=== PATIENT | female | born 1985 | race Caucasian/White ===

== ENCOUNTER 2023-01-02 15:41 | Outpatient (OUT) | payer BC, SELFPAY ==
[2023-01-02 16:03] LABS: Basophils Absolute Auto 0.1 10^3/uL (0.0-0.1); Basophils Percent Auto 1.1 % (0.2-2.0); Eosinophils Absolute Auto 0.4 10^3/uL (0.0-0.7); Eosinophils Percent Auto 3.7 % (0.9-7.0); Hemoglobin 13.1 g/dL (12.0-16.0); Immature Granulocytes Abs Auto 0.07 10^3/uL (0.00-0.03); Immature Granulocytes Pct Auto 0.7 % (0.0-0.5); Lymphocytes Percent Auto 29.1 % (20.5-60.0); Mean Corpuscular HGB Conc 32.8 g/dL (29.9-35.2); Mean Corpuscular Hemoglobin 29.5 pg (26.7-34.0); Mean Corpuscular Volume 90.1 fL (81.0-99.0); Mean Platelet Volume 10.8 fL (9.5-13.5); Monocytes Absolute Auto 0.8 10^3/uL (0.3-0.8); Monocytes Percent Auto 7.9 % (1.7-12.0); Neutrophils Percent Auto 57.5 % (43.0-75.0); Platelet Count 211 10^3/uL (150-450); Red Blood Count 4.44 10^6/uL (4.20-5.40); Red Cell Distribution Width 13.6 % (11.0-15.0); White Blood Count 10.5 10^3/uL (4.0-11.0)
[2023-01-02 16:54] LABS: Free T4 1.11 ng/dL (0.76-1.46)
== END 2023-01-02 15:42 ==
LOC: LAB 15:41
DX: N93.9 Abnormal uterine and vaginal bleeding, unspecified (principal)
CPT/HCPCS: 36415; 84439; 84443; 85025

== ENCOUNTER 2023-01-06 17:03 | Outpatient (OUT) | payer BC, SELFPAY ==
--- NOTE | 2023-01-06 17:05 | US_ITS ---
[address] [address] Patient Name: JUANIS ALVAREZ MRN: [id number] date: 1985 Sex: F Assigned Patient Location: Current Patient Location: US Accession/Order Number: [id number] Exam Date: 01/06/2023 17:08 Report Date: 01/07/2023 06:20 At the request of: NON-STAFF PHYSICIAN Procedure: US pelvis w/ transvaginal EXAMINATION: US pelvis w/ transvaginal HISTORY: PELVIC PAIN R10.2, HX OF OVARIAN CYST Z87.42 COMPARISON: No relevant comparison available. TECHNIQUE: Transabdominal and/or transvaginal sonographic examination was performed as indicated by examination type. FINDINGS: UTERUS: Normal size and appearance. Uterus size: 2.0 x 3.6 x 4.5 cm ENDOMETRIUM: Normal homogeneous appearance. Endometrial thickness: 6 mm RIGHT OVARY: Normal size and appearance. Duplex Doppler demonstrates normal waveform and flow; resistive index 0.5. Ovary size: 2.1 x 2.8 x 2.2 cm LEFT OVARY: Normal size and appearance. Duplex Doppler demonstrates normal waveform and flow; resistive index 0.4. Ovary size: 3.3 x 2.2 x 2.2 cm CUL-DE-SAC: Unremarkable. No significant free fluid. BLADDER: Unremarkable. OTHER: None. IMPRESSION: 1. Normal pelvic ultrasound. No abnormal or suspicious findings to account for patient's symptoms. Electronically authenticated by: CINTHYA DENNIS Date: 01/07/2023 06:20
== END 2023-01-06 17:04 ==
LOC: US 17:03
DX: R10.2 Pelvic and perineal pain (principal); Z87.42 Personal history of other diseases of the female genital tract; N93.9 Abnormal uterine and vaginal bleeding, unspecified
CPT/HCPCS: 76830; 76856

== ENCOUNTER 2023-03-16 22:45 | Emergency (ER) | payer BC, SELFPAY ==
--- NOTE | 2023-03-16 00:12 | CT_ITS ---
The [address] [address] Patient Name: JUANIS ALVAREZ MRN: [id number] date: 1985 Sex: F Assigned Patient Location: ER Current Patient Location: ER Accession/Order Number: [id number] Exam Date: 03/16/2023 00:12 Report Date: 03/17/2023 00:41 At the request of: JIMYM STEWART Procedure: CT head/brain wo con HEAD CT WITHOUT CONTRAST: 03/16/2023 12:12 AM EDT Clinical Data: right neck pain r/o mastoiditis Comparison: 02/23/2022 Unenhanced axial data from base to vertex. INTRA-AXIAL: No acute hemorrhage. No acute infarction is evident. Again, there is mild right cerebellar tonsillar ectopia. EXTRA-AXIAL: No acute hemorrhage. No focal fluid collection. BRAIN VOLUME: Unremarkable for age. VENTRICLES: No hydrocephalus PARANASAL SINUSES: No air-fluid levels in the included aspects. MASTOIDS: Clear. Grossly, the middle ear cavities appear unremarkable as examined at fairly thick sections. The right jugular bulb is dominant and high riding. Its osseous margins could be dehiscent CALVARIUM: No acute finding. EXTRACALVARIAL: No acute finding. No soft tissue prominence overlying the included right mastoid region. The right external auditory canal is widely patent. CT/CT head/brain wo con IMPRESSION: 1. No distinct evidence of acute intracranial process on this unenhanced study as described. 2. See report for other details All CT scans at this facility use dose modulation, iterative reconstruction, and/or weight based dosing when appropriate to reduce radiation dose to as low as reasonably achievable. Electronically authenticated by: KUMAR WEAVER Date: 03/17/2023 00:41
[2023-03-16 23:00] VITALS: BP 160/98; PULSE 108; RESP 18; TEMP 36.9; O2SAT 100; BMI 48.6
--- NOTE | 2023-03-16 23:30 | ED.EAR1 ---
HPI - Ear Problem General Chief complaint: Ear Stated complaint: Pain behind right ear Time Seen by Provider: 03/16/23 23:27 Source: patient Mode of arrival: walk-in Limitations: no limitations History of Present Illness HPI Narrative: patient presents complaining behind her right ear for a couple of weeks. Increasing pain over the past 3 days. No fever or dizziness. No associated headache or nausea. MD Complaint: Reports ear pain Related Data Allergies Allergy/AdvReac Type Severity Reaction Status Date / Time codeine Allergy Severe Verified 03/16/23 23:16 Review of Systems ROS Status of ROS 10 or more systems reviewed and unremarkable except as noted in history and below PFS PFS Social History Smoking status: Never smoker Exam Constitutional Vital Signs, click to edit/add: Last Vital Signs Temp 98.4 F 03/16/23 23:00 Pulse 108 H 03/16/23 23:00 Resp 18 03/16/23 23:00 BP 160/98 H 03/16/23 23:00 Pulse Ox 100 03/16/23 23:00 O2 Del Method Room Air 03/16/23 23:00 HENMT Common normals: normocephalic and head/scalp atraumatic Other: tender right mastoid and posterior cervical chain Eye Common normals: PERRL, EOMs intact bilaterally and conjunctivae normal Respiratory Common normals: normal respiratory effort, no retractions, no use of accessory muscles and clear to auscultation bilaterally Cardio Common normals: regular rate, regular rhythm, S1 normal heart sound and S2 normal heart sound Extremity Common normals: normal to inspection and full ROM Neuro Common normals: oriented x3, CN's II-XII intact bilaterally, moves all extremities, no focal motor deficits and no sensory deficits noted Psych Appearance: grossly normal Course Vital Signs Vital signs: Vital Signs Temperature 98.4 F 03/16/23 23:00 Pulse Rate 108 H 03/16/23 23:00 Respiratory Rate 18 03/16/23 23:00 Blood Pressure 160/98 H 03/16/23 23:00 Pulse Oximetry 100 03/16/23 23:00 Oxygen Delivery Method Room Air 03/16/23 23:00 Temperature 98.4 F 03/16/23 23:00 Pulse Rate 108 H 03/16/23 23:00 Respiratory Rate 18 03/16/23 23:00 Blood Pressure 160/98 H 03/16/23 23:00 Pulse Oximetry 100 03/16/23 23:00 Oxygen Delivery Method Room Air 03/16/23 23:00 Medical Decision Making MDM Narrative Medical decision making narrative: patient presents complaining of pain behind her right ear. she has tenderness at the right mastoid and posterior cervical chain. No palpable nodes. WBC elevated . no clinical evidence of infection and she is afebrile. CT maitoid and soft tissue neck unremarkable as well. Patient advised of the lack of any findings so far to explain her symptoms. Will trial prednisone anti inflammatory to see if this helps. Motrin would help but only for a short while. Discharged home to follow up with her doctor in a couple of days for recheck Discharge Plan Discharge Chief Complaint: Ear Clinical Impression: Posterior auricular pain of right ear Patient Disposition: Home, Self-Care Instructions: Earache (ED) Additional Instructions: follow up with your doctor in a couple of days for recheck Stand Alone Forms: Portal Instructions Referrals: Physician,Non-Staff, MD [Primary Care Provider] - 1 week
--- NOTE | 2023-03-16 23:32 | CT_ITS ---
The [address] [address] Patient Name: JUANIS ALVAREZ MRN: [id number] date: 1985 Sex: F Assigned Patient Location: ER Current Patient Location: ER Accession/Order Number: [id number] Exam Date: 03/16/2023 00:12 Report Date: 03/17/2023 00:47 At the request of: JIMMY STEWART Procedure: CT soft tissue neck wo con CT NECK WITHOUT CONTRAST. 03/16/2023 12:12 AM EDT Clinical History:right neck pain Comparison: Unenhanced study 12/16/2022 . Unenhanced helically acquired data per standard protocol. The lack of IV contrast material hampers evaluation of the vasculature, for enhancing fluid collections, and for adenopathy. MUCOSAL SPACES: Evaluation of the oral cavity and surrounding spaces is mildly limited by artifact from dental hardware. Mucosal spaces are grossly unremarkable in appearance PARAPHARYNGEAL FAT: Unremarkable PREEPIGLOTTIC FAT: Unremarkable PARALARYNGEAL FAT: Symmetric SUBMENTAL REGION: No adenopathy SUBMANDIBULAR REGIONS: No adenopathy CERVICAL LYMPH NODES: No distinct evidence of adenopathy. Nonenlarged nodes bilaterally, greatest in the suprahyoid IJV regions. No significant change. THYROID: Perhaps a little less than average in size TRACHEOESOPHAGEAL GROOVES: No acute finding PAROTID GLANDS: No acute finding SUBMANDIBULAR GLANDS: No acute findings SUBLINGUAL SPACES: No acute findings OTHER SOFT TISSUES: No soft tissue prominence overlying the right mastoid region or along the course of the right sternocleidomastoid muscle. No retropharyngeal soft tissue mass or fluid collection VASCULATURE: Right IJV is again dominant over the left OSSEOUS STRUCTURES: No acute finding LUNG APICES: No acute finding CT/CT soft tissue neck wo con IMPRESSION: 1. No distinct evidence of acute process on this unenhanced exam. All CT scans at this facility use dose modulation, iterative reconstruction, and/or weight based dosing when appropriate to reduce radiation dose to as low as reasonably achievable. Electronically authenticated by: KUMAR WEAVER Date: 03/17/2023 00:47
[2023-03-16 23:52] LABS: Basophils Absolute Auto 0.1 10^3/uL (0.0-0.1); Basophils Percent Auto 0.8 % (0.2-2.0); Eosinophils Absolute Auto 0.4 10^3/uL (0.0-0.7); Eosinophils Percent Auto 2.5 % (0.9-7.0); Hemoglobin 14.2 g/dL (12.0-16.0); Immature Granulocytes Abs Auto 0.24 10^3/uL (0.00-0.03); Immature Granulocytes Pct Auto 1.4 % (0.0-0.5); Lymphocytes Absolute Auto 4.5 10^3/uL (1.2-3.8); Mean Corpuscular Volume 87.8 fL (81.0-99.0); Mean Platelet Volume 9.5 fL (9.5-13.5); Monocytes Absolute Auto 1.6 10^3/uL (0.3-0.8); Monocytes Percent Auto 9.5 % (1.7-12.0); Neutrophils Absolute Auto 9.7 10^3/uL (1.4-6.5); Neutrophils Percent Auto 58.8 % (43.0-75.0); Platelet Count 340 10^3/uL (150-450); Red Cell Distribution Width 12.8 % (11.0-15.0); White Blood Count 16.6 10^3/uL (4.0-11.0)
[2023-03-17 00:16] LABS: Alanine Aminotransferase 18 U/L (14-59); Albumin Globulin Ratio 0.9; Albumin Level 3.7 g/dL (3.4-5.0); Alkaline Phosphatase 87 U/L (46-116); Anion Gap 11.3; Aspartate Amino Transferase 12 U/L (15-37); BUN Creatinine Ratio 14.6; Bilirubin Total 0.2 mg/dL (0.2-1.0); Calcium 9.2 mg/dL (8.5-10.1); Carbon Dioxide 27.5 mmol/L (21.0-32.0); Chloride 102 mmol/L (98-107); Estimated GFR (African America >60 (>=60); Estimated GFR (Non-African Ame >60 (>=60); Globulin 4.3 g/dL; Glucose 105 mg/dL (74-106); Potassium 3.8 mmol/L (3.5-5.1); Sodium 137 mmol/L (136-145)
[2023-03-17] MEDS: METHYLPREDNISOLONE SOD SUCC PF 125 MG/2 ML VIAL IM (01:19)
== END 2023-03-17 01:25 | disposition home or self-care (01) ==
PROVIDERS: Emergency Provider Internal Medicine
DX: H92.01 Otalgia, right ear (principal)
CPT/HCPCS: 36415; 70450; 70490; 80048; 80053; 85025; 96374; 99284; J2930

== ENCOUNTER 2023-07-07 11:26 | Emergency (ER) | payer BC, SELFPAY ==
[2023-07-07 11:29] VITALS: BP 138/104; PULSE 114; RESP 20; TEMP 36.7; O2SAT 99; BMI 48.1
--- NOTE | 2023-07-07 11:39 | US_ITS ---
The [place] [id number] Patient Name: JUANIS ALVAREZ MRN: [id number] date: 1985 Sex: F Assigned Patient Location: ER Current Patient Location: ED.MAIN Accession/Order Number: [id number] Exam Date: 07/07/2023 12:00 Report Date: 07/07/2023 12:33 At the request of: RADHA ESTRADA Procedure: US right upper quadrant US right upper quadrant, 07/07/2023 12:00 PM EST INDICATION:Epigastric pain. COMPARISON: CT of the abdomen and pelvis 04/28/2022 TECHNIQUE: Multi-planar real-time ultrasonography of the upper abdomen (right upper quadrant) using grayscale imaging, supplemented by color, power, and spectral Doppler as needed. FINDINGS: The visualized pancreas is unremarkable. The liver is 16 cmwith coarse increased echotexture. No intrahepatic ductal dilatation. Common bile duct 2.7mm Normal gallbladder. No gallbladder wall thickening or pericholecystic fluid. Negative sonographic Wolf's sign. The main portal vein is antegrade Right kidney: 10.8 x 4.5 x 4.8 cm. No hydronephrosis. Normal color Doppler to the right kidney. No ascites. US/US right upper quadrant IMPRESSION: Hepatomegaly with diffuse hepatic steatosis. Electronically authenticated by: MARIN GRIFFIN Date: 07/07/2023 12:33
--- NOTE | 2023-07-07 11:40 | ED_ITS ---
HPI - Abdominal Pain General Chief Complaint: Abdominal Pain Stated Complaint: ABDOMINAL PAIN Time Seen by Provider: 07/07/23 11:35 Source: patient Mode of arrival: walk-in Limitations: no limitations History of Present Illness HPI narrative: 38-year-old female presents for epigastric pain. She states she went to bed last night full and when she woke up she was still full and has pain in the epigastric area. No trauma or fever or vomiting. No constipation or diarrhea. She is worried she has a blockage. The pain is moderate and continuous. She feels better standing up. Related Data Previous Rx's Medication Instructions Recorded dicyclomine 10 mg capsule 10 mg PO QID PRN abdominal pain 07/07/23 #20 caps ondansetron 4 mg disintegrating 4 mg PO Q6H PRN nausea and 07/07/23 tablet vomiting #20 tabs Allergies Allergy/AdvReac Type Severity Reaction Status Date / Time codeine Allergy Severe Verified 03/16/23 23:16 Review of Systems ROS Narrative A ten point review of systems is negative except as noted above. PFSH PFSH Social History Smoking status: Never smoker Exam Narrative Exam Narrative: Nurses note and vital signs reviewed and patient is not hypoxic. General: The patient appears uncomfortable. She standing when I walk into the room. Skin: Warm, dry, no pallor noted. There is no rash noted. Head: Normocephalic, atraumatic Eye: Normal conjunctiva, no drainage Ears, Nose, Mouth, and Throat: oral mucosa is moist. Nares patent. Cardiovascular: Regular Rate and Rhythm Respiratory: Patient is in no distress, no accessory muscle use, lungs are clear to auscultation, no wheezing, rales or rhonchi Back: non-tender GI: tender in the epigastric area without mass or distention Musculoskeletal: The patient has no evidence of calf tenderness, no pitting edema, symmetrical pulses noted bilaterally Neurological: A&O, normal speech Psychiatric: Cooperative Constitutional Vital Signs, click to edit/add: Last Vital Signs Temp 98.1 F 07/07/23 11:29 Pulse 114 H 07/07/23 11:29 Resp 20 07/07/23 11:29 BP 138/104 H 07/07/23 11:29 Pulse Ox 99 07/07/23 11:29 O2 Del Method Room Air 07/07/23 11:29 Course Vital Signs Vital signs: Vital Signs Temperature 98.1 F 07/07/23 11:29 Pulse Rate 114 H 07/07/23 11:29 Respiratory Rate 20 07/07/23 11:29 Blood Pressure 138/104 H 07/07/23 11:29 Pulse Oximetry 99 07/07/23 11:29 Oxygen Delivery Method Room Air 07/07/23 11:29 Temperature 98.1 F 07/07/23 11:29 Pulse Rate 114 H 07/07/23 11:29 Respiratory Rate 20 07/07/23 11:29 Blood Pressure 138/104 H 07/07/23 11:29 Pulse Oximetry 99 07/07/23 11:29 Oxygen Delivery Method Room Air 07/07/23 11:29 MDM - Abdominal Pain MDM Narrative Medical decision making narrative: her workup here is negative including laboratory analysis and gallbladder ult rasound and CAT scan. No specific cause was found for her symptoms and she'll be treated symptomatically and is being discharged home. Treatment diagnosis and follow-up were discussed with the patient. Differential Diagnosis Differential diagnosis: Likely abdominal pain, constipation, diverticulitis, gastroenteritis, pancreatitis, small bowel obstruction and other (colitis, duodenitis, gastritis) Lab Data Attestation: I reviewed the patient's lab results. Labs: Lab Results 07/07/23 Range/Units 11:55 WBC 9.9 (4.0-11.0) 10^3/uL RBC 4.55 (4.20-5.40) 10^6/uL Hgb 13.5 (12.0-16.0) g/dL Hct 41.0 (36.0-48.0) % MCV 90.1 (81.0-99.0) fL MCH 29.7 (26.7-34.0) pg MCHC 32.9 (29.9-35.2) g/dL RDW 13.4 (11.0-15.0) % Plt Count 335 (150-450) 10^3/uL MPV 10.0 (9.5-13.5) fL Neut % (Auto) 65.0 (43.0-75.0) % Lymph % (Auto) 24.8 (20.5-60.0) % Howard % (Auto) 6.7 (1.7-12.0) % Eos % (Auto) 2.1 (0.9-7.0) % Baso % (Auto) 1.1 (0.2-2.0) % Neut # (Auto) 6.5 (1.4-6.5) 10^3/uL Lymph # (Auto) 2.5 (1.2-3.8) 10^3/uL Howard # (Auto) 0.7 (0.3-0.8) 10^3/uL Eos # (Auto) 0.2 (0.0-0.7) 10^3/uL Baso # (Auto) 0.1 (0.0-0.1) 10^3/uL Abs Immat Gran (auto) 0.03 (0.00-0.03) 10^3/uL Imm/Tot Granulo (auto) 0.3 (0.0-0.5) % Sodium 139 (136-145) mmol/L Potassium 3.7 (3.5-5.1) mmol/L Chloride 101 (98-107) mmol/L Carbon Dioxide 26.5 (21.0-32.0) mmol/L Anion Gap 15.2 BUN 10.0 (7.0-18.0) mg/dL Creatinine 0.87 (0.55-1.02) mg/dL Est GFR ( Amer) >60 (>=60) Est GFR (Non-Af Amer) >60 (>=60) BUN/Creatinine Ratio 11.5 Glucose 92 (74-106) mg/dL Calcium 9.1 (8.5-10.1) mg/dL Total Bilirubin 0.4 (0.2-1.0) mg/dL Direct Bilirubin 0.1 (0.0-0.2) mg/dL AST 17 (15-37) U/L ALT 39 (14-59) U/L Alkaline Phosphatase 96 (46-116) U/L Total Protein 7.8 (6.4-8.2) g/dL Albumin 3.9 (3.4-5.0) g/dL Globulin 3.9 g/dL Albumin/Globulin Ratio 1.0 Amylase 55 (25-115) U/L Lipase 26.0 (16.0-77.0) U/L Serum HCG, Qual Negative (NEGATIVE) Imaging Data CT abdomen, gallbladder ultrasound: Radiologist's impression: Procedure: US right upper quadrant US right upper quadrant, 07/07/2023 12:00 PM EST INDICATION:Epigastric pain. COMPARISON: CT of the abdomen and pelvis 04/28/2022 TECHNIQUE: Multi-planar real-time ultrasonography of the upper abdomen (right upper quadrant) using grayscale imaging, supplemented by color, power, and spectral Doppler as needed. FINDINGS: The visualized pancreas is unremarkable. The liver is 16 cmwith coarse increased echotexture. No intrahepatic ductal dilatation. Common bile duct 2.7mm Normal gallbladder. No gallbladder wall thickening or pericholecystic fluid. Negative sonographic Wolf's sign. The main portal vein is antegrade Right kidney: 10.8 x 4.5 x 4.8 cm. No hydronephrosis. Normal color Doppler to the right kidney. No ascites. IMPRESSION: Hepatomegaly with diffuse hepatic steatosis. Electronically authenticated by: MARIN GRIFFIN Date: 07/07/2023 12:33 Procedure: CT abdomen pelvis w con CT abdomen pelvis w con, 07/07/2023 12:55 PM EST INDICATION: Upper abd pain COMPARISON: CT the abdomen and pelvis 04/28/2022, right upper quadrant ultrasound 07/07/2023 TECHNIQUE: Axial images of the abdomen and pelvis were obtained after the administration of IV contrast. Multiplanar reformatted images were generated and reviewed as needed. Dose reduction techniques were achieved by using automated exposure control and/or adjustment of mA and/or kV according to patient size and/or use of iterative reconstruction technique. FINDINGS: No consolidation or effusion. Diffuse fatty infiltration within a mildly enlarged liver. The gallbladder, pancreas, spleen and adrenals are unremarkable. Symmetric nephrograms without evidence of obstruction. Nonobstructing calculus lower pole the left kidney. Subcentimeter cortical densities within the right kidney, too small to characterize. No ureteral or urinary bladder calculi. Arcuate morphology of the uterus. Multiple ovarian follicles with 2.3 cm dominant follicle within the left ovary. No aortic aneurysm. Small sliding hiatal hernia. No bowel obstruction or acute focal inflammation. Normal appendix. No pneumatosis, pneumoperitoneum or ascites no mesenteric or retroperitoneal lymphadenopathy. No acute fracture. IMPRESSION: 1. Dominant follicle within the left ovary. No other acute findings. 2. Hepatomegaly with diffuse hepatic steatosis. 3. Nonobstructing left nephrolithiasis. Electronically authenticated by: MARIN GRIFFIN Date: 07/07/2023 13:24 Discharge Plan Discharge Chief Complaint: Abdominal Pain Clinical Impression: Abdominal pain Patient Disposition: Home, Self-Care Time of Disposition Decision: 13:37 Condition: Good Mode of Transportation: Private Vehicle Prescriptions / Home Meds: New dicyclomine 10 mg capsule 10 mg PO QID PRN (Reason: abdominal pain) Qty: 20 0RF ondansetron 4 mg tablet,disintegrating 4 mg PO Q6H PRN (Reason: nausea and vomiting) Qty: 20 0RF Instructions: Abdominal Pain (ED) Stand Alone Forms: Portal Instructions Referrals: Physician,Non-Staff, MD [Primary Care Provider] - 1 week
[2023-07-07 12:08] LABS: Basophils Absolute Auto 0.1 10^3/uL (0.0-0.1); Basophils Percent Auto 1.1 % (0.2-2.0); Eosinophils Absolute Auto 0.2 10^3/uL (0.0-0.7); Eosinophils Percent Auto 2.1 % (0.9-7.0); Hemoglobin 13.5 g/dL (12.0-16.0); Immature Granulocytes Abs Auto 0.03 10^3/uL (0.00-0.03); Immature Granulocytes Pct Auto 0.3 % (0.0-0.5); Lymphocytes Absolute Auto 2.5 10^3/uL (1.2-3.8); Lymphocytes Percent Auto 24.8 % (20.5-60.0); Mean Corpuscular HGB Conc 32.9 g/dL (29.9-35.2); Mean Corpuscular Hemoglobin 29.7 pg (26.7-34.0); Mean Corpuscular Volume 90.1 fL (81.0-99.0); Monocytes Absolute Auto 0.7 10^3/uL (0.3-0.8); Monocytes Percent Auto 6.7 % (1.7-12.0); Neutrophils Absolute Auto 6.5 10^3/uL (1.4-6.5); Platelet Count 335 10^3/uL (150-450); Red Blood Count 4.55 10^6/uL (4.20-5.40); Red Cell Distribution Width 13.4 % (11.0-15.0); White Blood Count 9.9 10^3/uL (4.0-11.0)
[2023-07-07 12:19] LABS: HCG Qualitative NEGATIVE (NEGATIVE)
[2023-07-07 12:26] LABS: Alanine Aminotransferase 39 U/L (14-59); Albumin Level 3.9 g/dL (3.4-5.0); Alkaline Phosphatase 96 U/L (46-116); Amylase 55 U/L (25-115); Anion Gap 15.2; Aspartate Amino Transferase 17 U/L (15-37); BUN Creatinine Ratio 11.5; Bilirubin Direct 0.1 mg/dL (0.0-0.2); Bilirubin Total 0.4 mg/dL (0.2-1.0); Calcium 9.1 mg/dL (8.5-10.1); Carbon Dioxide 26.5 mmol/L (21.0-32.0); Chloride 101 mmol/L (98-107); Estimated GFR (African America >60 (>=60); Estimated GFR (Non-African Ame >60 (>=60); Globulin 3.9 g/dL; Glucose 92 mg/dL (74-106); Potassium 3.7 mmol/L (3.5-5.1); Sodium 139 mmol/L (136-145); Total Protein 7.8 g/dL (6.4-8.2)
--- NOTE | 2023-07-07 13:04 | CT_ITS ---
[address] [address] Patient Name: JUANIS ALVAREZ MRN: [id number] date: 1985 Sex: F Assigned Patient Location: ER Current Patient Location: ER Accession/Order Number: [id number] Exam Date: 07/07/2023 12:55 Report Date: 07/07/2023 13:24 At the request of: RADHA ESTRADA Procedure: CT abdomen pelvis w con CT abdomen pelvis w con, 07/07/2023 12:55 PM EST INDICATION: Upper abd pain COMPARISON: CT the abdomen and pelvis 04/28/2022, right upper quadrant ultrasound 07/07/2023 TECHNIQUE: Axial images of the abdomen and pelvis were obtained after the administration of IV contrast. Multiplanar reformatted images were generated and reviewed as needed. Dose reduction techniques were achieved by using automated exposure control and/or adjustment of mA and/or kV according to patient size and/or use of iterative reconstruction technique. FINDINGS: No consolidation or effusion. Diffuse fatty infiltration within a mildly enlarged liver. The gallbladder, pancreas, spleen and adrenals are unremarkable. Symmetric nephrograms without evidence of obstruction. Nonobstructing calculus lower pole the left kidney. Subcentimeter cortical densities within the right kidney, too small to characterize. No ureteral or urinary bladder calculi. Arcuate morphology of the uterus. Multiple ovarian follicles with 2.3 cm dominant follicle within the left ovary. No aortic aneurysm. Small sliding hiatal hernia. No bowel obstruction or acute focal inflammation. Normal appendix. No pneumatosis, pneumoperitoneum or ascites no mesenteric or retroperitoneal lymphadenopathy. No acute fracture. CT/CT abdomen pelvis w con IMPRESSION: 1. Dominant follicle within the left ovary. No other acute findings. 2. Hepatomegaly with diffuse hepatic steatosis. 3. Nonobstructing left nephrolithiasis. Electronically authenticated by: MARIN GRIFFIN Date: 07/07/2023 13:24
== END 2023-07-07 13:57 | disposition home or self-care (01) ==
PROVIDERS: Emergency Provider Emergency Medicine
DX: R10.13 Epigastric pain (principal)
CPT/HCPCS: 36415; 74177; 76705; 80048; 80076; 82150; 83690; 84703; 85025; 99285; Q9967

== ENCOUNTER 2025-05-10 15:50 | Outpatient (OUT) | payer BC, SELFPAY ==
--- NOTE | 2025-05-10 15:46 | ECG_ITS ---
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 Measurements Intervals [place] Rate: 92 P: 74 AR: 146 QRS: 75 QRSD: 93 T: 66 QT: 381 QTc: 474 Interpretive Statements SINUS RHYTHM Normal ECG Compared to ECG 04/28/2022 16:56:04 Sinus tachycardia no longer present ST (T wave) deviation no longer present Possible ischemia no longer present Electronically Signed On 05-10-2025 17:33:34 EDT by MAYA PLUMMER M.D.
--- OUTSIDE RECORDS SUMMARY | 2025-05-10 15:57 | XMS_ITS | CCD ---
Author Organization [facility] Care Team Providers Care Comic Book Artist Name Role Phone IDANIA RAE Referring Unavailable DECEMBER, SEAN Prince Primary Care Unavailable MYRNA TINOCO Admitting Unavailable MYRNA TINOCO Attending Unavailable DECEMBER, SEAN Prince Primary Care Unavailable DECEMBER, SEAN N Primary Care Unavailable MARIN DUNN Attending Unavailable DECEMBER, SEAN Prince Primary Care Unavailable KEVIN YBARRA Attending Unavailable IDANIA RAE Referring Unavailable DECEMBER, SEAN N Primary Care Unavailable Katrin Bailey Unavailable May, Sean Niki Primary Care Provider Akanksha Ma Attending Provider Eva Alexandra Unavailable Ivelisse Mittal Unavailable Amna Valerio Unavailable TAMIA .CORRIE Admitting Unavailable MISC, DR GAVIRIA Primary Care Unavailable TAMIA .CORRIE Attending Unavailable CORRIE DREW Consulting Unavailable ROLA, DR ARIS Culver Attending Unavailabl jhon MEADOWS .REGINALDO Consulting UnavailDR ARIS Winston Admitting Unavailabl e MISC, DR GAVIRIA Primary Care Unavailable SANTY HUBBARD Consulting Unavailable YASARAHI .LENNY Consulting Unavailable PAY ., DR LEE Admitting Unavailable MISC, DR GAVIRIA Primary Care Unavailable PAY ., DR LEE Attending Unavailable DONYA ARCHER Consulting Unavailable JIMMY STEWART Admitting Unavailable JIMMY STEWART Attending Unavailable JIMMY STEWART Consulting Unavailable CARLOS MANUEL IMTTAL Primary Care Unavailable SHAHID MACKENZIE Consulting Unavailable Aileen Kumar MD Primary Care Provider Seble Mittal NP, Carlos Manuel [place] Unavailable Aileen Kumar MD Primary Care Provider Aileen Kumar MD Primary Care Provider Jamal CALLISTHENICS INSTRUCTOR, [facility] Unavailable Jamal LEGAL FINANCIAL SPECIALIST-CALLISTHENICS INSTRUCTOR, [facility] er Reji Cunha Admitting Unavaila ble Sarmini, Reji Burdick Attending Unavaila ble Sarmini, Reji Burdick Referring Unavaila ble Joie Peacock Admitting Unavailable Joie Peacock Attending Unavailable Ericminstormy, Reji Gutierrezal Attending Unavaila ble Aileen Kumar MD Primary Care Provider Reji Cunha Attending Unavaila ble Sarmini, Reji Gutierrezal Attending Unavaila ble Sarmini, Reji Gutierrezal Referring Unavaila ble Sarmini, Reji Gutierrezal Admitting Unavaila ble Sarmini, Reji Gutierrezal Attending Unavaila ble Sarmini, Reji Burdick Referring Unavaila ble Sarmini, Reji Gutierrezal Admitting Unavaila ble CARLOS MANUEL MITTAL Admitting Unavailable CARLOS MANUEL MITTAL Attending Unavailable CARLOS MANUEL MITTAL Admitting Unavailable CARLOS MANUEL MITTAL Attending Unavailable CARLOS MANUEL MITTAL Referring Unavailable Joie Peacock Admitting Unavailable Joie Peacock Attending Unavailable Ericminstormy, Reji Gutierrezal Attending Unavaila ble Sarmini, Reji Burdick Attending Unavaila ble Sarmini, Reji Burdick Attending Unavaila ble Donnamiller LEGAL FINANCIAL SPECIALIST-CALLISTHENICS INSTRUCTOR, [facility] er Joie Peacock MD Primary Care Provider [phone] Jennifer Tariq APRN Attending Provider Jennifer Tariq Attending Unavailable Jennifer Tariq Admitting Unavailable NO FAMILY, PHYSICIAN Primary Care Unavailable [facility] Referring Unavailable [facility] Primary Care [facility]available [facility] Primary Care Unavailable LINA YEH Referring Unavailable DONNAMILLER, LANNY Primary Care Unavailable LINA IYER Attending Unavailable LINA IYER Referring Unavailable DONNAMILLER, LANNY Primary Care Unavailable NO FAMILY, PHYSICIAN Primary Care Provider Roxi benitez Jaymie HANS Brittany Bren Attending Provider CARLOS MANUEL MITTAL Attending Unavailable JOIE PEACOCK Attending Unavailable DONNAMILLERLANNY Attending Unavailab le DONNAMILLER, LANNY Mabry Attending Unavailab le DONNAMILLER, LANNY Mabry Attending Unavailab le BROWNJOSE Attending Unavailable JENNY CUELLAR Attending Unavailable ARCHER, LENNY Avila Referring Unavailable MITTAL, CARLOS MANUEL Carl[place] Attending Unavailable ARCHER, LENNY Avila Attending Unavailable ARCHER, LENNY T Referring Unavailable PEACOCKJOIE Attending Unavailable MITTAL, CARLOS MANUEL [place] Attending Unavailable BROWN, JOSE Mabry Attending Unavailable BROWNJOSE Referring Unavailable ROSIBELAILEEN GUZMAN Attending Unavailable ARCHER, LENNY T Referring Unavailable MITTAL, CARLOS MANUEL [place] Attending Unavailable ARCHER, LENNY Avila Attending Unavailable ARCHER, LENNY T Referring Unavailable ARCHER, LENNY T Referring Unavailable STORYJESSICA Attending Unavailable CARLOS MANUEL MITTAL Referring Unavailable KELBLEYVANDANA Attending Unavailable MITTAL, CARLOS MANUEL [place] Referring Unavailable KELBLEYVANDANA Attending Unavailable MITTAL, CARLOS MANUEL [place] Referring Unavailable STORYJESSICA Attending Unavailable MITTAL, CARLOS MANUEL [place] Referring Unavailable MITTAL, CARLOS MANUEL [place] Attending Unavailable DONNAMILLER, LANNY Mabry Attending Unavailab le MITTAL, CARLOS MANUEL [place] Attending Unavailable Allergies Allergy Classification Reported Allergen(s) Allergy Type Date of Onset Reaction(s) Facility diphenhydrAMINE (1 source) diphenhydrAMINE Drug Allergy 09-11-19 18 Unknown Reaction [facility] Opioid Agonists (1 source) Codeine Drug Allergy 09-11-19 18 Unknown Reaction [facility] (20 sources) Codeine; Translations: [codeine] Drug Allergy 07-24-20 17 anaphylaxis, Vomiting [facility] Work Phone: (4 sources) Acetaminophen / HYDROcodone; Translations: [Vicodin] Drug Allergy 05-12-19 [facility] (1 source) Codeine Drug Allergy 05-12-19 [facility] (20 sources) Acetaminophen / HYDROcodone; Translations: [HYDROCODONE-ACETA MINOPHEN] Drug Allergy 07-24-20 17 Nausea And Vomiting, GI intolerance, Vomiting [facility] (20 sources) Chlorhexidine; Translations: [CHLORHEXIDINE] Drug Allergy 07-31-20 23 blisters [facility] (20 sources) HYDROcodone; Translations: [HYDROCODONE] Drug Allergy 05-08-20 22 Other (See Comments) [facility] (6 sources) Hydrocodone-Guaife nesin Drug Allergy 11-06-19 21 Shortness of breath [facility] (7 sources) diphenhydrAMINE; Translations: [diphenhydramine] Drug Allergy 11-08-19 24 Unknown Reaction, Anxiety [facility] (3 sources) Chlorhexidine; Translations: [chlorhexidine topical] Drug Allergy [facility] (3 sources) Allergy Relief (Diphenhydramine HCl); Translations: [Allergy Relief (Diphenhydramine HCl)] Propensity to adverse reactions (disorder) [facility] (1 source) Codeine Drug Allergy 02-24-20 25 [facility] Medications Current Medications Medication Drug Class(es) Dates Sig (Normalized) Sig (Original) [id number] 200 actuat albuterol 0.09 mg/actuat metered dose inhaler (20 sources) beta2-Adrenergic Agonist Start: 12-15-2024 take 2 puff(s) by inhalation every four hours albuterol HFA 90 mcg/act inhaler Indications: Acute bronchospasm Inhale 2 puffs every 4 (four) hours if needed (Cough) 18 g 12/15/2024 Active Start: 12-15-2024 take 2 puff(s) by in halation every four hours as needed albuterol (PROVENTIL HFA;VENTOLIN HFA) 90 mcg/actuation inhaler Inhale 2 puffs every 4 (four) hours as needed. 12/15/2024 Active Start: 02-05-2023 take 2 puff(s) by in halation four times daily as needed Albuterol Sulfate HFA 108 (90 Base) MCG/ACT 2 puffs Inhalation 4 times a day prn Jan, Not-Taking Start: 02-05-2023 take 2 puff(s) by in halation four times daily as needed Albuterol Sulfate HFA 108 (90 Base) MCG/ACT 2 puffs Inhalation 4 times a day prn Jan, Not-Taking Start: 04-06-2022 take 2 puff(s) by in halation four times daily as needed Albuterol Sulfate HFA 108 (90 Base) MCG/ACT 2 puffs Inhalation 4 times a day prn Apr, Active ALPRAZolam 0.25 mg oral tablet (2 sources) Benzodiazepine Start: 05-03-2025 take 1 tablet by mouth three times daily as needed for anxiety ALPRAZolam (Xanax) 0.25 MG tablet Indications: Situational anxiety Take 1 tablet (0.25 mg) by mouth 3 (three) times a day as needed for anxiety 15 tablet 05/03/2025 Active amoxicillin 875 mg / clavulanate 125 mg oral tablet (11 sources) Penicillin-class Antibacterial Start: 12-15-2024 End: 12-22-2024 take 1 tablet by mouth in the morning amoxicillin-clavul anate (Augmentin) 875-125 MG tablet Indications: Acute bronchospasm , Throat irritation Take 1 tablet (875 mg) by mouth in the morning and 1 tablet (875 mg) before bedtime. Do all this for 7 days. 14 tablet 12/15/2024 12/22/2024 Active Start: 10-23-2024 End: 11-24-2024 take 1 tablet by mouth every twelve hours Amoxicillin-Pot Clavulanate 875-125 mg tablet Discontinued 1 TAB PO Every 12 hours 14 7 October 23, 2024 12:00am November 24, 2024 3:38pm Start: 07-05-2024 End: 07-21-2024 take 1 tablet by mouth in the morning amoxicillin-clavulanate (Augmentin) 875-125 MG tablet Indications: Sinus pressure , Acute recurrent frontal sinusitis , Non-recurrent acute serous otitis media of right ear Take 1 tablet (875 mg) by mouth in the morning and 1 tablet (875 mg) before bedtime. Do all this for 10 days. 20 tablet 07/05/2024 07/21/2024 Discontinued azithromycin 250 mg oral tablet (1 source) Macrolide Antimicrobial Start: 04-06-2022 Zithromax 250 MG 2 tablet on the first day, then 1 tablet daily for 4 days Orally Once a day for 5 day(s) Apr, Active cetirizine hydrochloride 10 mg oral tablet (20 sources) Histamine-1 Receptor Antagonist Start: 08-16-2023 take 1 tablet by mouth every twelve hours Cetirizine HCl 10 MG 1 tablet Orally Twice a day for 14 days Aug, Active take 1 tablet by mouth once david y ZyrTEC 10 MG 1 tablet Orally Once a day Active cyproheptadine hydrochloride 4 mg oral tablet (20 sources) Start: 01-03-2025 take 1 tablet by mouth at bedtime as needed for headache cyproheptadine (Periactin) 4 MG tablet Indications: Frontal headache , PND (post-nasal drip) TAKE 1 TABLET BY MOUTH AT BEDTIME NEEDED FOR ALLERGIES OR RHINITIS (HEADACHES) 30 tablet 01/03/2025 Active Start: 07-21-2024 End: 11-10-2024 take 1 tablet by mouth at bedtime as needed for headache cyproheptadine (Periactin) 4 MG tablet Indications: Frontal headache , PND (post-nasal drip) TAKE 1 TABLET BY MOUTH AT BEDTIME NEEDED FOR ALLERGIES OR RHINITIS (HEADACHES) 30 tablet 01/03/2025 Active esomeprazole 40 mg delayed release oral capsule (20 sources) Proton Pump Inhibitor Start: 11-08-2023 take 40 mg by mouth once daily Esomeprazole Magnesium Active 40 MG PO Daily November 08, 2023 12:00am Start: 08-17-2023 take 1 capsule by mo uth before mealtime esomeprazole (NexIUM) [address] capsule Take 40 mg by mouth in the morning. Take before meals. 08/17/2023 Active Esomeprazole Magnesium 40 mg capsule,delayed release(DR/EC) (2 sources) Start: 11-08-2023 take 1 capsule by mouth once daily Esomeprazole Magnesium 40 mg capsule,delayed release(DR/EC) Active 40 MG PO Daily November 08, 2023 12:00am fluticasone propionate 0.05 mg/actuat metered dose nasal spray (20 sources) Corticosteroid Start: 08-16-2023 take 1 spray(s) nasal route twice daily fluticasone (Flonase) 50 MCG/ACT nasal spray SPRAY 1 SPRAY INTO EACH NOSTRIL TWICE A DAY FOR 14 DAYS 08/16/2023 Active Start: 04-06-2022 take 2 spray(s) nasa l route once daily Fluticasone Propionate 50 MCG/ACT 2 sprays Nasally Once a day for 14 day(s) Apr, Active 2 ml sodium hyaluronate 10 mg/ml prefilled syringe (6 sources) Start: 07-20-2024 End: 08-31-2024 Sodium Hyaluronate (Viscosup) injection 20 mg ibuprofen 200 mg oral tablet (2 sources) Nonsteroidal Anti-inflammatory Drug take 3 tablets by mouth three times daily at mealtime as needed Ibuprofen 200 MG 3 tablet with food or milk as needed Orally Three times a day Active ofloxacin 3 mg/ml otic solution (2 sources) Quinolone Antimicrobial Start: 08-09-2024 End: 08-16-2024 ofloxacin (Floxin) 0.3 % otic solution Indications: Chronic bacterial otitis externa of right ear Administer 10 drops into affected ear(s) Daily for 7 days 5 mL 08/09/2024 08/16/2024 Active ondansetron 4 mg disintegrating oral tablet (20 sources) Serotonin-3 Receptor Antagonist Start: 01-31-2025 End: 04-11-2025 take 1 tablet by mouth every eight hours as needed for nausea ondansetron ODT (Zofran-ODT) 4 MG disintegrating tablet Indications: Nausea TAKE 1 TABLET BY MOUTH EVERY 8 HOURS NEEDED FOR NAUSEA OR FOR VOMITING FOR UP TO 7 DAYS 18 tablet 1 04/11/2025 Active Start: 07-07-2023 End: 09-14-2023 ondansetron ODT (Zofran-ODT) 4 MG disintegrating tablet DISSOLVE 1 TABLET ON THE TONGUE EVERY 6 HOURS NEEDED FOR NAUSEA/VOMITING 0 07/07/2023 09/14/2023 Discontinued (Therapy completed) pantoprazole 40 mg delayed release oral tablet (15 sources) Proton Pump Inhibitor Start: 03-18-2022 End: 09-14-2023 pantoprazole (PROTONIX) 40 mg EC tablet Take 1 tablet (40 mg total) by mouth. 03/18/2022 Active Protonix Active phentermine hydrochloride 37.5 mg oral capsule (1 source) Sympathomimetic Amine Anorectic take 1 capsule by mouth every twenty-four hours Adipex-P 37.5 MG 1 capsule Orally Once a day Active predniSONE 20 mg oral tablet (20 sources) Start: 025 End: take 2 tablets by mouth once daily predniSONE (Deltasone) 20 MG tablet Indications: Left hip pain Take 2 tablets (40 mg) by mouth Daily for 5 days 10 tablet 02/14/2025 02/19/2025 Active Start: 12-07-2024 End: 01-31-2025 predniSONE (Deltasone) 20 MG tablet Indications: Laryngitis , Nasal congestion , PND (post-nasal drip) 3 tablets for 3 days, then 2 tablets for 3 days, then 1 tablet for 3 days then stop 18 tablet 12/07/2024 01/31/2025 Discontinued (Therapy completed) Start: 2024 End: 05-25-2024 take 2 tablets by mouth once daily predniSONE (Deltasone) 20 MG tablet Indications: Neck pain , Cervicalgia Take 2 tablets (40 mg) by mouth Daily for 5 days 10 tablet 2024 05/25/2024 Active Start: 11-08-2023 End: 10-23-2024 take 1 tablet by mouth twice daily Prednisone 20 mg tablet Discontinued 20 MG PO Twice daily 10 5 November 08, 2023 12:00am October 23, 2024 1:21pm Start: 03-07-2023 take 1 tablet by justin th every twelve hours predniSONE 20 MG 1 tablet Orally bid for 5 day(s) Apr, Active Start: 02-05-2023 take 1 tablet by justin th every twelve hours predniSONE 20 MG 1 tablet Orally bid for 5 day(s) Jan, Active Start: 04-06-2022 take 1 tablet by justin th every twelve hours predniSONE 20 MG 1 tablet Orally 2 times a day for 5 day(s) Apr, Active Semaglutide (Weight Loss) (1 source) Start: 03-29-2025 Semaglutide (W eight Loss) (Wegovy) 0.5 mg/0.5 mL pen injector Active MG SUBCUT March 29, 2025 12:00am Complies with drug therapy semaglutide, weight loss, (WEGOVY) 0.25 mg/0.5 mL pen injector (3 sources) Start: 01-31-2025 inject 0.25 mL by subcutaneous injection every week semaglutide, weight loss, (WEGOVY) 0.25 mg/0.5 mL pen injector Inject 0.25 mL under the skin once a week. 01/31/2025 Active Semaglutide-Weight Management (Wegovy) 0.25 MG/0.5ML solution auto-injector (14 sources) Start: 02-27-2025 inject 0.25 mg by subcutaneous injection every week Semaglutide-Weight Management (Wegovy) 0.25 MG/0.5ML solution auto-injector Indications: Morbid (severe) obesity due to excess calories (CMS-HCC) Inject 0.25 mg under the skin 1 (one) time per week 0.25 mL 1 02/27/2025 Active Start: 02-24-2025 inject 0.25 mL by kelly bcutaneous injection every week Semaglutide-Weight Management (Wegovy) 0.25 MG/0.5ML solution auto-injector Indications: Morbid (severe) obesity due to excess calories (CMS-HCC) Inject 0.25 mL under the skin 1 (one) time per week 0.5 mL 1 02/24/2025 Active Start: 01-31-2025 End: 02-24-2025 inject 0.25 mL by subcutaneous injection every week Semaglutide-Weight Management (Wegovy) 0.25 MG/0.5ML solution auto-injector Indications: Morbid (severe) obesity due to excess calories (CMS-HCC) Inject 0.25 mL under the skin 1 (one) time per week 0.5 mL 1 01/31/2025 02/24/2025 Discontinued (Reorder) Start: 01-31-2025 inject 0.25 mL by kelly bcutaneous injection every week Semaglutide-Weight Management (Wegovy) 0.25 MG/0.5ML solution auto-injector Indications: Morbid (severe) obesity due to excess calories (CMS-HCC) Inject 0.25 mL under the skin 1 (one) time per week 0.5 mL 1 01/31/2025 Active Start: 01-31-2025 End: 01-31-2025 inject 0.25 mL by subcutaneous injection every week Semaglutide-Weight Management (Wegovy) 0.25 MG/0.5ML solution auto-injector Indications: BMI 34.0-34.9,adult , Morbid (severe) obesity due to excess calories (CMS-HCC) Inject 0.25 mL under the skin 1 (one) time per week 0.5 mL 1 01/31/2025 01/31/2025 Discontinued (Reorder) Semaglutide-Weight Management (Wegovy) 1 MG/0.5ML solution auto-injector (2 sources) Start: 05-03-2025 inject 1 mg by subcutaneous injection every week Semaglutide-Weight Management (Wegovy) 1 MG/0.5ML solution auto-injector Indications: Obesity (BMI 30.0-34.9) Inject 1 mg under the skin 1 (one) time per week 2 mL 05/03/2025 Active sertraline 100 mg oral tablet (20 sources) Serotonin Reuptake Inhibitor Start: 09-09-2024 End: 12-08-2024 take 1 tablet by mouth once daily sertraline (Zoloft) 100 MG tablet Indications: Major depressive disorder, single episode, moderate (HCC) (CMS/HCC) Take 1 tablet (100 mg) by mouth Daily 30 tablet 09/09/2024 12/08/2024 Discontinued (Therapy completed) Start: 08-09-2024 End: 09-09-2024 take 1 tablet by mouth once daily sertraline (Zoloft) 50 MG tablet Indications: Mood swings , Anxiety Take 1 tablet (50 mg) by mouth Daily 30 tablet 08/09/2024 09/09/2024 Discontinued (Ineffective) Start: 06-03-2024 End: 08-09-2024 take 1 tablet by mouth once daily sertraline (Zoloft) 25 MG tablet Indications: Anxiety , Mood swings Take 1 tablet (25 mg) by mouth Daily 30 tablet 07/05/2024 08/09/2024 Discontinued Start: 09-14-2023 take 1 tablet by justin th in the morning sertraline (Zoloft) 25 MG tablet Indications: Anxiety Take 1 tablet (25 mg) by mouth in the morning. 30 tablet 5 09/14/2023 Active sulfamethoxazole 800 mg / trimethoprim 160 mg oral tablet (3 sources) Dihydrofolate Reductase Inhibitor Antibacterial, Sulfonamide Antimicrobial Start: 09-14-2023 End: 09-24-2023 take 1 tablet by mouth once in the morning, then take 1 tablet by mouth once at bedtime sulfamethoxazole-trimethoprim (Bactrim DS) 800-160 MG per tablet Indications: Abdominal pain, unspecified abdominal location Take 1 tablet by mouth in the morning and 1 tablet before bedtime. Do all this for 10 days. 20 tablet 0 09/14/2023 09/24/2023 Active tirzepatide, weight loss, (ZEPBOUND) 5 mg/0.5 mL pen injector (4 sources) tirzepatide, maxim ght loss, (ZEPBOUND) 5 mg/0.5 mL pen injector Inject 5 mg under the skin every 7 days. Active Tirzepatide-Weigh t Management (Zepbound) 10 MG/0.5ML solution auto-injector (17 sources) Start: 08-09-2024 End: 09-06-2024 inject 10 mg by subcutaneous injection every week Tirzepatide-Weight Management (Zepbound) 10 MG/0.5ML solution auto-injector Indications: BMI 34.0-34.9,adult , Morbid obesity (CMS/HCC) Inject 10 mg under the skin 1 (one) time per week for 28 days 2 mL 1 08/09/2024 09/06/2024 Active Start: 07-05-2024 End: 08-09-2024 inject 10 mg by subcutaneous injection every week Tirzepatide-Weight Management (Zepbound) 10 MG/0.5ML solution auto-injector Indications: Morbid obesity (CMS/HCC) , BMI 36.0-36.9,adult Inject 10 mg under the skin 1 (one) time per week for 28 days 2 mL 07/05/2024 08/09/2024 Discontinued (Reorder) Start: 07-05-2024 End: 08-02-2024 inject 10 mg by subcutaneous injection every week Tirzepatide-Weight Management (Zepbound) 10 MG/0.5ML solution auto-injector Indications: Morbid obesity (CMS/HCC) , BMI 36.0-36.9,adult Inject 10 mg under the skin 1 (one) time per week for 28 days 2 mL 07/05/2024 08/02/2024 Active Start: 06-21-2024 End: 07-05-2024 inject 10 mg by subcutaneous injection every week Tirzepatide-Weight Management (Zepbound) 10 MG/0.5ML solution auto-injector Indications: Morbid obesity (CMS/HCC) , BMI 37.0-37.9, adult Inject 10 mg under the skin 1 (one) time per week for 28 days 2 mL 06/21/2024 07/05/2024 Discontinued (Reorder) Start: 06-21-2024 End: 07-19-2024 inject 10 mg by subcutaneous injection every week Tirzepatide-Weight Management (Zepbound) 10 MG/0.5ML solution auto-injector Indications: Morbid obesity (CMS/HCC) , BMI 37.0-37.9, adult Inject 10 mg under the skin 1 (one) time per week for 28 days 2 mL 06/21/2024 07/19/2024 Active Tirzepatide-Weight Management (Zepbound) 12.5 MG/0.5ML solution auto-injector (3 sources) Start: 09-09-2024 End: 10-07-2024 inject 12.5 mg by subcutaneous injection every week Tirzepatide-Weight Management (Zepbound) 12.5 MG/0.5ML solution auto-injector Indications: BMI 34.0-34.9,adult Inject 12.5 mg under the skin 1 (one) time per week for 28 days 2 mL 09/09/2024 10/07/2024 Active Tirzepatide-Weight Management (Zepbound) 15 MG/0.5ML solution auto-injector (15 sources) Start: 05-04-2025 inject 15 mg by subcutaneous injection every week Tirzepatide-Weight Management (Zepbound) 15 MG/0.5ML solution auto-injector Indications: Obesity (BMI 30.0-34.9) Inject 15 mg under the skin 1 (one) time per week 2 mL 3 05/04/2025 Active Start: 10-14-2024 inject 15 mg by subc utaneous injection every week Tirzepatide-Weight Management (Zepbound) 15 MG/0.5ML solution auto-injector Indications: BMI 34.0-34.9,adult , Morbid (severe) obesity due to excess calories (CMS-HCC) Inject 15 mg under the skin 1 (one) time per week 2 mL 11 10/14/2024 Active Start: 10-14-2024 inject 15 mg by subc utaneous injection every week Tirzepatide-Weight Management (Zepbound) 15 MG/0.5ML solution auto-injector Indications: BMI 34.0-34.9,adult , Morbid (severe) obesity due to excess calories (CMS/HCC) Inject 15 mg under the skin 1 (one) time per week 2 mL 11 10/14/2024 Active Completed/Discontinued Medications Medication Drug Class(es) Dates Sig (Normalized) Sig (Original) acetaminophen 325 mg / oxyCODONE hydrochloride 5 mg oral tablet (5 sources) Opioid Agonist End: 09-14-2023 oxyCODONE-acetaminop hen (Percocet) 5-325 MG tablet amoxicillin 500 mg oral capsule (6 sources) Penicillin-class Antibacterial Start: 10-09-2023 End: 11-08-2023 take 1 capsule by mouth twice daily Amoxicillin 500 mg capsule Discontinued 500 MG PO Twice daily 22 05October 09, 2023 1:00am November 08, 2023 2:44pm cephalexin 500 mg oral capsule (7 sources) Cephalosporin Antibacterial Start: 09-14-2017 End: 10-09-2023 take 1 capsule by mouth every twelve hours Cephalexin 500 mg capsule Discontinued 500 MG PO Q12H September 14, 2017 1:00am October 09, 2023 10:56am ciprofloxacin 500 mg oral tablet (3 sources) Quinolone Antimicrobial Start: 04-18-2022 take 1 tablet by mouth every twelve hours Cipro 500 MG 1 tablet Orally every 12 hrs for 7 days Apr, Not-Taking cyclobenzaprine hydrochloride 10 mg oral tablet (6 sources) Muscle Relaxant Start: 10-14-2024 End: 11-22-2024 take 1 tablet by mouth in the morning, then take 1 tablet by mouth in the evening, then take 1 tablet by mouth at bedtime cyclobenzaprine (Flexeril) 10 MG tablet Indications: Lumbar radiculopathy Take 1 tablet (10 mg) by mouth in the morning and 1 tablet (10 mg) in the evening and 1 tablet (10 mg) before bedtime. Do all this for 10 days. 30 tablet 10/14/2024 11/22/2024 Discontinued Start: 03-07-2023 take 1 tablet by justin th three times daily as needed Cyclobenzaprine HCl 10 MG 1 tab(s) Orally tid prn Mar, Not-Taking dexamethasone phosphate 10 mg/ml injectable solution (4 sources) Corticosteroid Start: 11-22-2024 End: 11-22-2024 dexAMETHasone (Decadron) injection 10 mg Start: 11-22-2024 End: 11-22-2024 take 10 mg by mouth once 10 mg, Oral, Once, On Thu at 1615, For 1 dose dextromethorphan hydrobromide 1.5 mg/ml / pyrilamine maleate 1.5 mg/ml oral solution (2 sources) Uncompetitive R-lxkref-K-aspartate Receptor Antagonist, Sigma-1 Agonist Start: 12-05-2022 take 10 mL by mouth every eight hours Orlinda DM 7.5-7.5 MG/5ML 10 mL Orally every 8 hours for 5 days December, Not-Taking doxycycline hyclate 100 mg oral capsule (6 sources) Tetracycline-class Drug Start: 11-24-2024 End: 02-23-2025 take 1 capsule by mouth twice daily Doxycycline Hyclate 100 mg capsule Discontinued 100 MG PO Twice daily 19 02November 24, 2024 12:00am February 23, 2025 6:11pm Start: 05-01-2023 take 1 tablet by justin th every twelve hours Doxycycline Hyclate 100 MG 1 tablet Orally Twice a day for 10 day(s) Apr, Active Start: 02-05-2023 take 1 tablet by justin th every twelve hours Doxycycline Hyclate 100 MG 1 tablet Orally Twice a day for 10 day(s) Jan, Active fluconazole 150 mg oral tablet (18 sources) Azole Antifungal Start: 11-24-2024 End: 02-23-2025 Fluconazole 150 mg tablet Discontinued 150 MG PO Q3D 2 November 24, 2024 12:00am February 23, 2025 6:11pm december repeat x 1 in 3 days if needed Start: 08-16-2023 End: 09-14-2023 fluconazole (Diflucan) 150 M G tablet Indications: Abdominal pain, unspecified abdominal location TAKE 1 TABLET ORALLY ONCE, REPEAT DOSE IN 72 HOURS IF NEEDED 2 tablet 0 09/14/2023 Active Start: 05-01-2023 Diflucan 150 M G 1 tablet Orally once for 2 days Take 1 tablet p.o. at the onset of symptoms of a vaginal yeast infection, take the second tablet in 3 days Apr, Active Start: 04-18-2022 Diflucan 150 M G 1 tablet Orally once for 2 days Take the first tablet at the onset of symptoms of vaginal yeast infection, take the second tablet 3 days later. Jan, Active 1 ml ketorolac tromethamine 30 mg/ml cartridge (11 sources) Nonsteroidal Anti-inflammatory Drug, Cyclooxygenase Inhibitor Start: 06-03-2024 End: 06-03-2024 ketorolac (Toradol) injection 60 mg Start: 06-03-2024 End: 06-03-2024 ketorolac (Toradol) injectio n 60 mg Start: 06-03-2024 End: 06-03-2024 inject 60 mg by intramuscular injection once 60 mg, Intramuscular, Once, On Thu06/03/24 at 1700, For 1 dose Start: 06-03-2024 End: 06-03-2024 inject 60 mg by intramuscular injection once 60 mg, Intramuscular, Once, On Thu06/03/24 at 1700, For 1 dose Start: 09-14-2017 End: 09-19-2017 take 1 tablet by mouth every six hours as needed for pain Ketorolac 10 mg tablet Discontinued 10 MG PO Q6H as needed for pain 20 5 September 14, 2017 1:00am September 18, 2017 1:00am September 19, 2017 1:04am meloxicam 15 mg oral tablet (18 sources) Nonsteroidal Anti-inflammatory Drug Start: 06-02-2024 End: 06-02-2025 take 1 tablet by mouth once daily meloxicam (Mobic) 15 MG tablet Indications: Cubital tunnel syndrome on left Take 1 tablet (15 mg) by mouth Daily 30 tablet 06/02/2024 07/21/2024 Discontinued (Therapy completed) methylPREDNISolone 4 mg oral tablet (2 sources) Corticosteroid Start: 12-05-2022 methylPREDNISolone 4 MG as directed Orally for daily dose take half with breakfast, half with dinner for 6 days December, Not-Taking metroNIDAZOLE 500 mg oral tablet (3 sources) Nitroimidazole Antimicrobial Start: 04-18-2022 take 1 tablet by mouth every eight hours metroNIDAZOLE 500 MG 1 tablet Orally every 8 hrs for 7 days Apr, Not-Taking montelukast 10 mg oral tablet (17 sources) Leukotriene Receptor Antagonist Start: 11-22-2024 End: 02-23-2025 take 1 tablet by mouth once daily Montelukast 10 mg tablet Discontinued 10 MG PO Daily November 24, 2024 12:00am February 23, 2025 6:18pm omeprazole 20 mg delayed release oral capsule (7 sources) Proton Pump Inhibitor Start: 09-11-2017 End: 11-08-2023 take 2 tablets by mouth once daily Omeprazole 20 mg capsule,delayed release(DR/EC) Discontinued 2 TAB PO Daily September 11, 2017 1:00am November 08, 2023 2:44pm Semaglutide-Weight Management (Wegovy) 0.5 MG/0.5ML solution auto-injector (4 sources) Start: 03-17-2025 End: 05-03-2025 inject 0.5 mg by subcutaneous injection every week Semaglutide-Weight Management (Wegovy) 0.5 MG/0.5ML solution auto-injector Indications: BMI 29.0-29.9,adult , History of obesity Inject 0.5 mg under the skin 1 (one) time per week 2 mL 03/17/2025 05/03/2025 Discontinued Start: 03-17-2025 inject 0.5 mg by sub cutaneous injection every week Semaglutide-Weight Management (Wegovy) 0.5 MG/0.5ML solution auto-injector Indications: BMI 29.0-29.9,adult , History of obesity Inject 0.5 mg under the skin 1 (one) time per week 2 mL 03/17/2025 Active Tirzepatide (Weight Loss) (5 sources) Start: 10-23-2024 End: 02-23-2025 Tirzepatide (Weight Loss) (Z epbound) 15 mg/0.5 mL pen injector Discontinued MG SUBCUT October 23, 2024 12:00am February 23, 2025 6:18pm Start: 10-23-2024 Tirzepatide (W eight Loss) (Zepbound) 15 mg/0.5 mL pen injector Active MG SUBCUT October 23, 2024 12:00am Tirzepatide-Weight Management (Zepbound) 7.5 MG/0.5ML solution auto-injector (20 sources) Start: 06-03-2024 End: 06-21-2024 inject 7.5 mg by subcutaneous injection every week Tirzepatide-Weight Management (Zepbound) 7.5 MG/0.5ML solution auto-injector Indications: Morbid obesity (CMS/HCC) , BMI 37.0-37.9, adult Inject 7.5 mg under the skin 1 (one) time per week 2 mL 06/03/2024 06/21/2024 Discontinued (Therapy completed) Start: 06-03-2024 inject 7.5 mg by sub cutaneous injection every week Tirzepatide-Weight Management (Zepbound) 7.5 MG/0.5ML solution auto-injector Indications: Morbid obesity (CMS/HCC) , BMI 37.0-37.9, adult Inject 7.5 mg under the skin 1 (one) time per week 2 mL 06/03/2024 Active Start: 2024 End: 06-03-2024 inject 7.5 mg by subcutaneous injection every week Tirzepatide-Weight Management (Zepbound) 7.5 MG/0.5ML solution auto-injector Indications: Morbid obesity (CMS/HCC) , BMI 38.0-38.9,adult Inject 7.5 mg under the skin 1 (one) time per week 2 mL 2024 06/03/2024 Discontinued (Reorder) Start: 2024 inject 7.5 mg by sub cutaneous injection every week Tirzepatide-Weight Management (Zepbound) 7.5 MG/0.5ML solution auto-injector Indications: Morbid obesity (CMS/HCC) , BMI 38.0-38.9,adult Inject 7.5 mg under the skin 1 (one) time per week 2 mL 2024 Active Start: 04-26-2024 End: 2024 inject 7.5 mg by subcutaneous injection every week Tirzepatide-Weight Management (Zepbound) 7.5 MG/0.5ML solution auto-injector Indications: Morbid obesity (CMS/HCC) Inject 7.5 mg under the skin 1 (one) time per week 2 mL 04/26/2024 2024 Discontinued (Reorder) Start: 04-26-2024 inject 7.5 mg by sub cutaneous injection every week Tirzepatide-Weight Management (Zepbound) 7.5 MG/0.5ML solution auto-injector Indications: Morbid obesity (CMS/HCC) Inject 7.5 mg under the skin 1 (one) time per week 2 mL 04/26/2024 Active Start: 03-31-2024 End: 04-25-2024 inject 7.5 mg by subcutaneous injection every week Tirzepatide-Weight Management (Zepbound) 7.5 MG/0.5ML solution auto-injector Indications: Morbid obesity (CMS/HCC) Inject 7.5 mg under the skin 1 (one) time per week 2 mL 03/31/2024 04/25/2024 Discontinued (Reorder) Start: 03-31-2024 inject 7.5 mg by sub cutaneous injection every week Tirzepatide-Weight Management (Zepbound) 7.5 MG/0.5ML solution auto-injector Indications: Morbid obesity (CMS/HCC) Inject 7.5 mg under the skin 1 (one) time per week 2 mL 03/31/2024 Active Start: 03-09-2024 End: 03-31-2024 inject 7.5 mg by subcutaneous injection every week Tirzepatide-Weight Management (Zepbound) 7.5 MG/0.5ML solution auto-injector Indications: Morbid obesity (CMS/HCC) Inject 7.5 mg under the skin 1 (one) time per week 2 mL 03/09/2024 03/31/2024 Discontinued (Reorder) tiZANidine 4 mg oral tablet (20 sources) Central alpha-2 Adrenergic Agonist Start: 2024 End: 11-22-2024 take 1 tablet by mouth every eight hours for muscle spasms tiZANidine (Zanaflex) 4 MG tablet Indications: Neck pain , Cervicalgia Take 1 tablet (4 mg) by mouth every 8 (eight) hours if needed for muscle spasms for up to 5 days 15 tablet 2024 11/22/2024 Discontinued Toradol 30 mg/ml (3 sources) Start: 03-07-2023 Toradol 30 mg/ ml Mar, 30 mg Problems Active Problems Problem Classification Problem Date Documented Da te Episodic/Chronic Abdominal pain (1 source) Pelvic and perineal pain; Translations: [Pelvic and perineal pain] Onset: 9 Acquired foot deformities (4 sources) Hallux valgus (acquired), left foot; Translations: [Hallux valgus (acquired)] 01-26-2025 Chronic Acquired foot deformities (2 sources) Acquired deformity of toe of left foot; Translations: [Acquired deformities of toe(s), unspecified, left foot] 02-16-2025 Episodic Anxiety disorders (20 sources) Anxiety; Translations: [Anxiety disorder, unspecified] Onset: 1 12-18-2022 Chronic Chronic obstructive pulmonary disease and bronchiectasis (3 sources) Bronchitis, not specified as acute or chronic Onset: 2 Resolved: 2 Episodic Disorders of lipid metabolism (20 sources) Hypercholesterolemia; Translations: [Pure hypercholesterolemia, unspecified] Onset: 9 12-18-2022 Chronic Diverticulosis and diverticulitis (20 sources) Diverticulitis; Translations: [Diverticulitis of intestine, part unspecified, without perforation or abscess without bleeding] Onset: 2 Resolved: 2 Chronic Esophageal disorders (20 sources) Gastroesophageal reflux disease; Translations: [Gastro-esophageal reflux disease without esophagitis] Onset: 1 12-18-2022 Chronic Genitourinary symptoms and ill-defined conditions (7 sources) Dysuria; Translations: [Bladder pain] Onset: 9 02-22-2025 Episodic Headache; including migraine (5 sources) Frontal headache ; Translations: [Frontal headache] 07-21-2024 Episodic Immunizations and screening for infectious disease (8 sources) Contact with and (suspected) exposure to other viral communicable diseases; Translations: [Contact with and (suspected) exposure to other viral communicable diseases] Onset: 2 Resolved: 2 Episodic Inflammatory diseases of female pelvic organs (2 sources) Acute vaginitis; Translations: [Acute vaginitis] Onset: 5 02-22-2025 Episodic Joint disorders and dislocations; trauma-related (20 sources) Chondromalacia of right patella; Translations: [Chondromalacia patellae, right knee] Onset: 2 12-18-2022 Chronic Malaise and fatigue (20 sources) Chronic fatigue syndrome; Translations: [Chronic fatigue syndrome] Onset: 3 12-18-2022 Chronic Menstrual disorders (20 sources) Excessive and frequent menstruation with regular cycle; Translations: [Dysmenorrhea] Onset: 8 12-18-2022 Chronic Mood disorders (20 sources) Major depressive disorder, single episode, unspecified; Translations: [Moderate major depression, single episode] Onset: 2 12-18-2022 Chronic Mood disorders (6 sources) Mood swings; Translations: [Emotional lability] 06-03-2024 Episodic Nausea and vomiting (4 sources) Nausea; Translations: [Nausea] 01-31-2025 Episodic Nonmalignant breast conditions (20 sources) Fibrocystic disease of breast; Translations: [Diffuse cystic mastopathy of unspecified breast] Onset: 3 12-18-2022 Chronic Osteoarthritis (20 sources) Osteoarthritis of right knee joint; Translations: [Unilateral primary osteoarthritis, right knee] Onset: 3 12-18-2022 Chronic Other aftercare (1 source) Other nursing home (current) drug therapy; Translations: [OTH GROUP HOME CURRENT DRUG THERAPY] Onset: Episodic Other connective tissue disease (1 source) Adhesive capsulitis of right shoulder; Translations: [Adhesive capsulitis of right shoulder] 09-04-2023 Episodic Other connective tissue disease (1 source) Impingement syndrome of right shoulder region; Translations: [Impingement syndrome of right shoulder] 09-04-2023 Episodic Other connective tissue disease (4 sources) Pain of toe of left foot; Translations: [Pain in left toe(s)] 01-26-2025 Episodic Other connective tissue disease (4 sources) Pain of toe of right foot; Translations: [Pain in right toe(s)] 01-26-2025 Episodic Other connective tissue disease (2 sources) Pain of left thigh; Translations: [Pain in left thigh] 02-16-2025 Episodic Other ear and sense organ disorders (6 sources) Ear sensations - finding; Translations: [Other specified disorders of right ear] 07-05-2024 Episodic Other ear and sense organ disorders (2 sources) Chronic bacterial otitis externa; Translations: [Other infective otitis externa, right ear] 08-09-2024 Episodic Other endocrine disorders (20 sources) Polycystic ovary syndrome; Translations: [Polycystic ovarian syndrome] Onset: 3 12-18-2022 Chronic Other endocrine disorders (20 sources) Polycystic ovarian syndrome; Translations: [Polycystic ovaries] Onset: 8 12-30-2022 Chronic Other female genital disorders (3 sources) Abnormal uterine and vaginal bleeding, unspecified; Translations: [ABNORMAL UTERINE VAGINAL BLEED UNS] Onset: 3 Chronic Other female genital disorders (1 source) Pain in female genitalia on intercourse; Translations: [Unspecified dyspareunia] 02-22-2025 Chronic Other female genital disorders (2 sources) Unspecified dyspareunia; Translations: [Unspecified dyspareunia] Onset: 5 Chronic Other female genital disorders (1 source) Other specified noninflammatory disorders of vagina Episodic Other gastrointestinal disorders (4 sources) Dysphagia, unspecified; Translations: [DYSPHAGIA UNSPECIFIED] Onset: 3 Episodic Other infections; including parasitic (2 sources) Personal history of other infectious and parasitic diseases Episodic Other nervous system disorders (2 sources) Lesion of ulnar nerve, left upper limb; Translations: [Lesion of ulnar nerve] 06-02-2024 Chronic Other nervous system disorders (1 source) Paresthesia; Translations: [Paresthesia of skin] 05-19-2024 Episodic Other non-traumatic joint disorders (2 sources) Pain in wrist; Translations: [Pain in left wrist] 04-14-2024 Episodic Other non-traumatic joint disorders (2 sources) Hip pain; Translations: [Pain in left hip] 02-14-2025 Episodic Other nutritional; endocrine; and metabolic disorders (20 sources) Morbid obesity; Translations: [Morbid (severe) obesity due to excess calories] Onset: 3 12-18-2022 Chronic Other nutritional; endocrine; and metabolic disorders (20 sources) Severe obesity; Translations: [Morbid (severe) obesity due to excess calories] Onset: 1 12-30-2022 Chronic Other nutritional; endocrine; and metabolic disorders (20 sources) Body mass index 40+ - severely obese; Translations: [Body mass index (BMI) 50.0-59.9, adult] Onset: 01-2902-10-2023 Chronic Other nutritional; endocrine; and metabolic disorders (20 sources) Body mass index 30+ - obesity; Translations: [Body mass index (BMI) 38.0-38.9, adult] 2024 Chronic Other nutritional; endocrine; and metabolic disorders (8 sources) Obese class I; Translations: [Obesity (BMI 30.0-34.9)] 11-22-2024 Chronic Other nutritional; endocrine; and metabolic disorders (3 sources) Obesity caused by energy imbalance; Translations: [Morbid (severe) obesity due to excess calories] 01-31-2025 Chronic Other nutritional; endocrine; and metabolic disorders (4 sources) Overweight in adulthood with body mass index of 25 or more but less than 30; Translations: [Body mass index (BMI) 29.0-29.9, adult] 01-31-2025 Episodic Other nutritional; endocrine; and metabolic disorders (2 sources) Weight decreased; Translations: [Abnormal weight loss] 02-16-2025 Episodic Other nutritional; endocrine; and metabolic disorders (2 sources) Abnormal weight gain; Translations: [Abnormal weight gain] 05-04-2025 Episodic Other skin disorders (4 sources) Ingrowing nail; Translations: [Ingrowing nail] 01-26-2025 Episodic Other upper respiratory disease (20 sources) Allergic rhinitis; Translations: [Allergic rhinitis, unspecified] Onset: 12-18-2022 Chronic Other upper respiratory disease (5 sources) Seasonal allergy; Translations: [Other seasonal allergic rhinitis] 10-23-2024 Chronic Other upper respiratory disease (6 sources) Seasonal allergic rhinitis; Translations: [Other allergic rhinitis] 11-22-2024 Chronic Other upper respiratory disease (2 sources) Other specified disorders of nose and nasal sinuses; Translations: [Other disease of nasal cavity and sinuses] 07-05-2024 Episodic Other upper respiratory disease (4 sources) Nasal congestion; Translations: [Nasal congestion] 11-22-2024 Episodic Other upper respiratory disease (2 sources) Acute bronchospasm; Translations: [Acute bronchospasm] 12-17-2024 Episodic Other upper respiratory disease (2 sources) Throat irritation; Translations: [Other diseases of pharynx] 12-15-2024 Episodic Residual codes; unclassified (1 source) History of arthroscopic procedure on shoulder; Translations: [Other specified postprocedural states] 09-04-2023 Episodic Sprains and strains (1 source) Strain of muscle, fascia and tendon of lower back, initial encounter Episodic Unclassified (2 sources) LEFT RENAL CALCULUS; Translations: [LEFT RENAL CALCULUS] Onset: 8 Unclassified (1 source) Gynecologic Exam Onset: Past or Other Problems Problem Classification Problem Date Documented Da te Episodic/Chronic Abdominal pain (20 sources) Unspecified abdominal pain; Translations: [Left flank pain] Onset: 03-12-2018 Episodic Calculus of urinary tract (20 sources) Calculus of kidney; Translations: [Personal history of urinary calculi] Onset: 07-06-2017 12-18-2022 Episodic Disorders of teeth and jaw (4 sources) Other specified disorders of teeth and supporting structures; Translations: [Periapical abscess without sinus] Onset: 02-22-2022 Episodic E Codes: Adverse effects of medical drugs (1 source) Adverse effect of unspecified systemic antibiotic, initial encounter Onset: 04-18-2022 Resolved: 04-18-2022 Episodic Mood disorders (5 sources) Mood disorders; Translations: [DEPRESSION UNSPECIFIED] Onset: 12-25-2022 03-09-2024 Mycoses (20 sources) Candidiasis; Translations: [Candidiasis, unspecified] Onset: 12-10-2023 12-10-2023 Episodic Other and unspecified benign neoplasm (20 sources) Gastric polyp; Translations: [Polyp of stomach and duodenum] Onset: 12-18-2022 12-18-2022 Episodic Other and unspecified benign neoplasm (20 sources) Benign neoplasm of stomach; Translations: [Benign neoplasm of stomach] Onset: 05-07-2020 12-30-2022 Episodic Other circulatory disease (20 sources) Elevated blood-pressure reading without diagnosis of hypertension; Translations: [Elevated blood-pressure reading, without diagnosis of hypertension] Onset: 04-24-2022 12-18-2022 Episodic Other gastrointestinal disorders (1 source) Diarrhea, unspecified; Translations: [DIARRHEA UNSPECIFIED] Onset: 04-30-2022 Episodic Other lower respiratory disease (20 sources) Nodule of lung; Translations: [Solitary pulmonary nodule] Onset: 12-18-2022 12-18-2022 Episodic Other non-epithelial cancer of skin (1 source) Personal history of other malignant neoplasm of skin; Translations: [PERSONAL HX NINO BIANCHI NEOPLASM SKIN] Onset: 02-24-2022 Episodic Other nutritional; endocrine; and metabolic disorders (3 sources) Body mass index 25-29 - overweight; Translations: [Overweight] Onset: 08-31-2020 02-22-2025 Episodic Other screening for suspected conditions (not mental disorders or infectious disease) (2 sources) Patient encounter status; Translations: [Encounter for screening mammogram for malignant neoplasm of breast] Onset: 03-09-2024 03-09-2024 Episodic Other upper respiratory infections (20 sources) Acute upper respiratory infection, unspecified; Translations: [Acute recurrent frontal sinusitis] Onset: 09-14-2023 Episodic Otitis media and related conditions (20 sources) Other acute nonsuppurative otitis media, bilateral; Translations: [Acute left otitis media] Onset: 11-26-2023 Episodic Screening and history of mental health and substance abuse codes (2 sources) Standardized adult depression screening tool completed ; Translations: [Encounter for screening for depression] Onset: 03-09-2024 03-09-2024 Episodic Spondylosis; intervertebral disc disorders; other back problems (20 sources) Sciatica, right side; Translations: [Neck pain] Onset: 05-08-2022 Episodic Unclassified (1 source) Acute cough R05.1 Unclassified (1 source) Suspected COVID-19 virus infection Z20.822 Unclassified (4 sources) Onset: 03-09-2024 03-09-2024 Results Test Name Value Interpretation Reference Range Facility US PELVIC WITH TRANSVAGINALo n 03-07-2025 US PELVIC WITH TRANSVAGINAL US PELVIC WITH TRANSVAGINAL Clinical history: Dyspareunia Findings:Transabdominal ultrasound was performed of the pelvis.. Endovaginal sonography was also performed to better evaluate the pelvic and adnexal structures.. Uterus measures 11.1 cm in length and 4.9 cm AP diameter. The endometrium 11 mm. Myometrium unremarkable. Possible arcuate uterine morphology. Right ovary 4.4 x 2.7 x 3.6 cm. Left ovary 2.1 x 1.5 x 2.6 cm. Complex cyst right ovary probably representing a hemorrhagic cyst measuring 2.4 x 1.4 x 2.3 cm. No solid adnexal mass. Tiny amount of free fluid in the cul-de-sac. Arterial venous blood flow seen in each ovary. Impression: Probable hemorrhagic cyst right ovary likely arcuate morphologic of varying to the uterus. Finalized by Myrna Verma MD on 03/07/2025 12:09 PM Normal [facility] - Chemistry and C hemistry - challengeOrdered By: Jennifer Tariq on 02-23-2025 Bilirubin Ql (U) Negative [facility] Glucose (U) [Mass/Vol] Negative [facility] Ketones Ql (U) Negative [facility] pH (U) 6.5 [pH] [facility] Specific gravity (U) [Rel density] 1.010 [facility] - Specimen inform ationOrdered By: Jennifer Tariq on 02-23-2025 Appearance (U) clear [facility] Color (U) paleyellow [facility] - UrinalysisOrder ed By: Jennifer Tariq on 02-23-2025 Leukocyte esterase Test strip Ql (U) Negative [facility] Nitrite Ql (U) Negative [facility] Protein Ql (U) Negative [facility] No Panel InformationOrdered By: Jennifer Tariq on 02-23-2025 Urine Occult Blood Negative [facility] Urine Urobilinogen 0.2EU/dL [facility] Urine Cultureon 02-23-2025 Bacteria identified Cx Nom (U) <9,000 colonies/ml mixed bacterial skin contaminants 2 Days PERFORMED BY: [place] [address] PATHOLOGIST CERTIFIED ETHICAL HACKER MILLY CERVANTES M.D. Normal [facility] Comment on above: Performed By: #### C UU #### [address] Urine cultureOrdered By: Carly Tariq on 02-23-2025 Bacteria identified Cx Nom (U) 2 Days [facility] GRAM STAINon 02-22-2025 Microscopic observation Gram stain Nom (Unsp spec) GRAM STAIN Negative for Bacterial Vaginosis (Based on Deep scoring, validated for vaginal specimens) No yeast seen Normal [facility] Comment on above: Order Comment: Gram stain for BV Performed By: #### G CHRISTIAN #### [facility] ([facility]) [address] [place] [address] VIR URINALYSISon 02-22-2025 Bilirubin Ql (U) Negative Normal Negative [facility] Comment on above: Performed By: #### U A #### [facility] ([facility]) [address] [place] [address] VIR BLOOD/HGB Negative Normal Negative [facility] Comment on above: Performed By: #### U A #### [facility] ([facility]) [address] [place] [address] VIR Color (U) Colorless Normal Yellow, Colorless [facility] Comment on above: Performed By: #### U A #### [facility] ([facility]) [address] [place] [address] VIR Glucose Ql (U) Negative Normal Negative [facility] Comment on above: Performed By: #### U A #### [facility] ([facility]) [address] [place] [address] VIR Ketones Ql (U) Negative Normal Negative [facility] Comment on above: Performed By: #### U A #### [facility] ([facility]) [address] [place] [address] VIR Leukocyte esterase Test strip Ql (U) Negative Normal Negative [facility] Comment on above: Performed By: #### U A #### [facility] ([facility]) [address] [place] [address] VIR Nitrite Ql (U) Negative Normal Negative [facility] Comment on above: Performed By: #### U A #### [facility] ([facility]) [address] [place] [address] VIR PH,URINE 6.5 Normal 5.0-8.5 [facility] Comment on above: Performed By: #### U A #### [facility] ([facility]) [address] [place] [address] VIR Protein Ql (U) Negative Normal Negative [facility] [facility] Comment on above: Performed By: #### U A #### [facility] ([facility]) [address] [place] [address] VIR Specific gravity (U) [Rel density] 1.004 Normal 1.003-1.03 5 [facility] Comment on above: Performed By: #### U A #### [facility] ([facility]) [address] [place] [address] VIR TURBIDITY Clear Normal Clear [facility] Comment on above: Performed By: #### U A #### [facility] ([facility]) [address] [place] [address] VIR UROBILINOGEN <1.1 eu/dL Normal <1.1 eu/dL [facility] Comment on above: Performed By: #### U A #### [facility] ([facility]) [address] [place] [address] VIR URINE CULTUREon 02-22-2025 Bacteria identified Cx Nom (U) CULTURE RESULTS <10,000 ORGANISMS/mL NORMAL URO GENITAL JUAN Normal [facility] Comment on above: Performed By: #### U C #### [facility] ([facility]) [address] [place] [address] VIR YEAST CULTUREon 02-22-2025 YEAST CULTURE CULTURE RESULTS No yeast isolated at 5 days FUNGAL SMEAR No fungal elements seen On Direct Smear Normal [facility] Comment on above: Performed By: #### Y STCUL #### [facility] ([facility]) [address] [place] [address] VIR XR Foot - left 3 [facility] Result: Notable plantar calcaneal spur with left HAV deformity with intermetatarsal angle of 14 degrees with slight narrowing of the 1st MPJ Formerly [facility], [facility] Radiology Study observation (narrative) [facility] Reminderson 11-18-2024 Reminders Reminders From: Jennifer Yuan I To: [facility] - Reminders/Recalls; Sent: 11/18/2024 08:25:39 EDT Show up: 09/03/2034 08:25:00 EST Subject: Colonoscopy recall Due Date/Time: 10/26/2034 08:25:00 EDT Reminder/Recall [address] Cunha 10/26/24 Normal [facility] Gastroenterology Office/Clin ic Noteon 11-14-2024 Gastroenterology Office/Clinic Note Gastroenterology Office/Clinic Note Chief Complaint f/u to colonoscopy HPI Staff Patient is a(n) 39 year old female who presents today for a follow up to Colonoscopy on 10/26/24. Any current GI complaints? still having abd pain, needs a refill on nexium. Denies blood thinners. Taking Zepbound. History of Present Illness Reviewed HPI collected by staff Review of Systems PHQ Score Initial Depression Screen Score: 0 SCORE All systems reviewed, negative; Except for above Physical Exam Vitals & Measurements HR: 88(Peripheral) RR: 14 BP: 124/85 HT: 162 cm HT: 64 in WT: 86 kg WT: 189.597 lb BMI: 32.77 No acute distress Procedure Colonoscopy: Impression and Plan 1. Small internal hemorrhoids 2. Minimal nonspecific erythema in the rectum, biopsied to rule out proctitis 3. Moderate sigmoid diverticulosis with severe angulation, benign, past using pediatric colonoscope. Otherwise normal colonic mucosa 4. Normal examined terminal ileum - Repeat colonoscopy:: In 10 years, Based on path . Pathology: RECTUM, BIOPSY: ??? COLONIC MUCOSA WITH NO SIGNIFICANT PATHOLOGIC CHANGES Assessment/Plan 1. Dysphagia (R13.10: Dysphagia, unspecified) EGD 09/2024 Dilated to 56 Fr Danielle Resolved 2. Epigastric pain (R10.13: Epigastric pain) 3. Nausea (R11.0: Nausea) Started after Zepbound, tolerated 4. Hiatal hernia with GERD (K44.9: Diaphragmatic hernia without obstruction or gangrene) On my exam it was about 3 to 4 cm hiatal hernia, no Luisito ulcers, controlled with Nexium once a day We discussed that given the symptoms are controlled she does not need surgery at this point, plus more than 60% of patients who lose enough weight can have GERD completely resolved without surgery we discussed in the future maintaining PPI at the lowest effective dose. 5. Schatzki's ring (K22.2: Esophageal obstruction) 6. Family history of colon cancer (Z80.0: Family history of malignant neoplasm of digestive organs) Second degree relative, Grandmother 7. Hemorrhoids (K64.9: Unspecified hemorrhoids) Started after C/o rectal bleeding Some pain. Was experiencing constipation which is not normal for her Colonoscopy 10/2024: Small internal hemorrhoids, Minimal nonspecific erythema in the rectum, biopsied to rule out proctitis, Moderate sigmoid diverticulosis with severe angulation, benign, past using pediatric colonoscope Recommended water-soluble fiber, high-fiber diet Avoid constipation and straining Recommended warm sitz bath OTC cream, Preparation H, wet wipes when wiping, water bidet Previously advised to get squatty potty, eat 2 kiwi fruits, stay well hydrated, use MiraLAX and titrate to have 1-2 bowel movements every day Can refer to Dr Rand if they continue to be bothersome Repeat colonoscopy in 10 years Gastro-esophageal reflux disease without esophagitis (K21.9: Gastro-esophageal reflux disease without esophagitis) Continue Nexium I, No Hurtado, personally scribed for Reji Cunha on 11/10/2024 15:53:07. . Documentation recorded by No Hurtado, accurately reflects the services I performed and decisions made by me. Reji Cunha MD Follow-up With When Contact Information Guerline PACHECO, Reji Burdick, [facility], MED Only if needed [address] [facility], [address] [address] [phone] Additional Instructions: Problem List/Past Medical History Ongoing Dysphagia Entrapment of left ulnar nerve at elbow Epigastric pain Family history of colon cancer Hemorrhoids Hiatal hernia with GERD Nausea Schatzki's ring Historical Acid reflux Depression Procedure/Surgical History Colonoscopy (10/26/2024), Teeth (10/20/2024), Esophagogastroduodenoscopy (09/29/2024), Esophagogastroduodenoscopy (10/05/2023), Right shoulder (07/17/2023), Bunionectomy, section, Colonoscopy, Dilation and curettage, EGD (esophagogastroduodenoscopy ) gastric outlet reduction, Tonsillectomy, Tubal ligation. Medications cyproheptadine, 4 mg, Oral, Daily Nexium 40 mg Cap-EC, 40 mg= 1 cap(s), Oral, BID, 3 refills Zepbound 2.5 mg/0.5 mL subcutaneous solution Zyrtec, 10 mg, Oral, Daily Allergies Vicodin (Intolerance) chlorhexidine topical (Peeling skin, Blister) codeine (Intolerance) Social History Alcohol - Denies Alcohol Use, 04/13/2018 Never., 10/13/2024 Substance Abuse - Denies Substance Abuse, 04/13/2018 Never., 10/13/2024 Tobacco - Denies Tobacco Use, 04/13/2018 Never (less than 100 in lifetime) Tobacco Use:., 11/10/2024 Never (less than 100 in lifetime) Tobacco Use:., 10/13/2024 Never (less than 100 in lifetime) Tobacco Use:., 10/13/2024 Never (less than 100 in lifetime) Tobacco Use:., 05/10/2020 Family History Esophageal cancer: Father. Pancreatic cancer: Mother. Primary malignant neoplasm of colon: Grandparent. Immunizations Vaccine Date Status Comments influenza virus vaccin (more content not included)... Normal [facility] Comment on above: Result Comment: Elec tronically Signed By: Reji Cunha MD\.br\Date and Time Signed: 11/14/24 16:34 EDT\.br\Electronically Co-Signed By: No Hurtado MA\.br\Date and Time Co-Signed: 11/10/24 16:01 EDT Ambulatory Visit Summaryon 0 11-10-2024 Ambulatory Visit Summary Ambulatory Visit Summary JUANIS ALVAREZ :1985 Visit Date:11/10/2024 Ambulatory Visit Instructions Your Diagnosis Dysphagia Epigastric pain Nausea Hiatal hernia with GERD Schatzki's ring Family history of colon cancer Hemorrhoids Gastro-esophageal reflux disease without esophagitis Your Care Team Attending Physician - Guerline PACHECO, Reji Burdick Primary Care Physician - Ivis PACHECO, Joie Arce This Is Your Medications List esomeprazole (Nexium 40 mg Cap-EC) Contact prescribing physician if questions or concerns cetirizine (Zyrtec) cyproheptadine tirzepatide (Zepbound 2.5 mg/0.5 mL subcutaneous solution) Procedures Performed Colonoscopy (10/26/2024), Teeth (10/20/2024), Esophagogastroduodenoscopy (09/29/2024), Esophagogastroduodenoscopy (10/05/2023), Right shoulder (07/17/2023), Bunionectomy, section, Colonoscopy, Dilation and curettage, EGD (esophagogastroduodenoscopy ) gastric outlet reduction, Tonsillectomy, Tubal ligation. Discharge Vitals Heart Rate (Peripheral) 88 Respiratory Rate 14 Blood Pressure 124/85 Height 162 cm Height 64 in Weight 86 kg Weight 189.597 lb BMI 32.77 What to do next You Need to Schedule the Following Appointments Follow Up with Guerline PACHECO, Reji Burdick, [facility], [facility] When: Only if needed Where: [address] [place] [address], [address] [address] [phone] Medications What How Much When Instructions New esomeprazole (Nexium 40 mg Cap-EC) 1 Capsules By Mouth 2 times a day Duration: 90 Days Refills: 3 Pickup at [facility]/pharmacy #[id number] Unchanged cetirizine (Zyrtec) 10 Milligram By Mouth Every day Contact prescribing physician if questions or concerns Unchanged cyproheptadine 4 Milligram By Mouth Every day Contact prescribing physician if questions or concerns Unchanged tirzepatide (Zepbound 2.5 mg/ 0.5 mL subcutaneous solution) INJECT 2.5 MG SUBCUTANEOUSLY ONE TIME PER WEEK Contact prescribing physician if questions or concerns Pharmacy Information [facility]/pharmacy #[id number]: [address], [place] [phone] Allergies Vicodin (Intolerance) chlorhexidine topical (Peeling skin, Blister) codeine (Intolerance) Problems Ongoing - Any problem that you are currently receiving treatment for. Dysphagia Entrapment of left ulnar nerve at elbow Epigastric pain Family history of colon cancer Hemorrhoids Hiatal hernia with GERD Nausea Schatzki's ring Historical - Any problem that you are no longer receiving treatment for. Acid reflux Depression Patient Survey You may receive a survey via text or e-mail asking about your office visit. Please share your experience with us by completing your survey. We appreciate your feedback and thank you for choosing us for your care. Normal [facility] Surgical Pathology Reporton 10-28-2024 Surgical Pathology Report [address] [place] [address]- Surgical Pathology Report Collected Date/Time: 10/26/2024 13:44 EDT Pathologist: Gabriella Tao MD Received Date/Time: 10/26/2024 14:16 EDT Guerline PACHECO, Reji Cunha MD, Reji Burdick 07 Surgical Pathology Report - 10/28/2024 14:03 EDT - Auth (Verified) Final Diagnosis RECTUM, BIOPSY: - COLONIC MUCOSA WITH NO SIGNIFICANT PATHOLOGIC CHANGES (Electronic Signature) Myrlande. Dinh MD 10/28/2024 14:03 Clinical Information Rectal bleeding Pre-Op Diagnosis: Rectal bleeding Procedure: Colonoscopy Post-Op Diagnosis: 1. Small internal hemorrhoids 2. Minimal nonspecific erythema in the rectum, biopsied to rule out proctitis 3. Moderate sigmoid diverticulosis with severe angulation, benign, past using pediatric colonoscope. Otherwise normal colonic mucosa 4. Normal examined terminal ileum Specimen(s) Received Rectal biopsy Gross Description Received in formalin labeled with patient name, number, and rectal biopsy are two fragments of meek/pink tissue each measuring 0.1 cm. Specimen is entirely submitted in one cassette. (DC) DC:[facility] Microscopic Description Microscopic examination performed unless gross only specified. This report was transcribed using voice recognition technology and might contain unintended computerized policy manager errors. Normal [facility] Comment on above: Performed By: #### [id number] #### [facility] [address] [place] [id number] Main OR Intraoperative Recor don 10-27-2024 Main OR Intraoperative Record Main OR Intraoperative Record IntraOp Document Type FT Summary Primary Physician: Guerline PACHECO, Reji Burdick Finalized Date/Time: 10/27/24 11:08:44 Pt. Name: JUANIS ALVAREZ Jazlyn/Sex: 1985 Female Med Rec #: [id number] Physician: Reji Cunha MD Financial #: [id number] Pt. Type: O Room/Bed: / Admit/Disch: 10/26/24 11:27:01 - 10/27/24 23:59:59 Institution: Case Times FT Entry 1 Patient Times In Room 10/26/24 13:20:00 Out Room 10/26/24 13:46:00 Procedure Times Start 10/26/24 13:28:00 Stop 10/26/24 13:45:00 Anesthesia Times Start 10/26/24 13:20:00 Stop 10/26/24 13:46:00 Time at [facility] 10/26/24 13:34:00 Last Modified By: Marlen MOORE, Saumya 10/26/24 13:46:40 Case Attendance FT Entry 1 Entry 2 Entry 3 Case Attendee Rima SURVEILLANCE SENSOR OFFICER, Cornelia Brewster, Tevin Knight INWARD TOLL OPERATOR, Jocelyne Arce Role Performed SURVEILLANCE SENSOR OFFICER Staff - Other Scrub - Primary Time In 10/26/24 13:20:00 10/26/24 13:20:00 10/26/24 13:20:00 Time Out 10/26/24 13:46:00 10/26/24 13:46:00 10/26/24 13:46:00 Procedure COLONOSCOPY(.) COLONOSCOPY(.) COLONOSCOPY(.) Comments Dr. Gonzalez supervising help in room Last Modified By: Marlen RN, Saumya Gee RN, Saumya Gee RN, Saumya 10/26/24 13:47:06 10/26/24 13:47:06 10/26/24 13:47:06 Entry 4 Entry 5 Case Attendee Guerline PAHCECO, Reji Gee RN, Saumya Burdick Role Performed Surgeon - Primary Solution Make Up Operator - Primary Time In 10/26/24 13:20:00 10/26/24 13:20:00 Time Out 10/26/24 13:46:00 10/26/24 13:46:00 Procedure COLONOSCOPY(.) COLONOSCOPY(.) Comments Last Modified By: Marlen RN, Saumya Gee RN, Saumya 10/26/24 13:47:06 10/26/24 13:47:06 Perioperative Protocols FT Pre-Care Text: Implements protective measures prior to operative or invasive procedure, confirms identity before the operative or invasive procedure, verifies operative procedure, surgical site, and laterality Entry 1 Procedure(s) COLONOSCOPY(.) Patient Identity Birthday, ID Band Verified (select at Check, Patient least 2): Participation Consents / H and P Anesthesia Consent, Operative Site N/A Verified H&P, Surgery/Procedure Marking Verified Consent Surgical Site No Laterality Verified n/a Verified Procedure Verified Yes Correct Patient Yes Position Verified Availability Equipment, Medication Prep Dry n/a Verified (If Applicable) PreOp Antibiotic No Time Out Cornelia Abarca CRNA, Given Participants Tevin Brewster, Antonia INWARD TOLL OPERATOR, Guerline Hernández MD, Reji Burdick, Saumya Gee RN Time Out Complete 10/26/24 13:26:00 Outcomes Met? Yes Last Modified By: Saumya Gee RN 10/26/24 13:36:44 Post-Care Text: The patient is free from signs and symptoms of injury caused by extraneous objects Allergy Information FT Pre-Care Text: Verifies allergies Entry 1 Allergies Reviewed? Yes Allergies Reviewed Self/Patient With Outcomes Met? Yes Last Modified By: Saumya Gee RN 10/26/24 13:36:50 Post-Care Text: The patient received appropriate medication(s) safely administered during the perioperative period Surgical Procedures FT Entry 1 Procedure Description Procedure COLONOSCOPY Modifiers . Surgeon Description COLONOSCOPY with rectal biopsy Primary Procedure Yes Primary Surgeon Guerline PACHECO, Reji Burdick Start 10/26/24 13:28:00 Stop 10/26/24 13:45:00 Anesthesia Type General Surgical Service Gastroenterology Wound Class 2 - Clean-Contaminated Last Modified By: Saumya Gee RN 10/26/24 13:46:29 General Case Data FT Pre-Care Text: Classifies surgical wound, implements aseptic technique, initiates traffic control Entry 1 Case Information OR ENDO 1 FT Case Level Level 2 Wound Class 2 - Clean-Contaminated Specialty Gastroenterology ASA Class 2 Preop Diagnosis EPIGASTRIC PAIN, FAMILY Postop Same As Preop No HX OF COLON CANCER, HEMORRHOIDS Postop Diagnosis Mild diverticulosis, Outcomes Met? Yes erythema in rectum, small internal hemorrhoids Last Modified By: Saumya Gee RN 10/26/24 13:44:58 Post-Care Text: The patient is free from signs and symptoms of infection Skin Assessment (Pre Procedure) FT Pre-Care Text: Implements protective measures to prevent skin/ tissue injury due to thermal or mechanical sources Evaluates for signs and symptoms of physical injury to skin and tissue Entry 1 Skin Integrity Intact, Manuelito, Warm, & Skin Abnormality No Dry Outcomes Met? Yes Last Modified By: Saumya Gee RN 10/26/24 13:37:10 Post-Care Text: The patient is free from signs and symptoms of injury caused by extraneous objects Patient Positioning FT Pre-Care Text: Identifies physical alterations that require additional precautions for procedure-specific positioning, verifies presence of prosthetics or corrective devices, positions the patient, evaluates the patient for signs and symptoms of injury as a result of positioning Entry 1 Procedure COLONOSCOPY(.) Body (more content not included)... Normal [facility] Discharge Instructionson Discharge Instructions Discharge Instructions JUANIS ALVAREZ :1985 Visit Date:10/26/2024 Inpatient Discharge Instructions Your Care Team Admitting Physician - Reji Cunha MD Referring Physician - Reji Cunha MD Reason for Your Visit EPIGASTRIC PAIN, FAMILY HX OF COLON CANCER, HEMORRHOIDS Your Diagnosis Bright red rectal bleeding Tests Performed Pathology Tissue Exam -- Results Pending -- Please visit your patient portal for your results or contact your primary care physician. This Is Your Medications List cetirizine (Zyrtec) cyproheptadine esomeprazole (Nexium 40 mg Cap-EC) tirzepatide (Zepbound 2.5 mg/0.5 mL subcutaneous solution) Procedure History Colonoscopy (10/26/2024), Esophagogastroduodenoscopy (09/29/2024), Esophagogastroduodenoscopy (10/05/2023), Right shoulder (07/17/2023), Bunionectomy, section, Colonoscopy, Dilation and curettage, EGD (esophagogastroduodenoscopy ) gastric outlet reduction, Tonsillectomy, Tubal ligation. Discharge Vitals Temperature (Temporal Artery) 36.4 ???C Heart Rate (Monitored) 90 Respiratory Rate 11 Blood Pressure 112/70 Height 162 cm Weight 88.4 kg BMI 33.68 What to do next Instructions From Your Doctor Event Name Event Result Discharge Activity Resume normal activities in 24 hours Discharge Restrictions No driving for 24 hrs Discharge Diet(s) Regular Call Your Doctor For Persistent or heavy bleeding Discharge Instructions Discharge Instructions Previously Scheduled Follow-Up Appointments 2024 3:00 PM EDT With: Guerline PACHECO, Reji Burdick Where: [facility] [address] [facility] [address] [address]- Medications What How Much When Instructions Next Dose Unchanged cetirizine (Zyrtec) 10 Milligram By Mouth Every day Unchanged cyproheptadine 4 Milligram By Mouth Every day Unchanged esomeprazole (Nexium 40 mg Cap-EC) 1 Capsules By Mouth 2 times a day Unchanged tirzepatide (Zepbound 2.5 mg/ 0.5 mL subcutaneous solution) INJECT 2.5 MG SUBCUTANEOUSLY ONE TIME PER WEEK Test Results No qualifying data available. Allergies Vicodin (Intolerance) chlorhexidine topical (Peeling skin, Blister) codeine (Intolerance) Problems Ongoing - Any problem that you are currently receiving treatment for. Dysphagia Entrapment of left ulnar nerve at elbow Epigastric pain Family history of colon cancer Hemorrhoids Hiatal hernia with GERD Nausea Schatzki's ring Historical - Any problem that you are no longer receiving treatment for. Acid reflux Depression Education Materials Colonoscopy Care After Surgery Please read the instructions outlined below and refer to this sheet in the next few weeks. These discharge instructions provide you with general information on caring for yourself after you leave the hospital. Your doctor may also give you specific instructions. While your treatment has been planned according to the most current medical practices available, unavoidable complications occasionally occur. If you have any problems or questions after discharge, please call your doctor. ACTIVITY You may resume your regular activity, but move at a slower pace for the next 24 hours. Take frequent rest periods for the next 24 hours. Walking will help get rid of the air and reduce the bloated feeling in your abdomen (belly). No driving for 24 hours (because of the anesthesia (medicine) used during the test). You may shower. Do not sign any important legal documents or operate any machinery for 24 hours (because of the anesthesia used during the test). NUTRITION Drink plenty of fluids. You may resume your normal diet as instructed by your doctor. Begin with a light meal and progress to your normal diet. Heavy or fried foods are harder to digest and may make you feel nauseated (sick to your stomach). Avoid alcoholic beverages for 24 hours or as instructed. MEDICATIONS You may resume your normal medications unless your doctor tells you otherwise. WHAT YOU CAN EXPECT TODAY Some feelings of bloating in the abdomen. Passage of more gas than usual. Spotting of blood in your stool or on the toilet paper. FOLLOW-UP Your doctor will discuss the results of your test with you. SEEK IMMEDIATE MEDICAL ATTENTION IF: There is more than a spotting of blood in your stool. There is abdominal distention (your abdomen is swollen). There is vomiting. You have a temperature over 101.5 F. There is abdominal pain or discomfort that is severe or gets worse throughout the day. Colonoscopy Care After Surgery Please read the instructions outlined below and refer to this sheet in the next few weeks. These discharge instructions provide you with general information on caring for yourself after you leave the hospital. Your doctor may also give you specific inst (more content not included)... Normal [facility] Comment on above: Result Comment: Elec tronically Signed By: Amarilis MOORE, Tracie\.br\Date and Time Signed: 10/26/24 14:01 EDT Inpatient Patient Summaryon 10-26-2024 Inpatient Patient Summary Inpatient Patient Summary [place] [id number] [facility] Clinical Discharge Instructions PERSON INFORMATION Name: JUANIS ALVAREZ PHYSICIANS Admitting Physician: Reji Cunha MD Attending Physician: Reji Cunha MD PCP: Joie Peacock MD Discharge Diagnosis: Comment: PATIENT EDUCATION INFORMATION Instructions: Medication Leaflets: Follow up: Type Location Start [facility] Follow Up [facility] 11/10/2024 3:00 PM 11/10/2024 3:15 PM Confirmed MEDICATION LIST Medications to Continue with No Changes Other Medications cetirizine (Zyrtec) 10 Milligram By Mouth every day. cyproheptadine 4 Milligram By Mouth every day. esomeprazole (Nexium 40 mg Cap-EC) 1 Capsules By Mouth 2 times a day. Refills: 6. tirzepatide (Zepbound 2.5 mg/0.5 mL subcutaneous solution) INJECT 2.5 MG SUBCUTANEOUSLY ONE TIME PER WEEK. Comment: Normal [facility] Main OR PACU II Recordon Main OR PACU II Record Main OR PACU II Record PACU Phase II Document Type FT Summary Primary Physician: Reji Cunha MD Finalized Date/Time: 10/26/24 18:16:17 Pt. Name: JUANIS ALVAREZ/Sex: 1985 Female Med Rec #: [id number] Physician: Reji Cunha MD Financial #: [id number] Pt. Type: O Room/Bed: / Admit/Disch: 10/26/24 11:27:01 - Institution: Case Times PACU II FT Pre-Care Text: Identifies barriers to communication and implements measures to provide psychological support and determines knowledge level Develops individualized plan of care, and ensures continuity of care Maintains patient's dignity and privacy, and maintains patient confidentiality Identifies and reports philosophical, cultural, and spiritual beliefs and values Identifies individual values and wishes concerning care administers prescribed antibiotic therapy and immunizing agents as ordered, Evaluates postoperative tissue perfusion Implements thermoregulation measures, and monitors body temperature Evaluates postoperative respiratory status Evaluates postoperative cardiac status Evaluates postoperative neurological status Assesses pain control, collaborated in initiating patient-controlled analgesia and implements alternative methods of pain control Verifies allergies, administers prescribed medications and solutions, evaluates response to medications Entry 1 In PACU II 10/26/24 13:47:00 Discharge from PACU 10/26/24 14:25:00 II Outcomes Met? Yes Last Modified By: Tracie Olmos RN 10/26/24 18:16:11 Post-Care Text: The patient demonstrates knowledge of the expected response to the operative or invasive procedure The patient's care is consistent with the individualized perioperative plan of care The patient's right to privacy is maintained The patient's value system, lifestyle, ethnicity, and culture are considered, respected, and incorporated into the perioperative plan of care The patient participates in decisions affecting his or her perioperative plan of care. The patient is free from signs and symptoms of infection The patient has wound/tissue perfusion consistent with or improved from baseline levels established preoperatively The patient is at or returning to normothermia at the conclusion of the immediate postoperative period The patient's respiratory function is consistent with or improved from baseline levels established preoperatively The patient's cardiovascular status is consistent with or improved from baseline levels established preoperatively The patient's neurological status is consistent with or improved from baseline levels established preoperatively The patient demonstrates and/or reports adequate pain control throughout the perioperative period The patient received appropriate medication(s), safely administered during the perioperative period Finalized By: Tracie Olmos RN Document Signatures Signed By: Tracie Olmos RN 10/26/24 18:16 Normal [facility] Main OR Preoperative Recordo n 10-26-2024 Main OR Preoperative Record Main OR Preoperative Record Holding Area Document Type FT Summary Primary Physician: Reji Cunha MD Finalized Date/Time: 10/26/24 11:41:51 Pt. Name: ANTONIOJUANIS/Sex: 1985 Female Med Rec #: [id number] Physician: Reji Cunha MD Financial #: [id number] Pt. Type: O Room/Bed: / Admit/Disch: 10/26/24 11:27:01 - Institution: Case Times Holding FT Pre-Care Text: Verifies consent for planned procedure, identifies individual values and wishes concerning care, includes family members in perioperative teaching Secures patient's records' belongings, and valuables, maintains patient's dignity and privacy, and maintains patient confidentiality Entry 1 In Holding 10/26/24 11:35:00 Outcomes Met? Yes Last Modified By: Stu Ewing RN 10/26/24 11:40:14 Post-Care Text: The patient participates in decisions affecting his or her perioperative plan of care The patient's right to privacy is maintained Surgery Checklist FT Entry 1 Patient Birthday, ID Band Procedure History and Physical, Identification: Check, Patient Verification: Surgical Consent, With Participation Patient NPO after Midnight: No Date/Time: 10/26/24 06:45:00 Results Reviewed clear-yellow liquid Personal Items: Jewelry Comments: bowel reuslts Personal Items clothing, shoes, ring x1 Limitations: none Comment: Complaints of Pain: No Pain Comment: denies pain at this time Operative Site n/a Marked By: n/a Marking: Location: n/a Availability Equipment Verified: Does Patient Smoke No Patient states Yes Comment - Adult - Alli postop adult Supervision supervision available Case Cancelled in No Holding Area see comments below for reason Last Modified By: Stu Ewing RN 10/26/24 11:41:49 General Comments: pt finished bowel prep at 0645, per patient nothing to eat or drink since MSRN miralax bowel prep MSRN Finalized By: Stu Ewing RN Document Signatures Signed By: Stu Ewing RN 10/26/24 11:41 Normal [facility] Outpatient Surgery Discharge Instructionon 10-26-2024 Outpatient Surgery Discharge Instruction Outpatient Surgery Discharge Instruction [place] [id number] Patient Discharge Instructions PERSON INFORMATION Name: JUANIS ALVAREZ Date of : 1985 Current Date: 10/26/2024 13:48:56 PHYSICIANS Admitting Physician: Reji Cunha MD Discharge Diagnosis: JUANIS ALVAREZ has been given the following list of follow-up instructions, prescriptions, and patient education materials: PATIENT FOLLOW-UP INFORMATION Diet: Regular Discharge Activity: Resume normal activities in 24 hours Discharge Restrictions: No driving for 24 hrs Call Your Doctor For: Persistent or heavy bleeding IF UNABLE TO CONTACT YOUR PHYSICIAN AND YOU FEEL IT IS AN EMERGENCY, GO TO THE NEAREST EMERGENCY ROOM OR CALL 911 I, JUANIS ALVAREZ, have received the attached patient education materials/instructions and have verbalized understanding: May we do a follow up call? Yes No I was present when discharge instructions were given ___ Patient Signature Date Clinican/Nurse Signature Date Follow up: Type Location Start [facility] Follow Up [facility] 11/10/2024 3:00 PM 11/10/2024 3:15 PM Confirmed Pharmacy Information: You may receive a survey from [employer] asking you to rate your care experience. Your feedback is important and will help us understand what we do well and how we can improve the quality of care we provide to you, your loved ones and our community. It???s an honor to serve you. Thank you for choosing [facility] HERE ARE THE MEDICATION CHANGES THAT OCCURRED DURING YOUR HOSPITAL STAY Medications to Continue with No Changes Other Medications cetirizine (Zyrtec) 10 Milligram By Mouth every day. cyproheptadine 4 Milligram By Mouth every day. esomeprazole (Nexium 40 mg Cap-EC) 1 Capsules By Mouth 2 times a day. Refills: 6. tirzepatide (Zepbound 2.5 mg/0.5 mL subcutaneous solution) INJECT 2.5 MG SUBCUTANEOUSLY ONE TIME PER WEEK. PATIENT EDUCATION INFORMATION Instructions: Medication Leaflets: Normal [facility] Ambulatory Visit Summaryon 0 10-13-2024 Ambulatory Visit Summary Ambulatory Visit Summary JUANIS ALVAREZ :1985 Visit Date:10/13/2024 Ambulatory Visit Instructions Your Diagnosis Dysphagia Epigastric pain Nausea Hiatal hernia with GERD Schatzki's ring Family history of colon cancer Hemorrhoids Gastro-esophageal reflux disease without esophagitis Your Care Team Attending Physician - Guerline PACHECO, Reji Burdick Primary Care Physician - Ivis PACHECO, Joie Arce This Is Your Medications List Contact prescribing physician if questions or concerns cetirizine (Zyrtec) cyproheptadine esomeprazole (Nexium 40 mg Cap-EC) tirzepatide (Zepbound 2.5 mg/0.5 mL subcutaneous solution) Procedures Performed Esophagogastroduodenoscopy (09/29/2024), Esophagogastroduodenoscopy (10/05/2023), Right shoulder (07/17/2023), Bunionectomy, section, Colonoscopy, Dilation and curettage, EGD (esophagogastroduodenoscopy ) gastric outlet reduction, Tonsillectomy, Tubal ligation. Discharge Vitals Heart Rate (Peripheral) 94 Respiratory Rate 14 Blood Pressure 111/79 Height 162 cm Height 64 in Weight 88.4 kg Weight 194.888 lb BMI 33.68 What to do next Scheduled Follow-Up Appointments 2024 3:00 PM EDT With: Guerline PACHECO, Reji Burdick Where: [facility] [address] [place], [place] [id number]- Medications What How Much When Instructions Unchanged cetirizine (Zyrtec) 10 Milligram By Mouth Every day Contact prescribing physician if questions or concerns Unchanged cyproheptadine 4 Milligram By Mouth Every day Contact prescribing physician if questions or concerns Unchanged esomeprazole (Nexium 40 mg Cap-EC) 1 Capsules By Mouth 2 times a day Contact prescribing physician if questions or concerns Unchanged tirzepatide (Zepbound 2.5 mg/ 0.5 mL subcutaneous solution) INJECT 2.5 MG SUBCUTANEOUSLY ONE TIME PER WEEK Contact prescribing physician if questions or concerns Allergies Vicodin (Intolerance) chlorhexidine topical (Peeling skin, Blister) codeine (Intolerance) Problems Ongoing - Any problem that you are currently receiving treatment for. Dysphagia Entrapment of left ulnar nerve at elbow Epigastric pain Family history of colon cancer Hemorrhoids Hiatal hernia with GERD Nausea Schatzki's ring Historical - Any problem that you are no longer receiving treatment for. Acid reflux Depression Patient Survey You may receive a survey via text or e-mail asking about your office visit. Please share your experience with us by completing your survey. We appreciate your feedback and thank you for choosing us for your care. Normal [facility] Gastroenterology Office/Clin ic Noteon 10-13-2024 Gastroenterology Office/Clinic Note Gastroenterology Office/Clinic Note Chief Complaint f/u to EGD HPI Staff Established patient is a(n) 39 year old female who presents today for a follow up to EGD on 09/29/24. Any dysphagia? No. Any epigastric pain? No. Nexium daily effective? Yes. Any blood thinners? no. Any GLP-1 agonists? Zepbound. History of Present Illness Reviewed HPI collected by staff Review of Systems All systems reviewed, negative; Except for above Physical Exam Vitals & Measurements HR: 94(Peripheral) RR: 14 BP: 111/79 HT: 64 in HT: 162 cm WT: 88.4 kg WT: 194.888 lb BMI: 33.68 No acute distress Procedure EGD: Moderate HH Dilated to 56 Fr Danielle No lesions in stomach Normal duodenum Assessment/Plan 1. Dysphagia (R13.10: Dysphagia, unspecified) EGD 09/2024 Dilated to 56 Fr Danielle Resolved 2. Epigastric pain (R10.13: Epigastric pain) 3. Nausea (R11.0: Nausea) Started after Zepbound, tolerated 4. Hiatal hernia with GERD (K44.9: Diaphragmatic hernia without obstruction or gangrene) On my exam it was about 3 to 4 cm hiatal hernia, no Luisito ulcers, controlled with Nexium once a day We discussed that given the symptoms are controlled she does not need surgery at this point, plus more than 60% of patients who lose enough weight can have GERD completely resolved without surgery we discussed in the future maintaining PPI at the lowest effective dose. 5. Schatzki's ring (K22.2: Esophageal obstruction) 6. Family history of colon cancer (Z80.0: Family history of malignant neoplasm of digestive organs) Second degree relative, Grandmother 7. Hemorrhoids (K64.9: Unspecified hemorrhoids) Started after C/o rectal bleeding Some pain. Was experiencing constipation which is not normal for her Avoid constipation and straining Recommended water-soluble fiber and OTC cream, Preparation H Advised to get squatty potty Advised to get prunes, kiwi fruits and stay well hydrated Advised to use MiraLAX and titrate to have 1-2 bowel movements every day Schedule Colonoscopy to evaluate. Discussed risks such as bleeding, injury and perforation as well as benefits. Patient agreeable. Advised to hold Zepbound a week prior Discussed referral to Dr Rand depending on results Gastro-esophageal reflux disease without esophagitis (K21.9: Gastro-esophageal reflux disease without esophagitis) I, No Hurtado, personally scribed for Reji Cunha on 10/13/2024 15:31:26. . Documentation recorded by Trinity Hurtado, accurately reflects the services I performed and decisions made by me. Reji Cunha MD Follow-up No qualifying data available Problem List/Past Medical History Ongoing Dysphagia Entrapment of left ulnar nerve at elbow Epigastric pain Family history of colon cancer Hemorrhoids Hiatal hernia with GERD Nausea Schatzki's ring Historical Acid reflux Depression Procedure/Surgical History Esophagogastroduodenoscopy (09/29/2024), Esophagogastroduodenoscopy (10/05/2023), Right shoulder (07/17/2023), Bunionectomy, section, Colonoscopy, Dilation and curettage, EGD (esophagogastroduodenoscopy ) gastric outlet reduction, Tonsillectomy, Tubal ligation. Medications cyproheptadine, 4 mg, Oral, Daily Nexium 40 mg Cap-EC, 40 mg= 1 cap(s), Oral, BID, 6 refills Zepbound 2.5 mg/0.5 mL subcutaneous solution Zyrtec, 10 mg, Oral, Daily Allergies Vicodin (Intolerance) chlorhexidine topical (Peeling skin, Blister) codeine (Intolerance) Social History Alcohol - Denies Alcohol Use, 04/13/2018 Never., 10/13/2024 Substance Abuse - Denies Substance Abuse, 04/13/2018 Never., 10/13/2024 Tobacco - Denies Tobacco Use, 04/13/2018 Never (less than 100 in lifetime) Tobacco Use:., 10/13/2024 Never (less than 100 in lifetime) Tobacco Use:., 10/13/2024 Never (less than 100 in lifetime) Tobacco Use:., 05/10/2020 Family History Esophageal cancer: Father. Pancreatic cancer: Mother. Primary malignant neoplasm of colon: Grandparent. Immunizations Vaccine Date Status Comments influenza virus vaccine, inactivated - Not Given Patient Refuses influenza virus vaccine, inactivated - Not Given Patient Refuses influenza virus vaccine, inactivated 08/31/2020 Recorded influenza virus vaccine, inactivated 05/30/2019 Recorded influenza virus vaccine, inactivated 05/31/2018 Recorded Normal [facility] Comment on above: Result Comment: Elec tronically Signed By: Reji Cunha MD\.br\Date and Time Signed: 10/13/24 15:43 EDT\.br\Electronically Co-Signed By: No Hurtado MA\.br\Date and Time Co-Signed: 10/13/24 15:42 EDT Main OR Intraoperative Recor don 09-30-2024 Main OR Intraoperative Record Main OR Intraoperative Record IntraOp Document Type FT Summary Primary Physician: Reji Cunha MD Finalized Date/Time: 09/30/24 09:21:38 Pt. Name: JUANIS ALVAREZ/Sex: 1985 Female Med Rec #: [id number] Physician: Reji Cunha MD Financial #: [id number] Pt. Type: O Room/Bed: / Admit/Disch: 09/29/24 07:51:23 - 09/29/24 23:59:59 Institution: Case Times FT Entry 1 Patient Times In Room 09/29/24 08:47:00 Out Room 09/29/24 08:57:00 Procedure Times Start 09/29/24 08:51:00 Stop 09/29/24 08:54:00 Anesthesia Times Start 09/29/24 08:47:00 Stop 09/29/24 08:57:00 Last Modified By: Bill MOORE, Bonnie Hirsch 09/29/24 08:57:14 General Comments: 09/30/24 Chart opened to review and send charges LRoth CSFA Case Attendance FT Entry 1 Entry 2 Entry 3 Case Attendee Guerline PACHECO, Komal Moeller CRNA, Cornelia Burdick Role Performed Surgeon - Primary Scrub - Primary SURVEILLANCE SENSOR OFFICER Time In 09/29/24 08:47:00 09/29/24 08:47:00 09/29/24 08:47:00 Time Out 09/29/24 08:57:00 09/29/24 08:57:00 09/29/24 08:57:00 Procedure EGD DILATATION(.) EGD DILATATION(.) EGD DILATATION(.) Comments Dr. Magallon supervising case Last Modified By: Bill RN, Bonnie Khan RN, Bonnie Khan RN, Bonnie Hirsch 09/29/24 08:57:15 F 09/29/24 08:57:15 F 09/29/24 08:57:15 Entry 4 Case Attendee Bonnie Khan RN Role Performed Solution Make Up Operator - Primary Time In 09/29/24 08:47:00 Time Out 09/29/24 08:57:00 Procedure EGD DILATATION(.) Comments Last Modified By: Bonnie Khan RN 09/29/24 08:57:15 Perioperative Protocols FT Pre-Care Text: Implements protective measures prior to operative or invasive procedure, confirms identity before the operative or invasive procedure, verifies operative procedure, surgical site, and laterality Entry 1 Procedure(s) EGD DILATATION(.) Patient Identity Birthday, ID Band Verified (select at Check, Patient least 2): Participation Consents / H and P Anesthesia Consent, Operative Site N/A Verified H&P, Surgery/Procedure Marking Verified Consent Surgical Site No Laterality Verified n/a Verified Procedure Verified Yes Correct Patient Yes Position Verified Availability Equipment, Medication Prep Dry n/a Verified (If Applicable) PreOp Antibiotic No Time Out Guerline PACHECO, Reji Given Participants Torin Burdick Kirstyn K, Funni CRNA, Cornelia Topete, Bill MOORE, Bonnie Hirsch Time Out Complete 09/29/24 08:49:00 Outcomes Met? Yes Last Modified By: Bonnie Khan RN 09/29/24 08:49:49 Post-Care Text: The patient is free from signs and symptoms of injury caused by extraneous objects Allergy Information FT Pre-Care Text: Verifies allergies Entry 1 Allergies Reviewed? Yes Allergies Reviewed Self/Patient With Outcomes Met? Yes Last Modified By: Bonnie Khan RN 09/29/24 08:49:13 Post-Care Text: The patient received appropriate medication(s) safely administered during the perioperative period Surgical Procedures FT Entry 1 Procedure Description Procedure EGD DILATATION Modifiers . Surgeon Description EGD with esophageal dilation using #56Fr Danielle dilator. Primary Procedure Yes Primary Surgeon Gureline PACHECO, Reji Burdick Start 09/29/24 08:51:00 Stop 09/29/24 08:54:00 Anesthesia Type General Surgical Service Gastroenterology Wound Class 2 - Clean-Contaminated Last Modified By: Bonnie Khan RN 09/29/24 08:54:56 General Case Data FT Pre-Care Text: Classifies surgical wound, implements aseptic technique, initiates traffic control Entry 1 Case Information OR ENDO 1 FT Case Level Level 2 Wound Class 2 - Clean-Contaminated Specialty Gastroenterology ASA Class 1 Preop Diagnosis Epigastric pain, Postop Same As Preop No nausea, Schatzki's ring Postop Diagnosis Hiatal hernia Outcomes Met? Yes Last Modified By: Bonnie Khan RN 09/29/24 08:54:58 Post-Care Text: The patient is free from signs and symptoms of infection Skin Assessment (Pre Procedure) FT Pre-Care Text: Implements protective measures to prevent skin/ tissue injury due to thermal or mechanical sources Evaluates for signs and symptoms of physical injury to skin and tissue Entry 1 Skin Integrity Intact, Manuelito, Warm, & Skin Abnormality No Dry Outcomes Met? Yes Last Modified By: Bonnie Khan RN 09/29/24 08:51:01 Post-Care Text: The patient is free from signs and symptoms of injury caused by extraneous objects Patient Positioning FT Pre-Care Text: Identifies physical alterations that require additional precautions for procedure-specific positioning, verifies presence of prosthetics or corrective devices, positions the patient, evaluates the patient for signs and symptoms of injury as a result of positioning Entry 1 Procedure EGD DILATATION(.) Body Position Lateral, right side up Feet Uncrossed? Yes Left Arm Position Resting at (more content not included)... Normal [facility] Discharge Instructionson Discharge Instructions Discharge Instructions JUANIS ALVAREZ :1985 Visit Date:09/29/2024 Inpatient Discharge Instructions Your Care Team Admitting Physician - Reji Cunha MD Referring Physician - Reji Cunha MD Reason for Your Visit EPIGASTRIC PAIN, NAUSEA, SCHATZKI RING Your Diagnosis Dysphagia This Is Your Medications List cetirizine (Zyrtec) cyproheptadine esomeprazole (Nexium 40 mg Cap-EC) tirzepatide (Zepbound 2.5 mg/0.5 mL subcutaneous solution) Procedure History Esophagogastroduodenoscopy (10/05/2023), Right shoulder (07/17/2023), Bunionectomy, section, Colonoscopy, Dilation and curettage, EGD (esophagogastroduodenoscopy ) gastric outlet reduction, Tonsillectomy, Tubal ligation. Discharge Vitals Temperature (Temporal Artery) 36.7 ???C Heart Rate (Monitored) 96 Respiratory Rate 20 Blood Pressure 112/78 Height 162 cm Weight 90.6 kg BMI 34.52 What to do next Instructions From Your Doctor Event Name Event Result Discharge Activity Resume normal activities in 24 hours Discharge Restrictions No driving for 24 hrs Discharge Diet(s) Other: per egd note Call Your Doctor For Persistent or heavy bleeding Discharge Instructions Discharge Instructions Previously Scheduled Follow-Up Appointments 2024 3:00 PM EDT With: Guerline PACHECO, Reji Burdick Where: [facility] [address] [address]- New Follow Up Appointments after Discharge Follow Up with Reji Cunha When: Where: [address] [phone] Business (1) Medications What How Much When Instructions Next Dose Unchanged cetirizine (Zyrtec) 10 Milligram By Mouth Every day Unchanged cyproheptadine 4 Milligram By Mouth Every day Unchanged esomeprazole (Nexium 40 mg Cap-EC) 1 Capsules By Mouth 2 times a day Unchanged tirzepatide (Zepbound 2.5 mg/ 0.5 mL subcutaneous solution) INJECT 2.5 MG SUBCUTANEOUSLY ONE TIME PER WEEK Test Results No qualifying data available. Allergies Vicodin (Intolerance) chlorhexidine topical (Peeling skin, Blister) codeine (Intolerance) Problems Ongoing - Any problem that you are currently receiving treatment for. Entrapment of left ulnar nerve at elbow Epigastric pain Family history of colon cancer Hiatal hernia with GERD Nausea Schatzki's ring Historical - Any problem that you are no longer receiving treatment for. Acid reflux Depression Education Materials Esophageal Dilatation Esophageal dilatation, also called esophageal dilation, is a procedure to widen or open a blocked or narrowed part of the esophagus. The esophagus is the part of the body that moves food and liquid from the mouth to the stomach. You may need this procedure if: ??? You have a buildup of scar tissue in your esophagus that makes it difficult, painful, or impossible to swallow. This can be caused by gastroesophageal reflux disease (GERD). ??? You have cancer of the esophagus. ??? There is a problem with how food moves through your esophagus. In some cases, you may need this procedure repeated at a later time to dilate the esophagus gradually. Tell a health care provider about: ??? Any allergies you have. ??? All medicines you are taking, including vitamins, herbs, eye drops, creams, and [id number] medicines. ??? Any problems you or family members have had with anesthetic medicines. ??? Any blood disorders you have. ??? Any surgeries you have had. ??? Any medical conditions you have. ??? Any antibiotic medicines you are required to take before dental procedures. ??? Whether you are or may be . What are the risks? Generally, this is a safe procedure. However, problems may occur, including: ??? Bleeding due to a tear in the lining of the esophagus. ??? A hole, or perforation, in the esophagus. What happens before the procedure? Ask your health care provider about: ? Changing or stopping your regular medicines. This is especially important if you are taking diabetes medicines or blood thinners. ? Taking medicines such as aspirin and ibuprofen. These medicines can thin your blood. Do not take these medicines unless your health care provider tells you to take them. ? Taking ylzb-qrg-[id number] medicines, vitamins, herbs, and supplements. ??? Follow instructions from your health care provider about eating or drinking restrictions. ??? Plan to have a responsible adult take you home from the hospital or clinic. ??? Plan to have a responsible adult care for you for the time you are told after you leave the hospital or clinic. This is important. What happens during the procedure? You may be given a medicine to help you relax (sedative). ??? A numbing medicine (more content not included)... Normal [facility] Comment on above: Result Comment: Elec tronically Signed By: Kailey Cohen RN\.br\Date and Time Signed: 09/29/24 09:07 EST Main OR PACU II Recordon Main OR PACU II Record Main OR PACU II Record PACU Phase II Document Type FT Summary Primary Physician: Reji Cunha MD Finalized Date/Time: 09/29/24 09:35:24 Pt. Name: JUANIS ALVAREZ/Sex: 1985 Female Med Rec #: [id number] Physician: Reji Cunha MD Financial #: [id number] Pt. Type: O Room/Bed: / Admit/Disch: 09/29/24 07:51:23 - Institution: Case Times PACU II FT Pre-Care Text: Identifies barriers to communication and implements measures to provide psychological support and determines knowledge level Develops individualized plan of care, and ensures continuity of care Maintains patient's dignity and privacy, and maintains patient confidentiality Identifies and reports philosophical, cultural, and spiritual beliefs and values Identifies individual values and wishes concerning care administers prescribed antibiotic therapy and immunizing agents as ordered, Evaluates postoperative tissue perfusion Implements thermoregulation measures, and monitors body temperature Evaluates postoperative respiratory status Evaluates postoperative cardiac status Evaluates postoperative neurological status Assesses pain control, collaborated in initiating patient-controlled analgesia and implements alternative methods of pain control Verifies allergies, administers prescribed medications and solutions, evaluates response to medications Entry 1 In PACU II 09/29/24 08:58:00 Discharge from PACU 09/29/24 09:25:00 II Outcomes Met? Yes Last Modified By: Kailey Cohen RN 09/29/24 09:35:17 Post-Care Text: The patient demonstrates knowledge of the expected response to the operative or invasive procedure The patient's care is consistent with the individualized perioperative plan of care The patient's right to privacy is maintained The patient's value system, lifestyle, ethnicity, and culture are considered, respected, and incorporated into the perioperative plan of care The patient participates in decisions affecting his or her perioperative plan of care. The patient is free from signs and symptoms of infection The patient has wound/tissue perfusion consistent with or improved from baseline levels established preoperatively The patient is at or returning to normothermia at the conclusion of the immediate postoperative period The patient's respiratory function is consistent with or improved from baseline levels established preoperatively The patient's cardiovascular status is consistent with or improved from baseline levels established preoperatively The patient's neurological status is consistent with or improved from baseline levels established preoperatively The patient demonstrates and/or reports adequate pain control throughout the perioperative period The patient received appropriate medication(s), safely administered during the perioperative period Finalized By: Kailey Cohen RN Document Signatures Signed By: Kailey Cohen RN 09/29/24 09:35 Normal [facility] Main OR Preoperative Recordo n 09-29-2024 Main OR Preoperative Record Main OR Preoperative Record Holding Area Document Type FT Summary Primary Physician: Reji Cunha MD Finalized Date/Time: 09/29/24 08:13:03 Pt. Name: JUANIS ALVAREZ/Sex: 1985 Female Med Rec #: [id number] Physician: Reji Cunha MD Financial #: [id number] Pt. Type: O Room/Bed: / Admit/Disch: 09/29/24 07:51:23 - Institution: Case Times Holding FT Pre-Care Text: Verifies consent for planned procedure, identifies individual values and wishes concerning care, includes family members in perioperative teaching Secures patient's records' belongings, and valuables, maintains patient's dignity and privacy, and maintains patient confidentiality Entry 1 In Holding 09/29/24 08:07:00 Outcomes Met? Yes Last Modified By: Saumya Gee RN 09/29/24 08:12:12 Post-Care Text: The patient participates in decisions affecting his or her perioperative plan of care The patient's right to privacy is maintained Surgery Checklist FT Entry 1 Patient Birthday, ID Band Procedure History and Physical, Identification: Check, Patient Verification: Surgical Consent, With Participation Patient NPO after Midnight: Yes Date/Time: 09/29/24 00:00:00 Personal Items none Limitations: none Comment: Complaints of Pain: No Pain Comment: denies Operative Site n/a Availability Equipment Marking: Verified: Does Patient Smoke No Patient states Yes Comment - Adult Alli- spouse postop adult Supervision supervision available Case Cancelled in No Holding Area see comments below for reason Last Modified By: Saumya Gee RN 09/29/24 08:13:00 Finalized By: Saumya Gee RN Document Signatures Signed By: Saumya Gee RN 09/29/24 08:13 Normal [facility] Ambulatory Visit Summaryon 0 09-21-2024 Ambulatory Visit Summary Ambulatory Visit Summary JUANIS ALVAREZ :1985 Visit Date:09/21/2024 Ambulatory Visit Instructions Your Diagnosis Epigastric pain Nausea Hiatal hernia with GERD Family history of colon cancer Schatzki's ring Gastro-esophageal reflux disease without esophagitis Your Care Team Attending Physician - Guerline PACHECO, Reji Burdick Primary Care Physician - Joie Peacock MD This Is Your Medications List Contact prescribing physician if questions or concerns cetirizine (Zyrtec) esomeprazole (Nexium 40 mg Cap-EC) tirzepatide (Zepbound 2.5 mg/0.5 mL subcutaneous solution) Procedures Performed Esophagogastroduodenoscopy (10/05/2023), Right shoulder (07/17/2023), Bunionectomy, section, Colonoscopy, Dilation and curettage, EGD (esophagogastroduodenoscopy ) gastric outlet reduction, Tonsillectomy, Tubal ligation. Discharge Vitals Heart Rate (Peripheral) 98 Blood Pressure 111/77 Height 162 cm Height 64 in Weight 90.6 kg Weight 199.739 lb BMI 34.52 What to do next Scheduled Follow-Up Appointments Oct. 2024 3:00 PM EDT With: Guerline PACHECO, Reji Burdick Where: [facility] [address] [place] [address] [place] [address]- Medications What How Much When Instructions Unchanged cetirizine (Zyrtec) 10 Milligram By Mouth Every day Contact prescribing physician if questions or concerns Unchanged esomeprazole (Nexium 40 mg Cap-EC) 1 Capsules By Mouth 2 times a day Contact prescribing physician if questions or concerns Unchanged tirzepatide (Zepbound 2.5 mg/ 0.5 mL subcutaneous solution) INJECT 2.5 MG SUBCUTANEOUSLY ONE TIME PER WEEK Contact prescribing physician if questions or concerns Allergies Vicodin (Intolerance) chlorhexidine topical (Peeling skin, Blister) codeine (Intolerance) Problems Ongoing - Any problem that you are currently receiving treatment for. Entrapment of left ulnar nerve at elbow Epigastric pain Family history of colon cancer Hiatal hernia with GERD Nausea Schatzki's ring Historical - Any problem that you are no longer receiving treatment for. Acid reflux Depression Patient Survey You may receive a survey via text or e-mail asking about your office visit. Please share your experience with us by completing your survey. We appreciate your feedback and thank you for choosing us for your care. Normal [facility] Gastroenterology Office/Clin ic Noteon 09-21-2024 Gastroenterology Office/Clinic Note Gastroenterology Office/Clinic Note Chief Complaint Follow up HPI Staff Established patient is a(n) 39 year old male who presents today for a(n) 8 month follow up. Any GI complaints? No Nexium working well? Yes Any blood thinners? no Any GLP-1 agonists? Zepbound History of Present Illness Reviewed HPI collected by staff Review of Systems PHQ Score Initial Depression Screen Score: 0 SCORE All systems reviewed, negative; Except for above Physical Exam Vitals & Measurements HR: 98(Peripheral) BP: 111/77 HT: 64 in HT: 162 cm WT: 90.6 kg WT: 199.739 lb BMI: 34.52 General: in Nad Abdomen: Soft, NTND Procedure EGD 10/05/23: Impression and Plan 1. 3 cm hiatal hernia, no Luisito ulcers or esophagitis noted. Very mild widely open Schatzki ring noted at the distal esophagus. 2. Multiple fundic gland polyps in the fundus and body of the stomach, less than 1 cm in size. Mild patchy erythema in the antrum. Random biopsies were taken for histology and rule out H. pylori 3. Mild duodenitis in the bulb, characterized by patchy erythema, random biopsies from the duodenum were taken to rule out celiac disease Recommendations: -Continue Nexium twice daily before meals, can add Pepcid twice a day as needed, Tums as needed and Gaviscon as needed Pathology: Final Diagnosis (Verified) A: STOMACH, BIOPSY: ??? ANTRAL MUCOSA WITH MILD CHRONIC INACTIVE GASTRITIS. ??? NO H. PYLORI MICROORGANISMS IDENTIFIED WITH IMMUNOSTAIN. B: DUODENUM, BIOPSY: ??? DUODENAL MUCOSA WITHIN NORMAL LIMITS Assessment/Plan 1. Epigastric pain (R10.13: Epigastric pain) Nexium once a day is helping significantly, with heartburn. She has occasional pain but feels like it is tolerable. 2. Nausea (R11.0: Nausea) Started after Zepbound, tolerated 3. Hiatal hernia with GERD (K44.9: Diaphragmatic hernia without obstruction or gangrene) On my exam it was about 3 to 4 cm hiatal hernia, no Luisito ulcers, controlled with Nexium once a day We discussed that given the symptoms are controlled she does not need surgery at this point, plus more than 60% of patients who lose enough weight can have GERD completely resolved without surgery we discussed in the future maintaining PPI at the lowest effective dose. 4. Family history of colon cancer (Z80.0: Family history of malignant neoplasm of digestive organs) Second degree relative, Grandmother Colonoscopy at age 45 5. Schatzki's ring (K22.2: Esophageal obstruction) Having dysphagia. Has to drink water to get food down. EGD 10/24 did show Schatzki ring at the distal esophagus. Schedule EGD with dilation to evaluate. Discussed risks and benefits, patient agreeable. Advised to hold Zepbound a week before procedure. Gastro-esophageal reflux disease without esophagitis (K21.9: Gastro-esophageal reflux disease without esophagitis) I, No Hurtado, personally scribed for Reji Cunha on 09/21/2024 09:35:02. . Documentation recorded by Trinity Hurtado, accurately reflects the services I performed and decisions made by me. Reji Cunha MD Follow-up No qualifying data available Problem List/Past Medical History Ongoing Entrapment of left ulnar nerve at elbow Epigastric pain Family history of colon cancer Hiatal hernia with GERD Nausea Schatzki's ring Historical Acid reflux Depression Procedure/Surgical History Esophagogastroduodenoscopy (10/05/2023), Right shoulder (07/17/2023), Bunionectomy, section, Colonoscopy, Dilation and curettage, EGD (esophagogastroduodenoscopy ) gastric outlet reduction, Tonsillectomy, Tubal ligation. Medications Nexium 40 mg Cap-EC, 40 mg= 1 cap(s), Oral, BID, 6 refills Zepbound 2.5 mg/0.5 mL subcutaneous solution Zyrtec, 10 mg, Oral, Daily Allergies Vicodin (Intolerance) chlorhexidine topical (Peeling skin, Blister) codeine (Intolerance) Social History Alcohol - Denies Alcohol Use, 04/13/2018 Substance Abuse - Denies Substance Abuse, 04/13/2018 Tobacco - Denies Tobacco Use, 04/13/2018 Never (less than 100 in lifetime) Tobacco Use:. Never Smokeless Tobacco Use:., 09/21/2024 Never (less than 100 in lifetime) Tobacco Use:., 05/10/2020 Family History Esophageal cancer: Father. Pancreatic cancer: Mother. Primary malignant neoplasm of colon: Grandparent. Immunizations Vaccine Date Status Comments influenza virus vaccine, inactivated - Not Given Patient Refuses influenza virus vaccine, inactivated - Not Given Patient Refuses influenza virus vaccine, inactivated 08/31/2020 Recorded influenza virus vaccine, inactivated 05/30/2019 Recorded influenza virus vaccine, inactivated 05/31/2018 Recorded Normal [facility] Comment on above: Result Comment: Elec tronically Signed By: Reji Cunha MD\.br\Date and Time Signed: 09/21/24 10:00 EST\.br\Electronically Co-Signed By: No Hurtado MA\.br\Date and Time Co-Signed: 09/21/24 09:58 EST MRI Spine Cervical w/o Contr caitlin 06-27-2024 MRI Spine Cervical w/o Contrast Exam Date/Time: 06/24/2024 18:06 EST Reason for Exam: M48.02 Report IMPRESSION: SHALLOW MINIMAL DISC BULGING AT C5-C6. CLINICAL HISTORY: M48.02. Left hand numbness and tingling. COMMENT: Unenhanced images were obtained. No interspace narrowing is noted. There is shallow minimal bulging of the C5-C6 disc, with minimal indentation of the dural sac anteriorly. The other intervertebral discs are unremarkable. No focal disc herniation is noted. No significant extradural defect is evident. No spinal canal stenosis nor neural foraminal stenosis is noted. No intradural lesion nor intrinsic abnormality of the cervical spinal cord nor cervical spinal cord compression is evident. There is no Chiari malformation. The vertebral bodies are maintained in height. No abnormal signal intensity of vertebra is noted. Ordering Provider: , FINAL REPORT Dictated: 06/27/2024 3:59 pm Andrea Forbes M.D. Signed (Electronic Signature): 06/27/2024 3:59 pm Signed by: Andrea Forbes M.D. Transcribed by: KRYSTLE Technologist: JOSIAH Technical Comments None Normal [facility] XR Elbow - left 2 [facility] Result: X-rays, permanently saved to the patient's record, are reviewed, elbow x-rays two views shows no acute fracture, dislocation, tumor or infection seen. These are saved to the permanent record in the [place] office. [facility] XR Elbow - left 2 [facility] Study observation (narrative) [facility] XR Spine Cervical 4 or 5 Vie wson 05-24-2024 XR Spine Cervical 4 or 5 Views Exam Date/Time: 05/23/2024 10:34 EDT Reason for Exam: neck pain Report IMPRESSION: NO ACUTE OSSEOUS ABNORMALITY. EXAMINATION: XR Spine Cervical 4 or 5 Views TECHNIQUE: AP, lateral, bilateral oblique, and odontoid views HISTORY: Neck pain COMPARISONS: None available. FINDINGS: Normal alignment of the cervical spine. Cervical vertebral body heights are maintained. Intervertebral disc heights are maintained. The lateral masses of C1 articulate symmetrically with C2. Atlantodental interval is preserved. No fracture or spondylolisthesis. Possible mild bilateral neuroforaminal stenosis may be projectional. Neural foraminal stenosis would be better evaluated with MRI of the cervical spine without contrast. Prevertebral soft tissues have a normal appearance. Ordering Provider: , FINAL REPORT Dictated: 05/24/2024 9:43 am Antoine Lewis DO Signed (Electronic Signature): 05/24/2024 9:43 am Signed by: Antoine Lewis DO Transcribed by: KRYSTLE Technologist: KATH Technical Comments Radiation Dose: Ka,r in mGy = na DAP = na Normal [facility] EMG 1 Extremeityon Normal EMG of the le ft upper extremity [facility] NVC 5-6 Nerveson 05-19-2024 Normal EMG of the le ft upper extremity [facility] XR Wrist - left 3 [facility] Result: See transcribed note for interpretation. [facility] XR Wrist - left 3 [facility] Study observation (narrative) [facility] Cytologyon 03-09-2024 Cytology Normal [facility] Comment on above: Result Comment: [facility] [address] [place] [address] Gynecologic Cytology Consultation Patient Name:MALCOLM ALVAREZOB:1985 (Age: 38)Gender:FTaken:4Reported:03/17/2024hysician(s):Lina Yeh APRN-CNPCopgus To: Rec. #:[id number]: #[id number] Final Cytologic Interpretation ThinPrep Pap Test (Cervical): Satisfactory for evaluation. A transformation zone component is present. NEGATIVE FOR INTRAEPITHELIAL LESION OR MALIGNANCY. j/03/17/2024 Interpretation performed at [facility] [place] [address], License number: [id number]. Electronically Signed Out By SOWMYA Alfaro(ASCP) Date of Last Menstrual Period: 02/13/24 Other Clinical Conditions: Z01.419 Plan Examiner exam wo/abn findings Source of Specimen ThinPrep Pap Test (Cervical) Thin Prep Pap (VENDING MACHINE HOST/HOSTESS) Fee Code(s): G0145 The Pap test is a screening test with an inherent, but low, probability of error. The Pap test is primarily effective for the diagnosis and prevention of squamous cell carcinoma. Regular screening is critical for prevention. ThinPrep liquid-based slides, which meet the [employer] Feeder criteria for automated screening, have been screened by the ThinPrep Imaging System (as of 04/19/07) along with an additional manual rescreening by a storeroom supervisor and, if indicated, by a pathologist. HIGH RISK HPV W/Hailey 03-09 HPV 31+33+35+39+45+51+52 +56+58+59+66+68 DNA ARTHUR+probe Ql (Cvx) HPV SPECIMEN TYPE ThinPrep HPV 16 Negative (qualifier value) HPV 18 Negative (qualifier value) OTHER HIGH RISK HPV Negative (qualifier value) HPV types 31,33,35,39,45,52,56,58,59, 66 and 68 DNA were undetectable. Normal [facility] Comment on above: Performed By: #### 7 1431-1 #### [facility] ([id number]) [address] [place] [address], [place] [place] [id number] [place] [address] LAB ([id number]) [address] [place] [address], [address] [place] [address] Gastroenterology Office/Clin ic Noteon 01-19-2024 Gastroenterology Office/Clinic Note Chief Complaint f/u EGD - epigastric pain and nausea HPI Staff Patient is a 38 year old female who presents today for a follow up to EGD on 10/05/23. Having slight nausea. Comes and goes. Every day - randomly. Just started Zepbound for weight loss and feels this could be the cause of the nausea. Was not having nausea prior to starting medication. Nexium working well. Last visit 08/17/23 w/Dr. Cunha: Assessment/Plan 1. Epigastric pain (R10.13: Epigastric pain) Could be related to her hernia, PUD, musculoskeletal Will repeat EGD given her history of 5 cm hiatal hernia, she was seen by surgery at [place], she needed to lose weight she was also offered by She is not interested in that We discussed lifestyle modifications for GERD, switch pantoprazole to Nexium twice daily before meals, can use Tums, Pepcid and/or Gaviscon as needed on top, might be also a good candidate for new GERD therapy PKAB once its available She has second-degree relative with colon cancer, colonoscopy still at the age of 45, she said she had 1 few years ago, report not available, will try to find 2. Nausea (R11.0: Nausea) EGD: Impression and Plan 1. 3 cm hiatal hernia, no Luisito ulcers or esophagitis noted. Very mild widely open Schatzki ring noted at the distal esophagus. 2. Multiple fundic gland polyps in the fundus and body of the stomach, less than 1 cm in size. Mild patchy erythema in the antrum. Random biopsies were taken for histology and rule out H. pylori 3. Mild duodenitis in the bulb, characterized by patchy erythema, random biopsies from the duodenum were taken to rule out celiac disease Recommendations: -Continue Nexium twice daily before meals, can add Pepcid twice a day as needed, Tums as needed and Gaviscon as needed Pathology: Final Diagnosis (Verified) A: STOMACH, BIOPSY: ? ANTRAL MUCOSA WITH MILD CHRONIC INACTIVE GASTRITIS. ? NO H. PYLORI MICROORGANISMS IDENTIFIED WITH IMMUNOSTAIN. B: DUODENUM, BIOPSY: ? DUODENAL MUCOSA WITHIN NORMAL LIMITS. History of Present Illness As discussed above Review of Systems PHQ Score Initial Depression Screen Score: 0 SCORE Physical Exam Vitals & Measurements HR: 80(Peripheral) RR: 18 BP: 140/86 HT: 64 in HT: 162 cm WT: 124 kg WT: 272.8 lb BMI: 47.25 Assessment/Plan 1. Epigastric pain (R10.13: Epigastric pain) Resolved, Nexium once a day is helping significantly, with heartburn, no pain 2. Nausea (R11.0: Nausea) Started afterZepbound , tolerated 3. Hiatal hernia with GERD (K44.9: Diaphragmatic hernia without obstruction or gangrene) On my exam it was about 3 to 4 cm hiatal hernia, no Luisito ulcers, controlled with Nexium once a day We discussed that given the symptoms are controlled she does not need surgery at this point, plus more than 60% of patients who lose enough weight can have GERD completely resolved without surgery we discussed in the future maintaining PPI at the lowest effective dose, consider decreasing Nexium to 20 once a day in the future Follow-up No qualifying data available Problem List/Past Medical History Ongoing Epigastric pain Nausea Historical Acid reflux Depression Procedure/Surgical History Esophagogastroduodenoscopy (10/05/2023), Right shoulder (07/17/2023), Bunionectomy, section, Colonoscopy, Dilation and curettage, EGD (esophagogastroduodenoscopy ) gastric outlet reduction, Tonsillectomy, Tubal ligation. Medications Nexium 40 mg Cap-EC, 40 mg= 1 cap(s), Oral, BID, 6 refills Zepbound 2.5 mg/0.5 mL subcutaneous solution Zyrtec, 10 mg, Oral, Daily Allergies Allergy Relief (Diphenhydramine HCl) (Hyperactive) Vicodin (Intolerance) chlorhexidine topical (Peeling skin, Blister) codeine (Intolerance) Social History Alcohol - Denies Alcohol Use, 04/13/2018 Substance Abuse - Denies Substance Abuse, 04/13/2018 Tobacco - Denies Tobacco Use, 04/13/2018 Never (less than 100 in lifetime) Tobacco Use:. Never Smokeless Tobacco Use:., 01/19/2024 Never (less than 100 in lifetime) Tobacco Use:., 05/10/2020 Family History Esophageal cancer: Father. Pancreatic cancer: Mother. Primary malignant neoplasm of colon: Grandparent. Immunizations Vaccine Date Status Comments influenza virus vaccine, inactivated - Not Given Patient Refuses influenza virus vaccine, inactivated - Not Given Patient Refuses influenza virus vaccine, inactivated 08/31/2020 Recorded influenza virus vaccine, inactivated 05/30/2019 Recorded influenza virus vaccine, inactivated 05/31/2018 Recorded Normal [facility] Comment on above: Result Comment: Elec tronically Signed By: Guerline PACHECO, Reji Burdick\.br\Date and Time Signed: 01/19/24 16:14 EDT CBC w/ Auto Diffon 4 Basophils/100 WBC (Bld) 0.9 % Normal 0.0-2.0 [facility] Comment on above: Performed By: #### 2 [id number] #### [facility] [address] [place] [address] Basophils/Leukocytes Auto (Bld) [Pure # fraction] 0.1 E9/L Normal 0.0-0.2 [facility] Comment on above: Performed By: #### 2 [id number] #### [facility] [address] [place] [address] Eosinophils (Bld) [#/Vol] 0.3 E9/L Normal 0.0-0.5 [facility] Comment on above: Performed By: #### 2 [id number] #### [facility] [address] [place] [address] Eosinophils/100 WBC (Bld) 3.0 % Normal 0.0-8.0 [facility] Comment on above: Performed By: #### 2 [id number] #### [facility] [address] [place] [address] Erythrocyte distribution width (RBC) [Ratio] 13.4 % Normal 10.9-14.2 [facility] Comment on above: Performed By: #### 2 [id number] #### [facility] [address] [place] [address] Hematocrit (Bld) [Volume fraction] 39.7 % Normal 34.0-46.0 [facility] Comment on above: Performed By: #### 2 [id number] #### [facility] [address] [place] [address] Hemoglobin (Bld) [Mass/Vol] 13.4 g/dL Normal 12.0-16.0 [facility] Comment on above: Performed By: #### 2 [id number] #### [facility] [address] [place] [address] Lymphocytes (Bld) [#/Vol] 2.9 E9/L Normal 1.0-4.0 [facility] Comment on above: Performed By: #### 2 [id number] #### [facility] [address] [place] [address] Lymphocytes/100 WBC (Bld) 29.4 % Normal 14.0-50.0 [facility] Comment on above: Performed By: #### 2 [id number] #### [facility] [address] [place] [address] MCH (RBC) [Entitic mass] 29.8 pg Normal 27.0-34.0 [facility] Comment on above: Performed By: #### 2 [id number] #### [facility] [address] [place] [address] [place] [address] MCHC (RBC) [Mass/Vol] 33.7 g/dL Normal 31.4-36.0 [facility] Comment on above: Performed By: #### 2 [id number] #### [facility] [address] [place] [address] MCV (RBC) [Entitic vol] 88.4 fL Normal 80.0-100.0 [facility] Comment on above: Performed By: #### 2 [id number] #### [facility] [address] [place] [address] Monocytes (Bld) [#/Vol] 0.9 E9/L Normal 0.2-1.0 [facility] Comment on above: Performed By: #### 2 [id number] #### [facility] [address] [place] [address] Neutrophils (Bld) [#/Vol] 5.5 E9/L Normal 2.0-7.5 [facility] Comment on above: Performed By: #### 2 [id number] #### [facility] [address] [place] [address] Neutrophils/100 WBC (Bld) 57.0 % Normal 36.0-75.0 [facility] Comment on above: Performed By: #### 2 [id number] #### [facility] [address] [place] [address] Platelet mean volume (Bld) [Entitic vol] 8.2 fL Normal 6.4-10.8 [facility] Comment on above: Performed By: #### 2 [id number] #### [facility] [address] [place] [address] Platelets (Bld) [#/Vol] 283.0 E9/L Normal 150.0-500. 0 [facility] Comment on above: Performed By: #### 2 [id number] #### [facility] [address] [place] [address] RBC (Bld) [#/Vol] 4.5 E12/L Normal 4.3-5.9 [facility] Comment on above: Performed By: #### 2 [id number] #### [facility] [address] [place] [address] WBC corrected for nucl RBC Auto (Bld) [#/Vol] 9.7 E9/L Normal 4.0-11.0 [facility] Comment on above: Performed By: #### 2 [id number] #### [facility] [address] [place] [address] CMPon 01-05-2024 Albumin [Mass/Vol] 4.2 g/dL Normal 3.3-5.0 [facility] Comment on above: Performed By: #### 2 [id number] #### [facility] [address] [place] [address] Albumin/Globulin (S) [Mass conc ratio] 1.4 Normal 1.1-2.2 [facility] Comment on above: Performed By: #### 2 [id number] #### [facility] [address] [place] [address] ALP [Catalytic activity/Vol] 80 Int._Unit/L Normal 21-98 [facility] Comment on above: Performed By: #### 2 [id number] #### [facility] [address] [place] [address] ALT No additional P-5'-P [Catalytic activity/Vol] 21 Int._Unit/L Normal 6-46 [facility] Comment on above: Performed By: #### 2 [id number] #### [facility] [address] [place] [address] Anion gap [Moles/Vol] 13 mmol/L Normal 6-16 [facility] Comment on above: Performed By: #### 2 [id number] #### [facility] [address] [place] [address] AST [Catalytic activity/Vol] 17 Int._Unit/L Normal 5-43 [facility] Comment on above: Performed By: #### 2 [id number] #### [facility] [address] [place] [address] Bilirubin [Mass/Vol] 0.5 mg/dL Normal 0.0-1.1 [facility] Comment on above: Performed By: #### 2 [id number] #### [facility] [address] [place] [address] Calcium [Mass/Vol] 8.9 mg/dL Normal 8.9-11.1 [facility] Comment on above: Performed By: #### 2 [id number] #### [facility] [address] [place] [address] Chloride [Moles/Vol] 106 mmol/L Normal 101-111 [facility] Comment on above: Performed By: #### 2 [id number] #### [facility] [address] [place] [address] CO2 [Moles/Vol] 21 mmol/L Normal 21-31 [facility] Comment on above: Performed By: #### 2 [id number] #### [facility] [address] [place] [address] Creatinine [Mass/Vol] 0.8 mg/dL Normal 0.5-1.3 [facility] Comment on above: Performed By: #### 2 [id number] #### [facility] [address] [place] [address] Globulin (S) [Mass/Vol] 2.9 g/dL Normal 1.4-4.0 [facility] Comment on above: Performed By: #### 2 [id number] #### [facility] [address] [place] [address] Glucose [Mass/Vol] 81 mg/dL Normal 55-199 [facility] Comment on above: Performed By: #### 2 [id number] #### [facility] [address] [place] [address] Potassium [Moles/Vol] 3.7 mmol/L Normal 3.5-5.3 [facility] Comment on above: Performed By: #### 2 778133 #### [facility] [address] [place] [address] Protein [Mass/Vol] 7.1 g/dL Normal 6.0-7.8 [facility] Comment on above: Performed By: #### 2 [id number] #### [facility] [address] [place] [address] Sodium [Moles/Vol] 136 mmol/L Normal 135-145 [facility] Comment on above: Performed By: #### 2 [id number] #### [facility] [address] [place] [address] Urea nitrogen [Mass/Vol] 10 mg/dL Normal 5-21 [facility] Comment on above: Performed By: #### 2 640479 #### [facility] [address] [place] [address] Urea nitrogen/Creatinine [Mass ratio] 12 No Units Normal 10-20 [facility] Comment on above: Performed By: #### 2 [id number] #### [facility] [address] [place] [address] Consent for Treatmenton Consent for Treatment [id number] Normal [facility] Lipid Panelon 01-05-2024 Cholesterol [Mass/Vol] 192 mg/dL Normal 120-200 [facility] Comment on above: Performed By: #### 2 [id number] #### [facility] [address] [place] [address] Cholesterol in HDL [Mass/Vol] 52 mg/dL Invalid Interpretation Code [facility] Comment on above: Result Comment: '>= 60 LOW RISK' '<= 40 HIGH RISK' Performed By: #### 2 [id number] #### [facility] [address] [place] [address] Cholesterol in LDL [Mass/Vol] 126 mg/dL Normal <=129 [facility] Comment on above: Performed By: #### 2 585883 #### [facility] [address] [place] [address] Cholesterol in VLDL [Mass/Vol] 17 mg/dL Normal 7-40 [facility] Comment on above: Performed By: #### 2 263515 #### [facility] [address] [place] [address] Triglyceride [Mass/Vol] 84 mg/dL Normal <=149 [facility] Comment on above: Performed By: #### 2 [id number] #### [facility] [address] [place] [address] Physician Orderon 01-05-2024 Physician Order [id number] Normal [facility] TSH With T4fr Reflexon 01-04 TSH Qn 1.50 m[IU]/L Normal 0.34-5.60 [facility] Comment on above: Performed By: #### 1 [id number] ####[facility] [address] [place] [address] eGFRon 01-05-2024 eGFR 96 mL/min/1.73 m2 Normal >=59 [facility] Comment on above: Order Comment: Order added by Discern Expert. Performed By: #### 1 [id number] #### [facility] [address] [place] [address] No Panel InformationOrdered By: Isabella Watkins on 10-09-2023 Quick Strep (POC) [facility] Urinalysis macro (dipstick) panel (U)on 09-14-2023 Bilirubin, UA 1+ Negative - 4(70) +++ mg/dL [facility] Blood, UA Negative Negative - 50 Joselo/mcL [facility] Glucose, UA Negative Negative - 2000(110) ++++ mg/dL [facility] Ketones, UA Negative Negative - 160(16) ++++ mg/dL [facility] Leukocytes, UA Negative Negative - 500+++ Nahun/mcL [facility] Nitrite, UA Negative Negative - Positive [facility] pH, UA 6.0 5 - 9 [facility] Protein, UA Negative Negative - 2000(20) ++++ mg/dL [facility] Spec Grav, UA 1.025 1 - 1.03 [facility] Urobilinogen, UA 0.2 0.2 - 12 mg/dL [facility] COVID + FLU Quick Testingon 08-16-2023 SARS-CoV-2 (COVID-19) RNA ARTHUR+probe Ql (Unsp spec) Negative [facility] [employer] Other COVID + FLU Quick Testing Negative [employer] Other CBC AUTO DIFFon 12-23-2022 BASO # 0.1 103/ul Normal 0.0-0.1 [facility] Comment on above: Performed By: #### C BC #### [facility] [address] [place] [address] Dr. Fernanda Cottrell Basophils/100 WBC (Bld) 0.8 % Normal 0.2-2.0 [facility] Comment on above: Performed By: #### C BC #### [facility] [address] [place] [address] Dr. Fernanda Cottrell EO # 0.2 103/ul Normal 0.0-0.7 [facility] Comment on above: Performed By: #### C BC #### [facility] [address] [place] [address] Dr. Fernanda Cottrell Eosinophils/100 WBC (Bld) 1.9 % Normal 0.9-7.0 [facility] Comment on above: Performed By: #### C BC #### [facility] [address] [place] [address] Dr. Fernanda Cottrell Erythrocyte distribution width (RBC) [Ratio] 13.7 % Normal 11.0-15.0 [facility] Comment on above: Performed By: #### C BC #### [facility] [address] [place] [address] Dr. Fernanda Cottrell Hematocrit (Bld) [Volume fraction] 39.8 % Normal 36.0-48.0 [facility] Comment on above: Performed By: #### C BC #### [facility] [address] [place] [address] Dr. Fernadna Cottrell Hemoglobin (Bld) [Mass/Vol] 13.1 g/dL Normal 12.0-16.0 [facility] Comment on above: Performed By: #### C BC #### [facility] [address] [place] [address] Dr. Fernanda Cottrell IG # 0.03 10e3/ul Normal 0.00-0.03 [facility] Comment on above: Performed By: #### C BC #### [facility] [address] [place] [address] Dr. Fernanda Cottrell IG % 0.3 % Normal 0.0-0.5 [facility] Comment on above: Performed By: #### C BC #### [facility] [address] [place] [address] Dr. Fernanda Cottrell LYMPH # 2.2 103/ul Normal 1.2-3.8 [facility] Comment on above: Performed By: #### C BC #### [facility] [address] [place] [address] Dr. Fernanda Cottrell Lymphocytes/100 WBC (Bld) 23.6 % Normal 20.5-60.0 [facility] Comment on above: Performed By: #### C BC #### [facility] [address] [place] [address] Dr. Fernanda Cottrell MANUAL DIFF REQ NO Normal [facility] Comment on above: Performed By: #### C BC #### [facility] [address] [place] [address] Dr. Fernanda Cottrell MCH (RBC) [Entitic mass] 29.4 pg Normal 26.7-34.0 [facility] Comment on above: Performed By: #### C BC #### [facility] [address] [place] [address] Dr. Fernanda Cottrell MCHC (RBC) [Mass/Vol] 32.9 g/dL Normal 29.9-35.2 [facility] Comment on above: Performed By: #### C BC #### [facility] [address] [place] [address] Dr. Fernanda Cottrell MCV (RBC) [Entitic vol] 89.4 fL Normal 81.0-99.0 [facility] Comment on above: Performed By: #### C BC #### [facility] [address] [place] [address] Dr. Fernanda Cottrell MONO # 0.7 103/ul Normal 0.3-0.8 [facility] Comment on above: Performed By: #### C BC #### [facility] [address] [place] [address] Dr. Fernanda Cottrell Monocytes/100 WBC (Bld) 7.3 % Normal 1.7-12.0 [facility] Comment on above: Performed By: #### C BC #### [facility] [address] [place] [address] Dr. Fernanda Cottrell NEUT # 6.1 103/ul Normal 1.4-6.5 [facility] Comment on above: Performed By: #### C BC #### [facility] [address] [place] [address] Dr. Fernanda Cottrell Neutrophils/100 WBC (Bld) 66.1 % Normal 43.0-75.0 [facility] Comment on above: Performed By: #### C BC #### [facility] [address] [place] [address] Dr. Fernanda Cottrell Platelet mean volume (Bld) [Entitic vol] 9.8 fL Normal 9.5-13.5 [facility] Comment on above: Performed By: #### C BC #### [facility] [address] [place] [address] Dr. Fernanda Cottrell PLT 282 103/ul Normal 150-450 [facility] Comment on above: Performed By: #### C BC #### [facility] [address] [place] [address] Dr. Fernanda Cottrell RBC 4.45 106/ul Normal 4.20-5.40 [facility] Comment on above: Performed By: #### C BC #### [facility] [address] [place] [address] Dr. Fernanda Cottrell WBC 9.3 103/ul Normal 4.0-11.0 [facility] Comment on above: Performed By: #### C BC #### [facility] [address] [place] [address] Dr. Fernanda Cottrell ER URINE PROFILEon 3 Bilirubin Ql (U) Negative Normal NEGATIVE [facility] Comment on above: Performed By: #### E RUR, UMICRO #### [facility] [address] [address] [address] Fernanda Cottrell Clarity (U) CLEAR Normal CLEAR [facility] Comment on above: Performed By: #### E STANR, UMICRO #### [facility] [address] [address] [address] Fernanda Cottrell Color (U) LT. YELLOW Normal YELLOW [facility] Comment on above: Performed By: #### E JULY, UMICRO #### [facility] [address] [address] [address] Fernanda Cottrell ERUAHJudd A micrscopic examina tion will be performed if indicated. Normal [facility] Comment on above: Performed By: #### E JULY UMICRO #### [facility] [address] [place] [address] Dr. Fernanda Cottrell Glucose Ql (U) Negative Normal NEGATIVE [facility] Comment on above: Performed By: #### Jhon MCDOWELL UMICRO #### [facility] [address] [place] [address] Dr. Fernanda Cottrell Hemoglobin Ql (U) LARGE Abnormal NEGATIVE [facility] Comment on above: Performed By: #### Jhon MCDOWELL, UMICRO #### [facility] [address] [place] [address] Dr. Fernanda Cottrell Ketones Ql (U) Negative Normal NEGATIVE [facility] Comment on above: Performed By: #### Jhon MCDOWELL UMICRO #### [facility] [address] [address] [address] Fernanda Cottrell LEUKOCYTES Negative Normal NEGATIVE [facility] Comment on above: Performed By: #### Jhon MCDOWELL UMICRO #### [facility] [address] [address] [address] Fernanda Cottrell Nitrite Ql (U) Negative Normal NEGATIVE [facility] Comment on above: Performed By: #### Jhon MCDOWELL UMICRO #### [facility] [address] [place] [address] Dr. Fernanda Cottrell pH (U) 6.0 [pH] Normal 5-9 [facility] Comment on above: Performed By: #### AMADO MOSS #### [facility] [address] [address] [address] Fernanda Cottrell SPEC GRAVITY <=1.005 Abnormal 1.005-<=1. 025 [facility] Comment on above: Performed By: #### AMADO MOSS #### [facility] [address] [address] [address] Fernanda Cottrell UA PROTEIN Negative Normal NEGATIVE/ TRACE [facility] Comment on above: Performed By: #### AMADO MOSS #### [facility] [address] [place] [address] Dr. Fernanda Cottrell UR MICRO IND INDICATED Normal [facility] Comment on above: Performed By: #### AMADO MOSS #### [facility] [address] [place] [address] Dr. Fernanda Cottrell Urobilinogen Qn (U) 0.2 {Odalis'U}/dL Normal 0.2 - 1. 0 [facility] Comment on above: Performed By: #### AMADO MOSS #### [facility] [address] [place] [address] Dr. Fernanda Cottrell PREG HCG QUALon 12-23-2022 , QUAL Negative Normal NEGATIVE [facility] Comment on above: Performed By: #### P REG #### [facility] [address] [address] [address] Fernanda Cottrell PROTIMEon 12-23-2022 INR Coag (PPP) [Relative time] 0.93 {INR} Normal [facility] Comment on above: Performed By: #### P TT, PT ####[facility] [address] [address]Dr. Fernanda Cottrell INR GUIDELINES SEE BELOW Normal [facility] Comment on above: Result Comment: MAURICIO RED INR: 2.0 - 3.0 CONDITIONS NOT LISTED BELOW 2.5 - 3.5 FOR PROSTHETIC HEART VALVE REPLACEMENT 2.5 - 3.5 RECURRENT THROMBOSIS Performed By: #### P TT, PT ####[facility] [address] [address]Dr. Fernanda Cottrell PT Coag (PPP) [Time] 9.9 s Normal 9.0-11.6 [facility] Comment on above: Performed By: #### P TT, PT ####[facility] [address] [address]Dr. Fernanda Cottrell PTTon 12-23-2022 aPTT Coag (Bld) [Time] 26.1 s Normal 22.3-36.2 [facility] Comment on above: Performed By: #### P TT, PT ####[facility] [address] [place], [place] [address]Dr. Fernanda Cottrell URINE MICROSCOPIC ONLYon BACTERIA TRACE Abnormal NONE SEEN [facility] Comment on above: Performed By: #### NANCY MOSSRO ####[facility] [address] [place], [place] [address]Dr. Fernanda Cottrell Bacteria identified Cx Nom (U) NOT INDICATED Normal [facility] Comment on above: Performed By: #### AMADO MOSS ####[facility] [address] [place], [place] [address]Dr. Fernanda Cottrell CAST NONE SEEN Normal NONE SEEN [facility] Comment on above: Performed By: #### NANCY MOSSRO ####[facility] [address] [place], [place] [address]Dr. Fernanda Cottrell Crystals LM Nom (Urine sed) NONE SEEN Normal NONE SEEN [facility] Comment on above: Performed By: #### NANCY MOSSRO ####[facility] [address] [place], [place] [address]DrDivya Cottrell Epithelial cells LM Ql (Urine sed) FEW Abnormal NONE SEEN /RARE [facility] Comment on above: Performed By: #### NANCY MOSSRO ####[facility] [address] [place], [place] [address]DrDivya Cottrell MUCOUS NONE SEEN Normal NONE SEEN [facility] Comment on above: Performed By: #### E ENRICO MCDOWELLICRO ####[facility] [address] [place], [place] [address]Cq. eFrnanda Cottrell RBC 2-5 Abnormal 0-2 [facility] Comment on above: Performed By: #### E NANCY MCDOWELLRO ####[facility] [address] [place], [place] [address]Pm. Fernanda Cottrell WBC 0-2 Abnormal NONE SEEN [facility] Comment on above: Performed By: #### NANCY MOSSRO ####[facility] [address] [place], [place] [address]Wk. Fern[address] CT NECK ST W CONon [address] W CON EXAMINATION: CT NECK ST W CON HISTORY: Dysphagia COMPARISON: None. TECHNIQUE: CT examination of the soft tissues of the neck following the administration of intravenous contrast. Coronal and sagittal reformations were performed. Dose reduction techniques were achieved by using automated exposure control and/or adjustment of mA and/or kV according to patient size and/or use of iterative reconstruction technique. FINDINGS: Mucosa: No mass in the nasal cavity, nasopharynx, oral cavity, oropharynx, larynx, hypopharynx, or proximal trachea/esophagus. Oral cavity is obscured by dental artifact. Asymmetric right posterior arytenoid calcification. No metallic densities within the imaged aerodigestive tract. Glands: Normal bilateral parotid, submandibular, and thyroid glands. Nodes: No pathologically enlarged or necrotic cervical lymph nodes. Vessels: Vascular structures are patent. No carotid space mass. Other: No suspicious lesion in the cervical spine or lung apices. IMPRESSION: No suspicious mass, radiopaque foreign body, or lymphadenopathy. No abnormal enhancement. Electronically authenticated by: SANTY HUBBARD Date: 2022-12-16 17:39 Normal [facility] COVID + FLU Quick Testingon 12-05-2022 SARS-CoV-2 (COVID-19) RNA ARTHUR+probe Ql (Unsp spec) Negative [employer] Other COVID + FLU Quick Testing Negative [employer] Other CBC AUTO DIFFon 04-28-2022 BASO # 0.1 103/ul Normal 0.0-0.1 [facility] Comment on above: Performed By: #### C BC ####[facility] [address] [address]Dr. Fernanda Cottrell Basophils/100 WBC (Bld) 0.7 % Normal 0.2-2.0 [facility] Comment on above: Performed By: #### C BC ####[facility] [address] [place], [place] [address]Dr. Fernanda Cottrell EO # 0.4 103/ul Normal 0.0-0.7 [facility] Comment on above: Performed By: #### C BC ####[facility] [address] [place], [place] [address]Dr. Fernanda Simba Eosinophils/100 WBC (Bld) 4.7 % Normal 0.9-7.0 [facility] Comment on above: Performed By: #### C BC ####[facility] [address] [place], [place] [address]Dr. Fernanda Cottrell Erythrocyte distribution width (RBC) [Ratio] 13.4 % Normal 11.0-15.0 [facility] Comment on above: Performed By: #### C BC ####[facility] [address] [place], [place] [address]Dr. Fernanda Cottrell Hematocrit (Bld) [Volume fraction] 39.9 % Normal 36.0-48.0 [facility] Comment on above: Performed By: #### C BC ####[facility] [address] [place], [place] [address]Dr. Fernanda Cottrell Hemoglobin (Bld) [Mass/Vol] 13.2 g/dL Normal 12.0-16.0 [facility] Comment on above: Performed By: #### C BC ####[facility] [address] [place], [place] [address]Dr. Fernanda Simba IG # 0.02 10e3/ul Normal 0.00-0.03 [facility] Comment on above: Performed By: #### C BC ####[facility] [address] [place], [place] [address]Dr. Fernanda Simba IG % 0.2 % Normal 0.0-0.5 [facility] Comment on above: Performed By: #### C BC ####[facility] [address] [address]Dr. Fernanda Cottrell LYMPH # 2.5 103/ul Normal 1.2-3.8 [facility] Comment on above: Performed By: #### C BC ####[facility] [address] [address]Dr. Fernanda Cottrell Lymphocytes/100 WBC (Bld) 29.6 % Normal 20.5-60.0 [facility] Comment on above: Performed By: #### C BC ####[facility] [address] [address]DrDivya Cottrell MANUAL DIFF REQ NO Normal [facility] Comment on above: Performed By: #### C BC ####[facility] [address] [place], [place] [address]Dr. Fernanda Cottrell MCH (RBC) [Entitic mass] 30.0 pg Normal 26.7-34.0 [facility] Comment on above: Performed By: #### C BC ####[facility] [address] [place], [place] [address]Dr. Fernanda Cottrell MCHC (RBC) [Mass/Vol] 33.1 g/dL Normal 29.9-35.2 [facility] Comment on above: Performed By: #### C BC ####[facility] [address] [address]Dr. Fernanda Cottrell MCV (RBC) [Entitic vol] 90.7 fL Normal 81.0-99.0 [facility] Comment on above: Performed By: #### C BC ####[facility] [address] [place], [place] [address]DrDivya Cottrell MONO # 0.6 103/ul Normal 0.3-0.8 [facility] Comment on above: Performed By: #### C BC ####[facility] [address] [address]Dr. Fernanda Cottrell Monocytes/100 WBC (Bld) 7.6 % Normal 1.7-12.0 [facility] Comment on above: Performed By: #### C BC ####[facility] [address] [address]Dr. Fernanda Cottrell NEUT # 4.7 103/ul Normal 1.4-6.5 [facility] Comment on above: Performed By: #### C BC ####[facility] [address] [address]Dr. Fernanda Cottrell Neutrophils/100 WBC (Bld) 57.2 % Normal 43.0-75.0 [facility] Comment on above: Performed By: #### C BC ####[facility] [address] [address]Dr. Fernanda Cottrell Platelet mean volume (Bld) [Entitic vol] 9.4 fL Critically low 9.5-13.5 [facility] Comment on above: Performed By: #### C BC ####[facility] [address] [address]Dr. Fernanda Cottrell PLT 295 103/ul Normal 150-450 [facility] Comment on above: Performed By: #### C BC ####[facility] [address] [address]Dr. Fernanda Cottrell RBC 4.40 106/ul Normal 4.20-5.40 [facility] Comment on above: Performed By: #### C BC ####[facility] [address] [place], [place] [address]Dr. Fernanda Cottrell WBC 8.3 103/ul Normal 4.0-11.0 [facility] Comment on above: Performed By: #### C BC ####[facility] [address] [place], [place] [address]Dr. Fernanda Cottrell CT ABD/PELV W CONon 04-28-20 CT ABD/PELV W CON EXAM: CT ABD/PELV W CON REASON FOR EXAM: Female, 36 years, Left lower quadrant pain. TECHNIQUE: Computed tomography of the abdomen and pelvis is performed in the axial projection from the lung bases to the pubic symphysis. Sagittal and coronal reconstructed images are performed. Dose reduction techniques were achieved by using automated exposure control and/or adjustment of mA and/or KVP according to patient size and/or use of iterative reconstruction technique. A total of 100 mL Omnipaque 300 IV contrast was given. Study was performed without oral contrast. COMPARISON: 03/27/2021 FINDINGS: Lung bases: There is a subpleural nodule at the right lung base measuring 6 to 7 mm. There is no pleural effusion. The visualized portions of the heart are unremarkable. Liver: The liver is normal. Gallbladder: The gallbladder is normal. Spleen: The spleen is normal. Pancreas: The pancreas is normal. Adrenal glands: The adrenal glands are normal bilaterally. Right kidney: The kidney is normal in size. There is no renal calculus or hydronephrosis. Left kidney: The kidney is normal in size. Nonobstructing calculus in the midpole of the left kidney is unchanged. No hydronephrosis. Stomach: The stomach is normal. Small bowel: The small bowel is normal. Large bowel: The colon is normal. No evidence for acute diverticulitis. Appendix: The appendix is visualized, and is normal. Aorta: The aorta is normal. IVC: The IVC is normal. Retroperitoneum: Normal retroperitoneum. Bladder: The bladder is normal. Pelvic organs: Normal uterus. The previously seen left ovarian cyst has resolved. Abdominal wall: There is a small fat-containing umbilical hernia. Osseous structures: Normal bony structures. IMPRESSION: No bowel obstruction or acute renal pathology. Normal appendix. Nonobstructing left renal calculus is again noted. Additional nonacute findings, as described above. Electronically authenticated by: DONYA ARCHER Date: 2022-04-28 19:27 Normal [facility] ER URINE PROFILEon 2 Bilirubin Ql (U) Negative Normal NEGATIVE [facility] Comment on above: Performed By: #### E RUR #### [facility] [address], [place] [address] Dr. Fernanda Cottrell Clarity (U) CLEAR Normal CLEAR [facility] Comment on above: Performed By: #### E RUR #### [facility] [address], [place] [address] Dr. Fernanda Cottrell Color (U) LT. YELLOW Normal YELLOW [facility] Comment on above: Performed By: #### E RUR #### [facility] [address] [place] [address] Dr. Fernanda CHRISTENSEN A micrscopic examina tion will be performed if indicated. Normal [facility] Comment on above: Performed By: #### E RUR #### [facility] [address] [place] [address] Dr. Fernanda Cottrell Glucose Ql (U) Negative Normal NEGATIVE [facility] Comment on above: Performed By: #### E RUR #### [facility] [address] [place] [address] Dr. Fernanda Cottrell Hemoglobin Ql (U) Negative Normal NEGATIVE [facility] Comment on above: Performed By: #### E RUR #### [facility] [address] [place] [address] Dr. Fernanda Cottrell Ketones Ql (U) Negative Normal NEGATIVE [facility] Comment on above: Performed By: #### E RUR #### [facility] [address] [place] [address] Dr. Fernanda Cottrell LEUKOCYTES Negative Normal NEGATIVE [facility] Comment on above: Performed By: #### E RUR #### [facility] [address] [place] [address] Dr. Fernanda Cottrell Nitrite Ql (U) Negative Normal NEGATIVE [facility] Comment on above: Performed By: #### E RUR #### [facility] [address] [place] [address] Dr. Fernanda Cottrell pH (U) 6.0 [pH] Normal 5-9 [facility] Comment on above: Performed By: #### E RUR #### [facility] [address] [place] [address] Dr. Fernanda Cottrell SPEC GRAVITY <=1.005 Abnormal 1.005-<=1. 025 [facility] Comment on above: Performed By: #### E RUR #### [facility] [address] [place] [address] Dr. Fernanda Cottrell UA PROTEIN Negative Normal NEGATIVE/ TRACE [facility] Comment on above: Performed By: #### E RUR #### [facility] [address] [place], [place] [id number] Dr. Fernanda Cottrell UR MICRO IND NOT INDICATED Normal [facility] Comment on above: Performed By: #### E RUR #### [facility] [address] [place] [address] Dr. Fernanda Cottrell Urobilinogen Qn (U) 0.2 {Odalis'U}/dL Normal 0.2 - 1. 0 [facility] Comment on above: Performed By: #### E RUR #### [facility] [address] [place] [address] Dr. Fernanda Cottrell LIPASEon 04-28-2022 Lipase [Catalytic activity/Vol] 75.0 U/L Normal 73.0-393.0 [facility] Comment on above: Performed By: #### C MP, LIPA #### [facility] [address] [place] [address] Dr. Fernanda Cottrell PREG HCG QUALon 04-28-2022 , QUAL Negative Normal NEGATIVE [facility] Comment on above: Performed By: #### P REG #### [facility] [address] [place] [address] Dr. Fernanda Cottrell PROF 14(COMP METB)on 022 Albumin [Mass/Vol] 4.1 g/dL Normal 3.4-5.0 [facility] Comment on above: Performed By: #### C MP, LIPA #### [facility] [address] [place] [address] Dr. Fernanda Cottrell Albumin/Globulin [Mass ratio] 1.1 {ratio} Normal [facility] Comment on above: Performed By: #### C MP, LIPA #### [facility] [address] [place] [address] Dr. Fernanda Cottrell ALP [Catalytic activity/Vol] 89 U/L Normal 46-116 [facility] Comment on above: Performed By: #### C MP, LIPA #### [facility] [address] [place] [address] Dr. Fernanda Cottrell ALT [Catalytic activity/Vol] 55 U/L Normal 14-59 [facility] Comment on above: Performed By: #### C MP, LIPA #### [facility] [address] [address] [address] Fernanda Cottrell Anion gap [Moles/Vol] 13.9 mmol/L Normal [facility] Comment on above: Performed By: #### C MP, LIPA #### [facility] [address] [address] [address] Fernanda Cottrell AST [Catalytic activity/Vol] 28 U/L Normal 15-37 [facility] Comment on above: Performed By: #### C MP, LIPA #### [facility] [address] [address] [address] Fernanda Cottrell Bilirubin [Mass/Vol] 0.4 mg/dL Normal 0.2-1.0 [facility] Comment on above: Performed By: #### C MP, LIPA #### [facility] [address] [place] [address] Dr. Fernanda Cottrell Calcium [Mass/Vol] 9.5 mg/dL Normal 8.5-10.1 [facility] Comment on above: Performed By: #### C MP, LIPA #### [facility] [address] [address] [address] Fernanda Cottrell Chloride [Moles/Vol] 104 mmol/L Normal 98-107 [facility] Comment on above: Performed By: #### C MP, LIPA #### [facility] [address] [place] [address] Dr. Fernanda Cottrell CO2 [Moles/Vol] 25.7 mmol/L Normal 21.0-32.0 [facility] Comment on above: Performed By: #### C MP, LIPA #### [facility] [address] [address] [address] Fernanda Cottrell Creatinine [Mass/Vol] 0.92 mg/dL Normal 0.55-1.02 [facility] Comment on above: Performed By: #### C MP, LIPA #### [facility] [address] [address] [address] Fernanda Cottrell EGFR-AF FINNISH >60 Normal >=60 [facility] Comment on above: Performed By: #### C MP, LIPA #### [facility] [address] [address] [address] Fernanda Cottrell EGFR-NON AF FINNISH >60 Normal >=60 [facility] Comment on above: Performed By: #### C MP, LIPA #### [facility] [address] [address] [address] Fernanda Cottrell Globulin (S) [Mass/Vol] 3.7 g/dL Normal [facility] Comment on above: Performed By: #### C MP, LIPA #### [facility] [address] [address] [address] Fernanda Cottrell Glucose [Mass/Vol] 103 mg/dL Normal 74-106 [facility] Comment on above: Performed By: #### C MP, LIPA #### [facility] [address] [place] [address] Dr. Fernanda Cottrell Potassium [Moles/Vol] 3.6 mmol/L Normal 3.5-5.1 [facility] Comment on above: Performed By: #### C MP, LIPA #### [facility] [address] [address] [address] Fernanda Cottrell Protein [Mass/Vol] 7.8 g/dL Normal 6.4-8.2 [facility] Comment on above: Performed By: #### C MP, LIPA #### [facility] [address] [address] [address] Fernanda Cottrell Sodium [Moles/Vol] 140 mmol/L Normal 136-145 [facility] Comment on above: Performed By: #### C MP, LIPA #### [facility] [address] [address] [address] Fernanda Cottrell Urea nitrogen [Mass/Vol] 9.0 mg/dL Normal 7.0-18.0 [facility] Comment on above: Performed By: #### C MP, LIPA #### [facility] [address] [address] [address] Fernanda Cottrell Urea nitrogen/Creatinine [Mass ratio] 9.8 mg/mg Normal [facility] Comment on above: Performed By: #### C MP, LIPA #### [facility] [address] [place] [address] Dr. Fernanda Cottrell COVID Quick Testingon 2021 Result Negative [employer] Other Quick Strepon 04-06-2022 S. pyogenes Org specific cx Ql (Throat) Negative [employer] Other Quick Strep [facility] [employer] Other CBC AUTO DIFFon 02-23-2022 BASO # 0.1 103/ul Normal 0.0-0.1 [facility] Comment on above: Performed By: #### C BC #### [facility] [address] [place] [address] Dr. Fernanda Cottrell Basophils/100 WBC (Bld) 0.7 % Normal 0.2-2.0 [facility] Comment on above: Performed By: #### C BC #### [facility] [address] [place] [address] Dr. Fernanda Cottrell EO # 0.4 103/ul Normal 0.0-0.7 [facility] Comment on above: Performed By: #### C BC #### [facility] [address] [place] [address] Dr. Fernanda Cottrell Eosinophils/100 WBC (Bld) 4.0 % Normal 0.9-7.0 [facility] Comment on above: Performed By: #### C BC #### [facility] [address] [place] [address] Dr. Fernanda Cottrell Erythrocyte distribution width (RBC) [Ratio] 13.0 % Normal 11.0-15.0 [facility] Comment on above: Performed By: #### C BC #### [facility] [address] [place] [address] Dr. Fernanda Cottrell Hematocrit (Bld) [Volume fraction] 40.0 % Normal 36.0-48.0 [facility] Comment on above: Performed By: #### C BC #### [facility] [address] [place] [address] Dr. Fernanda Cottrell Hemoglobin (Bld) [Mass/Vol] 13.1 g/dL Normal 12.0-16.0 [facility] Comment on above: Performed By: #### C BC #### [facility] [address] [place] [address] Dr. Fernanda Cottrell IG # 0.05 10e3/ul Critically high 0.00-0.03 [facility] Comment on above: Performed By: #### C BC #### [facility] [address] [place] [address] Dr. Fernanda Cottrell IG % 0.5 % Normal 0.0-0.5 [facility] Comment on above: Performed By: #### C BC #### [facility] [address] [place] [address] Dr. Fernanda Cottrell LYMPH # 3.0 103/ul Normal 1.2-3.8 [facility] Comment on above: Performed By: #### C BC #### [facility] [address] [place] [address] Dr. Fernanda Cottrell Lymphocytes/100 WBC (Bld) 31.4 % Normal 20.5-60.0 [facility] Comment on above: Performed By: #### C BC #### [facility] [address] [place] [address] Dr. Fernanda Cottrell MANUAL DIFF REQ NO Normal [facility] Comment on above: Performed By: #### C BC #### [facility] [address] [place] [address] Dr. Fernanda Cottrell MCH (RBC) [Entitic mass] 29.7 pg Normal 26.7-34.0 [facility] Comment on above: Performed By: #### C BC #### [facility] [address] [place] [address] Dr. Fernanda Cottrell MCHC (RBC) [Mass/Vol] 32.8 g/dL Normal 29.9-35.2 [facility] Comment on above: Performed By: #### C BC #### [facility] [address] [place] [address] Dr. Fernanda Cottrell MCV (RBC) [Entitic vol] 90.7 fL Normal 81.0-99.0 [facility] Comment on above: Performed By: #### C BC #### [facility] [address] [place] [address] Dr. Fernanda Cottrell MONO # 0.8 103/ul Normal 0.3-0.8 [facility] Comment on above: Performed By: #### C BC #### [facility] [address] [place] [address] Dr. Fernanda Cottrell Monocytes/100 WBC (Bld) 8.4 % Normal 1.7-12.0 [facility] Comment on above: Performed By: #### C BC #### [facility] [address] [place] [address] Dr. Fernanda Cottrell NEUT # 5.3 103/ul Normal 1.4-6.5 [facility] Comment on above: Performed By: #### C BC #### [facility] [address] [place] [address] Dr. Fernanda Cottrell Neutrophils/100 WBC (Bld) 55.0 % Normal 43.0-75.0 [facility] Comment on above: Performed By: #### C BC #### [facility] [address] [place] [address] Dr. Fernanda Cottrell Platelet mean volume (Bld) [Entitic vol] 9.8 fL Normal 9.5-13.5 [facility] Comment on above: Performed By: #### C BC #### [facility] [address] [place] [address] Dr. Fernanda Cottrell PLT 286 103/ul Normal 150-450 [facility] Comment on above: Performed By: #### C BC #### [facility] [address] [place] [address] Dr. Fernanda Cottrell RBC 4.41 106/ul Normal 4.20-5.40 [facility] Comment on above: Performed By: #### C BC #### [facility] [address] [place] [address] Dr. Fernanda Cottrell WBC 9.6 103/ul Normal 4.0-11.0 [facility] Comment on above: Performed By: #### C BC #### [facility] [address], [place] [address] Dr. [facility] [Mass/Vol] mg/L Normal <=1.0 [facility] Comment on above: Performed By: #### B MP, CRP ####[facility] [address] [place], [place] [address]. [address] CT FACIAL BONES WO CONon CT FACIAL BONES WO CON EXAM: CT FACIAL BONES WO CON 02/22/2022 11:45 PM EDT [place]001 CLINICAL STATEMENT: HEADACHE COMPARISON: No prior studies are available at the time of dictation. TECHNIQUE: Helically acquired images were obtained of the facial bones without intravenous contrast. Dose reduction techniques were achieved by using automated exposure control and/or adjustment of mA and/or kV according to patient size and/or use of iterative reconstruction technique. 2-D reconstructed images are provided. FINDINGS: There is no significant soft tissue swelling. The paranasal sinuses are clear. The facial bones are intact. The orbits are intact. There are no intraorbital masses identified. The osseous portions of the skull base are intact. IMPRESSION: Unremarkable CT facial bones. No acute facial bone fracture. FOLLOW-UP: Follow-up as clinically indicated. Electronically authenticated by: SHAHID SAID Date: 2022-02-23 00:51 Normal [facility] CT HEAD WO CONon 02-23-2022 CT HEAD WO CON EXAM: CT HEAD WO CON 02/22/2022 11:45 PM EDT [place]001 CLINICAL STATEMENT: HEADACHE COMPARISON: 11/22/2021 TECHNIQUE: Multiple axial images were obtained of the brain without intravenous contrast. Dose reduction techniques were achieved by using automated exposure control and/or adjustment of mA and/or kV according to patient size and/or use of iterative reconstruction technique. 2-D reconstructed images are provided. FINDINGS: The ventricles and the cortical sulci have normal size contour and symmetry. There is no evidence for intracranial hemorrhage. There is no mass effect and or midline shift. No extra-axial collections. Limited evaluation of the orbits and the paranasal sinuses are normal. IMPRESSION: No acute intracranial abnormality. FOLLOW-UP: Follow-up as clinically indicated. Electronically authenticated by: SHAHID SAID Date: 2022-02-23 00:43 Normal [facility] PROF CHEM 8 (BAS METB)on Anion gap [Moles/Vol] 9.7 mmol/L Normal [facility] Comment on above: Performed By: #### B MP, CRP ####[facility] [address] [place] [address]Dr. Fernanda Cottrell Calcium [Mass/Vol] 9.0 mg/dL Normal 8.5-10.1 [facility] Comment on above: Performed By: #### B MP, CRP ####[facility] [address] [place] [address]Dr. Tawnyjae Cottrell Chloride [Moles/Vol] 107 mmol/L Normal 98-107 [facility] Comment on above: Performed By: #### B MP, CRP ####[facility] [address] [place], [place] [address]Dr. Tawnyjae Cottrell CO2 [Moles/Vol] 26.5 mmol/L Normal 21.0-32.0 [facility] [place] Comment on above: Performed By: #### B MP, CRP ####[facility] [address] [place], [place] [address]Dr. Fernanda Cottrell Creatinine [Mass/Vol] 0.90 mg/dL Normal 0.55-1.02 [facility] Comment on above: Performed By: #### B MP, CRP ####[facility] [address] [place], [place] [address]Dr. Tawnyjae Simba EGFR-AF FINNISH >60 Normal >=60 [facility] Comment on above: Performed By: #### B MP, CRP ####[facility] [address] [place] [address]Dr. Fernanda Cottrell EGFR-NON AF FINNISH >60 Normal >=60 [facility] Comment on above: Performed By: #### B MP, CRP ####[facility] [address] [place], [place] [address]Dr. Fernanda Cottrell Glucose [Mass/Vol] 111 mg/dL Critically high 74-106 [facility] Comment on above: Performed By: #### B MP, CRP ####[facility] [address] [id number]. Fernanda Cottrell Potassium [Moles/Vol] 4.2 mmol/L Normal 3.5-5.1 [facility] Comment on above: Performed By: #### B MP, CRP ####[facility] [address] [place] [id number]. Fernanda Cottrell Sodium [Moles/Vol] 139 mmol/L Normal 136-145 [facility] Comment on above: Performed By: #### B MP, CRP ####[facility] [address] [address]Dr. Tawnyjae Cottrell Urea nitrogen [Mass/Vol] 14.0 mg/dL Normal 7.0-18.0 [facility] Comment on above: Performed By: #### B MP, CRP ####[facility] [address] [place] [address]Dr. Fernanda Cottrell Urea nitrogen/Creatinine [Mass ratio] 15.6 mg/mg Normal [facility] Comment on above: Performed By: #### B MP, CRP ####[facility] [address] [place] [address]Dr. Fernanda Simba SED RATE [facility] 2021 SED RATE 9 mm/hr Normal <=20 [facility] Comment on above: Performed By: #### S EDR ####[facility] [address] [place], [place] [address]Dr. Fernanda Simba CNOVon 11-05-2020 CNOV Office Visit (CARLINE ) JUNAIS ALVAREZ ([id number]) 1985 F Date Time Provider Department 11/05/20 11:00 AM DANAY RAY During your visit today, we recorded the following information about you: Temperature Pulse Respiration Blood pressure 98 degrees 90/minute 13/minute 140/108 Weight Height 125.2 kg 1.626 m Marko Obando 11/05/2020 10:43 AM Signed What is the reason for your visit today? Consult Who is your referring physician? Dr. Bailey Are you having poor oral intake? NO Have you had unintentional weight loss of 15 lbs/7 Kg in the last 3-6 months? NO Bowels: regular Wound: clean AND dry Temperature: No Drains: No iSobhan Ortega MD 11/06/2020 4:13 PM Signed HISTORY AND PHYSICAL EXAMINATION SUBJECTIVE: CHIEF COMPLAINT: Reflux HPI: This is a 35 year old female with past medical history of GERD and past surgical history of Csections x 3 who presents with reflux. Patient reports having reflux for the past 12 years, she has attempted lifestyle modifications and takes Omeprazole 40mg OD. However, she notes in the past few months, her reflux has significantly worsened and she has developed regurgitation. She notes waking up multiple times with a choking sensation. She underwent multiple studies, including an EGD, UGI, AND CT which showed a small hiatal hernia. She would like some sort of surgical repair due to significant impairment of her quality of life. COMPLETE REVIEW OF SYSTEMS: GENERAL: No weight loss, malaise or fevers HEENT: No changes in hearing or vision, no nose bleeds or other nasal problems NECK: Negative for lumps, goiter, pain and significant neck swelling RESPIRATORY: Negative for cough, hemoptysis, wheezing, dyspnea or shortness of breath CARDIOVASCULAR: Negative for chest pain, leg swelling, or palpitations GI: No nausea, vomiting, or diarrhea : No history of dysuria, frequency or incontinence MUSCULOSKELETAL: Negative for joint pain or swelling, back pain or muscle pain SKIN: Negative for lesions, rash, and itching PSYCH: Negative for sleep disturbance, mood disorder and recent psychosocial stressors HEMATOLOGY/LYMPHOLOGY: Negative for prolonged bleeding, bruising easily or swollen nodes ENDOCRINE: Negative for cold or heat intolerance, polyuria, polydipsia and goiter NEURO: No history of headaches, syncope, paralysis, seizures or tremors PAST MEDICAL HISTORY Diagnosis Date - GERD (gastroesophageal reflux disease) PAST SURGICAL HISTORY Procedure Laterality Date - >=3 No family history on file. Social History Tobacco Use - Smoking status: Never Smoker - Smokeless tobacco: Never Used Substance Use Topics - Alcohol use: Not Currently - Drug use: Not on file Prior to Admission medications as of 11/05/20 1042 Medication Sig Last Dose Taking omeprazole (PRILOSEC) 20 mg capsule Take 20 mg by mouth. Taking Yes ALLERGIES Allergen Reactions - Codeine Shortness of Breath - Vicodin Tuss [Falls* Shortness of Breath OBJECTIVE: PHYSICAL EXAM: BP 140/108 Pulse 90 Temp (Src) 98 (Temporal) Resp 13 Ht 5' 4 (1.63m) Wt 276 lb (125.2kg) BMI 47.35 kg/(m2). GENERAL: awake, alert and oriented, no acute distress. CARDIOVASCULAR: warm and well perfused throughout, regular rate and rhythm, normal S1 and S2. LUNGS: non-labored breathing, lungs clear to auscultation, good diaphragmatic excursion. ABDOMEN: soft, non-tender, non-distended. EXTREMITY: no lower extremity edema. NEUROLOGICAL: no gross focal neurologic deficits. Diagnostic tests reviewed for today's visit: UGI: SMALL HIATAL HERNIA. EGD: [address]: Small hiatal hernia. ASSESSMENT/PLAN: Juanis Alvarez is a 35 year old female with past surgical history of Csections x 3 who presents with a hiatal hernia with GERD which has failed lifestyle modifications and medical therapy. - Patient would like some form of surgical option - Due to BMI of 47, gastric bypass is likely the best option - Refer to bariatric surgery - In the meantime, increase Omeprazole to 40mg BID Siobhan Ortega MD General Surgery Resident DANAY RAY MD 11/06/2020 4:13 PM Signed Consultation requested by Dr. Bailey for an opinion regarding hiatal hernia and GERD. My final recommendations will be communicated back to the requesting physician by way of shared medical record or letter via US mail I have seen and evaluated the patient and discussed the case with the resident physician. I agree with the assessment and plan as documented in the resident?s note. Juanis Alvarez is a 35 year old female who is here for evaluation of a hiatal hernia and GERD. Despite medical therapy her GERD is severe and significantly impacting her life. Her BMI is 47. Given this, I think her best option for repair of the hernia and improvement in her symptoms is with bariatric surgery. I crump (more content not included)... [facility] HISTORY PHYSICALon HISTORY PHYSICAL HNO ID: [id number] Author: Siobhan Ortega Service: ? Author Type: Resident Type: HANDP Filed: 11/06/2020 4:13 PM Note Text: HISTORY AND PHYSICAL EXAMINATION SUBJECTIVE: CHIEF COMPLAINT: Reflux HPI: This is a 35 year old female with past medical history of GERD and past surgical history of Csections x 3 who presents with reflux. Patient reports having reflux for the past 12 years, she has attempted lifestyle modifications and takes Omeprazole 40mg OD. However, she notes in the past few months, her reflux has significantly worsened and she has developed regurgitation. She notes waking up multiple times with a choking sensation. She underwent multiple studies, including an EGD, UGI, AND CT which showed a small hiatal hernia. She would like some sort of surgical repair due to significant impairment of her quality of life. COMPLETE REVIEW OF SYSTEMS: GENERAL: No weight loss, malaise or fevers HEENT: No changes in hearing or vision, no nose bleeds or other nasal problems NECK: Negative for lumps, goiter, pain and significant neck swelling RESPIRATORY: Negative for cough, hemoptysis, wheezing, dyspnea or shortness of breath CARDIOVASCULAR: Negative for chest pain, leg swelling, or palpitations GI: No nausea, vomiting, or diarrhea : No history of dysuria, frequency or incontinence MUSCULOSKELETAL: Negative for joint pain or swelling, back pain or muscle pain SKIN: Negative for lesions, rash, and itching PSYCH: Negative for sleep disturbance, mood disorder and recent psychosocial stressors HEMATOLOGY/LYMPHOLOGY: Negative for prolonged bleeding, bruising easily or swollen nodes ENDOCRINE: Negative for cold or heat intolerance, polyuria, polydipsia and goiter NEURO: No history of headaches, syncope, paralysis, seizures or tremors PAST MEDICAL HISTORY Diagnosis Date - GERD (gastroesophageal reflux disease) PAST SURGICAL HISTORY Procedure Laterality Date - >=3 No family history on file. Social History Tobacco Use - Smoking status: Never Smoker - Smokeless tobacco: Never Used Substance Use Topics - Alcohol use: Not Currently - Drug use: Not on file Prior to Admission medications as of 11/05/20 1042 Medication Sig Last Dose Taking omeprazole (PRILOSEC) 20 mg capsule Take 20 mg by mouth. Taking Yes ALLERGIES Allergen Reactions - Codeine Shortness of Breath - Vicodin Eduardo [Falls* Shortness of Breath OBJECTIVE: PHYSICAL EXAM: BP 140/108 Pulse 90 Temp (Src) 98 (Temporal) Resp 13 Ht 5' 4 (1.63m) Wt 276 lb (125.2kg) BMI 47.35 kg/(m2). GENERAL: awake, alert and oriented, no acute distress. CARDIOVASCULAR: warm and well perfused throughout, regular rate and rhythm, normal S1 and S2. LUNGS: non-labored breathing, lungs clear to auscultation, good diaphragmatic excursion. ABDOMEN: soft, non-tender, non-distended. EXTREMITY: no lower extremity edema. NEUROLOGICAL: no gross focal neurologic deficits. Diagnostic tests reviewed for today's visit: UGI: SMALL HIATAL HERNIA. EGD: [address]: Small hiatal hernia. ASSESSMENT/PLAN: Juanis Alvarez is a 35 year old female with past surgical history of Csections x 3 who presents with a hiatal hernia with GERD which has failed lifestyle modifications and medical therapy. - Patient would like some form of surgical option - Due to BMI of 47, gastric bypass is likely the best option - Refer to bariatric surgery - In the meantime, increase Omeprazole to 40mg BID Siobhan Ortega MD General Surgery Resident [facility] JUANIS ALVAREZ ([id number]) 1985 F Date Time Provider Department 11/01/20 [facility] During your visit today, we recorded the following information about you: Glenroy Friedman LPN, LISA 11/01/2020 2:13 PM Signed Patient called in to give info on surgeries and imaging(Bringing CD) for the appointment on 11/05/2020. Allergies As of Date: 11/01/2020 (Not on File) Date Reviewed: Never Reviewed Reason for Visit: Appointment Confirmation [[id number]] Problem List As Of Date: 11/01/2020 (None) Encounter Status:Closed by GLENROY COLLINS on 11/01/20 [facility] CNPNon 10-30-2020 CNPN Telephone (GENSMN) JUANIS ALVAREZ ([id number]) 1985 F Date Time Provider Department 10/30/20 GLENROY COLLINS (LISA) [facility] During your visit today, we recorded the following information about you: Glenroy Friedman LPN, CLASSIFIED ADVERTISING SUPERVISOR 10/30/2020 2:59 PM Signed Left a [employer] message to get info on surgeries and imaging for the appointment on 11/05/2020. Allergies As of Date: 10/30/2020 (Not on File) Date Reviewed: Never Reviewed Reason for Visit: Appointment Confirmation [[id number]] Problem List As Of Date: 10/30/2020 (None) Encounter Status:Closed by GLENROY COLLINS on 10/30/20 [facility] RF-Diaphragmatic hernia with out obstruction or gangrene;Dysphagia IMPORTon 10-26-2020 RF-Diaphragmatic hernia without obstruction or gangrene;Dysphagia IMPORT Images were obtained outside of [facility] [id number] Normal [facility] CT-CT Abdomen/Pelvis w/ Cont rast IMPORTon 09-29-2020 CT-CT Abdomen/Pelvis w/ Contrast IMPORT Images were obtained outside of [facility] [id number] Normal [facility] Cult,Urine,CCon 10-14-2018 Cult,Urine,CC Specimen Description .CLEAN CATCH URINE Special Requests NOT REPORTED Culture NO SIGNIFICANT GROWTH Report Status FINAL 10/14/2018 [facility] Comment on above: Performed By: #### C EVELYN #### [address] [place] [address] Trichomonas/Wet Prepon 10-13 Trichomonas/Wet Prep Specimen Descriptio n .VAGINA Special Requests NOT REPORTED Direct Exam NO YEAST OBSERVED NO TRICHOMONAS SEEN NO CLUE CELLS SEEN Report Status FINAL 10/13/2018 [facility] Comment on above: Performed By: #### C EVELYN #### [address] [place] [address] Urinalysis w/ Microon 2018 ----- [facility] Comment on above: Performed By: #### C EVELYN #### [address] [place], [place] [address] Epithelial cells LM.HPF #/area (Urine sed) 5 TO 10 [place] 0-25 [facility] Comment on above: Performed By: #### C EVELYN #### [address] [place], [place] [address] RBC #/vol (U) 0 TO 2 Normal 0-2 [facility] Comment on above: Performed By: #### C EVELYN #### [address] [place] [address] WBC #/vol (U) 0 TO 2 Normal 0-5 [facility] Comment on above: Performed By: #### C EVELYN #### [address] [place] [address] Acetoacetic Acid,Ur Negative Normal [facility] Comment on above: Performed By: #### C EVELYN #### [address] [place] [address] Bilirubin, SemiQt,Ur Negative Normal [facility] Comment on above: Performed By: #### C EVELYN #### [address] [place] [address] Color Nom (U) YELLOW Normal [facility] Comment on above: Performed By: #### C EVELYN #### [address] [place] [address] Glucose,Semi-qnt,Ur Negative Normal [facility] Comment on above: Performed By: #### C EVELYN #### [address] [place] [address] Hemoglobin, Ur Negative Normal [facility] Comment on above: Performed By: #### C EVELYN #### [address] [place] [address] Leuckocyte Esterase Negative Normal [facility] Comment on above: Performed By: #### C EVELYN #### [address] [place] [address] Nitrite,Ur Negative Normal [facility] Comment on above: Performed By: #### C EVELYN #### [place] [address] [place] [address] [place] [address] PH,Ur 6.0 Normal 5.0-9.0 [facility] Comment on above: Performed By: #### C EVELYN #### [address] [place] [address] Protein mass conc (U) Negative Normal NEG [facility] Comment on above: Performed By: #### C EVELYN #### [address] [place] [address] Spec. [place],Ur 1.025 High 1.010-1.02 0 [facility] Comment on above: Performed By: #### C EVELYN #### [address] [place] [address] Turbidity CLEAR Normal CLEAR [facility] Comment on above: Performed By: #### C EVELYN #### [address] [place] [address] Urobilinogen,Ur Normal Normal NORM [facility] Comment on above: Performed By: #### C EVELYN #### [address] [place] [address] Amorphous sediment LM Ql (Urine sed) NOT REPORTED Normal NONE [facility] Comment on above: Performed By: #### C EVELYN #### [place] [address] [place] [address] [place] [address] Bacteria LM.HPF #/area (Urine sed) NOT REPORTED Normal NONE [facility] Comment on above: Performed By: #### C EVELYN #### [address] [place] [address] Casts LM.LPF #/area (Urine sed) NOT REPORTED Normal [facility] Comment on above: Performed By: #### C EVELYN #### [address] [place] [address] Comment NOT REPORTED Normal [facility] Comment on above: Performed By: #### C EVELYN #### [address] [place] [address] Crystals LM Nom (Urine sed) NOT REPORTED Normal [facility] Comment on above: Performed By: #### C EVELYN #### [address] [place] [address] Epithelial, Renal NOT REPORTED Normal 0 [facility] Comment on above: Performed By: #### C EVELYN #### [address] [place] [address] Mucus Strands NOT REPORTED Normal NONE [facility] Comment on above: Performed By: #### C EVELYN #### [address] [place] [address] Other Observations NOT REPORTED Normal NREQ [facility] Comment on above: Performed By: #### C EVELYN #### [facility] [address] [place] [address] [place] [address] Trichomonas NOT REPORTED Normal [facility] Comment on above: Performed By: #### C EVELYN #### [address] [place] [address] Yeast LM Ql (Urine sed) NOT REPORTED Normal [facility] Comment on above: Performed By: #### C EVELYN #### [address] [place] [address] CBC with Diffon 04-08-2018 Abs. Basophil 0.07 k/uL Normal 0.00-0.20 [facility] Comment on above: Performed By: #### L IP, CMPX, CDP #### [address] [place] [address] Abs.Imm.Granulocyte 0.04 k/uL Normal 0.00-0.30 [facility] Comment on above: Performed By: #### L IP, CMPX, CDP #### [address] [place] [address] Abs.Neutrophil (Seg) 8.35 k/uL High 1.50-8.10 [facility] Comment on above: Performed By: #### L IP, CMPX, CDP #### [address] [place] [address] Basophils/100 WBC (Bld) 1 % Normal 0-2 [facility] Comment on above: Performed By: #### L IP, CMPX, CDP #### [address] [place], [place] [address] Eosinophils #/vol (Bld) 0.18 10*3/uL Normal 0.00-0.44 [facility] Comment on above: Performed By: #### L IP, CMPX, CDP #### [address] [place], [facility] Eosinophils/100 WBC (Bld) 2 % Normal 1-4 [facility] Comment on above: Performed By: #### L IP, CMPX, CDP #### [address] [place] [address] Erythrocyte distribution width Ratio (RBC) 13.9 % Normal 11.8-14.4 [facility] Comment on above: Performed By: #### L IP, CMPX, CDP #### [address] [place] [address] Hematocrit Volume Fraction (Bld) 38.7 % Normal 36.3-47.1 [facility] Comment on above: Performed By: #### L IP, CMPX, CDP #### [address] [place], [facility] Hemoglobin mass conc (Bld) 12.3 g/dL Normal 11.9-15.1 [facility] Comment on above: Performed By: #### L IP, CMPX, CDP #### [address] [place] [address] Immature granulocytes #/vol (Bld) 0 % Normal 0 [facility] Comment on above: Performed By: #### L IP, CMPX, CDP #### [address] [place] [address] Lymphocytes #/vol (Bld) 2.50 10*3/uL Normal 1.10-3.70 [facility] Comment on above: Performed By: #### L IP, CMPX, CDP #### [address] [place], [facility] Lymphocytes/100 WBC (Bld) 21 % Low 24-43 [facility] Comment on above: Performed By: #### L IP, CMPX, CDP #### [address] [place], [facility] MCH Entitic mass (RBC) 28.7 pg Normal 25.2-33.5 [facility] Comment on above: Performed By: #### L IP, CMPX, CDP #### [address] [place], [facility] MCHC mass conc (RBC) 31.8 g/dL Normal 28.4-34.8 [facility] Comment on above: Performed By: #### L IP, CMPX, CDP #### [address] [place], [facility] MCV Entitic volume (RBC) 90.2 fL Normal 82.6-102.9 [facility] Comment on above: Performed By: #### L IP, CMPX, CDP #### [address] [place], [facility] Monocytes #/vol (Bld) 1.08 10*3/uL Normal 0.10-1.20 [facility] Comment on above: Performed By: #### L IP, CMPX, CDP #### [address] [place], [facility] Monocytes/100 WBC (Bld) 9 % Normal 3-12 [facility] Comment on above: Performed By: #### L IP, CMPX, CDP #### [address] [place] [address] Neutrophil (Seg) 67 % High 36-65 [facility] Comment on above: Performed By: #### L IP, CMPX, CDP #### [address] [place] [address] NRBC Automated 0.0 per 100 WBC Normal 0.0 [facility] Comment on above: Performed By: #### L IP, CMPX, CDP #### [address] [place] [address] Platelet mean volume Entitic volume (Bld) 10.0 fL Normal 8.1-13.5 [facility] Comment on above: Performed By: #### L IP, CMPX, CDP #### [address] [place], [facility] Platelets #/vol (Bld) 331 10*3/uL Normal 138-453 [facility] Comment on above: Performed By: #### L IP, CMPX, CDP #### [address] [place], [facility] RBC #/vol (Bld) 4.29 10*6/uL Normal 3.95-5.11 [facility] Comment on above: Performed By: #### L IP, CMPX, CDP #### [address] [place] [address] WBC #/vol (Bld) 12.2 10*3/uL High 3.5-11.3 [facility] Comment on above: Performed By: #### L IP, CMPX, CDP #### [address] [place] [address] Auto Diff Performed NOT REPORTED Normal [facility] Comment on above: Performed By: #### L IP, CMPX, CDP #### [address] [place] [address] Platelets #/vol (Bld) NOT REPORTED Normal [facility] Comment on above: Performed By: #### L IP, CMPX, CDP #### [address] [place] [address] RBC morphology finding Nom (Bld) NOT REPORTED Normal [facility] Comment on above: Performed By: #### L IP, CMPX, CDP #### [address] [place] [address] WBC Morphology NOT REPORTED [facility] Comment on above: Performed By: #### L IP, CMPX, CDP #### [address] [place] [address] Comp Metabolic Pr/rfx MGon 0 04-08-2018 (cont.) Normal [facility] Comment on above: Result Comment: Aver age GFR for 30-39 years old: 107 mL/min/1.73sq m Chronic Kidney Disease: <60 mL/min/1.73sq m Kidney failure: <15 mL/min/1.73sq m eGFR calculated using average adult body mass. Additional eGFR calculator available at: http://www.[employer]/multiple_crcl_2011.htm Performed By: #### L IP, CMPX, CDP #### [address] [place] [address] Albumin mass conc 4.1 g/dL Normal 3.5-5.2 [facility] Comment on above: Performed By: #### L IP, CMPX, CDP #### [address] [place] [address] Albumin/Globulin mass ratio 1.2 {ratio} Normal 1.0-2.5 [facility] Comment on above: Performed By: #### L IP, CMPX, CDP #### [address] [place] [address] Alkaline Phos 110 U/L High 35-104 [facility] Comment on above: Performed By: #### L IP, CMPX, CDP #### [address] [place] [address] ALT enzyme act/vol 35 U/L High 5-33 [facility] Comment on above: Performed By: #### L IP, CMPX, CDP #### [address] [place] [address] Anion gap molar conc 12 mmol/L Normal 9-17 [facility] Comment on above: Performed By: #### L IP, CMPX, CDP #### [address] [place] [address] AST enzyme act/vol 19 U/L Normal <32 [facility] Comment on above: Performed By: #### L IP, CMPX, CDP #### [address] [place] [address] Bilirubin Ql (U) 0.23 mg/dL Low 0.3-1.2 [facility] Comment on above: Performed By: #### L IP, CMPX, CDP #### [address] [place] [address] BUN/CRE Ratio 11 Normal 9-20 [facility] Comment on above: Performed By: #### L IP, CMPX, CDP #### [address] [place] [address] Calcium mass conc 9.2 mg/dL Normal 8.6-10.4 [facility] Comment on above: Performed By: #### L IP, CMPX, CDP #### [address] [place] [address] Chloride molar conc 106 mmol/L Normal 98-107 [facility] Comment on above: Performed By: #### L IP, CMPX, CDP #### [address] [place] [address] CO2 molar conc 22 mmol/L Normal 20-31 [facility] Comment on above: Performed By: #### L IP, CMPX, CDP #### [address] [place] [address] Creatinine mass conc 1.10 mg/dL High 0.50-0.90 [facility] Comment on above: Performed By: #### L IP, CMPX, CDP #### [address] [place] [address] GFR, Amer >60 Normal >60 [facility] Comment on above: Performed By: #### L IP, CMPX, CDP #### [address] [place] [address] GFR,non Amer 57 mL/min Low >60 [facility] Comment on above: Performed By: #### L IP, CMPX, CDP #### [address] [place] [address] Glucose mass conc 136 mg/dL High 70-99 [facility] Comment on above: Performed By: #### L IP, CMPX, CDP #### [address] [place] [address] Potassium molar conc 4.0 mmol/L Normal 3.7-5.3 [facility] Comment on above: Performed By: #### L IP, CMPX, CDP #### [address] [place] [address] Protein mass conc 7.4 g/dL Normal 6.4-8.3 [facility] Comment on above: Performed By: #### L IP, CMPX, CDP #### [address] [place] [address] Sodium molar conc 140 mmol/L Normal 135-144 [facility] Comment on above: Performed By: #### L IP, CMPX, CDP #### [address] [place] [address] Staging: Normal [facility] Comment on above: Result Comment: Stag e 1: Some kidney damage normal GFR Stage 2: Mild kidney damage GFR 60-89 Stage 3: Moderate kidney damage GFR 30-59 Stage 4: Severe kidney damage GFR 15-29 Stage 5: Severe kidney damage GFR <15 ESRD - chronic treatment by dialysis or transplant Performed By: #### L IP, CMPX, CDP #### [address] [place] [address] Urea nitrogen mass conc 12 mg/dL Normal 6-20 [facility] Comment on above: Performed By: #### L IP, CMPX, CDP #### [address] [place] [address] Lipaseon 04-08-2018 Lipase enzyme act/vol 22 U/L Normal 13-60 [facility] Comment on above: Performed By: #### L IP, CMPX, CDP #### [address] [place] [address] Urinalysis, Routineon 2017 Acetoacetic Acid,Ur Negative Normal NEG [facility] Comment on above: Performed By: #### U CELIA Mabry #### [address] [place] [address] Bilirubin, SemiQt,Ur Negative Normal NEG [facility] Comment on above: Performed By: #### U CELIA Mabry #### [address] [place] [address] Color Nom (U) DARK YELLOW Abnormal YEL [facility] Comment on above: Performed By: #### U CELIA Mabry #### [address] [place] [address] Glucose,Semi-qnt,Ur Negative Normal NEG [facility] Comment on above: Performed By: #### U ACELIA #### [address] [place] [address] Hemoglobin, Ur 3+ Abnormal NEG [facility] Comment on above: Performed By: #### U A UMICAO #### [address] [place] [address] Leuckocyte Esterase TRACE Abnormal NEG [facility] Comment on above: Performed By: #### U A, UMICAO #### [address] [place] [address] Nitrite,Ur Negative Normal NEG [facility] Comment on above: Performed By: #### U A, UMICAO #### [address] [place] [address] PH,Ur 6.0 Normal 5.0-9.0 [facility] Comment on above: Performed By: #### U A, UMICAO #### [address] [place] [address] Protein mass conc (U) 2+ Abnormal NEG [facility] Comment on above: Performed By: #### U A, UMICAO #### [address] [place] [address] Spec. [place],Ur 1.025 High 1.010-1.02 0 [facility] Comment on above: Performed By: #### U A, UMICAO #### [address] [place] [address] Turbidity SLIGHTLY CLOUDY Abnormal CLEAR [facility] Comment on above: Performed By: #### U A, UMICAO #### [address] [place] [address] Urobilinogen,Ur Normal Normal NORM [facility] Comment on above: Performed By: #### U A, UMICAO #### [address] [place] [address] Comment NOT REPORTED Normal [facility] Comment on above: Performed By: #### U A, UMICAO #### [address] [place] [address] Urinalysis,Microon 8 ----- Normal [facility] Comment on above: Performed By: #### U A, UMICAO #### [address] [place] [address] Bacteria LM.HPF #/area (Urine sed) TRACE Abnormal NONE [facility] Comment on above: Performed By: #### U A, UMICAO #### [address] [place] [address] Epithelial cells LM.HPF #/area (Urine sed) 0 TO 2 Normal 0-25 [facility] Comment on above: Performed By: #### U A, UMICAO #### [address] [place] [address] RBC #/vol (U) 50 TO 100 Normal 0-2 [facility] Comment on above: Performed By: #### U A, UMICAO #### [address] [place] [address] WBC #/vol (U) 2 TO 5 Normal 0-5 [facility] Comment on above: Performed By: #### U A, UMICAO #### [address] [place] [address] Amorphous sediment LM Ql (Urine sed) NOT REPORTED Normal [facility] Comment on above: Performed By: #### U A, UMICAO #### [address] [place] [address] Casts LM.LPF #/area (Urine sed) NOT REPORTED Normal [facility] Comment on above: Performed By: #### U A, UMICAO #### [address] [place] [address] Crystals LM Nom (Urine sed) NOT REPORTED Normal [facility] Comment on above: Performed By: #### U A, UMICAO #### [address] [place] [address] Epithelial, Renal NOT REPORTED Normal 0 [facility] Comment on above: Performed By: #### U A, UMICAO #### [address] [place] [address] Mucus Strands NOT REPORTED Normal NONE [facility] Comment on above: Performed By: #### U A, UMICAO #### [address] [place] [address] Other Observations NOT REPORTED Normal NREQ [facility] Comment on above: Performed By: #### U A, UMICAO #### [address] [place] [address] Trichomonas NOT REPORTED Normal NONE [facility] Comment on above: Performed By: #### U A, UMICAO #### [address] [place] [address] Yeast LM Ql (Urine sed) NOT REPORTED Normal NONE [facility] Comment on above: Performed By: #### U A, UMICAO #### [address] [place] [address] HCG, ,Urineon 04-06 HCG.beta subunit ( test) Ql (U) Negative Normal NEG [facility] Comment on above: Result Comment: Spec imens with hCG levels near the threshold of the test (25 mIU/mL) may give a negative or indeterminate result. In such cases, another test should be performed with a new specimen in 48-72 hours. If early is suspected clinically in this setting, correlation with quantitative serum b-hCG level is suggested. [employer] has confirmed the use of plasma for this test. This has not been cleared or approved by the U.S. Food and Drug Administration. The FDA has determined that such clearance is not necessary. Performed By: #### U HCG #### [address] [place], [place] [id number] OPERATIVE REPORTon 8 OPERATIVE REPORT [address] [place] [address] OPERATIVE REPORT PATIENT NAME: JUANIS ALVAREZ : 1985 MED REC NO: [id number] ROOM: ACCOUNT NO: [id number] ADMIT DATE: 04/06/2018 PROVIDER: Myrna Tinoco DATE OF PROCEDURE: 04/06/2018 SURGEON: Dr. Myrna Tinoco. GEOMATICS PROFESSOR: None. PREOPERATIVE DIAGNOSIS: Left renal calculus. POSTOPERATIVE DIAGNOSIS: No renal calculus. OPERATION PERFORMED: Cystoscopy with left ureteroscopy, left ureteral stent placement. ANESTHESIA: General. COMPLICATIONS: None. ESTIMATED BLOOD LOSS: Minimal. SPECIMENS: None. DISPOSITION: Stable. FINDINGS: No ureteral or renal calculi. INDICATIONS: The patient is a 32-year-old female who was sent to [place] with a history of left renal calculus. The patient did have recent CT scan and KUB showing a left renal calculus. Here now for definitive therapy. OPERATIVE PROCEDURE: The patient was taken back to the operating room. After informed consent including all risks, benefits, and alternatives were obtained, the patient was transferred from the [facility] onto the operating table. She was induced under general anesthesia, given IV Cipro for preoperative antibiotic prophylaxis to begin the case. She was prepped and draped in normal sterile fashion, placed in dorsal lithotomy. She had a 22 Maltese sheath, 30-degree lens passed through the urethra into the bladder. Once in the bladder, we identified the left ureteral orifice, and two 0.035 wires were passed up the left ureter. Dual lumen catheter was used. Additional guidewire was passed up the left ureter into the kidney. We then passed a flexible ureteroscope up. No ureteral abnormalities, pathology, or stones visualized. We then did a formal pyeloscopy. We did use the fluoroscopic imaging and examined every calyx. We were not able to visualize what we were seeing in here was a stone on the KUB, but this did not correlate with any of the calyces, and we could not visualize the stone. It was then removed. We did see several enlarged papillae and possible Yogesh plaques, but nothing that we could significantly laser. At this point in time, we removed the scope leaving guidewire in place. Placed the cystoscope along with the guidewire and placed 6 x 24 ureteral stent. Bladder was drained. She was then awoken from general anesthesia. We did attach the stent string to her right thigh with Steri-Strips and benzoin. PLAN: The patient will be discharged home per PACU criteria. Follow up with us in two days for stent removal via string. MYRNA TINOCO [id number] Doc#: [id number] CC: <> Normal [facility] XR ABDOMEN (KUB) (SINGLE AP VIEW)on 04-06-2018 XR ABDOMEN (KUB) (SINGLE AP VIEW) EXAMINATION: SPOT FLUOROSCOPIC IMAGES 04/06/2018 1:46 pm TECHNIQUE: Fluoroscopy was provided by the radiology department for procedure. Radiologist was not present during examination. FLUOROSCOPY DOSE AND TYPE OR TIME AND EXPOSURES: 23.3 mGy; 0.23 minute COMPARISON: None HISTORY: Intraprocedural imaging. Stent placement performed in the OR FINDINGS: 12 spot images of the left hemiabdomen were obtained. Images demonstrate retrograde lithotripsy and placement of a left ureteral stent. Final image demonstrates partially formed loop overlying the expected location of the left renal pelvis. The distal left ureteral stent is not imaged. IMPRESSION: Intraprocedural fluoroscopic spot images as above. See separate procedure report for more information. Interpreted by: Nolan Billings MD Signed by: Nolan Billings MD 04/06/18 Final result Normal [facility] Cult,Urine,CCon 03-17-2018 Cult,Urine,CC Specimen Description .URINE Special Requests NOT REPORTED Culture NO SIGNIFICANT GROWTH Report Status FINAL 03/17/2018 Normal [facility] Comment on above: Performed By: #### C EVELYN #### [employer] [address] [place] [address] [place] [address] Urinalysis w/ Microon 2017 ----- Normal [facility] Comment on above: Performed By: #### U AMIC #### [address] [place] [address] Acetoacetic Acid,Ur Negative Normal NEG [facility] Comment on above: Performed By: #### U AMIC #### [address] [place] [address] Bacteria LM.HPF #/area (Urine sed) TRACE Abnormal NONE [facility] Comment on above: Performed By: #### U AMIC #### [address] [place] [address] Bilirubin, SemiQt,Ur Negative Normal NEG [facility] Comment on above: Performed By: #### U AMIC #### [address] [place] [address] Color Nom (U) YELLOW Normal [facility] Comment on above: Performed By: #### U AMIC #### [address] [place] [address] Epithelial cells LM.HPF #/area (Urine sed) 0 TO 2 Normal 0-25 [facility] Comment on above: Performed By: #### U AMIC #### [address] [place] [address] Glucose,Semi-qnt,Ur Negative Normal [facility] Comment on above: Performed By: #### U AMIC #### [address] [place] [address] Hemoglobin, Ur Negative Normal [facility] Comment on above: Performed By: #### U AMIC #### [address] [place] [address] Leuckocyte Esterase Negative Normal [facility] Comment on above: Performed By: #### U AMIC #### [address] [place] [address] Nitrite,Ur Negative Normal [facility] Comment on above: Performed By: #### U AMIC #### [address] [place] [address] PH,Ur 7.0 Normal 5.0-9.0 [facility] Comment on above: Performed By: #### U AMIC #### [address] [place] [address] Protein mass conc (U) Negative Normal NEG [facility] Comment on above: Performed By: #### U AMIC #### [address] [place] [address] RBC #/vol (U) 0 TO 2 Normal 0-2 [facility] Comment on above: Performed By: #### U AMIC #### [address] [place] [address] Spec. [place],Ur <1.005 Low 1.010-1.02 0 [facility] Comment on above: Performed By: #### U AMIC #### [address] [place] [address] Turbidity CLEAR Normal CLEAR [facility] Comment on above: Performed By: #### U AMIC #### [address] [place] [address] Urobilinogen,Ur Normal Normal NORM [facility] Comment on above: Performed By: #### U AMIC #### [address] [place] [address] WBC #/vol (U) 0 TO 2 Normal 0-5 [facility] Comment on above: Performed By: #### U AMIC #### [address] [place] [address] Amorphous sediment LM Ql (Urine sed) NOT REPORTED Normal NONE [facility] Comment on above: Performed By: #### U AMIC #### [address] [place] [address] Casts LM.LPF #/area (Urine sed) NOT REPORTED Normal [facility] Comment on above: Performed By: #### U AMIC #### [address] [place] [address] Comment NOT REPORTED Normal [facility] Comment on above: Performed By: #### U AMIC #### [address] [place] [address] Crystals LM Nom (Urine sed) NOT REPORTED Normal NONE [facility] Comment on above: Performed By: #### U AMIC #### [address] [place] [address] Epithelial, Renal NOT REPORTED Normal 0 [facility] Comment on above: Performed By: #### U AMIC #### [address] [place] [address] Mucus Strands NOT REPORTED Normal NONE [facility] Comment on above: Performed By: #### U AMIC #### [address] [place] [address] Other Observations NOT REPORTED Normal NREQ [facility] Comment on above: Performed By: #### U AMIC #### [address] [place] [address] Trichomonas NOT REPORTED Normal NONE [facility] Comment on above: Performed By: #### U AMIC #### [address] [place] [address] Yeast LM Ql (Urine sed) NOT REPORTED Normal [facility] Comment on above: Performed By: #### U AMIC #### [address] [place] [address] Vital Signs Date Time Vital Sign Value Performing Clinician Facility 05-03-2025 15:33-0400 Body height 162.6 cm Aileen Kumar MD Work Phone: [facility] 05-03-2025 15:33-0400 Body mass index (BMI) [Ratio] 31.07 kg/m2 Aileen Kumar MD Work Phone: [facility] 05-03-2025 15:33-0400 Body temperature 98.4 [degF] Aileen Kumar MD Work Phone: [facility] 05-03-2025 15:33-0400 Body weight 82.1 kg Aileen Kumar MD Work Phone: [facility] 05-03-2025 15:33-0400 Diastolic blood pressure 70 mm[Hg] Aileen Kumar MD Work Phone: [facility] 05-03-2025 15:33-0400 Heart rate 105 /min Aileen Kumar MD Work Phone: [facility] 05-03-2025 15:33-0400 SaO2% (BldA) [Mass fraction] 99 % Aileen Kumar MD Work Phone: [facility] 05-03-2025 15:33-0400 Systolic blood pressure 136 mm[Hg] Aileen Kumar MD Work Phone: [facility] 03-29-2025 17:32-0400 Body height 162.56 cm Joie Peacock MD Work Phone: [facility] 03-29-2025 17:32-0400 Body mass index (BMI) [Ratio] 30.2 kg/m2 Joie Peacock MD Work Phone: [facility] 03-29-2025 17:32-0400 Body temperature 98.3 [degF] Joie Peacock MD Work Phone: [facility] 03-29-2025 17:32-0400 Body weight 79.83 kg Joie Peacock MD Work Phone: [facility] 03-29-2025 17:32-0400 Diastolic blood pressure 90 mm[Hg] Joie Peacock MD Work Phone: [facility] 03-29-2025 17:32-0400 Heart rate 99 /min Joie Peacock MD Work Phone: [facility] 03-29-2025 17:32-0400 Respiratory rate 18 /min Joie Peacock MD Work Phone: [facility] 03-29-2025 17:32-0400 SaO2% (BldA) [Mass fraction] 99 % Joie Peacock MD Work Phone: [facility] 03-29-2025 17:32-0400 Systolic blood pressure 144 mm[Hg] Joie Peacock MD Work Phone: [facility] 02-23-2025 18:12-0400 Body height 162.56 cm Joie Peacock MD Work Phone: [facility] 02-23-2025 18:12-0400 Body mass index (BMI) [Ratio] 30.2 kg/m2 Joie Peacock MD Work Phone: [facility] 02-23-2025 18:12-0400 Body temperature 98.8 [degF] Joie Peacock MD Work Phone: [facility] 02-23-2025 18:12-0400 Body weight 79.94 kg Joie Peacock MD Work Phone: [facility] 02-23-2025 18:12-0400 Diastolic blood pressure 85 mm[Hg] Joie Peacock MD Work Phone: [facility] 02-23-2025 18:12-0400 Heart rate 96 /min Joie Peacock MD Work Phone: [facility] 02-23-2025 18:12-0400 Respiratory rate 16 /min Joie Peacock MD Work Phone: [facility] 02-23-2025 18:12-0400 SaO2% (BldA) [Mass fraction] 99 % Joie Peacock MD Work Phone: [facility] 02-23-2025 18:12-0400 Systolic blood pressure 127 mm[Hg] Joie Peacock MD Work Phone: [facility] 02-22-2025 11:49-0400 Body height 162.6 cm [facility] [employer] 02-22-2025 11:49-0400 Body mass index (BMI) [Ratio] 29.83 kg/m2 [facility] [employer] 02-22-2025 11:49-0400 Body weight 78.83 kg [facility] [employer] 02-22-2025 11:49-0400 Diastolic blood pressure 82 mm[Hg] [facility] [employer] 02-22-2025 11:49-0400 Systolic blood pressure 110 mm[Hg] [facility] [employer] 02-16-2025 16:37-0400 Body height 162.6 cm Jose Do DPM Work Phone: [facility] 02-16-2025 16:37-0400 Body mass index (BMI) [Ratio] 29.18 kg/m2 Jose Do DPM Work Phone: [facility] 02-16-2025 16:37-0400 Body weight 77.11 kg Jose Do DPM Work Phone: [facility] 02-16-2025 16:37-0400 Respiratory rate 18 /min Jose Do DPM Work Phone: [facility] 02-14-2025 15:33-0400 Body height 162.6 cm Carlos Manuel Mittal CALLISTH[employer] INSTRUCTOR Work Phone: [facility] 02-14-2025 15:33-0400 Body mass index (BMI) [Ratio] 29.28 kg/m2 Carlos Manuel Mittal CALLISTH[employer] INSTRUCTOR Work Phone: [facility] 02-14-2025 15:33-0400 Body temperature 98.6 [degF] Carlos Manuel Mittal CALLIST[employer] INSTRUCTOR Work Phone: [facility] 02-14-2025 15:33-0400 Body weight 77.38 kg Carlos Manuel Mittal CALLISTH[employer]ICS INSTRUCTOR Work Phone: [facility] 02-14-2025 15:33-0400 Diastolic blood pressure 78 mm[Hg] Carlos Manuel Mittal CALLISTH[employer]ICS INSTRUCTOR Work Phone: [facility] 02-14-2025 15:33-0400 Heart rate 101 /min Carlos Manuel Mittal CALLISTH[employer]ICS INSTRUCTOR Work Phone: [facility] 02-14-2025 15:33-0400 SaO2% (BldA) [Mass fraction] 99 % Carlos Manuel Mittal CALLISTH[employer]ICS INSTRUCTOR Work Phone: [facility] 02-14-2025 15:33-0400 Systolic blood pressure 130 mm[Hg] Carlos Manuel Mittal CALLISTH[employer]ICS INSTRUCTOR Work Phone: [facility] 01-31-2025 14:22-0400 Body height 162.6 cm Joie Peacock MD Work Phone: [facility] 01-31-2025 14:22-0400 Body mass index (BMI) [Ratio] 29.94 kg/m2 Joie Peacock MD Work Phone: [facility] 01-31-2025 14:22-0400 Body temperature 98.2 [degF] Joie Peacock MD Work Phone: [facility] 01-31-2025 14:22-0400 Body weight 79.11 kg Joie Peacock MD Work Phone: [facility] 01-31-2025 14:22-0400 Diastolic blood pressure 72 mm[Hg] Joie Peacock MD Work Phone: [facility] 01-31-2025 14:22-0400 Heart rate 91 /min Joie Peacock MD Work Phone: [facility] 01-31-2025 14:22-0400 SaO2% (BldA) [Mass fraction] 99 % Joie Peacock MD Work Phone: [facility] 01-31-2025 14:22-0400 Systolic blood pressure 130 mm[Hg] Joie Peacock MD Work Phone: [facility] 01-26-2025 16:15-0400 Body height 162.6 cm Jose Do DPM Work Phone: [facility] 01-26-2025 16:15-0400 Body mass index (BMI) [Ratio] 30.55 kg/m2 Jose Do DPM Work Phone: [facility] 01-26-2025 16:15-0400 Body weight 80.74 kg Jose Do DPM Work Phone: [facility] 01-26-2025 16:15-0400 Respiratory rate 18 /min Jose Do DPM Work Phone: [facility] 12-15-2024 16:07-0400 Body height 162.6 cm Lanny Donnamiller CALLISTH[employer]ICS INSTRUCTOR Work Phone: [facility] 12-15-2024 16:07-0400 Body mass index (BMI) [Ratio] 31.38 kg/m2 Lanny Donnamiller CALLISTH[employer]ICS INSTRUCTOR Work Phone: [facility] 12-15-2024 16:07-0400 Body temperature 98.1 [degF] Lanny Donnamiller CALLISTH[employer]ICS INSTRUCTOR Work Phone: [facility] 12-15-2024 16:07-0400 Body weight 82.92 kg Lanny Donnamiller CALLISTH[employer]ICS INSTRUCTOR Work Phone: [facility] 12-15-2024 16:07-0400 Diastolic blood pressure 90 mm[Hg] Lanny Donnamiller CALLISTH[employer]ICS INSTRUCTOR Work Phone: [facility] 12-15-2024 16:07-0400 Heart rate 93 /min Lanny Donnamiller CALLISTH[employer]ICS INSTRUCTOR Work Phone: [facility] 12-15-2024 16:07-0400 SaO2% (BldA) [Mass fraction] 99 % Lanny Donnamiller CALLISTH[employer]ICS INSTRUCTOR Work Phone: [facility] 12-15-2024 16:07-0400 Systolic blood pressure 160 mm[Hg] Lanny Donnamiller CALLISTH[employer] INSTRUCTOR Work Phone: [facility] 12-07-2024 15:25-0400 Body height 162.6 cm Lanny Donnamiller CALLISTH[employer]ICS INSTRUCTOR Work Phone: [facility] 12-07-2024 15:25-0400 Body mass index (BMI) [Ratio] 31.45 kg/m2 Lanny Donnamiller CALLISTH[employer]ICS INSTRUCTOR Work Phone: [facility] 12-07-2024 15:25-0400 Body temperature 98.49 [degF] Lanny Donnamiller CALLISTH[employer]ICS INSTRUCTOR Work Phone: [facility] 12-07-2024 15:25-0400 Body weight 83.1 kg Lanny Whatleyiller CALLISTH[employer]ICS INSTRUCTOR Work Phone: [facility] 12-07-2024 15:25-0400 Diastolic blood pressure 86 mm[Hg] Lanny Whatleyiller CALLISTH[employer]ICS INSTRUCTOR Work Phone: [facility] 12-07-2024 15:25-0400 Heart rate 117 /min Lanny Whatleyiller CALLISTH[employer]ICS INSTRUCTOR Work Phone: [facility] 12-07-2024 15:25-0400 SaO2% (BldA) [Mass fraction] 99 % Lanny Whatleyiller CALLISTH[employer]ICS INSTRUCTOR Work Phone: [facility] 12-07-2024 15:25-0400 Systolic blood pressure 126 mm[Hg] Lanny Whatleyiller CALLISTH[employer]ICS INSTRUCTOR Work Phone: [facility] 11-24-2024 15:41-0400 Body height 162.56 cm [facility] 11-24-2024 15:41-0400 Body mass index (BMI) [Ratio] 32.4 kg/m2 [facility] 11-24-2024 15:41-0400 Body temperature 98.4 [degF] [facility] 11-24-2024 15:41-0400 Body weight 85.72 kg [facility] 11-24-2024 15:41-0400 Diastolic blood pressure 88 mm[Hg] [facility] 11-24-2024 15:41-0400 Heart rate 99 /min [facility] 11-24-2024 15:41-0400 Respiratory rate 14 /min [facility] 11-24-2024 15:41-0400 SaO2% (BldA) [Mass fraction] 99 % [facility] 11-24-2024 15:41-0400 Systolic blood pressure 128 mm[Hg] [facility] 11-22-2024 15:44-0400 Body height 162.6 cm Lanny Donnamiller CALL[employer] INSTRUCTOR Work Phone: [facility] 11-22-2024 15:44-0400 Body mass index (BMI) [Ratio] 32.17 kg/m2 Lanny Donnamiller CALLISTH[employer] INSTRUCTOR Work Phone: [facility] 11-22-2024 15:44-0400 Body temperature 98.49 [degF] Lanny Donnamiller CALLISTH[employer]ICS INSTRUCTOR Work Phone: [facility] 11-22-2024 15:44-0400 Body weight 85 kg Lanny Donnamiller CALLISTH[employer]ICS INSTRUCTOR Work Phone: [facility] 11-22-2024 15:44-0400 Diastolic blood pressure 80 mm[Hg] Lanny Donnamiller CALLISTH[employer]ICS INSTRUCTOR Work Phone: [facility] 11-22-2024 15:44-0400 Heart rate 103 /min Lanny Stantonnamiller CALLISTHENICS INSTRUCTOR Work Phone: [facility] 11-22-2024 15:44-0400 SaO2% (BldA) [Mass fraction] 99 % Lanny Donnamiller CALLISTHENICS INSTRUCTOR Work Phone: [facility] 11-22-2024 15:44-0400 Systolic blood pressure 120 mm[Hg] Lanny Donnamiller CALLISTHENICS INSTRUCTOR Work Phone: [facility] 10-23-2024 13:24-0400 Body height 162.56 cm [facility] 10-23-2024 13:24-0400 Body mass index (BMI) [Ratio] 33.7 kg/m2 [facility] 10-23-2024 13:24-0400 Body temperature 98.1 [degF] [facility] 10-23-2024 13:24-0400 Body weight 89.35 kg [facility] 10-23-2024 13:24-0400 Diastolic blood pressure 87 mm[Hg] [facility] 10-23-2024 13:24-0400 Heart rate 102 /min [facility] 10-23-2024 13:24-0400 Respiratory rate 14 /min [facility] 10-23-2024 13:24-0400 SaO2% (BldA) [Mass fraction] 100 % [facility] 10-23-2024 13:24-0400 Systolic blood pressure 121 mm[Hg] [facility] 09-09-2024 12:28-0500 Body height 162.6 cm Carlos Manuel Mittal CALLISTH[employer]ICS INSTRUCTOR Work Phone: [facility] 09-09-2024 12:28-0500 Body mass index (BMI) [Ratio] 34.43 kg/m2 Carlos Manuel Mittal CALLISTH[employer]ICS INSTRUCTOR Work Phone: [facility] 09-09-2024 12:28-0500 Body temperature 98.4 [degF] Carlos Manuel Mittal CALLISTH[employer]ICS INSTRUCTOR Work Phone: [facility] 09-09-2024 12:28-0500 Body weight 90.99 kg Carlos Manuel Mittal CALLISTH[employer]ICS INSTRUCTOR Work Phone: [facility] 09-09-2024 12:28-0500 Diastolic blood pressure 64 mm[Hg] Carlos Manuel Mittal CALLISTH[employer]ICS INSTRUCTOR Work Phone: [facility] 09-09-2024 12:28-0500 Heart rate 99 /min Carlos Manuel Mittal CALLISTH[employer]ICS INSTRUCTOR Work Phone: [facility] 09-09-2024 12:28-0500 SaO2% (BldA) [Mass fraction] 99 % Carlos Manuel Mittal CALLISTHENICS INSTRUCTOR Work Phone: [facility] 09-09-2024 12:28-0500 Systolic blood pressure 120 mm[Hg] Carlos Manuel Mittal CALLISTHENICS INSTRUCTOR Work Phone: [facility] 08-09-2024 10:32-0500 Body height 162.6 cm Carlos Manuel Mittal CALLISTHENICS INSTRUCTOR Work Phone: [facility] 08-09-2024 10:32-0500 Body mass index (BMI) [Ratio] 34.6 kg/m2 Carlos Manuel Mittal CALLISTH[employer]ICS INSTRUCTOR Work Phone: [facility] 08-09-2024 10:32-0500 Body temperature 98.6 [degF] Carlos Manuel Mittal CALLISTH[employer]ICS INSTRUCTOR Work Phone: [facility] 08-09-2024 10:32-0500 Body weight 91.44 kg Carlos Manuel Mittal CALLISTH[employer]ICS INSTRUCTOR Work Phone: [facility] 08-09-2024 10:32-0500 Diastolic blood pressure 62 mm[Hg] Carlos Manuel Mittal CALLISTH[employer]ICS INSTRUCTOR Work Phone: [facility] 08-09-2024 10:32-0500 Heart rate 100 /min Carlos Manuel Mittal CALLISTHENICS INSTRUCTOR Work Phone: [facility] 08-09-2024 10:32-0500 SaO2% (BldA) [Mass fraction] 99 % Carlos Manuel Mittal CALLISTHENICS INSTRUCTOR Work Phone: [facility] 08-09-2024 10:32-0500 Systolic blood pressure 130 mm[Hg] Carlos Manuel Mittal CALLISTH[employer]ICS INSTRUCTOR Work Phone: [facility] 07-21-2024 15:46-0500 Body height 162.6 cm Lanny Rosador CALLISTHENICS INSTRUCTOR Work Phone: [facility] 07-21-2024 15:46-0500 Body mass index (BMI) [Ratio] 36.05 kg/m2 Lanny Whatleyiller CALLISTHENICS INSTRUCTOR Work Phone: [facility] 07-21-2024 15:46-0500 Body temperature 98.4 [degF] Lanny Whatleyiller CALLISTHENICS INSTRUCTOR Work Phone: [facility] 07-21-2024 15:46-0500 Body weight 95.25 kg Lanny Whatleyiller CALLISTHENICS INSTRUCTOR Work Phone: [facility] 07-21-2024 15:46-0500 Diastolic blood pressure 74 mm[Hg] Lanny Stantonnamiller CALLISTHENICS INSTRUCTOR Work Phone: [facility] 07-21-2024 15:46-0500 Heart rate 96 /min Lanny Rosador CALLISTHENICS INSTRUCTOR Work Phone: [facility] 07-21-2024 15:46-0500 SaO2% (BldA) [Mass fraction] 99 % Lanny Whatleyiller CALLISTHENICS INSTRUCTOR Work Phone: [facility] 07-21-2024 15:46-0500 Systolic blood pressure 110 mm[Hg] Lnany Whatleyiller CALLISTHENICS INSTRUCTOR Work Phone: [facility] 07-05-2024 15:30-0500 Body height 162.6 cm Carlos Manuel Mittal CALLISTHENICS INSTRUCTOR Work Phone: [facility] 07-05-2024 15:30-0500 Body mass index (BMI) [Ratio] 36.25 kg/m2 Carlos Manuel Mittal CALLISTH[employer]ICS INSTRUCTOR Work Phone: [facility] 07-05-2024 15:30-0500 Body temperature 98.4 [degF] Carlos Manuel Mittal CALLISTH[employer]ICS INSTRUCTOR Work Phone: [facility] 07-05-2024 15:30-0500 Body weight 95.8 kg Carlos Manuel Mittal CALLISTH[employer]ICS INSTRUCTOR Work Phone: [facility] 07-05-2024 15:30-0500 Diastolic blood pressure 62 mm[Hg] Carlos Manuel Mittal CALLISTH[employer]ICS INSTRUCTOR Work Phone: [facility] 07-05-2024 15:30-0500 Heart rate 104 /min Carlos Manuel Mittal CALLISTHENICS INSTRUCTOR Work Phone: [facility] 07-05-2024 15:30-0500 SaO2% (BldA) [Mass fraction] 99 % Carlos Manuel Mittal CALLISTHENICS INSTRUCTOR Work Phone: [facility] 07-05-2024 15:30-0500 Systolic blood pressure 120 mm[Hg] Carlos Manuel Mittal CALLISTHENICS INSTRUCTOR Work Phone: [facility] 06-16-2024 15:55-0500 Body height 162.6 cm Lenny Archer DO Work Phone: [facility] 06-16-2024 15:55-0500 Body mass index (BMI) [Ratio] 37.59 kg/m2 Lenny Archer DO Work Phone: [facility] 06-16-2024 15:55-0500 Body weight 99.34 kg Lenny Orlando DO Work Phone: [facility] 06-03-2024 15:29-0400 Body height 162.6 cm Carlos Manuel Mittal CALLISTHENICS INSTRUCTOR Work Phone: [facility] 06-03-2024 15:29-0400 Body mass index (BMI) [Ratio] 37.73 kg/m2 Carlos Manuel Mittal CALLISTHENICS INSTRUCTOR Work Phone: [facility] 06-03-2024 15:29-0400 Body temperature 98.4 [degF] Carlos Manuel Mittal CALLISTHENICS INSTRUCTOR Work Phone: [facility] 06-03-2024 15:29-0400 Body weight 99.7 kg Carlos Manuel Mittal CALLISTHENICS INSTRUCTOR Work Phone: [facility] 06-03-2024 15:29-0400 Diastolic blood pressure 84 mm[Hg] Carlos Manuel Mittal CALLISTHENICS INSTRUCTOR Work Phone: [facility] 06-03-2024 15:29-0400 Heart rate 95 /min Carlos Manuel Mittal CALLISTHENICS INSTRUCTOR Work Phone: [facility] 06-03-2024 15:29-0400 SaO2% (BldA) [Mass fraction] 99 % Carlos Manuel Mittal CALLISTHENICS INSTRUCTOR Work Phone: [facility] 06-03-2024 15:29-0400 Systolic blood pressure 128 mm[Hg] Carlos Manuel Mittal CALLISTHENICS INSTRUCTOR Work Phone: [facility] 06-02-2024 15:36-0400 Body height 162.6 cm Lenny Orlando DO Work Phone: [facility] 06-02-2024 15:36-0400 Body mass index (BMI) [Ratio] 38.28 kg/m2 Lenny Orlando DO Work Phone: [facility] 06-02-2024 15:36-0400 Body weight 101.15 kg Lenny Orlando DO Work Phone: [facility] 2024 14:45-0400 Body height 162.6 cm Carlos Manuel Mittal CALLISTHENICS INSTRUCTOR Work Phone: [facility] 2024 14:45-0400 Body mass index (BMI) [Ratio] 38.38 kg/m2 Carlos Manuel Mittal CALLISTHENICS INSTRUCTOR Work Phone: [facility] 2024 14:45-0400 Body temperature 98.4 [degF] Carlos Manuel Mittal CALLISTHENICS INSTRUCTOR Work Phone: [facility] 2024 14:45-0400 Body weight 101.42 kg Carlos Manuel Mittal CALLISTHENICS INSTRUCTOR Work Phone: [facility] 2024 14:45-0400 Diastolic blood pressure 89 mm[Hg] Carlos Manuel Mittal CALLISTHENICS INSTRUCTOR Work Phone: [facility] 2024 14:45-0400 Heart rate 89 /min Carlos Manuel Mittal CALLISTHENICS INSTRUCTOR Work Phone: [facility] 2024 14:45-0400 SaO2% (BldA) [Mass fraction] 99 % Carlos Manuel Mittal CALLISTHENICS INSTRUCTOR Work Phone: [facility] 2024 14:45-0400 Systolic blood pressure 128 mm[Hg] Carlos Manuel Mittal CALLISTHENICS INSTRUCTOR Work Phone: [facility] 04-14-2024 15:27-0400 Body height 162.6 cm Lenny Archer DO Work Phone: [facility] 04-14-2024 15:27-0400 Body mass index (BMI) [Ratio] 39.48 kg/m2 Lenny Archer DO Work Phone: [facility] 04-14-2024 15:27-0400 Body weight 104.33 kg Lenny Archer DO Work Phone: [facility] 03-09-2024 15:31-0400 Body height 162.6 cm [facility] 03-09-2024 15:31-0400 Body mass index (BMI) [Ratio] 41.54 kg/m2 [facility] 03-09-2024 15:31-0400 Body weight 109.77 kg [facility] 03-09-2024 15:31-0400 Diastolic blood pressure 90 mm[Hg] [facility] 03-09-2024 15:31-0400 Systolic blood pressure 120 mm[Hg] [facility] 11-08-2023 14:41-0400 Body height 162.56 cm [facility] 11-08-2023 14:41-0400 Body mass index (BMI) [Ratio] 46.1 kg/m2 [facility] 11-08-2023 14:41-0400 Body temperature 98.7 [degF] [facility] 11-08-2023 14:41-0400 Body weight 122.01 kg [facility] 11-08-2023 14:41-0400 Heart rate 111 /min [facility] 11-08-2023 14:41-0400 Respiratory rate 16 /min [facility] 10-09-2023 09:47-0500 Body height 162.56 cm [facility] 10-09-2023 09:47-0500 Body mass index (BMI) [Ratio] 46.3 kg/m2 [facility] 10-09-2023 09:47-0500 Body temperature 98.5 [degF] [facility] 10-09-2023 09:47-0500 Body weight 122.46 kg [facility] 10-09-2023 09:47-0500 Diastolic blood pressure 95 mm[Hg] [facility] 10-09-2023 09:47-0500 Heart rate 89 /min [facility] 10-09-2023 09:47-0500 Respiratory rate 18 /min [facility] 10-09-2023 09:47-0500 SaO2% (BldA) [Mass fraction] 96 % [facility] 10-09-2023 09:47-0500 Systolic blood pressure 141 mm[Hg] [facility] 09-14-2023 11:07-0500 Body height 162.6 cm Emily HAIR Work Phone: [facility] [employer] 09-14-2023 11:07-0500 Body mass index (BMI) [Ratio] 46.35 kg/m2 Emily Layton PA Work Phone: [facility] 09-14-2023 11:07-0500 Body temperature 99.61 [degF] Emily Layton PA Work Phone: [facility] [employer] 09-14-2023 11:07-0500 Body weight 122.47 kg Emily Layton PA Work Phone: [facility] [employer] 09-14-2023 11:07-0500 Diastolic blood pressure 80 mm[Hg] Emily Layton PA Work Phone: [facility] 09-14-2023 11:07-0500 Heart rate 110 /min Emily Layton PA Work Phone: [facility] 09-14-2023 11:07-0500 SaO2% (BldA) [Mass fraction] 99 % Emily Layton PA Work Phone: [facility] [employer] 09-14-2023 11:07-0500 Systolic blood pressure 118 mm[Hg] Emily Layton PA Work Phone: [facility] 08-16-2023 14:40-0500 Body height 162.56 cm Amna Valerio Other [facility] 08-16-2023 14:40-0500 Body mass index (BMI) [Ratio] 45.31 kg/m2 Amna Valerio Other [employer] Other 08-16-2023 14:40-0500 Body temperature 100.6 [degF] Amna Valerio Other [employer] Other 08-16-2023 14:40-0500 Body weight 119.75 kg Amna Valerio Other [employer] Other 08-16-2023 14:40-0500 Body weight 119.74 kg [facility] 08-16-2023 14:40-0500 Diastolic blood pressure 92 mm[Hg] Amna Valerio Other [facility] 08-16-2023 14:40-0500 Respiratory rate 18 /min Amna Valerio Other [facility] [employer] Other 08-16-2023 14:40-0500 SaO2% (BldA) [Mass fraction] 98 % Amna Valerio Other [facility] [employer] Other 08-16-2023 14:40-0500 Systolic blood pressure 142 mm[Hg] Amna Valerio Other [facility] 05-01-2023 14:55-0400 Body height 162.56 cm Eva Wellsmond Other [employer] Other 05-01-2023 14:55-0400 Body mass index (BMI) [Ratio] 48.06 kg/m2 Eva Wellsmond Other [employer] Other 05-01-2023 14:55-0400 Body temperature 99 [degF] Eva Wellsmond Other [employer] Other 05-01-2023 14:55-0400 Body weight 127.01 kg Eva Wellsmond Other [employer] Other 05-01-2023 14:55-0400 Diastolic blood pressure 96 mm[Hg] Eva Nasrin Other [employer] Other 05-01-2023 14:55-0400 Respiratory rate 18 /min Eva Nasrin Other [employer] Other 05-01-2023 14:55-0400 SaO2% (BldA) [Mass fraction] 99 % Eva Nasrin Other [employer] Other 05-01-2023 14:55-0400 Systolic blood pressure 140 mm[Hg] Eva Nasrin Other [employer] Other 03-07-2023 14:25-0400 Body height 162.56 cm Eva Nasrin Other [employer] Other 03-07-2023 14:25-0400 Body mass index (BMI) [Ratio] 48.81 kg/m2 Eva Nasrin Other [employer] Other 03-07-2023 14:25-0400 Body temperature 98.1 [degF] Eva Nasrin Other [employer] Other 03-07-2023 14:25-0400 Body weight 129 kg Eva Nasrin Other [employer] Other 03-07-2023 14:25-0400 Diastolic blood pressure 100 mm[Hg] Eva Nasrin Other [employer] Other 03-07-2023 14:25-0400 Respiratory rate 18 /min Eva Nasrin Other [employer] Other 03-07-2023 14:25-0400 SaO2% (BldA) [Mass fraction] 99 % Eva Nasrin Other [employer] Other 03-07-2023 14:25-0400 Systolic blood pressure 152 mm[Hg] Eva Nasrin Other [employer] Other 02-05-2023 17:00-0400 Body height 162.56 cm Eva Alexandra Other [employer] Other 02-05-2023 17:00-0400 Body mass index (BMI) [Ratio] 48.57 kg/m2 Eva Nasrin Other [employer] Other 02-05-2023 17:00-0400 Body temperature 98.5 [degF] Eva Wellsmond Other [employer] Other 02-05-2023 17:00-0400 Body weight 128.37 kg Eva Nasrin Other [employer] Other 02-05-2023 17:00-0400 Diastolic blood pressure 107 mm[Hg] Eva Nasrin Other [employer] Other 02-05-2023 17:00-0400 Respiratory rate 18 /min Eva Nasrin Other [employer] Other 02-05-2023 17:00-0400 SaO2% (BldA) [Mass fraction] 98 % Eva Nasrin Other [employer] Other 02-05-2023 17:00-0400 Systolic blood pressure 151 mm[Hg] Eva Nasrin Other [employer] Other 12-05-2022 13:00-0400 Body height 162.56 cm Amna Valerio Other [employer] Other 12-05-2022 13:00-0400 Body mass index (BMI) [Ratio] 48.74 kg/m2 Amna Valerio Other [employer] Other 12-05-2022 13:00-0400 Body temperature 99.4 [degF] Amna Valerio Other [employer] Other 12-05-2022 13:00-0400 Body weight 128.82 kg Amna Teodoro Other [employer] Other 12-05-2022 13:00-0400 Respiratory rate 18 /min Amna Valerio Other [employer] Other 12-05-2022 13:00-0400 SaO2% (BldA) [Mass fraction] 98 % Amna Valerio Other [employer] Other 04-18-2022 16:00-0400 Body height 162.56 cm Ivelisse Mittal Other [employer] Other 04-18-2022 16:00-0400 Body mass index (BMI) [Ratio] 49.26 kg/m2 Ivelisse Mittal Other [employer] Other 04-18-2022 16:00-0400 Body temperature 98.3 [degF] Ivelisse Mittal Other [employer] Other 04-18-2022 16:00-0400 Body weight 130.18 kg Ivelisse Mittal Other [employer] Other 04-18-2022 16:00-0400 Diastolic blood pressure 95 mm[Hg] Ivelisse Mittal Other [employer] Other 04-18-2022 16:00-0400 Respiratory rate 18 /min Ivelisse Mittal Other [employer] Other 04-18-2022 16:00-0400 SaO2% (BldA) [Mass fraction] 100 % Ivelisse Mittal Other [employer] Other 04-18-2022 16:00-0400 Systolic blood pressure 138 mm[Hg] Ivelisse Mittal Other [employer] Other 04-06-2022 14:45-0400 Body height 162.56 cm Eva Alexandra Other [employer] Other 04-06-2022 14:45-0400 Body mass index (BMI) [Ratio] 47.89 kg/m2 Eva Alexandra Other [employer] Other 04-06-2022 14:45-0400 Body temperature 98.6 [degF] Eva Alexandra Other [employer] Other 04-06-2022 14:45-0400 Body weight 126.55 kg Eva Alexandra Other [employer] Other 04-06-2022 14:45-0400 Respiratory rate 18 /min Eva Alxeandra Other [employer] Other 04-06-2022 14:45-0400 SaO2% (BldA) [Mass fraction] 98 % Eva Alexandra Other [employer] Other Encounters Encounter Date Encounter Type Care Provider Facility Start: 05-03-2025 End: 05-03-2025 ambulatory AILEEN KUMAR Not Available Start: 05-03-2025 End: 05-03-2025 Office outpatient visit 25 minutes Aileen Kumar MD Work Phone: [facility] Comment on above: Abnormal weight gain (Primary Dx); Obesity (BMI 30.0-34.9); BMI 31.0-31.9,adult; Situational anxiety Start: 05-03-2025 End: 05-03-2025 Beka Kumar MD Work Phone: [facility] Start: 05-03-2025 End: 05-03-2025 Beka Kumar MD Work Phone: [facility] Start: 05-03-2025 End: 05-03-2025 Telephone encounter Sophia Lin CMA [facility] Physicians Obstetrics/Gynecology Start: 04-08-2025 End: 04-11-2025 Refill Joie Peacock MD Work Phone: [facility] Comment on above: Nausea Start: 03-29-2025 End: 03-29-2025 ambulatory Joie Peacock MD Work Phone: [facility] Work Phone: Start: 03-29-2025 End: 03-29-2025 Patient encounter procedure Brittany Coon LEGAL FINANCIAL SPECIALIST -[facility] Work Phone: Start: 03-16-2025 End: 03-16-2025 Telephone encounter Joie Peacock MD Work Phone: [facility] Comment on above: Med Refill Start: 03-06-2025 End: 03-06-2025 ambulatory LINA IYER [facility] Start: 02-27-2025 End: 04-29-2025 Follow-up encounter Lina Iyer LEGAL FINANCIAL SPECIALIST-PHYSICAL THERAPY TECHNICIAN Work Phone: [facility] Women's Services - [facility] Comment on above: Gram stain, Yeast Cu lture, Urine Culture, Additional followed- up results: 2 Start: 02-24-2025 End: 02-24-2025 Refill No Mcnamara MA [facility] Comment on above: Morbid (severe) obes ity due to excess calories ([facility]) Start: 02-23-2025 End: 02-23-2025 Departed Referred Jennifer Arce LEGAL FINANCIAL SPECIALIST -[facility] [place] Work Phone: Start: 02-23-2025 End: 02-23-2025 ambulatory Joie Peacock MD Work Phone: 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 [facility] - [place] Comment on above: Dyspareunia, female (Primary Dx); Acute vaginitis; Bladder pain Start: 02-18-2025 End: 02-21-2025 Refill Joie Peacock MD Work Phone: [facility] Comment on above: Nausea Start: 02-16-2025 End: 02-17-2025 ambulatory JOSE DO Not Available Start: 02-16-2025 End: 02-16-2025 Office outpatient visit 15 minutes Jose Do DPM Work Phone: [facility] Comment on above: Hav (hallux abducto valgus), left (Primary Dx); Onychocryptosis; Toe pain, left; Toe pain, right; Acquired deformity of left toe Start: 02-16-2025 End: 02-16-2025 Bamboo flowsheet Jose Do DPM Work Phone: [facility] Start: 02-16-2025 End: 02-16-2025 Bamboo flowsheet Jose Do DPM Work Phone: [facility] Start: 02-14-2025 End: 02-14-2025 ambulatory CARLOS MANUEL MITTAL Not Available Start: 02-14-2025 End: 02-14-2025 Office outpatient visit 25 minutes Carlos Manuel Mittal CALLISTHENICS INSTRUCTOR Work Phone: [facility] Comment on above: Left hip pain (Prima ry Dx); BMI 29.0-29.9,adult; Weight loss due to medication; Pain of left thigh Start: 02-14-2025 End: 02-14-2025 Bamboo flowsheet Carlos Manuel Mittal CALLISTHENICS INSTRUCTOR Work Phone: [facility] Start: 02-14-2025 End: 02-14-2025 Bamboo flowsheet Carlos Manuel Mittal CALLISTHENICS INSTRUCTOR Work Phone: [facility] Start: 01-31-2025 End: 01-31-2025 Office outpatient visit 15 minutes Joie Peacock MD Work Phone: [facility] Comment on above: Nausea (Primary Dx); Morbid (severe) obesity due to excess calories ([facility]); BMI 29.0-29.9,adult Start: 01-31-2025 End: 01-31-2025 ambulatory JOIE PEACOCK Not Available Start: 01-26-2025 End: 01-26-2025 Office outpatient new 30 minutes Jose Do DPM Work Phone: [facility] Comment on above: Hav (hallux abducto valgus), left (Primary Dx); Onychocryptosis; Toe pain, left; Toe pain, right Start: 01-26-2025 End: 01-26-2025 ambulatory JOSE DO Not Available Start: 01-26-2025 End: 01-26-2025 Bamboo flowsheet Jose Do DPM Work Phone: [facility] Start: 01-26-2025 End: 01-26-2025 Bamboo flowsheet Jose Do DPM Work Phone: [facility] Start: 12-15-2024 End: 12-15-2024 ambulatory LANNY BERRY Not Available Start: 12-15-2024 End: 12-15-2024 Office outpatient visit 25 minutes Lanny A Donnamiller CALLISTHENICS INSTRUCTOR Work Phone: [facility] Comment on above: Acute bronchospasm ( Primary Dx); Throat irritation; Chronic GERD; Seasonal allergic rhinitis due to other allergic trigger; Obesity (BMI 30.0-34.9); BMI 31.0-31.9,adult; Anxiety Start: 12-15-2024 End: 12-15-2024 Bamboo flowsheet Lanny A Donnamiller CALLISTHENICS INSTRUCTOR Work Phone: [facility] Start: 12-15-2024 End: 12-15-2024 Bamboo flowsheet Lanny A Donnamiller CALLISTHENICS INSTRUCTOR Work Phone: [facility] Start: 12-07-2024 End: 12-07-2024 Office outpatient visit 15 minutes Lanny A Donnamiller CALLISTHENICS INSTRUCTOR Work Phone: [facility] Comment on above: Acute viral pharyngi tis (Primary Dx); Laryngitis; Nasal congestion; PND (post-nasal drip); Seasonal allergic rhinitis due to other allergic trigger; Chronic GERD; Obesity (BMI 30.0-34.9); BMI 31.0-31.9,adult Start: 12-07-2024 End: 12-07-2024 ambulatory LANNY A DONNAMILLER Not Available Start: 12-07-2024 End: 12-07-2024 Bamboo flowsheet Lanny A Donnamiller CALLISTHENICS INSTRUCTOR Work Phone: [facility] Start: 12-07-2024 End: 12-07-2024 Bamboo flowsheet Lanny A Donnamiller CALLISTHENICS INSTRUCTOR Work Phone: [facility] Start: 11-24-2024 End: 11-24-2024 ambulatory [facility] Work Phone: Start: 11-24-2024 End: 11-24-2024 Patient encounter procedure [facility] Work Phone: Start: 11-22-2024 End: 11-22-2024 Office outpatient visit 15 minutes Lanny A Donnamiller CALLISTHENICS INSTRUCTOR Work Phone: [facility] Comment on above: Acute viral pharyngi tis (Primary Dx); Laryngitis; Nasal congestion; PND (post-nasal drip); Seasonal allergic rhinitis due to other allergic trigger; Obesity (BMI 30.0-34.9); BMI 32.0-32.9,adult Start: 11-22-2024 End: 11-22-2024 ambulatory LANNY A DONNAMILLER Not Available Start: 11-22-2024 End: 11-22-2024 Bamboo flowsheet Lanny A Donnamiller CALLISTHENICS INSTRUCTOR Work Phone: [facility] Start: 11-22-2024 End: 11-22-2024 Bamboo flowsheet Lanny A Donnamiller CALLISTHENICS INSTRUCTOR Work Phone: [facility] Start: 11-10-2024 End: 11-10-2024 ambulatory Mendoza Talal Sarmini Facility:[facility] Start: 11-10-2024 End: 11-10-2024 Refill Carlos Manuel Mittal CALLISTHENICS INSTRUCTOR Work Phone: [facility] Comment on above: Frontal headache; PND (post-nasal drip) Start: 10-26-2024 End: 10-27-2024 ambulatory Mendoza Talal Sarmini Facility:[facility] Start: 10-23-2024 End: 10-23-2024 ambulatory [facility] Work Phone: Start: 10-23-2024 End: 10-23-2024 Patient encounter procedure [facility] Work Phone: Start: 10-14-2024 End: 10-14-2024 ambulatory JOIE PEACOCK Not Available Start: 10-13-2024 End: 10-13-2024 ambulatory Mendoza Talal Sarmini Facility:[facility] Start: 09-29-2024 End: 09-29-2024 ambulatory Mendoza Talal Sarmini Facility:[facility] Start: 09-21-2024 End: 09-21-2024 ambulatory Reji Cunha Facility:[facility] Start: 09-20-2024 End: 09-20-2024 Refill Carlos Manuel Mittal CALLISTHENICS INSTRUCTOR Work Phone: [facility] Comment on above: Frontal headache; PND (post-nasal drip) Start: 09-09-2024 End: 09-09-2024 Bamboo flowsheet Carlos Manuel Mittal CALLISTHENICS INSTRUCTOR Work Phone: [facility] Start: 09-09-2024 End: 09-09-2024 Bamboo flowsheet Carlos Manuel Mittal CALLISTHENICS INSTRUCTOR Work Phone: [facility] Start: 09-09-2024 End: 09-09-2024 ambulatory CARLOS MANUEL MITTAL Not Available Start: 09-09-2024 End: 09-09-2024 Office outpatient visit 25 minutes Carlos Manuel Mittal CALLISTHENICS INSTRUCTOR Work Phone: [facility] Comment on above: Major depressive dis order, single episode, moderate (HCC) (CMS/HCC) (Primary Dx); BMI 34.0-34.9,adult; Anxiety; Sensation of fullness in right ear Start: 09-01-2024 End: 09-01-2024 Telephone encounter Lenny Archer DO Work Phone: [facility] Start: 08-18-2024 End: 08-19-2024 Refill Lanny Berry CALLISTHENICS INSTRUCTOR Work Phone: [facility] Comment on above: Frontal headache; PND (post-nasal drip) Start: 08-09-2024 End: 08-09-2024 Bamboo flowsheet Carlos Manuel Mittal CALLISTHENICS INSTRUCTOR Work Phone: [facility] Start: 08-09-2024 End: 08-09-2024 Bamboo flowsheet Carlos Manuel Mittal CALLISTHENICS INSTRUCTOR Work Phone: [facility] Start: 08-09-2024 End: 08-09-2024 Office outpatient visit 25 minutes Carlos Manuel Mittal CALLISTHENICS INSTRUCTOR Work Phone: [facility] Comment on above: Chronic bacterial ot itis externa of right ear (Primary Dx); BMI 34.0-34.9,adult; Mood swings; Anxiety; Morbid obesity (CMS/HCC); BMI 36.0-36.9,adult Start: 08-09-2024 End: 08-09-2024 ambulatory CARLOS MANUEL MITTAL Not Available Start: 07-21-2024 End: 07-21-2024 ambulatory LANNY BERRY Not Available Start: 07-21-2024 End: 07-21-2024 Office outpatient visit 15 minutes Lanny Berry CALLISTHENICS INSTRUCTOR Work Phone: [facility] Comment on above: Non-recurrent acute serous otitis media of right ear (Primary Dx); Sensation of fullness in right ear; Frontal headache; PND (post-nasal drip); BMI 36.0-36.9,adult; Morbid obesity (CMS/HCC) Start: 07-14-2024 ambulatory Reji Cunha Facility:[facility] Start: 07-05-2024 End: 07-05-2024 Office outpatient visit 25 minutes Carlos Manuel Mittal CALLISTHENICS INSTRUCTOR Work Phone: [facility] Comment on above: BMI 36.0-36.9,adult (Primary Dx); Morbid obesity (CMS/HCC); Sensation of fullness in right ear; Sinus pressure; Acute recurrent frontal sinusitis; Non-recurrent acute serous otitis media of right ear; Anxiety; Mood swings Start: 07-05-2024 End: 07-05-2024 ambulatory CARLOS MANUEL MITTAL Not Available Start: 07-04-2024 End: 07-04-2024 ambulatory Jessica Story PT [facility] Comment on above: Spinal stenosis of c ervical region (Primary Dx); Cervicalgia Start: 07-04-2024 End: 07-04-2024 Bamboo flowsheet Jessica Story PT [facility] Start: 07-04-2024 End: 07-04-2024 Bamboo flowsheet Jessica Story PT [facility] Start: 06-28-2024 End: 06-28-2024 ambulatory Vandana José PRESS SET UP PERSON [facility] Comment on above: Spinal stenosis of c ervical region (Primary Dx); Cervicalgia Start: 06-24-2024 End: 06-24-2024 ambulatory CARLOS MANUEL MITTAL Facility:[facility] Start: 06-23-2024 End: 06-23-2024 ambulatory Vandana Kumar PRESS SET UP PERSON [facility] Comment on above: Spinal stenosis of c ervical region (Primary Dx); Cervicalgia Start: 06-20-2024 End: 06-21-2024 ambulatory Jessica Story PT [facility] Comment on above: Cervicalgia (Primary Dx); Spinal stenosis of cervical region Start: 06-20-2024 End: 06-21-2024 Telephone encounter Carlos Manuel Mittal CALLISTHENICS INSTRUCTOR Work Phone: [facility] Start: 06-16-2024 End: 06-16-2024 Patient encounter procedure Lenny Archer DO Work Phone: [facility] Comment on above: Osteoarthritis of ri ght patellofemoral joint (Primary Dx) Start: 06-16-2024 End: 06-16-2024 ambulatory LENNY ARCHER Not Available Start: 06-16-2024 End: 06-16-2024 Bamboo flowsheet Lenny Archer DO Work Phone: [facility] Start: 06-16-2024 End: 06-16-2024 Bamboo flowsheet Lenny Archer DO Work Phone: [facility] Start: 06-06-2024 End: 06-06-2024 Telephone encounter David Tavares PT Work Phone: [facility] Comment on above: PT Initial Eval (Tri ed to contact to schedule PT Eval for spine / cervical region; but had to lm requesting a call back.); Call Back (She called back and re: her work schedule the soonest availability for PT Eval is 06/20 and we scheduled out to 07/07/24.) Start: 06-03-2024 End: 06-03-2024 Office outpatient visit 25 minutes Carlos Manuel Mittal CALLISTHENICS INSTRUCTOR Work Phone: [facility] FM Comment on above: Spinal stenosis of c ervical region (Primary Dx); Cervicalgia; Morbid obesity (CMS/HCC); BMI 37.0-37.9, adult; Anxiety; Mood swings Start: 06-03-2024 End: 06-03-2024 ambulatory CARLOS MANUEL MITTAL Not Available Start: 06-02-2024 End: 06-02-2024 Patient encounter procedure Lenny Archer DO Work Phone: [facility] Comment on above: Cubital tunnel syndr ome on left (Primary Dx) Start: 06-02-2024 End: 06-02-2024 ambulatory LENNY ARCHER Not Available Start: 06-02-2024 End: 06-02-2024 Bamboo flowsheet Lenny Archer DO Work Phone: [facility] Start: 06-02-2024 End: 06-02-2024 Bamboo flowsheet Lenny Archer DO Work Phone: [facility] Start: 05-24-2024 End: 05-25-2024 Telephone encounter Carlos Manuel Mittal CALLISTHENICS INSTRUCTOR Work Phone: [facility] Comment on above: Results Start: 05-23-2024 End: 05-23-2024 ambulatory CARLOS MANUEL MITTAL Facility:[facility] Start: 2024 End: 2024 Office outpatient visit 25 minutes Carlos Manuel Mittal CALLISTHENICS INSTRUCTOR Work Phone: [facility] Comment on above: Neck pain (Primary D x); Cervicalgia; Morbid obesity (CMS/HCC); BMI 38.0-38.9,adult Start: 2024 End: 2024 ambulatory CARLOS MANUEL MITTAL Not Available Start: 05-19-2024 End: 05-19-2024 Patient encounter procedure Jenny Cuellar DO Work Phone: [facility] [address] Comment on above: Paresthesia (Primary Dx) Start: 05-19-2024 End: 05-19-2024 ambulatory JENNY CUELLAR Not Available Start: 05-19-2024 End: 05-19-2024 Bamboo flowsheet Jenny Cuellar DO Work Phone: [facility] [address] [address] Start: 05-19-2024 End: 05-19-2024 Bamboo flowsheet Jenny Cuellar DO Work Phone: [facility] [address] Start: 04-25-2024 End: 04-26-2024 Refill Joie Peacock MD Work Phone: [facility] Comment on above: Morbid obesity (CMS/ HCC) Start: 04-14-2024 End: 04-14-2024 Patient encounter procedure Lenny Archer DO Work Phone: [facility] Comment on above: Acute pain of left w rist (Primary Dx) Start: 03-31-2024 End: 03-31-2024 Telephone encounter Aileen Kumar MD Work Phone: [facility] Comment on above: Medication Question Start: 03-09-2024 End: 03-09-2024 Patient encounter procedure [facility] Start: 03-09-2024 End: 03-09-2024 Periodic preventive med est patient 18-39 yrs [facility] 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 [facility] [place] Comment on above: Well woman exam with routine gynecological exam (Primary Dx); Encounter for screening mammogram for breast cancer; Cervical smear, as part of routine gynecological examination; Standardized adult depression screening tool completed Start: 03-09-2024 End: 03-09-2024 ambulatory [facility] Start: 03-09-2024 End: 03-09-2024 Encounter for gynecological examination (general) (routine) without abnormal findings [facility] Start: 03-09-2024 End: 03-09-2024 ambulatory [facility] Start: 03-09-2024 Encounter for gynecological examination (general) (routine) without abnormal findings [facility] Start: 01-19-2024 End: 01-19-2024 ambulatory Reji Cunha Facility:[facility] Start: 01-05-2024 End: 01-05-2024 ambulatory Joie Peacock Facility:[facility] Start: 11-08-2023 End: 11-08-2023 ambulatory [facility] Work Phone: Start: 11-08-2023 End: 11-08-2023 Patient encounter procedure [facility] Phys[facility] [place] Work Phone: Start: 10-09-2023 End: 10-09-2023 Patient encounter procedure [facility] Physician [facility] [place] Work Phone: Start: 09-16-2023 Telephone encounter Baldo Britton MA NO MS NE FM Comment on above: Patient Call (Patien t Call) Start: 09-14-2023 Chart abstracting Emily HAIR Work Phone: [facility] Start: 09-14-2023 End: 09-14-2023 Office outpatient visit 25 minutes Emily HAIR Work Phone: [facility] Comment on above: Acute recurrent fron armando sinusitis (Primary Dx); Abdominal pain, unspecified abdominal location; Anxiety Start: 09-04-2023 Bamboo flowsheet Vandana Kelbley PRESS SET UP PERSON [facility] Start: 09-04-2023 Bamboo flowsheet Vandana Kelbley PRESS SET UP PERSON [facility] Start: 09-04-2023 End: 09-04-2023 ambulatory Vandanajosh Prietobley PRESS SET UP PERSON [facility] Comment on above: Status post arthrosc opy of right shoulder (Primary Dx); Adhesive capsulitis of right shoulder; Impingement syndrome of right shoulder region Start: 08-16-2023 End: 08-16-2023 ambulatory Amna Valerio Other [employer] Other Start: 08-16-2023 Office outpatient vi sit 25 minutes Amna Valerio [facility] [place] Start: 08-16-2023 End: 08-16-2023 Patient encounter procedure [facility] Physician [facility] [place] Work Phone: Start: 05-01-2023 End: 05-01-2023 ambulatory Eva Alexandra Other [employer] Other Start: 05-01-2023 Office outpatient vi sit 15 minutes Eva Nasrin [facility] [place] Start: 03-07-2023 End: 03-07-2023 ambulatory Eva Nasrin Other [employer] Other Start: 03-07-2023 Office outpatient vi sit 15 minutes Eva Nasrin [facility] [place] Start: 02-05-2023 End: 02-05-2023 ambulatory Eva Nasrin Other [employer] Other Start: 02-05-2023 Office outpatient vi sit 15 minutes Eva Nasrin [facility] [place] Start: 12-23-2022 End: 12-23-2022 ambulatory CORRIE CANTRELL . Facility:[facility] Start: 12-16-2022 End: 12-16-[address] ARIS CANELA Facility:[facility] Start: 12-05-2022 End: 12-05-2022 ambulatory Amna Valerio Other [employer] Other Start: 12-05-2022 Office outpatient vi sit 25 minutes Amna Valerio [facility] [place] Start: 04-28-2022 End: 04-28-2022 ambulatory LENNY KIRKPATRICK . Facility:[facility] Start: 04-18-2022 End: 04-18-2022 ambulatory Ivelisse Mittal Other [employer] Other Start: 04-18-2022 Office outpatient vi sit 15 minutes Ivelisse Mittal [facility] [place] Start: 04-06-2022 End: 04-06-2022 ambulatory Eva Nasrin Other [employer] Other Start: 04-06-2022 Office outpatient vi sit 25 minutes Eva Nasrin [facility] [place] Start: 02-22-2022 End: 02-23-2022 ambulatory JIMMY STEWART Facility:[facility] Start: 01-14-2021 End: 01-14-2021 Departed Referred Sean Cuellar Work Phone: -Lab [facility] Start: 10-30-2020 End: 10-30-2020 Telephone encounter [place] (Second Officer) [facility] Surgery Comment on above: Appointment Confirma tion Start: 10-13-2018 End: 10-14-2018 Patient encounter procedure IDANIA Melgoza [facility] Start: 04-08-2018 End: 04-09-2018 Emergency department patient visit [facility] Start: 04-08-2018 End: 04-08-2018 Emergency department patient visit [facility] Start: 04-06-2018 End: 04-06-2018 [facility] Start: 03-16-2018 End: 03-17-2018 Patient encounter procedure [facility] Procedures Date Procedure Procedure Detail Performing Clinician Start: 02-23-2025 Urine culture Joie Peacock MD Work Phone: Start: 02-16-2025 Radex foot complete minimum 3 views Jose Do DPM Work Phone: Start: 06-16-2024 Radiologic examination knee 3 views Lenny Archer DO Work Phone: Start: 06-02-2024 Radex elbow 2 views Lenny Archer DO Work Phone: Start: 05-19-2024 End: 05-19-2024 Needle emg ea extremty w/paraspinl area complete Jenny Cuellar DO Work Phone: Start: 04-14-2024 Radex wrist complete minimum 3 views Lenny Archer DO Work Phone: Start: 03-09-2024 Adult depression screening assessment [facility] Biomass Plant Technician Start: 03-09-2024 Microscopic observation [Identifier] in Cervix by Cyto stain [facility] Biomass Plant Technician Start: 10-09-2023 Quick Strep (POC) Start: 09-14-2023 Urnls dip stick/tablet rgnt non-auto w/o micrscp Emily HAIR Work Phone: Start: 10-13-2018 Culture bacterial quanttative colony count [facility] Start: 10-13-2018 Smr prim src wet mount nfct agt IDANIA RAE Start: 10-13-2018 Urnls dip stick/tablet reagent auto microscopy IDANIA KYRA Start: 04-08-2018 Assay of lipase IDANIA AGUILARVINAY Start: 04-08-2018 Blood count complete auto&auto difrntl wbc IDANIA RAE Start: 04-08-2018 Microscopic urinalysis IDANIA KYRA Start: 04-08-2018 Urnls dip stick/tablet rgnt auto w/o microscopy IDANIA AGUILARVINAY Start: 04-06-2018 Radiologic exam abdomen 1 view IDANIA AGUILARVINAY Start: 04-06-2018 DISCHARGE PATIENT IDANIA KYRA Start: 04-06-2018 BEDREST IDANIAROBYN RAE Start: 04-06-2018 Continuous pulse oximetry IDANIAGus White Start: 04-06-2018 ENCOURAGE DEEP BREATHING AND COUGHING IDANIA RAE Start: 04-06-2018 INITIATE OXYGEN THERAPY PROTOCOL IDANIA RAE Start: 04-06-2018 NOTIFY PHYSICIAN (SPECIFY) IDANIA RAE Start: 04-06-2018 NURSING COMMUNICATION IDANIA RAE Start: 04-06-2018 VITAL SIGNS IDANIA RAE Start: 04-06-2018 Urine test visual color cmprsn meths IDANIA RAE Start: 04-06-2018 INSERT PERIPHERAL IV IDANIA RAE Start: 04-06-2018 DIET NPO, NOW IDANIAROBYN AGUILARVINAY Start: 04-06-2018 FULL CODE IDANIA RAE Start: 04-06-2018 INITIATE OXYGEN THERAPY PROTOCOL IDANIA RAE Start: 04-06-2018 NOTIFY PHYSICIAN (SPECIFY) IDANIA RAE Start: 04-06-2018 NURSING COMMUNICATION IDANIA RAE Start: 04-06-2018 PLACE INTERMITTENT PNEUMATIC COMPRESSION DEVICE IDANIA RAE Start: 04-06-2018 VERIFY INFORMED CONSENT IDANIA RAE Start: 04-06-2018 VITAL SIGNS IDANIA RAE Start: 03-16-2018 URINE CULTURE CLEAN CATCH IDANIA DORSEY Christopher Start: 03-16-2018 Urnls dip stick/tablet reagent auto microscopy IDANIA RAE H/O: tubal ligation Hx of tubal ligation Plan of Treatment Date Care Activity Detail Author Start: 03-09-2029 Screening for malign ant neoplasm of cervix [facility] Start: 03-09-2027 Screening for malign ant neoplasm of cervix Pap Smear [facility] Start: 07-24-2026 Screening for malign ant neoplasm of cervix [facility] Start: 02-22-2026 Adult BMI Screening Adult BMI Screen ing [facility] Start: 02-22-2026 Tobacco Screening Tobacco Screening [facility] Start: 06-06-2025 End: 06-06-2025 Patient encounter procedure 06/06/2025 3:20 PM EST Office Visit [facility] [address] [place] [address] Aileen Kumar MD [address] [place] [address] [facility] Start: 05-17-2025 End: 05-17-2025 Patient encounter procedure 05/17/2025 3:30 PM EDT Office Visit [facility] [place] [address] [place] [address] [facility] [place] Start: 05-03-2025 End: 05-03-2025 Patient encounter procedure [facility] Start: 04-12-2025 End: 04-12-2025 Patient encounter procedure 04/12/2025 3:30 PM EDT Office Visit [facility] [place] [address] [place] [address] [facility] [place] Start: 04-03-2025 Influenza vaccination N [facility] Start: 03-09-2025 Adult BMI Follow Up Plan Adult BMI F ollow Up Plan [facility] Start: 03-09-2025 Adult BMI Screening Adult BMI Screen ing [facility] Start: 03-09-2025 Depression Screening Depression Scre ening [facility] Start: 03-09-2025 Tobacco Screening Tobacco Screening [facility] Start: 03-06-2025 End: 03-06-2025 Patient encounter procedure 03/06/2025 1:00 PM EDT Appointment [facility] - Ultrasound [address] [place] [address] [facility] Start: 02-23-2025 Urine culture [facility] Start: 02-23-2025 Bacteria identified in Urine by Culture Urine Culture [facility] Start: 02-22-2025 End: 02-22-2026 US Pelvis transabdominal and transvaginal Ultrasound pelvic with transvaginal Imaging Routine Dyspareunia, female Expected: 02/22/2025, Expires: 02/22/2026 [facility] Work Phone: Comment on above: Expected: 02/22/2025 , Expires: 02/22/2026 Start: 02-17-2025 End: 02-17-2025 Professional / ancillary services management 02/17/2025 8:00 AM EDT Ancillary Procedure [facility] [address] [facility] [address] [place] [phone] Arrived [facility] Comment on above: Arrived Start: 02-16-2025 End: 02-16-2025 Patient encounter procedure 02/16/2025 4:30 PM EDT Office Visit [facility] [address] [place] [phone] Jose Do, DPYazmin [address] [address] [facility] Start: 01-31-2025 End: 01-31-2025 Patient encounter procedure 01/31/2025 3:40 PM EDT Office Visit [facility] [address] [place] [phone] Joie Peacock MD [address] [place] [address] [facility] Start: 01-26-2025 End: 01-26-2025 Patient encounter procedure 01/26/2025 4:40 PM EDT Office Visit [facility] [address] [place] [address] Jose Do, DPYazmin [address] [address] [place] [address] Arrived [facility] Comment on above: Arrived Start: 01-17-2025 End: 01-17-2025 Patient encounter procedure 01/17/2025 3:40 PM EDT Office Visit [facility] [address] [place] [address] Joie Peacock MD [address] [place] [address] [facility] Start: 12-07-2024 End: 12-07-2024 Patient encounter procedure 12/07/2024 3:20 PM EDT Office Visit [facility] [address] [place] [phone] Lanny Berry NP [address] [place] [address] Arrived [facility] Comment on above: Arrived Start: 11-22-2024 End: 11-22-2024 Patient encounter procedure 11/22/2024 3:20 PM EDT Office Visit [facility] [address] [place] [phone] Lanny Berry NP [address] [place] [address] Arrived [facility] Comment on above: Arrived Start: 10-11-2024 End: 10-11-2024 Patient encounter procedure 10/11/2024 3:40 PM EDT Office Visit [facility] [address] [place] [address] Carlos Manuel Mittal NP [address] [place] [address] [facility] Start: 09-09-2024 End: 09-09-2024 Patient encounter procedure 09/09/2024 12:20 PM EST Office Visit [facility] [address] [place] [address] Carlos Manuel Mittal NP [address] [place] [address] [facility] Start: 08-09-2024 End: 08-09-2024 Patient encounter procedure [facility] Comment on above: Arrived Start: 07-13-2024 End: 07-13-2024 ambulatory 07/13/2024 4:30 PM EST Treatment [facility] [address] [place] [address] Jessica Story, PT [facility] Start: 07-07-2024 End: 07-07-2024 ambulatory 07/07/2024 3:30 PM EST Treatment [facility] [address] [place] [address] Vandana Kumar, PRESS SET UP PERSON [facility] Start: 07-05-2024 End: 07-05-2024 Patient encounter procedure 07/05/2024 3:20 PM EST Office Visit [facility] [address] [place] [address] Carlos Manuel Mittal NP [address] [place] [address] [facility] Start: 07-04-2024 End: 07-04-2024 ambulatory 07/04/2024 3:30 PM EST Treatment [facility] [address] [place] [address] Jessica Story, PT [facility] Start: 06-28-2024 End: 06-28-2024 ambulatory 06/28/2024 3:30 PM EST Treatment [facility] [address] [place] [address] Vandana Kumar, PRESS SET UP PERSON [facility] Start: 06-23-2024 End: 06-23-2024 ambulatory 06/23/2024 3:30 PM EST Treatment [facility] [address] [place] [phone] José Vandana, PRESS SET UP PERSON [facility] Start: 06-20-2024 End: 06-20-2024 ambulatory 06/20/2024 4:30 PM EST Evaluation [facility] [address] [place] [address] Jessica Story, PT [facility] Start: 06-16-2024 End: 06-16-2024 Patient encounter procedure 06/16/2024 3:30 PM EST Office Visit [facility] [address] [place] [phone] Lenny Archer, [address] [place] [address] [facility] Start: 06-07-2024 End: 06-07-2024 Patient encounter procedure 06/07/2024 3:20 PM EST Office Visit [facility] [address] [place] [phone] Joie Peacock MD [address] [place] [address] [facility] Start: 06-03-2024 End: 06-03-2024 Patient encounter procedure 06/03/2024 3:20 PM EDT Office Visit [facility] [address] [place] [phone] Carlos Manuel Mittal NP [address] [place] [address] [facility] Start: 06-02-2024 End: 06-02-2024 Patient encounter procedure [facility] Comment on above: Cubital tunnel syndr ome on left (Primary Dx) Start: 05-25-2024 End: 05-25-2025 MR Cervical spine WO contrast MR cervical spine wo contrast Imaging Routine Spinal stenosis of cervical region Expected: 05/25/2024, Expires: 05/25/2025 [facility] Work Phone: Comment on above: Expected: 05/25/2024 , Expires: 05/25/2025 Start: 2024 Screening for malign ant neoplasm of breast Mammogram [facility] Healthcare Start: 2024 End: 2025 XR Cervical spine 4 or 5 Views XR cervical spine complete 4 to 5 views Imaging Routine Neck pain Cervicalgia Expected: 2024, Expires: 2025 [facility] Work Phone: Comment on above: Expected: 2024 , Expires: 2025 Start: 05-19-2024 End: 05-19-2024 Patient encounter procedure 05/19/2024 4:00 PM EDT Procedure Visit [facility] [address] [place] [phone] Jenny Cuellar DO [address] [place] [address] Arrived [facility] Comment on above: Arrived Start: 04-14-2024 End: 04-14-2024 Patient encounter procedure 04/14/2024 3:30 PM EDT Office Visit [facility] [address] [place] [phone] Lenny Archer, DO [address] [place] [address] [facility] Start: 04-03-2024 Influenza vaccination N [facility] Start: 03-09-2024 End: 03-09-2025 Cytopathology procedure, preparation of smear, genital source Pap Smear Pathology and Cytology Routine Cervical smear, as part of routine gynecological examination Expected: 03/09/2024 (Approximate), Expires: 03/09/2025 [facility] Comment on above: Expected: 03/09/2024 (Approximate), Expires: 03/09/2025 Start: 03-09-2024 End: 03-09-2025 DBT Breast - bilateral screening Mammography screening bilateral with CAD Imaging Routine Encounter for screening mammogram for breast cancer Expected: 03/09/2024, Expires: 03/09/2025 [facility] Work Phone: Comment on above: Expected: 03/09/2024 , Expires: 03/09/2025 Start: 02-12-2024 Adult BMI Follow Up Plan Adult BMI F ollow Up Plan [facility] Start: 01-31-2024 Influenza vaccination Influenza Vacc ine (#1) [facility] Comment on above: Postponed from 04/03 (Patient Refused) Start: 09-14-2023 End: 09-14-2024 Bacteria identified in Urine by Culture Urine culture (clean catch) Microbiology Routine Abdominal pain, unspecified abdominal location Expected: 09/14/2023 (Approximate), Expires: 09/14/2024 [facility] Work Phone: Comment on above: Expected: 09/14/2023 (Approximate), Expires: 09/14/2024 Start: 09-14-2023 End: 09-14-2023 Patient encounter procedure 09/14/2023 11:00 AM EST Office Visit [facility] [address] [place] [address] Emily Layton, PA [address] [place] [address] [facility] Start: 09-08-2023 End: 09-08-2023 ambulatory 09/08/2023 12:30 PM EST Treatment [facility] [address] [place] [address] Nikolay Gerard, OLY [facility] Start: 01-14-2021 Bacteria identified in Urine by Culture Urine Culture [facility] Start: 04-03-2020 Influenza vaccination INFLUENZA (#1) [facility] Start: 2014 HPV TESTING HPV TESTING [facility] Start: 2005 PAP TESTING PAP TESTING [facility] Start: 2005 Screening for malign ant neoplasm of cervix Pap Smear [facility] Start: 2003 DTaP,Tdap and Td Vaccines (1 - Tdap) DTaP,Tdap and Td Vaccines (1 - Tdap) [facility] Start: 2003 Urine microalbumin profile DTAP,TDAP,TD (1 - Tdap) [facility] Start: 2002 HEPATITIS C SCREENING HEPATITIS C SC FILIPPO [facility] Start: 2002 HIV SCREENING HIV SCREENING [facility] Start: 1996 Adult depression screening assessment DEPRESSION SCREENING [facility] Bacteria identified in Urine by Culture Urine Culture Microbiology Routine Dyspareunia, female Bladder pain 02/22/2025 12:17 PM EDT [facility] End: 03-09-2025 High risk HPV w/jennifer High risk HPV w/jennifer Lab Routine Cervical smear, as part of routine gynecological examination 1 Occurrences starting 03/09/2024 until 03/09/2025 [facility] Comment on above: 1 Occurrences starti ng 03/09/2024 until 03/09/2025 Microscopic observat ion [Identifier] in Unspecified specimen by Gram stain Gram stain Microbiology Routine Acute vaginitis 02/22/2025 12:17 PM EDT [facility] Urinalysis Urinalysis Lab R outine Dyspareunia, female Bladder pain 02/22/2025 12:17 PM EDT [facility] XR Knee - right 3 Views XR knee 3 views right Imaging Routine Osteoarthritis of right patellofemoral joint 06/16/2024 3:29 PM [facility] Work Phone: Yeast Culture Yeast Culture Microbiology Routine Acute vaginitis 02/22/2025 12:17 PM EDT [facility] Immunizations Immunization Date Immunization Notes Care Provider Fa ernesto 03-29-2025 tetanus toxoid, redu mindy diphtheria toxoid, and acellular pertussis vaccine, adsorbed Joie Peacock MD Work Phone: [facility] 08-31-2020 seasonal influenza, intradermal, preservative free Vandana Connerheriberto [facility] 08-31-2020 influenza virus vaccine, unspecified formulation Vandana Kumar [facility] 05-30-2019 influenza, seasonal, injectable, preservative free Vandana Kumar [facility] 05-31-2018 influenza, injectabl e, quadrivalent, preservative free Vandana Kumar PRESS SET UP PERSON [facility] Healthcare Payers Date Payer Category Payer Self-pay [id number] 2024 Self-pay [id number] 2019 [employer] Blue [employer] BCBS [id number] 2019 Unknown ANTH BLUE CARD PPO [id number] 2019-Present PPO [id number] 2017 Blue [place] [facility] - Other ANTHEM [id number] 2017 Unknown [id number] [id number]. [id number] 1984 Unknown [id number] 2.16.840.1.504935.3.579. 2.173 1984 Unknown [id number] 2.16.840.1.408306.3.579. 2.173 1984 Unknown [id number] 2.16.840.1.964331.3.579. 2.173 1984 Unknown [id number] 2.16.840.1.483540.3.579. 2.173 1984 Unknown [id number] 2.16.840.1.552154.3.579. 2.173 1984 Unknown [id number] 2.16.840.1.661378.3.579. 2.593 1984 Unknown [id number] 2.16.840.1.638893.3.579. 2.593 1984 Unknown [id number] 2.16.840.1.209859.3.579. 2.593 1984 Unknown [id number] 2.16.840.1.450677.3.579. 2.593 1984 Unknown [id number] 2.16.840.1.759841.3.579. 2.727 1984 Unknown [id number] 2.16.840.1.048611.3.579. 2.727 1984 Unknown [id number] 2.16.840.1.723185.3.579. 2.727 1984 Unknown [id number] 2.16.840.1.803018.3.579. 2.727 1984 Unknown [id number] 2.16.840.1.570975.3.579. 2.727 1984 Unknown [id number] 2.16.840.1.332519.3.579. 2.727 1984 Unknown [id number] 2.16.840.1.292374.3.579. 2.727 1984 Unknown [id number] 2.16.840.1.025922.3.579. 2.727 1984 Unknown [id number] 2.16.840.1.748086.3.579. 2.727 1984 Unknown [id number] 2.16.840.1.666373.3.579. 2.727 1984 Unknown [id number] 2.16.840.1.907534.3.579. 2.727 1984 Unknown [id number] 2.16.840.1.463071.3.579. 2.1286 1984 Unknown [id number] 2.16.840.1.185774.3.579. 2.1286 1984 Unknown [id number] 2.16.840.1.455130.3.579. 2.1286 1984 Unknown [id number] 2.16.840.1.988513.3.579. 2.1286 1984 Unknown [id number] 2.16.840.1.795490.3.579. 2.1259 1984 Unknown [id number] 2.16.840.1.976511.3.579. 2.1259 1984 Unknown [id number] 2.16.840.1.190294.3.579. 2.1259 1984 Unknown [id number] 2.16.840.1.709266.3.579. 2.1259 1984 Unknown [id number] 2.16.840.1.296639.3.579. 2.1259 1984 Unknown [id number] 2.16.840.1.653997.3.579. 2.1259 1984 Unknown [id number] 2.16.840.1.131771.3.579. 2.1259 1984 Unknown [id number] 2.16.840.1.426161.3.579. 2.1259 1984 Unknown [id number] 2.16.840.1.157622.3.579. 2.9 1984 Unknown [id number] 2.16.840.1.016176.3.579. 2.1259 1984 Unknown [id number] 2.16.840.1.755133.3.579. 2.1258 1984 Unknown [id number] 2.16.840.1.759764.3.579. 2.1258 1984 Unknown [id number] 2.16.840.1.123227.3.579. 2.1258 1984 Unknown [id number] 2.16.840.1.141433.3.579. 2.1258 1984 Unknown [id number] 2.16.840.1.825772.3.579. 2.1258 1984 Unknown [id number] 2.16.840.1.349892.3.579. 2.1258 1984 Unknown [id number] 2.16.840.1.460455.3.579. 2.1258 1984 Unknown [id number] 2.16.840.1.661000.3.579. 2.9 1984 Unknown [id number] 2.16.840.1.487939.3.579. 2.1258 1984 Unknown [id number] 2.16.840.1.497462.3.579. 2.1258 1984 Unknown [id number] 2.16.840.1.086567.3.579. 2.1258 1984 Unknown [id number] 2.16.840.1.743356.3.579. 2.1258 1984 Unknown [id number] 2.16.840.1.911997.3.579. 2.1258 1984 Unknown [id number] 2.16.840.1.559472.3.579. 2.1259 1984 Unknown [id number] 2.16.840.1.766985.3.579. 2.1259 1959 Unknown [id number] Unknown [id number] 2.16.840.1.778706.3.579. 2.531 Social History Date Type Detail Facility Tobacco smoking stat [facility] Unknown if ever smoked [facility] Start: 1985 Sex Assigned At Not on file [facility] Start: 1985 Sex Assigned At Female [facility] Start: 08-27-2023 End: 08-09-2024 Sex Assigned At [employer] Other Start: 12-30-2022 End: 01-01-2023 Tobacco smoking status TNIS Never smoked tobacco [facility] Start: 12-30-2022 End: 01-01-2023 Tobacco use and exposure Smokeless tobacco non-user [facility] Start: 08-27-2023 End: 05-03-2025 Alcohol intake Lifetime non-drinker (finding) [facility] Start: 08-27-2023 End: 08-09-2024 History of Social function [facility] Start: 12-11-2022 Alcohol Comment caffeine intake: 2-3 cups per day chocolate and soda [facility] Start: 12-28-2022 Gender identity Identifies as female gender (finding) [facility] Start: 12-28-2022 Sexual orientation Heterosexual (finding) [facility] How often do you nee d to have someone help you when you read instructions, pamphlets, or other written material from your doctor or pharmacy [SILS] Never [facility] Do you belong to any clubs or organizations such as taoism groups, unions, fraternal or athletic groups, or school groups? No [facility] Are you now , , , , never or living with a partner? [facility] How often to you hav e a drink containing alcohol? Never [facility] How hard is it for y ou to pay for the very basics like food, housing, medical care, and heating Somewhat hard [facility] Do you feel stress - tense, restless, nervous, or anxious, or unable to sleep at night because your mind is troubled all the time - these days [OSQ] Rather much [facility] (I/We) worried wheth er (my/our) food would run out before (I/we) got money to buy more. Never true [facility] In the past 12 month s, was there a time when you were not able to pay the mortgage or rent on time? Yes [facility] Start: 03-09-2024 End: 02-22-2025 Alcoholic beverage intake Current drinker of alcohol (finding) [facility] Start: 02-11-2023 Alcohol Comment [facility] Start: 07-07-2017 End: 10-23-2024 Sex Female (finding) [facility] Functional Status Date Assessment Result Facility 04-09-2025 Patient Health Questionnaire 2 item (PHQ-2) [Reported] [facility] 04-09-2025 Little interest or p page in doing things Not at all 04/09/2025 10:38 PM EDT Mychart, Generic Not at all [facility] 04-09-2025 Feeling down, depres sed, or hopeless Several days 04/09/2025 10:38 PM EDT Mychart, Generic Several days [facility] 04-09-2025 Trouble falling or s taying asleep, or sleeping too much Not at all 04/09/2025 10:38 PM EDT Mychart, Generic Not at all [facility] 04-09-2025 Feeling tired or hav ing little energy Nearly every day 04/09/2025 10:38 PM EDT Mychart, Generic Nearly every day [facility] 04-09-2025 Poor appetite or overeating Not at all 04/09/2025 10:38 PM EDT Mychart, Generic Not at all [facility] 04-09-2025 Feeling bad about yourself-or that you are a failure or have let yourself or your family down Not at all 04/09/2025 10:38 PM EDT Mychart, Generic Not at all [facility] 04-09-2025 Trouble concentratin g on things, such as reading the newspaper or watching television Not at all 04/09/2025 10:38 PM EDT Mychart, Generic Not at all [facility] 04-09-2025 Moving or speaking s o slowly that other people could have noticed. Or the opposite - being so fidgety or restless that you have been moving around a lot more than usual Not at all 04/09/2025 10:38 PM EDT Mychart, Generic Not at all [facility] 04-09-2025 Thoughts that you wo uld be better off , or of hurting yourself in some way Not at all 04/09/2025 10:38 PM EDT Mychart, Generic Not at all [facility] 04-09-2025 How difficult have t hese problems made it for you to do your work, take care of things at home, or get along with other people? Not difficult at all 04/09/2025 10:38 PM EDT Mychart, Generic Not difficult at all [facility] 01-31-2025 Patient Health Questionnaire 2 item (PHQ-2) [Reported] [facility] Clinical Notes 11-06-2020 to 05-03-2025 Aileen Kumar MD - 05/03/2025 3:20 PM EDTTelephone Encounter - Sophia Lin [facility] - 05/03/2025 10:19 AM EDTTelephone Encounter - Sophia Lin, [facility] - 05/03/2025 10:19 AM EDT Note Date & Type Note Facility 05-03-2025 History of Presen t illness Narrative Images from the original note were not included. Subjective Patient ID: Juanis Alvarez is a 39 y.o. female who presents for Follow-up (Possible wegovy increase). HPI Pt here for follow up. Weight - was previously on zepbound 15 mg, but due to insurance issues had to change to wegovy. Since then change, has had significant GI side effects including nausea and vomiting. Has also gained weight. Denies side effects from zepbound. Continues to work on lifestyle modifications including diet and exercise. Has also had increased anxiety due to frequency traveling to and from [place]. Sx are worse while being a passenger in the car. Review of Systems General: Denies fever, chills, fatigue, CRUMP CV: Denies CP, palpitations or swelling in legs Resp: denies cough, SOB or wheezing GI: Denies abd pain/n/v/c/d Skin: Denies rash Neuro: Denies LH or dizziness Objective Blood pressure 136/70, pulse 105, temperature 98.4 F, temperature source Temporal, height 5' 4 , weight 181 lb, SpO2 99%. Body mass index is 31.07 kg/m . Physical Exam General: alert & oriented, NAD Head: NC/AT Oral Cavity: MMM Skin: warm, dry Heart: RRR, No m/r/g, S1S2 nml Lungs: CTA b/l Abdomen: soft, ND/NT, BS wnl Musculoskeletal: normal gait Extremities: no clubbing, cyanosis or edema Neurological: nonfocal Psych: mood/affect full range Assessment/Plan Juanis was seen today for follow-up. Diagnoses and all orders for this visit: Abnormal weight gain (Primary) Obesity (BMI 30.0-34.9) - Semaglutide-Weight Management (Wegovy) 1 MG/0.5ML solution auto-injector; Inject 1 mg under the skin 1 (one) time per week - Tirzepatide-Weight Management (Zepbound) 15 MG/0.5ML solution auto-injector; Inject 15 mg under the skin 1 (one) time per week - continue to monitor weight - encouraged continued lifestyle modifications BMI 31.0-31.9,adult Situational anxiety - ALPRAZolam (Xanax) 0.25 MG tablet; Take 1 tablet (0.25 mg) by mouth 3 (three) times a day as needed for anxiety Discussed sx tx, side effects of meds and concerning sx to monitor for. documented in this encounter [facility] 05-03-2025 Miscellaneous Notes Formattin g of this note might be different from the original. LVM. Annual exam on 05/17/25 needs rescheduled due to the [place] office being closed on 05/17. documented in this encounter [facility] 05-03-2025 Telephone encount er Note LVM. Annual exam on 05/17/25 needs rescheduled due to the [place] office being closed on 05/17. [facility] 03-16-2025 Telephone encount er Note Pt needs a new rx for wegovy sent to the pharmacy. She needs the next dose up, everything is going good Please send to [facility] 03-16-2025 Miscellaneous Notes Formattin g of this note might be different from the original. Pt needs a new rx for wegovy sent to the pharmacy. She needs the next dose up, everything is going good Please send to [facility] documented in this encounter [facility] 02-24-2025 Telephone encount er Note Patient requesting refill of 0.5 [facility] 02-24-2025 Miscellaneous Notes Formattin g of this note might be different from the original. Patient requesting refill of 0.5 documented in this encounter [facility] 02-23-2025 Evaluation note Diagnosis Onset Date Resolution Dysuria acute February 23 6:09pm [facility] Work Phone: 1(649) 264-867107-23-2025 History of Present illness Narrative* Lina Iyer APRN-JOSÉ MIGUEL - 02/22/2025 11:45 AM EDT Juanis Alvarez is a 39 y.o.female. Patient's last menstrual period was 02/10/2025 (approximate).. She presents today for pelvic pain & painful intercourse. Patient was diagnosed with PCOS in 2009.Pain picked up more a few weeks ago and has been uncomfortable for over a month. Periods are every 28-30 days lasting only a day and a half. Patient states every four months menses is very heavy and painful. Patient states pelvic pain occurs a week before menses into first few days of cycle. Patient stated LMP pelvic pain did not go away after menses. Patient states nothing helps for pain. Patient also c/o occasional bladder pain. She was on an antibiotic a couple weeks ago and she would like to be checked for a yeast infection while she is here as well. Current contraception:bilateral tubal ligation OB History 3 Para 3 Term 3 AB Living 3 SAB IAB Ectopic Multiple Live Births 3 MEDICAL HX Past Medical History: Diagnosis Date Allergies Anxiety Back pain 2002 See chiropractor as needed. 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 Depression GERD (gastroesophageal reflux disease) 2009 Take protonix daily Hiatal hernia Obesity 2008 After pregnancies PCOS (polycystic ovarian syndrome) Pneumonia 12/06/2022 Treated with antibiotics Varicella 1990 SURGICAL HX Past Surgical History: Procedure Laterality Date ADENOIDECTOMY 1991 BUNIONECTOMY Bilateral SECTION X 3 COLONOSCOPY 2019 or 2020 not sure NEUROMA SURGERY SHOULDER ARTHROSCOPY Right SKIN BIOPSY 2015 For subcutaneous carcinoma TONSILLECTOMY TUBAL LIGATION FAMILY HX Family History Problem Relation Age of Onset Colon cancer Maternal Grandmother Hypertension Maternal Grandmother Throat cancer Father Alcohol abuse Father Brain Tumor Mother Liver disease Mother Kidney disease Mother Stroke Mother Throat cancer Maternal Aunt Stroke Maternal Grandfather Learning disabilities Brother Lung cancer Maternal Uncle MEDS Current Outpatient Medications Medication Sig Dispense Refill albuterol (PROVENTIL HFA;VENTOLIN HFA) 90 mcg/actuation inhaler Inhale 2 puffs every 4 (four) hoursas needed. esomeprazole (NexIUM) 40 mg capsule Take 1 capsule (40 mg total) by mouth every morning before breakfast. ondansetron ODT (ZOFRAN ODT) 4 mg disintegrating tablet Dissolve 1 tablet (4 mg total) on tongue asneeded for nausea. semaglutide, weight loss, (WEGOVY) 0.25 mg/0.5 mL pen injector Inject 0.25 mL under the skin once aweek. tirzepatide, weight loss, (ZEPBOUND) 5 mg/0.5 mL pen injector Inject 5 mg under the skin every 7 days. pantoprazole (PROTONIX) 40 mg EC tablet Take 1 tablet (40 mg total) by mouth. (Patient not taking: Reported on 02/22/2025) No current facility-administered medications for this visit. ALLERGIES Allergies Allergen Reactions Codeine Vomiting Hydrocodone Other (See Comments) Other Reaction(s): feels werid Vicodin [Hydrocodone-Acetaminophen] Vomiting Review of Systems Constitutional: Negative. Respiratory: Negative. Negative for chest tightness and shortness of breath. Cardiovascular: Negative. Negative for chest pain and palpitations. Gastrointestinal: Negative. Negative for constipation, diarrhea, nausea and vomiting. Genitourinary: Positive for dyspareunia, menstrual problem and pelvic pain. Neurological: Negative. Psychiatric/Behavioral: Negative. Objective BP 110/82 Ht 162.6 cm (5' 4 ) Wt 78.8 kg (173 lb 12.8 oz) LMP 02/10/2025 (Approximate) BMI 29.83 kg/m Physical Exam Vitals and nursing note reviewed. Constitutional: Appearance: Normal appearance. Cardiovascular: Rate and Rhythm: Normal rate and regular rhythm. Pulses: Normal pulses. Heart sounds: Normal heart sounds. Pulmonary: Effort: Pulmonary effort is normal. Breath sounds: Normal breath sounds. Abdominal: General: Bowel sounds are normal. Palpations: Abdomen is soft. Tenderness: There is abdominal tenderness. Genitourinary: General: Normal vulva. Labia: Right: No rash or lesion. Left: No rash or lesion. Musculoskeletal: General: Normal range of motion. Skin: General: Skin is warm and dry. Neurological: Mental Status: She is alert and oriented to person, place, and time. Psychiatric: Mood and Affect: Mood normal. Speech: Speech normal. Behavior: Behavior normal. Thought Content: Thought content normal. Judgment: Judgment normal. Assessment/Plan: Diagnoses and all orders for this visit: Dyspareunia, female - Ultrasound pelvic with transvaginal; Future - Urine Culture - Urinalysis Acute vaginitis - Gram stain - Yeast Culture Bladder pain - Urine Culture - Urinalysis Await cultures and ultrasound. Follow up / treat as indicated. All questions answered. Educational material provided through [employer]. Discussed the use of a good lubricant during intercourse and the possibility of pelvic floor therapy. RTO for annual (due next month) or sooner as needed. AIDEE Ahn, HANS-JOSÉ MIGUEL Iyer, BRENDA 02/22/25 1240 [facility] History of Present illness Narrative* Jose Do, MAT - 02/16/2025 4:30 PM EDT Patient: Juanis Alvarez : 1985 PCP: Aileen Kumar MD SUBJECTIVE This is a 39 y.o. female that presents today with a 14 d s/p b/l 4th digit I&D of toes with PTNavulsions. Patient denies N/F/V/C. She has been following post op instructions and taking oral abx with positive improvement. Patient also had previous surgery to left 1st MPJ with bunionectomy in the past and states she has minimal range of motion left great toe region and notices that she still has somewhat recurring bunion deformity and painful ambulation with minimal range of motion of left great toe. She presents today for surgery discussion and radiographs. Patient also has some issues with left 4th toe rubbing on the 5th toe and states it is painful fromtime to time and has tried toe spacers with minimal improvement Allergies: Allergies Allergen Reactions Chlorhexidine Codeine Other Reaction(s): feels werid Hydrocodone Other Reaction(s): feels werid Hydrocodone-Acetaminophen Nausea And Vomiting and GI intolerance vomiting Past Medical History: Past Medical History: Diagnosis Date Basal cell carcinoma (BCC) in situ of skin Basal Cell Skin CA 2014 Dysfunctional uterine bleeding [facility] (05/2017) Esophageal reflux PCOS (polycystic ovarian syndrome) Medications: Current Outpatient Medications: albuterol HFA 90 mcg/act inhaler, Inhale 2 puffs every 4 (four) hours if needed (Cough), Disp: 18 g, Rfl: 0 cetirizine (ZyrTEC) 10 MG tablet, Take by mouth, Disp: , Rfl: cyproheptadine (Periactin) 4 MG tablet, TAKE 1 TABLET BY MOUTH AT BEDTIME NEEDED FOR ALLERGIES OR RHINITIS (HEADACHES), Disp: 30 tablet, Rfl: 0 esomeprazole (NexIUM) [address] capsule, Take 40 mg by mouth in the morning. Take before meals., Disp: , Rfl: fluticasone (Flonase) 50 MCG/ACT nasal spray, SPRAY 1 SPRAY INTO EACH NOSTRIL TWICE A DAY FOR 14 DAYS, Disp: , Rfl: Semaglutide-Weight Management (Wegovy) 0.25 MG/0.5ML solution auto-injector, Inject 0.25 mL under the skin 1 (one) time per week, Disp: 0.5 mL, Rfl: 1 Social History: Social History Socioeconomic History Marital status: Spouse name: Not on file Number of children: Not on file Years of education: Not on file Highest education level: Not on file Occupational History Not on file Tobacco Use Smoking status: Never Smokeless tobacco: Never Vaping Use Vaping status: Never Used Substance and Sexual Activity Alcohol use: Never Comment: caffeine intake: 2-3 cups per day chocolate and soda Drug use: Never Sexual activity: Yes Other Topics Concern Not on file Social History Narrative Not on file Social Drivers of Health Financial Resource Strain: Medium Risk (08/09/2024) Overall Financial Resource Strain (CARDIA) Difficulty of Paying Living Expenses: Somewhat hard Food Insecurity: No Food Insecurity (08/09/2024) Hunger Vital Sign Worried About Running Out of Food in the Last Year: Never true Ran Out of Food in the Last Year: Never true Transportation Needs: No Transportation Needs (08/09/2024) PRAPARE - Transportation Lack of Transportation (Medical): No Lack of Transportation (Non-Medical): No Physical Activity: Insufficiently Active (08/09/2024) Exercise Vital Sign Days of Exercise per Week: 2 days Minutes of Exercise per Session: 10 min Stress: Stress Concern Present (08/09/2024) [place] [employer] - Occupational Stress Questionnaire Feeling of Stress : Rather much Social Connections: Socially Isolated (08/09/2024) Social Connection and Isolation Panel [NHANES] Frequency of Communication with Friends and Family: Once a week Frequency of Social Gatherings with Friends and Family: Once a week Attends Tenriism Services: Never Active Member of Clubs or Organizations: No Attends Club or Organization Meetings: Never Marital Status: Intimate Partner Violence: Not on file Housing Stability: High Risk (08/09/2024) Housing Stability Vital Sign Unable to Pay for Housing in the Last Year: Yes Number of Times Moved in the Last Year: 0 Homeless in the Last Year: No ROS: General: denies fever, chills, fatigue, malaise GI: denies loose or watery stool on antibiotic Musculoskeletal: denies arthritis, denies loss of strength, pain to hip, knees, back Cardiovascular: denies CP, palpitations, irregular rhythms OBJECTIVE LE EXAM: DERM: negative erythema and negative drainage from the lateral left 4th digit nail lateral right 4th digit nail with hair growth noted to b/l feet. Rubor to dorsal medial eminence left 1st metatarsal Rubor to dorsal medial eminence of the left foot with scar noted Slight rubor to the PIPJ region of the left 4th digit VASC: Palpable pedal pulsed b/l with warm to cool tibia to toes b/l NEURO: Gross sensation intact digits 1-10 and b/l feet ORTHO: Ankle ROM less than 10 degrees b/l. 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 Hav (hallux abducto valgus), left 2. Onychocryptosis 3. Toe pain, left 4. Toe pain, right 5. Acquired deformity of left toe PLAN Pt to discontinue neosporin to affected digits and expose to air with return to normal shoe gear. Reviewed xrays today with patient Discussed conservative and surgical treatment options for patient today including postoperative time frame and surgical procedure in detail. Patient may continue with conservative treatments including [id number] anti- inflammatories and other treatments suggested today. Patient may want to be s cheduled for surgical intervention in the near future. Discussed possible [place] bunionectomy and PIPJ arthroplasty of the left 4th digit with adductovarus deformity and derotational arthroplasty and postop timeframe in detail Aileen Kumar MD and would like Percocet for postoperative pain Jose Do DPM documented [facility] [id number] History of Present illness Narrative* Carlos Manuel Mittal NP - 02/14/2025 3:20 PM EDT Images from the original note were not included. Juanis Alvarez is a 39 y.o. female presents with chief complaint of hip pain Breast Cancer Screening (Has appt April) HPI: History of Present Illness The patient is a 39-year-old female who presents today with complaints of left hip pain. She reports experiencing intermittent, stabbing pain in her left hip and thigh since this morning. She has not had any injury to the area or any unusual activities that could have triggered the pain.She does not experience any numbness or tingling sensations radiating down her leg. She also does not have any associated back pain, attributing it to her normal condition. The pain is not constant but occurs randomly. She has noticed a clicking sound in her hip, which she describes as different from a similar sound in her knee. She expresses concern about potential fractures, given her recent weight loss and a colleague's experience with bone weakness leading to fractures. She has been managing the pain with Tylenol and ibuprofen, but these have not provided relief. She has completed her course of Zepbound due to insurance issues and is considering starting Wegovy. She is curious about the need for a washout period before initiating Wegovy. She is also contemplating the addition of extra vitamins to her regimen. She is currently on a weight loss program and consults a patch worker monthly. She has lost 8 pounds in less than a month. MEDICATIONS: Current Outpatient Medications Medication Instructions albuterol HFA 90 mcg/act inhaler 2 puffs, Inhalation, Every 4 hours PRN cetirizine (ZyrTEC) 10 MG tablet Take by mouth cyproheptadine (Periactin) 4 MG tablet TAKE 1 TABLET BY MOUTH AT BEDTIME NEEDED FOR ALLERGIES ORRHINITIS (HEADACHES) esomeprazole (NEXIUM) 40 mg, Daily before breakfast fluticasone (Flonase) 50 MCG/ACT nasal spray SPRAY 1 SPRAY INTO EACH NOSTRIL TWICE A DAY FOR 14 DAYS predniSONE (DELTASONE) 40 mg, Oral, Daily Semaglutide-Weight Management (Wegovy) 0.25 MG/0.5ML solution auto-injector 0.25 mL, Subcutaneous, Weekly ALLERGIES: Allergies Allergen Reactions Chlorhexidine Codeine Other Reaction(s): feels werid Hydrocodone Other Reaction(s): feels werid Hydrocodone-Acetaminophen Nausea And Vomiting and GI intolerance vomiting Review of Systems Medical, Surgical, Family, and Social History reviewed. General: Denies fever, chills, fatigue, CRUMP or weight loss/gain CV: Denies CP, palpitations or swelling in legs Resp: denies cough, SOB or wheezing GI: Denies abd pain/n/v/c/d Skin: Denies rash Neuro: Denies LH or dizziness OBJECTIVE: Visit Vitals BP 130/78 (BP Location: Left arm, Patient Position: Sitting, BP Cuff Size: Adult) Pulse 101 Temp 98.6 F (Temporal) Ht 5' 4 Wt 170 lb 9.6 oz LMP 02/10/2025 SpO2 99% BMI 29.28 kg/m OB Status Having periods Smoking Status Never BSA 1.87 m BP Readings from Last 3 Encounters: 02/14/25 130/78 01/31/25 130/72 12/15/24 160/90 Wt Readings from Last 3 Encounters: 02/14/25 170 lb 9.6 oz 01/31/25 174 lb 6.4 oz 01/26/25 178 lb Physical Exam Physical Exam General: alert & oriented, NAD Head: NC/AT Oral Cavity: MMM Skin: warm, dry Heart: RRR, No m/r/g, S1S2 nml Lungs: CTA b/l Abdomen: soft, ND/NT, BS wnl Musculoskeletal: normal gait Extremities: no clubbing, cyanosis or edema Neurological: nonfocal Psych: mood/affect full range Respiratory: Clear to auscultation, no wheezing, rales or rhonchi Musculoskeletal: Crepitus noted in left hip Results ASSESSMENT AND PLAN: Assessment & Plan 1. Left hip pain. - The left hip pain is likely arthritic in nature, as evidenced by the presence of crepitus. - Recent weight loss of 8 pounds in less than a month may have contributed to this condition. - A prescription for a steroid burst, consisting of 2 tablets to be taken daily for the next 5 dayswith food, has been provided. Advised against the use of meloxicam, Mobic, ibuprofen, or Aleve during this period, but may continue with Tylenol. - Application of Voltaren or heat to the affected area is recommended if it provides relief. Hot baths with Epsom salt are also suggested. An x-ray will be considered if the pain persists beyond 2 weeks. 2. Weight management. - Advised to maintain a balanced diet rich in fruits, vegetables, and protein. - Continuation of Wegovy at a dose of 0.5 mg has been recommended without any washout period. - Addition of a multivitamin to her regimen has also been suggested. - Encouraged to stay on top of nutrition and continue seeing a patch worker monthly. Assessment/Plan Diagnoses and all orders for this visit: Left hip pain - predniSONE (Deltasone) 20 MG tablet; Take 2 tablets (40 mg) by mouth Daily for 5 days BMI 29.0-29.9,adult Weight loss due to medication Pain of left thigh Health Maintenance Due Topic Date Due Mammogram Never done Influenza Vaccine (1) 04/03/2025 documented in this encounterAudrain Medical [id number] History of Present illness Narrative* Joie Peacock MD - 01/31/2025 2:20 PM EDT Juanis Alvarez is a 39 y.o. female presents with chief complaint of Breast Cancer Screening (Scheduled for March) HPI: History of Present Illness The patient presents for weight management. She reports a weight loss of 100 pounds over the past year, with her highest recorded weight being 289 pounds during her last . She is currently on Zepbound, with one dose remaining, but dueto insurance constraints, she will be transitioning to Wegovy. She has experienced mild nausea, which she attributes to the medication, but it is not severe. She expresses concern about the potentialside effects of switching medications. Her initial weight was around 274 to 275 pounds. MEDICATIONS: Current Outpatient Medications Medication Instructions albuterol HFA 90 mcg/act inhaler 2 puffs, Inhalation, Every 4 hours PRN cetirizine (ZyrTEC) 10 MG tablet Take by mouth cyproheptadine (Periactin) 4 MG tablet TAKE 1 TABLET BY MOUTH AT BEDTIME NEEDED FOR ALLERGIES ORRHINITIS (HEADACHES) esomeprazole (NEXIUM) 40 mg, Daily before breakfast fluticasone (Flonase) 50 MCG/ACT nasal spray SPRAY 1 SPRAY INTO EACH NOSTRIL TWICE A DAY FOR 14 DAYS ondansetron ODT (ZOFRAN-ODT) 4 mg, Oral, Every 8 hours PRN Semaglutide-Weight Management (Wegovy) 0.25 MG/0.5ML solution auto-injector 0.25 mL, Subcutaneous, Weekly ALLERGIES: Allergies Allergen Reactions Chlorhexidine Codeine Other Reaction(s): feels werid Hydrocodone Other Reaction(s): feels werid Hydrocodone-Acetaminophen Nausea And Vomiting and GI intolerance vomiting Review of Systems Constitutional: Negative for chills and fever. Respiratory: Negative for shortness of breath. Cardiovascular: Negative for chest pain. Gastrointestinal: Negative for diarrhea, nausea and vomiting. Neurological: Negative for headaches. Medical, Surgical, Family, and Social History reviewed. OBJECTIVE: Visit Vitals BP 130/72 (BP Location: Left arm, Patient Position: Sitting, BP Cuff Size: Adult) Pulse 91 Temp 98.2 F (Temporal) Ht 5' 4 Wt 174 lb 6.4 oz LMP 01/11/2025 SpO2 99% BMI 29.94 kg/m OB Status Having periods Smoking Status Never BSA 1.89 m BP Readings from Last 3 Encounters: 01/31/25 130/72 12/15/24 160/90 12/07/24 126/86 Wt Readings from Last 3 Encounters: 01/31/25 174 lb 6.4 oz 01/26/25 178 lb 12/15/24 182 lb 12.8 oz Physical Exam Physical Exam General Appearance: normal appearance, normal weight Vital signs: Within normal limits HEENT: Within normal limits. Conjunctivate normal, ears patent Respiratory: Clear to auscultation, no wheezing, rales or rhonchi. effort normal, lungs clear bilaterally Cardiovascular: regular rate and rhythm, no murmurs, rubs or gallops Gastrointestinal: soft Skin: Warm and dry, no rash. Neurological: alert and oriented Psychiatric: thought content normal Results ASSESSMENT AND PLAN: Assessment & Plan 1. Weight management. - Weight has decreased by 19 pounds since the last visit in 10/2024, with current weight at 174 pounds. - Blood pressure readings are within the normal range. - Wegovy prescription will be sent to the pharmacy at the lowest dose, with gradual monthly increases to a target dose of 2.4 mg. Zofran will be prescribed to manage nausea. - Patient advised to contact the office monthly for dose increases and to schedule a follow-up appointment in 3 months with either Raeann or Carlos Manuel. If weight loss is not observed or weight gain occurs, a return to [facility] may be considered. Assessment/Plan Diagnoses and all orders for this visit: Nausea - ondansetron ODT (Zofran-ODT) 4 MG disintegrating tablet; Take 1 tablet (4 mg) by mouth every 8 (eight) hours if needed for nausea or vomiting for up to 7 days Morbid (severe) obesity due to excess calories ([facility]) - Semaglutide-Weight Management (Wegovy) 0.25 MG/0.5ML solution auto-injector; Inject 0.25 mL underthe skin 1 (one) time per week BMI 29.0-29.9,adult Health Maintenance Due Topic Date Due Mammogram Never done Influenza Vaccine (1) 04/03/2025 documented in this encounterAudrain Medical [id number] History of Present illness Narrative* Jose Do, KRYSTLEM - 01/26/2025 4:40 PM EDT Patient: Juanis Arce Antonio : 1985 PCP: Aileen Kumar MD SUBJECTIVE This is a 39 y.o. female that presents today with a CC of ingrowing right and left lateral 4th digit toenails Pt states problem has been present for the past few weeks. Pt has noticed negative drainage to the affected area and states pain is achey in nature. Treatments have consisted of soaking and trying to remove the ingrown nail on their own with no relief. Patient has had longstanding issue with ingrowing nail and presents today for treatment Patient also had previous surgery to left 1st MPJ with bunionectomy in the past and states she has minimal range of motion left great toe region and notices that she still has somewhat recurring bunion deformity and painful ambulation with minimal range of motion of left great toe Allergies: Allergies Allergen Reactions Chlorhexidine Codeine Other Reaction(s): feels werid Hydrocodone Other Reaction(s): feels werid Hydrocodone-Acetaminophen Nausea And Vomiting and GI intolerance vomiting Past Medical History: Past Medical History: Diagnosis Date Basal cell carcinoma (BCC) in situ of skin Basal Cell Skin CA 2014 Dysfunctional uterine bleeding [facility] (05/2017) Esophageal reflux PCOS (polycystic ovarian syndrome) Medications: Current Outpatient Medications: albuterol HFA 90 mcg/act inhaler, Inhale 2 puffs every 4 (four) hours if needed (Cough), Disp: 18 g, Rfl: 0 cetirizine (ZyrTEC) 10 MG tablet, Take by mouth, Disp: , Rfl: cyproheptadine (Periactin) 4 MG tablet, TAKE 1 TABLET BY MOUTH AT BEDTIME NEEDED FOR ALLERGIES OR RHINITIS (HEADACHES), Disp: 30 tablet, Rfl: 0 esomeprazole (NexIUM) [address] capsule, Take 40 mg by mouth in the morning. Take before meals., Disp: , Rfl: fluticasone (Flonase) 50 MCG/ACT nasal spray, SPRAY 1 SPRAY INTO EACH NOSTRIL TWICE A DAY FOR 14 DAYS, Disp: , Rfl: montelukast (Singulair) 10 MG tablet, Take 1 tablet (10 mg) by mouth at bedtime, Disp: 30 tablet, Rfl: 2 predniSONE (Deltasone) 20 MG tablet, 3 tablets for 3 days, then 2 tablets for 3 days, then 1 tabletfor 3 days then stop, Disp: 18 tablet, Rfl: 0 Tirzepatide-Weight Management (Zepbound) 15 MG/0.5ML solution auto-injector, Inject 15 mg under theskin 1 (one) time per week, Disp: 2 mL, Rfl: 11 Social History: Social History Socioeconomic History Marital status: Spouse name: Not on file Number of children: Not on file Years of education: Not on file Highest education level: Not on file Occupational History Not on file Tobacco Use Smoking status: Never Smokeless tobacco: Never Vaping Use Vaping status: Never Used Substance and Sexual Activity Alcohol use: Never Comment: caffeine intake: 2-3 cups per day chocolate and soda Drug use: Never Sexual activity: Yes Other Topics Concern Not on file Social History Narrative Not on file Social Drivers of Health Financial Resource Strain: Medium Risk (08/09/2024) Overall Financial Resource Strain (CARDIA) Difficulty of Paying Living Expenses: Somewhat hard Food Insecurity: No Food Insecurity (08/09/2024) Hunger Vital Sign Worried About Running Out of Food in the Last Year: Never true Ran Out of Food in the Last Year: Never true Transportation Needs: No Transportation Needs (08/09/2024) PRAPARE - Transportation Lack of Transportation (Medical): No Lack of Transportation (Non-Medical): No Physical Activity: Insufficiently Active (08/09/2024) Exercise Vital Sign Days of Exercise per Week: 2 days Minutes of Exercise per Session: 10 min Stress: Stress Concern Present (08/09/2024) [place] [employer] - Occupational Stress Questionnaire Feeling of Stress : Rather much Social Connections: Socially Isolated (08/09/2024) Social Connection and Isolation Panel [NHANES] Frequency of Communication with Friends and Family: Once a week Frequency of Social Gatherings with Friends and Family: Once a week Attends Tenriism Services: Never Active Member of Clubs or Organizations: No Attends Club or Organization Meetings: Never Marital Status: Intimate Partner Violence: Not on file Housing Stability: High Risk (08/09/2024) Housing Stability Vital Sign Unable to Pay for Housing in the Last Year: Yes Number of Times Moved in the Last Year: 0 Homeless in the Last Year: No ROS: General: denies fever, chills, fatigue, malaise Gastrointestinal: denies abdominal pain, ulcers, or changes in appetite or bowel habits Musculoskeletal: denies arthritis, denies loss of strength, pain to hip, knees, back Cardiovascular: denies CP, palpitations, irregular rhythms OBJECTIVE LE EXAM: DERM: Positive erythema and negative drainage from the lateral left 4th digit nail lateral right 4th digit nail with hair growth noted to b/l feet. Rubor to dorsal medial eminence left 1st metatarsal Rubor to dorsal medial eminence of the left foot with scar noted VASC: Palpable pedal pulsed b/l with warm to cool tibia to toes b/l NEURO: Gross sensation intact digits 1-10 and b/l feet ORTHO: Ankle ROM less than 10 degrees b/l. Positive pain on palpation to lateral left 4th digit nail and lateral right 4th digit nail Range of motion of 1st MPJ less than 65 degrees dorsiflexion Positive rubor noted to dorsal medial eminence to left 1st metatarsal with non reducible deformity of HAV deformity ASSESSMENT 1. Hav (hallux abducto valgus), left 2. Onychocryptosis 3. Toe pain, left 4. Toe pain, right PLAN Performed I and D of abcess with partial removal of nail to access infection to the right toenail. Pt informed of risks and benefits of procedure including infection,pain,bleeding, reoccurance. Pt consents. Next, 3cc of xylocaine 2% plain injected into affected digit for anesthesia. The affected toe was prepped and draped in usual sterile manner and offending nail was removed withminimal blood loss and positive serosanguinous drainage noted. Wound then was flushed with NSS and DSD applied to digit. Performed I and D of abcess with partial removal of nail to access infection to the left toenail. Pt informed of risks and benefits of procedure including infection,pain,bleeding, reoccurance. Pt consents. Next, 3cc of xylocaine 2% plain injected into affected digit for anesthesia. The affected toe was prepped and draped in usual sterile manner and offending nail was removed withminimal blood loss and positive serosanguinous drainage noted. Wound then was flushed with NSS and DSD applied to digit. Discussed conservative and surgical treatment options for patient today including postoperative time frame and surgical procedure in detail. Patient may continue with conservative treatments including [id number] anti- inflammatories and other treatments suggested today. Patient may want to be s cheduled for surgical intervention in the near future. Discussed possible left 1st MPJ arthrodesis or bio Pro implant will get x-rays on follow up with discussed postoperative care in detail Jose Do DPM documented in this encounterAudrain Medical [id number] History of Present illness Narrative* Lanny Berry NP - 12/15/2024 4:00 PM EDT Images from the original note were not included. Juanis Alvarez is a 39 y.o. female presents with chief complaint of Cough, Hoarseness, and Itchingin throat HPI: History of Present Illness The patient is a 39-year-old female who presents today with complaints of continued cough, hoarseness, and itching in the throat. She reports persistent nasal congestion, coughing, and throat irritation, which she describes as more of an itching sensation than pain. Prolonged coughing fits are distressing and embarrassing for her. She has not recently been on antibiotics. Famotidine has been taken at night in conjunction withZyrtec and Singulair, but this regimen has not provided relief. An ENT scope performed a few monthsago revealed no changes from previous examinations. She has not consulted an audio technician. Although she does not feel ill overall, the persistent cough makes her feel awful. She has not used an albuterol inhaler recently and suspects that her current one may be . There is no shortness of breathor wheezing, but she reports drainage and irritation. Astepro has been used, which she finds unpleasant, and it has not improved her symptoms. She has a prescription for cyproheptadine but has not been taking it due to concerns about potential interactions. Zyrtec provides some relief. A course of oral Decadron was completed due to continued symptoms, followed by a course of tapering oral prednisone. In addition to Zyrtec and Singulair, Flonase nasal spray is also being used. She has a history of GERD and takes Nexium but does not feel that it is currently an issue. There has been an improvement in acid reflux symptoms following weight loss, including the ability to lie flat at night without experiencing choking sensations. SUBJECTIVE: ALLERGIES: Allergies Allergen Reactions Chlorhexidine Codeine Other Reaction(s): feels werid Hydrocodone Other Reaction(s): feels werid Hydrocodone-Acetaminophen Nausea And Vomiting and GI intolerance vomiting MEDICATIONS: Current Outpatient Medications Medication Instructions cetirizine (ZyrTEC) 10 MG tablet Take by mouth cyproheptadine (Periactin) 4 MG tablet TAKE 1 TABLET BY MOUTH NEEDED AT BEDTIME FOR ALLERGIES ORRHINITIS (HEADACHES) esomeprazole (NEXIUM) 40 mg, Daily before breakfast fluticasone (Flonase) 50 MCG/ACT nasal spray SPRAY 1 SPRAY INTO EACH NOSTRIL TWICE A DAY FOR 14 DAYS montelukast (SINGULAIR) 10 mg, Oral, Nightly predniSONE (Deltasone) 20 MG tablet 3 tablets for 3 days, then 2 tablets for 3 days, then 1 tablet for 3 days then stop Zepbound 15 mg, Subcutaneous, Weekly REVIEW OF SYMPTOMS: Constitutional: Denies fever or chills, anorexia. EENT: Denies difficulty swallowing. Notes throat irritation. Respiratory: Denies wheezing or difficulty breathing. + Cough. Cardiovascular: Denies chest pain or pressure. Gastrointestinal: Eating and drinking appropriately. Infections: Denies enlarged lymph nodes. Obejctive: Visit Vitals BP 160/90 (BP Location: Left arm, Patient Position: Sitting, BP Cuff Size: Adult) Pulse 93 Temp 98.1 F Ht 5' 4 Wt 182 lb 12.8 oz SpO2 99% BMI 31.38 kg/m OB Status Having periods Smoking Status Never BSA 1.94 m BP Readings from Last 3 Encounters: 12/15/24 160/90 12/07/24 126/86 11/22/24 120/80 Wt Readings from Last 3 Encounters: 12/15/24 182 lb 12.8 oz 12/07/24 183 lb 3.2 oz 11/22/24 187 lb 6.4 oz General: Well developed, well nourished, in no acute distress sitting upright in chair. Head: Normocephalic/atraumatic. Eyes: No conjunctival irritation. Ears: Grossly normal hearing. Bilateral Tms clear and intact, no erythema. Nose: No discharge. Mouth: MMM, talkative. No erythema, edema or exudate. Mild cobblestoning posterior throat. Voice isclear. Neck: Supple. Chest: No distress. Lungs: Normal respiratory effort and clear to auscultation. No rhonchi or wheeze. Cardio: RRR, without murmur. Musculoskeletal: Steady gait. Neurologic: Grossly normal. Skin: Skin is warm and dry. Lymph Nodes: No cervical adenopathy, nodes normal. Mental Status: Alert and cooperative. Anxiety is a chronic issue. Results No results found for: HGBA1C Lab Results Component Value Date CREATININE 0.8 01/05/2024 ASSESSMENT AND PLAN: Assessment & Plan 1. Persistent cough. - Continued cough, hoarseness, and itching in the throat despite taking Zyrtec, Singulair, Flonase nasal spray, and completing courses of oral Decadron and tapering oral prednisone. - No improvement after steroid taper; nasal congestion and coughing persist. - Discussed potential bacterial cause; advised to contact the office by Thursday if symptoms persist for further evaluation and potential modification of GERD medication. - Augmentin 875 mg twice daily for 7 days prescribed; advised to use albuterol inhaler during coughing fits to assess its effectiveness. 2. Gastroesophageal Reflux Disease (GERD). - History of GERD; currently taking Nexium. - Symptoms have improved with weight loss; able to lie flat at night without issues. - Patient has tried famotidine at night for allergy relief, but it has not helped. Assessment/Plan Diagnoses and all orders for this visit: Acute bronchospasm - amoxicillin-clavulanate (Augmentin) 875-125 MG tablet; Take 1 tablet (875 mg) by mouth in the morning and 1 tablet (875 mg) before bedtime. Do all this for 7 days. - albuterol HFA 90 mcg/act inhaler; Inhale 2 puffs every 4 (four) hours if needed (Cough) Throat irritation - amoxicillin-clavulanate (Augmentin) 875-125 MG tablet; Take 1 tablet (875 mg) by mouth in the morning and 1 tablet (875 mg) before bedtime. Do all this for 7 days. Chronic GERD Stable. Continue current medications. Seasonal allergic rhinitis due to other allergic trigger Continue current medications. Obesity (BMI 30.0-34.9) Routine physical exercise and a healthy diet to promote weight reduction and improve overall healthencouraged. BMI 31.0-31.9,adult See above. Achieving an optimal weight is imperative to improving overall health. Anxiety Currently not taking medication management for anxiety, no interest in such. Please Note: Portions of this chart may have been created using voice recognition software. Occasional wrong-word or sound-like substitutions may have occurred due to inherent limitations of the voice recognition software. Please read the chart carefully and recognize, using context, where the sub stitutions have occurred. documented in this encounterAudrain Medical [id number] History of Present illness Narrative* Lanny Berry NP - 12/07/2024 3:20 PM EDT Images from the original note were not included. Juanis Alvarez is a 39 y.o. female presents with chief complaint of Follow-up HPI: History of Present Illness The patient is a 39-year-old female who presents today with complaints of voice hoarseness, scratchy throat, and runny nose. She was evaluated by this provider on 11/22/2024 and diagnosed with acute viral pharyngitis, laryngitis, nasal congestion, and postnasal drip. She was given oral Decadron in the office and a prescription for Singulair. She reports persistent hoarseness and severe itching in her throat, accompanied by constant postnasal drip. Her symptoms have shown some improvement but remain present. She describes her throat as irritated rather than sore. She has not experienced any fevers or difficulty swallowing. She retains her tonsils. She has previously tolerated prednisone well. She has been using Zyrtec and Flonase in conjunction with Singulair. She has also tried Nasacort without significant relief and has been performing saline sinus irrigations nightly. She is uncertain if she has used Astepro nasal spray in the past. She has never smoked and finds exposure to smoke intolerable due to its tendency to induce coughing. She notes that her symptoms have worsened during the spring and fall seasons. She has not sought consultation from an audio technician. Her acid reflux symptoms are well-managed with Nexium. SOCIAL HISTORY She has never smoked. SUBJECTIVE: ALLERGIES: Allergies Allergen Reactions Chlorhexidine Codeine Other Reaction(s): feels werid Hydrocodone Other Reaction(s): feels werid Hydrocodone-Acetaminophen Nausea And Vomiting and GI intolerance vomiting MEDICATIONS: Current Outpatient Medications Medication Instructions cetirizine (ZyrTEC) 10 MG tablet Take by mouth cyproheptadine (Periactin) 4 MG tablet TAKE 1 TABLET BY MOUTH NEEDED AT BEDTIME FOR ALLERGIES ORRHINITIS (HEADACHES) esomeprazole (NEXIUM) 40 mg, Daily before breakfast fluticasone (Flonase) 50 MCG/ACT nasal spray SPRAY 1 SPRAY INTO EACH NOSTRIL TWICE A DAY FOR 14 DAYS montelukast (SINGULAIR) 10 mg, Oral, Nightly predniSONE (Deltasone) 20 MG tablet 3 tablets for 3 days, then 2 tablets for 3 days, then 1 tablet for 3 days then stop sertraline (ZOLOFT) 100 mg, Oral, Daily Zepbound 15 mg, Subcutaneous, Weekly REVIEW OF SYMPTOMS: Constitutional: Denies fever or chills, anorexia. EENT: Congestion, PND. Skin: Denies new skin lesions, rash. Respiratory: Denies wheezing or difficulty breathing. Cough from PND. Cardiovascular: Denies chest pain or pressure, shortness of breath. Gastrointestinal: Eating and drinking appropriately. Infections: Denies enlarged lymph nodes. OBJECTIVE: Visit Vitals BP 126/86 (BP Location: Left arm, Patient Position: Sitting, BP Cuff Size: Adult) Pulse (!) 117 Temp 98.5 F Ht 5' 4 Wt 183 lb 3.2 oz SpO2 99% BMI 31.45 kg/m OB Status Having periods Smoking Status Never BSA 1.94 m BP Readings from Last 3 Encounters: 12/07/24 126/86 11/22/24 120/80 10/14/24 118/78 Wt Readings from Last 3 Encounters: 12/07/24 183 lb 3.2 oz 11/22/24 187 lb 6.4 oz 10/14/24 193 lb 6.4 oz General: Well developed, well nourished, in no acute distress sitting upright in chair. Head: Normocephalic/atraumatic. Eyes: No conjunctival irritation. Ears: Grossly normal hearing. Bilateral Tms clear and intact, no erythema. Nose: Congestion. Mouth: MMM, talkative. Mild hoarse voice. No erythema, edema or exudate. Cobblestoning to posteriorthroat noted. Neck: Supple. Chest: No distress. Lungs: Normal respiratory effort and clear to auscultation. No rhonchi or wheeze. Cardio: RRR, without murmur. Pulses: Peripheral pulses intact. Abdomen: Normal bowel sounds noted. Abdomen is soft and nontender. Musculoskeletal: Steady gait. Neurologic: Grossly normal. Skin: Skin is warm and dry. Lymph Nodes: No cervical adenopathy, nodes normal. Mental Status: Alert and cooperative. Results No results found for: HGBA1C Lab Results Component Value Date CREATININE 0.8 01/05/2024 ASSESSMENT AND PLAN: Assessment & Plan 1. Acute viral pharyngitis. - Reports persistent hoarseness, scratchy throat, and runny nose since 11/18/2024. - Examination reveals cobblestoning at the back of the throat, indicative of postnasal drainage. - Given the improvement in symptoms, it is likely viral. - A short course of prednisone with a tapering dose will be prescribed. She is advised to continue using Zyrtec and Singulair. Astepro nasal spray is recommended as an alternative to Flonase. If there is no improvement after the prednisone course, antibiotics will be considered. 2. Laryngitis. - The hoarseness and throat irritation are consistent with laryngitis, likely of viral origin. - Examination reveals cobblestoning at the back of the throat. - She is advised to continue her current medications, including Zyrtec and Singulair. - The prednisone course should help alleviate symptoms. If symptoms persist, further evaluation andpotential antibiotic therapy will be considered. 3. Nasal congestion. - Reports ongoing nasal congestion despite using Flonase and Zyrtec. - Examination reveals cobblestoning at the back of the throat. - Astepro nasal spray is recommended as an alternative. She is advised to perform saline sinus irrigations multiple times throughout the day. - If there is no improvement, she may resume Flonase. 4. Postnasal drip. - Persistent drainage down the back of her throat is contributing to her symptoms. - Examination reveals cobblestoning at the back of the throat. - The prednisone course is expected to help. She is advised to stay well- hydrated and continue saline sinus irrigations. - If symptoms persist, further treatment options will be considered. 5. Gastroesophageal reflux disease. - Her acid reflux symptoms are well-managed with Nexium. - No new symptoms reported. - Continue current management with Nexium. - No additional treatment required at this time. Assessment/Plan Juanis was seen today for follow-up. Diagnoses and all orders for this visit: Acute viral pharyngitis (Primary) Laryngitis - predniSONE (Deltasone) 20 MG tablet; 3 tablets for 3 days, then 2 tablets for 3 days, then 1 tablet for 3 days then stop Nasal congestion - predniSONE (Deltasone) 20 MG tablet; 3 tablets for 3 days, then 2 tablets for 3 days, then 1 tablet for 3 days then stop PND (post-nasal drip) - predniSONE (Deltasone) 20 MG tablet; 3 tablets for 3 days, then 2 tablets for 3 days, then 1 tablet for 3 days then stop Seasonal allergic rhinitis due to other allergic trigger Chronic GERD Obesity (BMI 30.0-34.9) Routine physical exercise and a healthy diet to promote weight reduction and improve overall healthencouraged. BMI 31.0-31.9,adult See above. Achieving an optimal weight is imperative to improving overall health. Please Note: Portions of this chart may have been created using voice recognition software. Occasional wrong-word or sound-like substitutions may have occurred due to inherent limitations of the voice recognition software. Please read the chart carefully and recognize, using context, where the sub stitutions have occurred. documented in this encounterAudrain Medical [id number] History of Present illness Narrative* Lanny Berry NP - 11/22/2024 3:20 PM EDT Images from the original note were not included. Juanis Alvarez is a 39 y.o. female presents with chief complaint of Sore Throat, Nasal Congestion,Cough, and Ears Itch HPI: History of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 section (73284853). Dilation and curettage (69540274). Colonoscopy (956262340). Bunionectomy (49789667). Tonsillectomy (545133141). EGD (esophagogastroduodenoscopy) gastric outlet reduction (9950566846). Social History Social & Psychosocial Habits Alcohol 10/13/2024 Risk Assessment: Denies Alcohol Use 10/13/2024 Use: Never Comment: Pt denies - 04/13/2018 19:Kika Contreras RN Substance Abuse 10/13/2024 Risk Assessment: Denies Substance Abuse 10/13/2024 Use: Never Comment: Patient denies - 04/13/2018 19:Kika Contreras RN Tobacco 10/13/2024 Risk Assessment: Denies Tobacco Use 10/13/2024 Tobacco Use: Never (less than 100 in l Comment: Patient denies - 04/13/2018 19:Kika Contreras RN 10/13/2024 Tobacco Use: Never (less than 100 in l 10/13/2024 Tobacco Use: Never (less than 100 in l . Physical Examination Vital Signs 10/26/2024 11:49 EDT Temperature Temporal Artery 37.1 DegC Heart Rate Monitored 109 bpm HI Respiratory Rate Monitored 14 br/min Systolic Blood Pressure 128 mmHg Diastolic Blood Pressure 87 mmHg Blood Pressure Location Left arm SpO2 100 % Measurements from flowsheet : Measurements 10/26/2024 11:41 EDT Height/Length Measured 162 cm Height/Length Dosing 162.0 cm Weight Dosing 88.4 kg BSA Measured 1.99 m2 Body Mass Index Measured 33.68 kg/m2 Weight Measured 88.4 kg Airway: Mallampati classification: II (soft palate, fauces, uvula visible). Respiratory: Lungs are clear to auscultation, Respirations are non-labored. Cardiovascular: Regular rhythm. Plan [place] [employer]est[employer] (ASA) physical status classification: Class II. Anesthetic Preoperative Plan: Anesthesia General, and -TIVA.[facility] Mer[facility] HospitalComment on above:Result Comment: Electronically Signed By: Khoa Gonzalez Jr., DO.br\Date and Time Signed: 10/26/24 12:37 [id number] Evaluation note* Diagnosis Onset Date Resolution Status Admit Date Acute maxillary sinusitis, unspecified acute October 23, 2024 1:21pm [facility] Work Phone: [phone] 610-293602-27-2025 NoteProgress Note-Physician Patient: JUANIS ALVAREZ Age: 39 years Sex: Female : 1985 Associated Diagnoses: None Author: Dominguez PACHECO, Randolph Fernando Postoperative Information Postoperative disposition: Postoperative disposition: To PACU. Optimetrix number: Optimetrix number [id number]. Anesthetic utilized: General. Health Status Allergies: Allergic Reactions (Selected) Severity Not Documented Chlorhexidine topical- Blister and peeling skin. Codeine- Intolerance. Vicodin- Intolerance. Physical Examination Vital Signs 09/29/2024 9:05 EST Heart Rate Monitored 98 bpm Respiratory Rate Monitored 14 br/min Systolic Blood Pressure 106 mmHg Diastolic Blood Pressure 82 mmHg Blood Pressure Location Left arm Mean Arterial Pressure, Cuff 90 mmHg SpO2 100 % 09/29/2024 9:00 EST Heart Rate Monitored 96 bpm Respiratory Rate Monitored 20 br/min Systolic Blood Pressure 112 mmHg Diastolic Blood Pressure 78 mmHg Blood Pressure Location Left arm Mean Arterial Pressure, Cuff 89 mmHg SpO2 100 % 09/29/2024 8:58 EST Temperature Temporal Artery 36.7 DegC Heart Rate Monitored 98 bpm Respiratory Rate Monitored 16 br/min Systolic Blood Pressure 117 mmHg Diastolic Blood Pressure 71 mmHg Blood Pressure Location Left arm Mean Arterial Pressure, Cuff 86 mmHg SpO2 100 % Pain Assessment: Controlled. General: Awake, Appropriate. Respiratory: Adequate air exchange. Cardiovascular: Stable. Neurological Assessment Anesthetic outcome No anesthetic complications noted. Adequate pain relief. Review / Management Condition: Stable. Plan Transfer/Discharge: Transfer/Discharge Discharge when meets criteria ( To home ).[facility] HospitalComment on above:Result Comment: Electronically Signed By: Dominguez PACHECO, Randolph Fernando\.br\Date and Time Signed: 09/29/24 09:14 EST 09-29-2024 NotePatient Education - Text Endoscopy Care After Procedure Please read the instructions outlined below and refer to this sheet in the next few weeks. These discharge instructions provide you with general information on caring for yourself after you leave thehospital. Your doctor may also give you specific instructions. While your treatment has been planned according to the most current medical practices available, unavoidable complications occasionally occur. If you have any problems or questions after discharge, please call your doctor. ACTIVITY ??? You may resume your regular activity but move at a slower pace for the next 24 hours. ??? Take frequent rest periods for the next 24 hours. ??? Walking will help expel (get rid of) the air and reduce the bloated feeling in your abdomen. ??? No driving for 24 hours (because of the anesthesia (medicine) used during the test). ??? You may shower. ??? Do not sign any important legal documents or operate any machinery for 24 hours (because of theanesthesia used during the test). NUTRITION ??? Drink plenty of fluids. ??? You may resume your normal diet. ??? Begin with a light meal and progress to your normal diet. ??? Avoid alcoholic beverages for 24 hours or as instructed by your caregiver. MEDICATIONS ??? You may resume your normal medications unless your caregiver tells you otherwise. WHAT YOU CAN EXPECT TODAY ??? You may experience abdominal discomfort such as a feeling of fullness or ???gas??? pains. FOLLOW-UP ??? Your doctor will discuss the results of your test with you. seek immediate medical attention if any of the following occur: ??? Excessive nausea (feeling sick to your stomach) and/or vomiting. ??? Severe abdominal pain and distention (swelling). ??? Trouble swallowing. ??? Temperature over 100 F (37.8??? C). ??? Rectal bleeding or vomiting of blood. Document Released: 03/03/2005 Document Re-Released: 01/11/2007 ExitCare??? Patient Information ???2009 [employer]. Gastroenterology Esophageal Dilatation Esophageal dilatation, also called esophageal dilation, is a procedure to widen or open a blocked or narrowed part of the esophagus. The esophagus is the part of the body that moves food and liquid from the mouth to the stomach. You may need this procedure if: ??? You have a buildup of scar tissue in your esophagus that makes it difficult, painful, or impossible to swallow. This can be caused by gastroesophageal reflux disease (GERD). ??? You have cancer of the esophagus. ??? There is a problem with how food moves through your esophagus. In some cases, you may need this procedure repeated at a later time to dilate the esophagus gradually. Tell a health care provider about: ??? Any allergies you have. ??? All medicines you are taking, including vitamins, herbs, eye drops, creams, and cvrn-lao-cxuxnth medicines. ??? Any problems you or family members have had with anesthetic medicines. ??? Any blood disorders you have. ??? Any surgeries you have had. ??? Any medical conditions you have. ??? Any antibiotic medicines you are required to take before dental procedures. ??? Whether you are or may be . What are the risks? Generally, this is a safe procedure. However, problems may occur, including: ??? Bleeding due to a tear in the lining of the esophagus. ??? A hole, or perforation, in the esophagus. What happens before the procedure? Ask your health care provider about: ? Changing or stopping your regular medicines. This is especially important if you are taking diabetes medicines or blood thinners. ? Taking medicines such as aspirin and ibuprofen. These medicines can thin your blood. Do not take these medicines unless your health care provider tells you to take them. ? Taking tqrx-vpm-ycklgaj medicines, vitamins, herbs, and supplements. ??? Follow instructions from your health care provider about eating or drinking restrictions. ??? Plan to have a responsible adult take you home from the hospital or clinic. ??? Plan to have a responsible adult care for you for the time you are told after you leave the hospital or clinic. This is important. What happens during the procedure? You may be given a medicine to help you relax (sedative). ??? A numbing medicine may be sprayed into the back of your throat, or you may gargle the medicine. ??? Your health care provider may perform the dilatation using various surgical instruments, such as: ? Simple dilators. This instrument is carefully placed in the esophagus to stretch it. ? Guided wire bougies. This involves using an endoscope to insert a wire into the esophagus. A dilator is passed over this wire to enlarge the esophagus. Then the wire is removed. ? Balloon dilators. An endoscope with a small balloon is inserted into the esophagus. The balloon is inflated to stretch the esophagus and open it up. The procedure may vary among a (more content not included)...[facility]02-[facility] NoteEndoscopic Procedure Report - Other Patient: JUANIS ALVAREZ Age: 39 years Sex: Female : 1985 Associated Diagnoses: None Author: Reji Cunha MD Pre-Procedure Procedure Date 09/29/2024 08:55:00 . Procedure Type: Esophagogastroduodenoscopy with Dilation with Danielle. Procedure provider Performed by Reji Cunha MD. Current history and physical Documented on chart. Informed Consent After discussing the rationale, risks and benefits, and alternatives to this procedure, the patient provided signed consent for the procedure. Pre-procedure diagnosis: Dysphagia . Medications Anticoagulant/antiplatelet None. ASA Classification: Class II. . Monitoring: See anesthesia record. . Anticoagulation use: Procedure The procedure was performed in the hospital. See anesthesia record for sedation given during procedure. The patient was positioned starting in the left lateral decubitus position and with safety measures. Endoscope type used was an adult- size, introduced orally, advanced to the 3rd portion of the duodenum. No difficulty was encountered during the procedure. Views were excellent. The patient tolerated the procedure well. Extent reached: Duodenum third portion Findings 1. Esophageal landmarks identified, moderate hiatal hernia noted. Empiric dilation to 56 Maltese wasdone using Danielle, post dilation there was no mucosal disruption or wall defect 2. No gross lesions in the stomach 3. Normal examined duodenum Images Procedure images: [id number]_hd_video_2024__[id number]_06_[id number].jpg Rec1_hd_video_2024__T09_05_07_861.jpg Rec1_hd_video_2024__T09_05_04_590.jpg Rec1_hd_video_2024__T09__59_574.jpg Rec1_hd_video_2024__T09_04_56_[id number].jpg Rec1_hd_video_2024__T09__53_504.jpg Rec1_hd_video_2024__T09_04_46_776.jpg Rec1_hd_video_2024__T09_04_15_927.jpg Rec1_hd_video_2024__T09_04_08_086.jpg Rec1_hd_video__T09_03_57_036.jpg Rec1_hd_video_2024__T09_03_19_[id number].jpg . Post-Procedure Complications: none. Estimated blood loss: none. Specimens: None. Devices/ implants: none left in place. Impression and Plan 1. Esophageal landmarks identified, moderate hiatal hernia noted. Empiric dilation to 56 Maltese wasdone using Danielle, post dilation there was no mucosal disruption or wall defect 2. No gross lesions in the stomach 3. Normal examined duodenum Recommendations: -Resume previous diet -Resume home medications -Follow-up in GI clinic as neededCleveland Clinic Mercy HospitalComment on above: Result Comment: Electronically Signed By: Guerline PACHECO, Reji Ramos.alan\Date and Time Signed: 09/29/24 08:56 ESTOther Comment: Missing Attachment - attachment storage system not supported [id number] Can be viewed in source systemMissing Attachment - attachment storage system not supported [id number] Can be viewed insource systemMissing Attachment - attachment storage system not supported [id number] Can be viewed in source systemMissing Attachment - attachment storage system not supported [id number] Can be viewed in source systemMissing Attachment - attachment storage system not supported [id number] Can be viewed in source systemMissing Attachment - attachment storage system not supported 5769026 Can be viewed in source systemMissing Attachment - attachment storage system not supported [id number] Can be viewed in source systemMissing Attachment - attachment storage system not supported 2964255 Can be viewed in source systemMissing Attachment - attachment storage system not supported 6913566 Can be viewed in sourcesystemMissing Attachment - attachment storage system not supported 2047578 Can be viewed in source systemMissing Attachment - attachment storage system not supported [id number] Can be viewed in source [phone] NoteProgress Note-Physician Patient: JUANIS ALVAREZ Age: 39 years Sex: Female : 1985 Associated Diagnoses: None Author: Randolph Magallon MD Preoperative Information Anesthesia Preop Info: Time patient last ate or drank 09/29/2024 00:00:00. Anesthesia history: Patient history: None. Family history+: None. Informed consent: Signed by patient. Re-evaluation prior to induction: Initial evaluation reviewed: No significant change. Review of Systems Eye Ear/Nose/Mouth/Throat Respiratory: No shortness of breath, No cough. Cardiovascular: Negative. Gastrointestinal: Heartburn. Musculoskeletal Neurologic Health Status Allergies: Allergic Reactions (Selected) Severity Not Documented Chlorhexidine topical- Blister and peeling skin. Codeine- Intolerance. Vicodin- Intolerance., Allergies (3) Active Severity Reaction codeine Intolerance Vicodin Intolerance chlorhexidine topical Blister, Peeling skin Current medications: (Selected) Inpatient Medications Ordered Sodium Chloride 0.9% IV Florinda 1000 mL 1,000 mL: 1,000 mL, IV, 20 mL/hr, Routine, Start date 09/29/24 6:39:00 EST, 50 hour(s), Total volume (mL): 1,000, 90.6 kg, 2.02, m2 Prescriptions Prescribed Nexium 40 mg Cap-EC: 40 mg = 1 cap(s), Oral, BID, # 90 cap(s), Refills(s) 6, Pharmacy: [facility]/pharmacy#[id number], 162, cm, 08/17/23 10:45:00 EST, Height/Length Dosing, 119, kg, 08/17/23 10:45:00 EST, WeightDosing Documented Medications Documented Zepbound 2.5 mg/0.5 mL subcutaneous solution: INJECT 2.5 MG SUBCUTANEOUSLY ONE TIME PER WEEK Zyrtec: 10 mg, Oral, Daily, Refills(s) 0, Allergy symptoms cyproheptadine: 4 mg, Oral, Daily, Refills(s) 0, Allergy symptoms, Home Medications (4) Active cyproheptadine 4 mg, Oral, Daily Nexium 40 mg Cap-EC 40 mg = 1 cap(s), Oral, BID Zepbound 2.5 mg/0.5 mL subcutaneous solution Zyrtec 10 mg, Oral, Daily , Medications (1) Active Scheduled: (0) Continuous: (1) Sodium Chloride 0.9% 1,000 mL 1,000 mL, IV, 20 mL/hr PRN: (0) Problem list: All Problems Entrapment of left ulnar nerve at elbow / SNOMED CT 7839264679 / Confirmed Epigastric pain / SNOMED CT 648694304 / Confirmed Family history of colon cancer / SNOMED CT 164358008 / Confirmed Hiatal hernia with GERD / SNOMED CT 7385654327 / Confirmed Nausea / SNOMED CT 7567916346 / Confirmed Schatzki's ring / SNOMED CT 553846100 / Confirmed Resolved: Acid reflux / SNOMED CT 9447920073 Resolved: Depression / SNOMED CT 104601616, Active Problems (6) Entrapment of left ulnar nerve at elbow Epigastric pain Family history of colon cancer Hiatal hernia with GERD Nausea Schatzki's ring Histories Past Medical History: Resolved Acid reflux (6272850968): Resolved. Depression (503550882): Resolved. Family History: Primary malignant neoplasm of colon Grandparent Esophageal cancer Father Pancreatic cancer Mother Procedure history: Esophagogastroduodenoscopy (211487729) on 10/05/2023 at 38 Years. Right shoulder (127817959) on 07/17/2023 at 38 Years. Tubal ligation (384653805). section (17554316). Dilation and curettage (55893694). Colonoscopy (143116344). Bunionectomy (75360284). Tonsillectomy (605746873). EGD (esophagogastroduodenoscopy) gastric outlet reduction (7063570091). Social History Social & Psychosocial Habits Alcohol 09/21/2024 Risk Assessment: Denies Alcohol Use Comment: Pt denies - 04/13/2018 19:Kika Contreras RN Substance Abuse 09/21/2024 Risk Assessment: Denies Substance Abuse Comment: Patient denies - 04/13/2018 19:Kika Contreras RN Tobacco 09/21/2024 Risk Assessment: Denies Tobacco Use 09/21/2024 Tobacco Use: Never (less than 100 in l Comment: Patient denies - 04/13/2018 19:Kika Contreras RN 09/21/2024 Tobacco Use: Never (less than 100 in l Smokeless tobacco use: Never . Physical Examination Vital Signs 09/29/2024 8:13 EST Temperature Temporal Artery 36.8 DegC Heart Rate Monitored 101 bpm HI Respiratory Rate Monitored 18 br/min Systolic Blood Pressure 133 mmHg Diastolic Blood Pressure 89 mmHg Blood Pressure Location Left arm SpO2 99 % Vital Signs (last 24 hrs) Last Charted Temp Temporal 36.8 DegC (SEP 29 08:13) Heart Rate Monitored H 101 bpm (SEP 29 08:13) Resp Rate 18 br/min (SEP 29 08:13) SBP 133 mmHg (SEP 29 08:13) DBP 89 mmHg (SEP 29 08:13) Weight 90.6 kg (SEP 29 08:13) BMI 34.52 (SEP 29 08:13) Measurements from flowsheet : Measurements 09/29/2024 8:13 EST Height/Length Measured 162 cm Height/Length Dosing 162.0 cm Weight Dosing 90.6 kg BSA Measured 2.02 m2 Body Mass Index Measured 34.52 kg/m2 Weight Measured 90.6 kg Airway: Mallampati classification: II (soft palate, fauces, uvula visible). Respiratory: Lungs are clear to auscultation, Respirations are non-labored, adequate air exchange. Cardiovascular: Regular rhythm, No murmur. Review / Ma (more content not included)...[facility] HospitalComment on above:Result Comment: Electronically Signed By: Dominguez PACHECO, Randolph Fernando\.br\Date and Time Signed: 09/29/24 08:51 [id number] NoteHistory and Physical Patient: JUANIS ALVAREZ Age: 39 years Sex: Female : 1985 Associated Diagnoses: None Author: Guerline PACHECO, Reji Burdick Preoperative Information Indication for procedure and diagnosis: dysphagia Chief Complaint as above Review of Systems All systems reviewed, negative except as mentioned above Health Status Current medications: (Selected) Inpatient Medications Ordered Sodium Chloride 0.9% IV Florinda 1000 mL 1,000 mL: 1,000 mL, IV, 20 mL/hr, Routine, Start date 09/29/24 6:39:00 EST, 50 hour(s), Total volume (mL): 1,000, 90.6 kg, 2.02, m2 Prescriptions Prescribed Nexium 40 mg Cap-EC: 40 mg = 1 cap(s), Oral, BID, # 90 cap(s), Refills(s) 6, Pharmacy: [facility]/pharmacy#[id number], 162, cm, 08/17/23 10:45:00 EST, Height/Length Dosing, 119, kg, 08/17/23 10:45:00 EST, WeightDosing Documented Medications Documented Zepbound 2.5 mg/0.5 mL subcutaneous solution: INJECT 2.5 MG SUBCUTANEOUSLY ONE TIME PER WEEK Zyrtec: 10 mg, Oral, Daily, Refills(s) 0, Allergy symptoms cyproheptadine: 4 mg, Oral, Daily, Refills(s) 0, Allergy symptoms, Home Medications (4) Active cyproheptadine 4 mg, Oral, Daily Nexium 40 mg Cap-EC 40 mg = 1 cap(s), Oral, BID Zepbound 2.5 mg/0.5 mL subcutaneous solution Zyrtec 10 mg, Oral, Daily Problem list: All Problems Epigastric pain / SNOMED CT 104702650 / Confirmed Nausea / SNOMED CT 9320921499 / Confirmed Entrapment of left ulnar nerve at elbow / SNOMED CT 3531433373 / Confirmed Hiatal hernia with GERD / SNOMED CT 5801793741 / Confirmed Family history of colon cancer / SNOMED CT 695457215 / Confirmed Schatzki's ring / SNOMED CT 114744585 / Confirmed Histories Past Medical History: Resolved Acid reflux (8609321415): Resolved. Depression (576474010): Resolved. Family History: Grandparent Primary malignant neoplasm of colon Father Esophageal cancer Mother Pancreatic cancer Procedure history: Esophagogastroduodenoscopy (003167670) on 10/05/2023 at 38 Years. Right shoulder (561355441) on 07/17/2023 at 38 Years. Tubal ligation (307090178). section (87616930). Dilation and curettage (55602261). Colonoscopy (440821232). Bunionectomy (93350911). Tonsillectomy (970632255). EGD (esophagogastroduodenoscopy) gastric outlet reduction (5314646066). Social History Social & Psychosocial Habits Alcohol 09/21/2024 Risk Assessment: Denies Alcohol Use Comment: Pt denies - 04/13/2018 19:Kika Contreras RN Substance Abuse 09/21/2024 Risk Assessment: Denies Substance Abuse Comment: Patient denies - 04/13/2018 19:Kika Contreras RN Tobacco 09/21/2024 Risk Assessment: Denies Tobacco Use 09/21/2024 Tobacco Use: Never (less than 100 in l Comment: Patient denies - 04/13/2018 19:Kika Contreras RN 09/21/2024 Tobacco Use: Never (less than 100 in l Smokeless tobacco use: Never . Physical Examination Vital Signs (last 24 hrs) Last Charted Temp Temporal 36.8 DegC (SEP 29 08:13) Heart Rate Monitored H 101 bpm (SEP 29 08:13) Resp Rate 18 br/min (SEP 29 08:13) SBP 133 mmHg (SEP 29 08:13) DBP 89 mmHg (SEP 29 08:13) Weight 90.6 kg (SEP 29 08:13) BMI 34.52 (SEP 29 08:13) General: in Nad Abdomen: Soft, NTND Impression and Plan Impression: dysphagia Plan: -EGD with dilation, discussed all possible risks and benefitsCleveland Clinic Mercy HospitalComment on above:Result Comment: Electronically Signed By: Guerline PACHECO, Reji Burdick\.br\Date and Time Signed: 09/29/24 08:48 [id number] History of Present illness Narrative* Carlos Manuel Mittal NP - 09/09/2024 12:20 PM EST Images from the original note were not included. Juanis Alvarez is a 39 y.o. female presents with chief complaint of Follow-up and Immunizations (Declines at this time) HPI: History of Present Illness The patient is a 39-year-old female who presents today for a follow-up visit. She reports experiencing a stressful month, which has led to deviations from her usual dietary and exercise routines. She expresses a desire to increase her medication dosage but is uncertain about the availability of the 12.5 mg dose at her pharmacy. She anticipates the need for prior authorization for this increased dosage. She also requests a refill of her current 10 mg dose as a contingency plan in case the 12.5 mg dose is not obtainable. She reports that her current Zoloft regimen is effective during non-stressful periods. However, sheexperiences immediate panic responses, characterized by heart palpitations, sweating, and panting, in response to stressful situations. These symptoms occur spontaneously without any preceding thoughts. She is uncertain about the necessity of increasing her Zoloft dosage to 100 mg. She does not believe she requires counseling at this time and reports no suicidal ideation. She reports intermittent episodes of altered hearing in her right ear, described as a sensation similar to microphone feedback. She does not perceive any decrease in hearing acuity. She has been using Flonase inconsistently, primarily during periods of unusual weather conditions. MEDICATIONS Current: Zoloft, Flonase MEDICATIONS: Current Outpatient Medications Medication Instructions cetirizine (ZyrTEC) 10 MG tablet Take by mouth cyproheptadine (Periactin) 4 MG tablet TAKE 1 TABLET BY MOUTH NEEDED AT BEDTIME FOR ALLERGIES ORRHINITIS (HEADACHES) esomeprazole (NEXIUM) 40 mg, Daily before breakfast fluticasone (Flonase) 50 MCG/ACT nasal spray SPRAY 1 SPRAY INTO EACH NOSTRIL TWICE A DAY FOR 14 DAYS sertraline (ZOLOFT) 100 mg, Oral, Daily tiZANidine (ZANAFLEX) 4 mg, Oral, Every 8 hours PRN Zepbound 12.5 mg, Subcutaneous, Weekly ALLERGIES: Allergies Allergen Reactions Chlorhexidine Codeine Other Reaction(s): feels werid Hydrocodone Other Reaction(s): feels werid Hydrocodone-Acetaminophen Nausea And Vomiting and GI intolerance vomiting Review of Systems Medical, Surgical, Family, and Social History reviewed. General: Denies fever, chills, fatigue, CRUMP or weight loss/gain CV: Denies CP, palpitations or swelling in legs Resp: denies cough, SOB or wheezing GI: Denies abd pain/n/v/c/d Skin: Denies rash Neuro: Denies LH or dizziness OBJECTIVE: Visit Vitals BP 120/64 (BP Location: Left arm, Patient Position: Sitting, BP Cuff Size: Adult) Pulse 99 Temp 98.4 F (Temporal) Ht 5' 4 Wt 200 lb 9.6 oz LMP 08/08/2024 SpO2 99% BMI 34.43 kg/m OB Status Having periods Smoking Status Never BSA 2.03 m BP Readings from Last 3 Encounters: 09/09/24 120/64 08/09/24 130/62 07/21/24 110/74 Wt Readings from Last 3 Encounters: 09/09/24 200 lb 9.6 oz 08/09/24 201 lb 9.6 oz 07/21/24 210 lb Physical Exam Physical Exam General: alert & oriented, NAD Head: NC/AT Oral Cavity: MMM Skin: warm, dry Heart: RRR, No m/r/g, S1S2 nml Lungs: CTA b/l Musculoskeletal: normal gait Extremities: no clubbing, cyanosis or edema Neurological: nonfocal Psych: mood/affect full range Right ear appears normal. Vital Signs Weight is 200. Results ASSESSMENT AND PLAN: Assessment & Plan 1. Weight management. Her weight has remained stable at 200 pounds. A prescription for Mounjaro 12.5 mg has been issued to her pharmacy, [facility] in [place]. She is advised to inform us if she encounters any difficulties in obtaining the medication, so a prescription for Mounjaro 10 mg can be provided as an alternative. 2. Anxiety. The dosage of Zoloft will be increased to 100 mg. She has been informed that if she experiences anythoughts of self-harm, she should immediately discontinue the medication and seek medical attention. 3. Right ear discomfort. She is advised to use Flonase consistently to alleviate her symptoms. Follow-up The patient will follow up in 30 days. Assessment/Plan Diagnoses and all orders for this visit: Major depressive disorder, single episode, moderate (HCC) (CMS/HCC) - sertraline (Zoloft) 100 MG tablet; Take 1 tablet (100 mg) by mouth Daily BMI 34.0-34.9,adult - Tirzepatide-Weight Management (Zepbound) 12.5 MG/0.5ML solution auto-injector; Inject 12.5 mg under the skin 1 (one) time per week for 28 days Anxiety Sensation of fullness in right ear Health Maintenance Due Topic Date Due Influenza Vaccine (1) 04/03/2024 Mammogram Never done documented in this encounterNOSt. Louis Behavioral Medicine [id number] Telephone encounter Note* Telephone Encounter - Jeaneth Rodriguez - 09/01/2024 11:43 AM EST 09/01/24- Per Adam @ [employer] [phone]- Euflexxa is ready to ship - LMOM for pt to call [employer] @[phone] to approve shipment of med to our office. NOMS [id number] Miscellaneous Notes* Telephone Encounter - Jeaneth Rodriguez - 09/01/2024 11:43 AM EST 09/01/24- Per Adam @ [employer] [phone]- Euflexxa is ready to ship - LMOM for pt to call [employer] @[phone] to approve shipment of med to our office. documented in this encounterAudrain Medical [id number] History of Present illness Narrative* Carlos Manuel Mittal NP - 08/09/2024 10:20 AM EST Images from the original note were not included. Juanis Alvarez is a 39 y.o. female presents with chief complaint of Follow-up, Med Refill, and Immunizations (Declines at this time) HPI: History of Present Illness The patient is a 39-year-old female who comes in today for follow-up on new medication, Zoloft, which was prescribed during her last visit. She reports no discernible effects from the Zoloft, maintaining that her condition remains unchanged. She has not experienced any adverse reactions to the medication. She does not endorse any suicidal ideation. She has achieved a weight loss of 9 pounds, bringing her current weight to 201 pounds. She reports feeling well overall. She has been incorporating protein shakes into her diet and increasing her intake of chicken and deer meat. She has also started taking collagen supplements daily. Her goal weight is 170 pounds. She initiated her weight loss journey in January 2023 under the guidance of Dr. Peacock, at which time she weighed 277 pounds. She has been on a 10 mg dose of an unspecified medication but expresses a preference to reduce the dosage to 7.5 mg. She anticipates needing a prior authorization for this change as her insurance only approved the current dosage until the following month. She reports a persistent sensation of fullness in her right ear. She has been using Flonase as partof her treatment regimen. She does not have any remaining eardrops at home. Supplemental Information She has a lifelong history of brittle nails. MEDICATIONS Current: Zoloft, Flonase MEDICATIONS: Current Outpatient Medications Medication Instructions cetirizine (ZyrTEC) 10 MG tablet Take by mouth cyproheptadine (PERIACTIN) 4 mg, Oral, Nightly PRN esomeprazole (NEXIUM) 40 mg, Daily before breakfast fluticasone (Flonase) 50 MCG/ACT nasal spray SPRAY 1 SPRAY INTO EACH NOSTRIL TWICE A DAY FOR 14 DAYS ofloxacin (Floxin) 0.3 % otic solution 10 drops, Otic, Daily sertraline (ZOLOFT) 50 mg, Oral, Daily tiZANidine (ZANAFLEX) 4 mg, Oral, Every 8 hours PRN Zepbound 10 mg, Subcutaneous, Weekly ALLERGIES: Allergies Allergen Reactions Chlorhexidine Codeine Other Reaction(s): feels werid Hydrocodone Other Reaction(s): feels werid Hydrocodone-Acetaminophen Nausea And Vomiting and GI intolerance vomiting Review of Systems Medical, Surgical, Family, and Social History reviewed. General: Denies fever, chills, fatigue, CRUMP or weight loss/gain CV: Denies CP, palpitations or swelling in legs Resp: denies cough, SOB or wheezing GI: Denies abd pain/n/v/c/d Skin: Denies rash Neuro: Denies LH or dizziness OBJECTIVE: Visit Vitals BP 130/62 (BP Location: Left arm, Patient Position: Sitting, BP Cuff Size: Adult) Pulse 100 Temp 98.6 F (Temporal) Ht 5' 4 Wt 201 lb 9.6 oz SpO2 99% BMI 34.60 kg/m OB Status Having periods Smoking Status Never BSA 2.03 m BP Readings from Last 3 Encounters: 08/09/24 130/62 07/21/24 110/74 07/05/24 120/62 Wt Readings from Last 3 Encounters: 08/09/24 201 lb 9.6 oz 07/21/24 210 lb 07/05/24 211 lb 3.2 oz Physical Exam Physical Exam General: alert & oriented, NAD Head: NC/AT Oral Cavity: MMM Skin: warm, dry Heart: RRR, No m/r/g, S1S2 nml Lungs: CTA b/l Abdomen: soft, ND/NT, BS wnl Musculoskeletal: normal gait Extremities: no clubbing, cyanosis or edema Neurological: nonfocal Psych: mood/affect full range Right ear- canal is red. The right ear appears slightly red, but no fluid is observed behind it. Lungs are clear. Vital Signs BMI is 34. Weight is 200 pounds. Results ASSESSMENT AND PLAN: Assessment & Plan 1. Depression. She reports no improvement with the current dose of Zoloft. The dosage of Zoloft will be increased to 50 mg. She reports no side effects from the current dose. 2. Weight management. She has successfully lost 9 pounds, bringing her current weight to 201 pounds. Her BMI is . She has been consuming protein shakes and lean meats such as chicken and deer. She has also been taking collagen supplements. She is advised to continue her current dietary regimen and to incorporate portion control into her meals. A prescription for a 60-day supply of her current medication will be provided. The plan is to maintain her on the 10 mg dosage for an additional 2 months, after which a gradual reduction to 7.5 mg will be implemented. She is encouraged to continue her weight lossefforts, with a target weight of 170 pounds. 3. Right ear infection. She reports a sensation of fullness in her right ear. Examination reveals no fluid but some redness, indicating an external infection. A prescription for eardrops, to be administered as 10 drops oncedaily for 7 days, will be provided. Follow-up The patient will follow up in 1 month. Assessment/Plan Diagnoses and all orders for this visit: Chronic bacterial otitis externa of right ear - ofloxacin (Floxin) 0.3 % otic solution; Administer 10 drops into affected ear(s) Daily for 7 days BMI 34.0-34.9,adult - Tirzepatide-Weight Management (Zepbound) 10 MG/0.5ML solution auto-injector; Inject 10 mg under the skin 1 (one) time per week for 28 days Mood swings - sertraline (Zoloft) 50 MG tablet; Take 1 tablet (50 mg) by mouth Daily Anxiety - sertraline (Zoloft) 50 MG tablet; Take 1 tablet (50 mg) by mouth Daily Morbid obesity (CMS/HCC) - Tirzepatide-Weight Management (Zepbound) 10 MG/0.5ML solution auto-injector; Inject 10 mg under the skin 1 (one) time per week for 28 days BMI 36.0-36.9,adult Health Maintenance Due Topic Date Due Influenza Vaccine (1) 04/03/2024 Mammogram Never done documented in this encounterAudrain Medical [id number] History of Present illness Narrative* Lanny Berry NP - 07/21/2024 3:40 PM EST Images from the original note were not included. Juanis Alvarez is a 39 y.o. female presents with chief complaint of Breast Cancer Screening (Ordered by OB. ) and Earache HPI: History of Present Illness The patient is a 39-year-old female who presents today with complaints of continued right ear pain. She was previously diagnosed with an ear infection and prescribed Augmentin, which she has since completed. Despite this, she continues to experience symptoms of fullness and intermittent stabbing sensations in her right ear. The severity of the pain fluctuates, with a notable increase in discomfort yesterday, although it has since improved. She reports no febrile episodes. Additionally, she reports persistent anterior and postnasal drainage, which she describes as severe. She also experiences headaches. She has previously tried Singulair but does not recall its efficacy. She has also attempted treatment with Sudafed. SUBJECTIVE: ALLERGIES: Allergies Allergen Reactions Chlorhexidine Codeine Other Reaction(s): feels werid Hydrocodone Other Reaction(s): feels werid Hydrocodone-Acetaminophen Nausea And Vomiting and GI intolerance vomiting MEDICATIONS: Current Outpatient Medications Medication Instructions cetirizine (ZyrTEC) 10 MG tablet Take by mouth cyproheptadine (PERIACTIN) 4 mg, Oral, Nightly PRN esomeprazole (NEXIUM) 40 mg, Daily before breakfast fluticasone (Flonase) 50 MCG/ACT nasal spray SPRAY 1 SPRAY INTO EACH NOSTRIL TWICE A DAY FOR 14 DAYS sertraline (ZOLOFT) 25 mg, Oral, Daily tiZANidine (ZANAFLEX) 4 mg, Oral, Every 8 hours PRN Zepbound 10 mg, Subcutaneous, Weekly REVIEW OF SYMPTOMS: Constitutional: Denies fever or chills, anorexia. EENT: See HPI. Respiratory: Denies cough, wheezing or difficulty breathing. Neurologic: Denies weakness, numbness or tingling. See HPI. OBJECTIVE: Visit Vitals BP 110/74 (BP Location: Left arm, Patient Position: Sitting, BP Cuff Size: Large adult) Pulse 96 Temp 98.4 F (Temporal) Ht 5' 4 Wt 210 lb SpO2 99% BMI 36.05 kg/m OB Status Having periods Smoking Status Never BSA 2.07 m BP Readings from Last 3 Encounters: 07/21/24 110/74 07/05/24 120/62 06/03/24 128/84 Wt Readings from Last 3 Encounters: 07/21/24 210 lb 07/05/24 211 lb 3.2 oz 06/16/24 219 lb General: Well developed, well nourished, in no acute distress sitting upright in chair. Head: Normocephalic/atraumatic. Eyes: No conjunctival irritation. Ears: Grossly normal hearing. Bilateral Tms clear and intact, no erythema. Nose: No discharge. Mouth: MMM, talkative. No erythema, edema or exudate. Neck: Supple. Chest: No distress. Lungs: Normal respiratory effort and clear to auscultation. No rhonchi or wheeze. Cardio: RRR, without murmur. Musculoskeletal: Steady gait. Neurologic: Grossly normal. Skin: Skin is warm and dry. Lymph Nodes: No cervical adenopathy, nodes normal. Mental Status: Alert and cooperative. Results No results found for: HGBA1C Lab Results Component Value Date CREATININE 0.8 01/05/2024 ASSESSMENT AND PLAN: Assessment & Plan 1. Otalgia. She reports continued ear pain with fullness and occasional stabbing sensations despite completing a course of Augmentin. No additional antibiotics are deemed necessary at this time. A prescription for cyproheptadine 4 mg tablets has been issued, with instructions to halve the tablets and take 2 mgas needed at bedtime to manage symptoms without causing daytime grogginess. She is advised to mainta in her current regimen of Flonase and Zyrtec, and to ensure adequate hydration. If symptoms persist, she should inform the clinic. 2. Sinusitis. She reports significant postnasal drainage and headaches. Cyproheptadine 2 to 4 mg as needed at bedtime is recommended to help alleviate sinus pressure and headaches. Continued use of saline sinus irrigation kits, Flonase, and Zyrtec is advised. If symptoms persist, she should inform the clinic. Assessment/Plan Diagnoses and all orders for this visit: Non-recurrent acute serous otitis media of right ear Resolved. Sensation of fullness in right ear Continues flonase. Frontal headache - cyproheptadine (Periactin) 4 MG tablet; Take 1 tablet (4 mg) by mouth as needed at bedtime for allergies or rhinitis (Headaches) PND (post-nasal drip) - cyproheptadine (Periactin) 4 MG tablet; Take 1 tablet (4 mg) by mouth as needed at bedtime for allergies or rhinitis (Headaches) BMI 36.0-36.9,adult Routine physical exercise and a healthy diet to promote weight reduction and improve overall healthencouraged. Morbid obesity (CMS/HCC) See above. Achieving an optimal weight is imperative to improving overall health. Please Note: Portions of this chart may have been created using voice recognition software. Occasional wrong-word or sound-like substitutions may have occurred due to inherent limitations of the voice recognition software. Please read the chart carefully and recognize, using context, where the sub stitutions have occurred. documented in this encounterAudrain Medical [id number] History of Present illness Narrative* Carlos Manuel Mittal NP - 07/05/2024 3:20 PM EST Images from the original note were not included. Juanis Alvarez is a 39 y.o. female presents with chief complaint of Sinusitis, Med Refill (X1 weekpressure in head, RT ear muffled and sinus draining down throat), and Immunizations (Declines at this time) HPI: History of Present Illness The patient is a 39-year-old female who comes in today for a weight recheck and medication refill. She reports a significant decrease in appetite, which she attributes to her current medication. Shehas been unable to find the 5 mg dosage of her medication and has been taking the 10 mg dosage instead. She has also increased her protein intake and started taking a collagen supplement with biotin to address hair loss. She has three injections left from her current prescription. Three weeks ago, she experienced a cold, which has since resolved, but she continues to experience sinus pressure. She reports a sensation of fullness in her right ear, which was more bothersome in the first week but is now less painful. She experiences sinus pressure in the frontal region upon waking up in the morning. She has a cough, which she believes is due to postnasal drip. She reports no dental pain. She was previously on Zoloft for two weeks but discontinued it due to concerns about potential interactions with her cold medication. She reports experiencing panic attacks in certain situations, such as when someone knocks on her door, causing her to feel an immediate urge to flee and a racing heart. She does not endorse any thoughts of self-harm. MEDICATIONS: Current Outpatient Medications Medication Instructions cetirizine (ZyrTEC) 10 MG tablet Take by mouth esomeprazole (NEXIUM) 40 mg, Daily before breakfast fluticasone (Flonase) 50 MCG/ACT nasal spray SPRAY 1 SPRAY INTO EACH NOSTRIL TWICE A DAY FOR 14 DAYS meloxicam (MOBIC) 15 mg, Oral, Daily sertraline (ZOLOFT) 25 mg, Oral, Daily tiZANidine (ZANAFLEX) 4 mg, Oral, Every 8 hours PRN Zepbound 10 mg, Subcutaneous, Weekly ALLERGIES: Allergies Allergen Reactions Chlorhexidine Codeine Other Reaction(s): feels werid Hydrocodone Other Reaction(s): feels werid Hydrocodone-Acetaminophen Nausea And Vomiting and GI intolerance vomiting Review of Systems HENT: Positive for postnasal drip, sinus pressure and sinus pain. Negative for ear pain. General: Denies fever, chills, fatigue, CRUMP or weight loss/gain CV: Denies CP, palpitations or swelling in legs Resp: denies cough, SOB or wheezing GI: Denies abd pain/n/v/c/d Skin: Denies rash Neuro: Denies LH or dizziness Medical, Surgical, Family, and Social History reviewed. OBJECTIVE: Visit Vitals BP 120/62 (BP Location: Right arm, Patient Position: Sitting, BP Cuff Size: Adult) Pulse 104 Temp 98.4 F (Temporal) Ht 5' 4 Wt 211 lb 3.2 oz SpO2 99% BMI 36.25 kg/m OB Status Having periods Smoking Status Never BSA 2.08 m BP Readings from Last 3 Encounters: 07/05/24 120/62 06/03/24 128/84 05/20/24 128/89 Wt Readings from Last 3 Encounters: 07/05/24 211 lb 3.2 oz 06/16/24 219 lb 06/03/24 219 lb 12.8 oz Physical Exam Physical Exam Right ear appears red. Lungs sound good. Vital Signs Weight is 211. General: alert & oriented, NAD Head: NC/AT Oral Cavity: MMM Skin: warm, dry Heart: RRR, No m/r/g, S1S2 nml Lungs: CTA b/l Abdomen: soft, ND/NT, BS wnl Musculoskeletal: normal gait Extremities: no clubbing, cyanosis or edema Neurological: nonfocal Psych: mood/affect full range Right ear- tm red Results ASSESSMENT AND PLAN: Assessment & Plan 1. Weight management. Her weight has decreased from 219 lbs on 06/16/2024 to 211 lbs today. She reports difficulty finding 5 mg doses of her medication and has been taking 10 mg instead, with no adverse effects. A prescription for 10 mg of her current medication will be sent to [facility]. She has increased her protein intake to prevent hair loss and is taking a collagen supplement with biotin. 2. Right ear infection. She reports sinus pressure and fullness in the right ear following a cold three weeks ago. Examination reveals redness in the right ear, indicating an ear infection. Augmentin will be prescribed, to be taken twice daily for 10 days. She is advised to avoid getting water in her ear and to refrain from swimming. 3. Anxiety. She discontinued Zoloft due to concerns about interactions with cold medicine but is advised to resume her Zoloft 25 mg regimen. A refill for Zoloft 25 mg will be provided. She is informed that it will take 3 to 4 weeks for the medication to take effect and is reassured that it is safe to take withthe antibiotic. Follow-up Return in 2 weeks for follow up. Assessment/Plan Diagnoses and all orders for this visit: BMI 36.0-36.9,adult - Tirzepatide-Weight Management (Zepbound) 10 MG/0.5ML solution auto-injector; Inject 10 mg under the skin 1 (one) time per week for 28 days Morbid obesity (CMS/HCC) - Tirzepatide-Weight Management (Zepbound) 10 MG/0.5ML solution auto-injector; Inject 10 mg under the skin 1 (one) time per week for 28 days Sensation of fullness in right ear Sinus pressure - amoxicillin-clavulanate (Augmentin) 875-125 MG tablet; Take 1 tablet (875 mg) by mouth in the morning and 1 tablet (875 mg) before bedtime. Do all this for 10 days. Acute recurrent frontal sinusitis - amoxicillin-clavulanate (Augmentin) 875-125 MG tablet; Take 1 tablet (875 mg) by mouth in the morning and 1 tablet (875 mg) before bedtime. Do all this for 10 days. Non-recurrent acute serous otitis media of right ear - amoxicillin-clavulanate (Augmentin) 875-125 MG tablet; Take 1 tablet (875 mg) by mouth in the morning and 1 tablet (875 mg) before bedtime. Do all this for 10 days. Health Maintenance Due Topic Date Due Influenza Vaccine (1) 04/03/2024 Mammogram 2024 documented in this encounterAudrain Medical [id number] History of Present illness Narrative* Jessica Story, PT - 07/04/2024 3:30 PM EST Physical Therapy Treatment Visit Patient Name: Juanis Alvarez Today's Date: 07/04/2024 Encounter Diagnoses Name Primary? Spinal stenosis of cervical region Yes Cervicalgia Visit number: 4 Timed Code Treatment: 38 minutes Total Treatment Time: 48 minutes Time In: 3:30 PM Time Out: 4:24 PM History: Pt states she has been having neck pain for a few years. Lately pain has become more constant. X-rays showed stenosis in neck; MRI is planned for this Thursday. Pt states pain is mostly in neck but having pain in both shoulders. Was having numbness and tingling in right UE. Had EMG but therewere no significant findings. Pt states she took 5 days of steroids a few weeks ago without relief.Also tried muscle relaxer without much relief. Pt states numbness in left 4th and 5th digits comes and goes; usually present about 1/[address] work shift. Pt states she has been to chiro multipletimes, only getting short term relief. Precautions: [place]. Subjective: Pt states still doing well; has not been to work since last Thursday. Pt does have to return to work tomorrow and worried sx's will return. Will see PCP this week and find out plan for neurology consult. Pain: 0/10 Objective: PT Evaluation (06/20/2024) CERVICAL AROM: 30 degrees flexion with pulling right UT, 35 degrees extensions with increase right sided neck pain, 30 degrees right SB without ERP, 25 degrees left SB with increase right neck pain, 46 degrees right rotation, 52 degrees left rotation Joint play: MMT: right lower trap 3-/5, middle trap 3/5; left lower trap 4-/5, middle trap 4/5 Occupational Ther strength: right 60 psi with fatigue to 50 psi after 5 seconds, left 57 psi with fatigue to 40 psi after 5 seconds Palpation: moderate to severe tenderness right UT and LS Special Test: negative cervical compression, ipsilateral neck pain noted with bilateral Spurling's Neurological: Reflexes: not tested Myotomes: negative bilateral Dermatomes: degrees right C7 Special test: negative TOS testing Treatment: Manual Therapy: (10 minutes) delivered manual ther to c-spine cervical distraction. STM and manual stretching UT's to improve mobility and decrease pain Therapeutic Exercise: (28 minutes supervised) Progressed exercises this date to increase postural strength and stability. Therapeutic Activity: Exercises to improve dynamic activities, functional tasks, functional mobility to return to prior activity level as needed. Neuromuscular re-education: Balance Training, Muscle Facilitation, Dynamic Stability, Core Stabilization, and Blood Flow Restriction Training (BFRT) as needed. Modalities: (10 minutes )Post session pt seated IFC to cervical to reduce pain and inflammation Assessment: Pt has completed 4 PT sessions for neck pain. Progressed postural strengthening exercises this date, as well as spinal stabilization exercises. Pt issued pictures for progress of HEP withgood understanding. Will continue to progress as pt tolerates. Outcome Measure: Neck Disability Index (NDI): 15/50 Rehab Diagnosis: neck and weakness Short Term Goal: To be met in 2 weeks Goal 1: Pt to be instructed in home exercise program. Fpc Goals: To be met in 10 weeks Goal 1: Pt to report independence and compliance with home program. Goal 2: Pt to achieve 60 degrees of bilateral cervical rotation to assist with driving and ADL's. Goal 3: Pt to report pain no greater than 2/10 in cervical region with functional mobility and ADL's. Goal 4: Pt to achieve 4/5 strength bilateral lower and middle traps to assist with mobility. Goal 5: Pt to score no greater than 5/50 on NDI indicating improved QOL. Pt will benefit from skilled PT for 2-3x/week from 06/20/2024 to 08/29/2024 to address the above impairments. I hereby deem this POC medically necessary. Please sign below. Date: documented in this encounterAudrain Medical [id number] History of Present illness Narrative* Jessica Story, PT - 06/20/2024 4:30 PM EST Physical Therapy Evaluation Visit Patient Name: Juanis Alvarez Today's Date: 06/20/2024 Encounter Diagnoses Name Primary? Cervicalgia Yes Spinal stenosis of cervical region Visit number: 1 Timed Code Treatment Minutes: 56 minutes Total Treatment Time: 56 minutes Time In: 1630 Time Out: 1730 History: Pt states she has been having neck pain for a few years. Lately pain has become more constant. X-rays showed stenosis in neck; MRI is planned for this Thursday. Pt states pain is mostly in neck but having pain in both shoulders. Was having numbness and tingling in right UE. Had EMG but therewere no significant findings. Pt states she took 5 days of steroids a few weeks ago without relief.Also tried muscle relaxer without much relief. Pt states numbness in left 4th and 5th digits comes and goes; usually present about 1/[address] way through work shift. Pt states she has been to chiro multipletimes, only getting short term relief. Precautions: [place]. Subjective: back of neck and bilateral shoulders only 1/10 due to not working today Pain: 8/10 on work days. Objective: PT Evaluation (06/20/2024) CERVICAL AROM: 30 degrees flexion with pulling right UT, 35 degrees extensions with increase right sided neck pain, 30 degrees right SB without ERP, 25 degrees left SB with increase right neck pain, 46 degrees right rotation, 52 degrees left rotation Joint play: MMT: right lower trap 3-/5, middle trap 3/5; left lower trap 4-/5, middle trap 4/5 Occupational Ther strength: right 60 psi with fatigue to 50 psi after 5 seconds, left 57 psi with fatigue to 40 psi after 5 seconds Palpation: moderate to severe tenderness right UT and LS Special Test: negative cervical compression, ipsilateral neck pain noted with bilateral Spurling's Neurological: Reflexes: not tested Myotomes: negative bilateral Dermatomes: degrees right C7 Special test: negative TOS testing Treatment: Education: HEP education with demonstration, Educated on Eval Findings and POC Manual Therapy: (12 minutes) Passive ROM, Joint mobilization, Soft Tissue Mobilization, Myofascial Release, Muscle Energy Technique, Neural Mobilization, Myofascial Cupping, Dry Needling, IASTM, and Scar mobilization as needed. Manual c-spine distraction. STM and manual stretching UT's. Therapeutic Exercise: (12 minutes) Strength, Endurance, Flexibility, ROM, HEP, Neural Mobilization,Power, and Core Stability as needed. Pt performed and instructed in home program this date; writteninstructions and pictures issued with good pt understanding. Therapeutic Activity: Exercises to improve dynamic activities, functional tasks, functional mobility to return to prior activity level as needed. Neuromuscular re-education: Balance Training, Muscle Facilitation, Dynamic Stability, Core Stabilization, and Blood Flow Restriction Training (BFRT) as needed. Modalities: Heat, Ice, Electrical Stimulation, Ultrasound, Cervical Mechanical Traction, Lumbar Mechanical Traction, Iontophoresis, and Fluidotherapy as needed. Assessment: Pt is 39 y/o female with complaints of chronic neck pain. Increase muscle tone and tenderness noted right UT region. Decrease postural strength noted with MMT. Negative radicular sx's andTOS testing. Pt will benefit from PT. Outcome Measure: Neck Disability Index (NDI): 15/50 Rehab Diagnosis: neck and weakness Short Term Goal: To be met in 2 weeks Goal 1: Pt to be instructed in home exercise program. 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 Goal 2: Pt to achieve 60 degrees of bilateral cervical rotation to assist with driving and ADL's. Goal 3: Pt to report pain no greater than 2/10 in cervical region with functional mobility and ADL's. Goal 4: Pt to achieve 4/5 strength bilateral lower and middle traps to assist with mobility. Goal 5: Pt to score no greater than 5/50 on NDI indicating improved QOL. Pt will benefit from skilled PT for 2-3x/week from 06/20/2024 to 08/29/2024 to address the above impairments. I hereby deem this POC medically necessary. Please sign below. Date: documented in this encounterAudrain Medical [id number] Telephone encounter Note* Telephone Encounter - Lai Betancourt - 06/20/2024 3:42 PM EST PT called stated her Tirzepatide can't get filed the pharmacy's is out of it. They did let her knowthat they do have different strengths available. So she was wondering if her prescription could just be upped. [place] [id number] Miscellaneous Notes* Telephone Encounter - Lai Betancourt - 06/20/2024 3:42 PM EST PT called stated her Tirzepatide can't get filed the pharmacy's is out of it. They did let her knowthat they do have different strengths available. So she was wondering if her prescription could just be upped. documented in this encounterAudrain Medical [id number] Telephone encounter Note* Telephone Encounter - Emma Betancourt - 06/06/2024 9:19 AM EST No copay / visits based on med nec [place] [id number] Miscellaneous Notes* Telephone Encounter - Emma Betancourt - 06/06/2024 9:19 AM EST No copay / visits based on med nec documented in this encounterAudrain Medical [id number] History of Present illness Narrative* Carlos Manuel Mittal NP - 06/03/2024 3:20 PM EDT Images from the original note were not included. Juanis Alvarez is a 39 y.o. 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 She reports no side effects from her current medications. An MRI has been scheduled for 06/07/2024.She is currently taking Zanaflex once daily at bedtime but is uncertain of its effectiveness. She is unable to work due to her condition. She has previously undergone traction therapy and is interested in resuming it. She recently consulted with Dr. Archer, who does not specialize in spine conditions. He noted the presence of holes in her spine and suggested that stress and tension might be contributing to her symptoms. She reports no constipation or diarrhea. She is experiencing anxiety and cyclical thinking, which she describes as severe. She does not endorse any suicidal ideation. She has tried various treatments in the past but cannot recall which oneswere effective. She was on Zoloft for a year to manage depression but discontinued it after a year. She is concerned about potential weight gain from Zoloft. She also reports mood swings and a feeling of being trapped. She has previously taken Paxil and Effexor but found them ineffective. MEDICATIONS: Current Outpatient Medications Medication Instructions cetirizine (ZyrTEC) 10 MG tablet Take by mouth esomeprazole (NEXIUM) 40 mg, Daily before breakfast fluticasone (Flonase) 50 MCG/ACT nasal spray SPRAY 1 SPRAY INTO EACH NOSTRIL TWICE A DAY FOR 14 DAYS meloxicam (MOBIC) 15 mg, Oral, Daily tiZANidine (ZANAFLEX) 4 mg, Oral, Every 8 hours PRN Zepbound 7.5 mg, Subcutaneous, Weekly ALLERGIES: Allergies Allergen Reactions Chlorhexidine Codeine Other Reaction(s): feels werid Hydrocodone Other Reaction(s): feels werid Hydrocodone-Acetaminophen Nausea And Vomiting and GI intolerance vomiting Review of Systems Medical, Surgical, Family, and Social History reviewed. General: Denies fever, chills, fatigue, CRUMP or weight loss/gain CV: Denies CP, palpitations or swelling in legs Resp: denies cough, SOB or wheezing GI: Denies abd pain/n/v/c/d Skin: Denies rash Neuro: Denies LH or dizziness OBJECTIVE: Visit Vitals BP 128/84 (BP Location: Left arm, Patient Position: Sitting, BP Cuff Size: Large adult) Pulse 95 Temp 98.4 F (Temporal) Ht 5' 4 Wt 219 lb 12.8 oz LMP 05/10/2024 (Approximate) SpO2 99% BMI 37.73 kg/m OB Status Having periods Smoking Status Never BSA 2.12 m BP Readings from Last 3 Encounters: 06/03/24 128/84 05/20/24 128/89 03/04/24 124/86 Wt Readings from Last 3 Encounters: 06/03/24 219 lb 12.8 oz 06/02/24 223 lb 05/20/24 223 lb 9.6 oz Physical Exam Physical Exam General: alert & oriented, NAD Head: NC/AT Oral Cavity: MMM Skin: warm, dry Heart: RRR, No m/r/g, S1S2 nml Lungs: CTA b/l Abdomen: soft, ND/NT, BS wnl Musculoskeletal: normal gait Extremities: no clubbing, cyanosis or edema Neurological: nonfocal Psych: mood/affect full range Clear lung sounds. Normal heart sounds. Vital Signs Weight is 219. BMI is 37. Results ASSESSMENT AND PLAN: Assessment & Plan 1. Neck pain. Despite the prednisone burst, her neck pain persists. She reports that Zanaflex taken at night has not been effective. A referral for physical therapy has been made to [facility]. A Toradol injection willbe administered today for pain relief. 2. Anxiety. Sertraline (Zoloft) 25 mg will be initiated. She has been advised to engage in self-coping mechanisms such as solitary walks. A magnesium supplement of 350 to 400 mg has been recommended for bedtime use. She is instructed to discontinue the medication and seek emergency care if she experiences suicidal ideations. 3. Weight management. She has lost 4 pounds since the last visit on 2024, now weighing 219 pounds. The current dosage of 7.5 mg for weight management will be continued. She is advised to maintain healthy eating habits and monitor her weight loss. If a plateau is reached, the dosage may be increased. Follow-up Return in 1 month for follow up. Assessment/Plan Diagnoses and all orders for this visit: Spinal stenosis of cervical region - Ambulatory referral to Physical Therapy; Future Cervicalgia - Ambulatory referral to Physical Therapy; Future Morbid obesity (CMS/HCC) - Tirzepatide-Weight Management (Zepbound) 7.5 MG/0.5ML solution auto-injector; Inject 7.5 mg underthe skin 1 (one) time per week BMI 37.0-37.9, adult - Tirzepatide-Weight Management (Zepbound) 7.5 MG/0.5ML solution auto-injector; Inject 7.5 mg underthe skin 1 (one) time per week Anxiety - sertraline (Zoloft) 25 MG tablet; Take 1 tablet (25 mg) by mouth Daily Mood swings - sertraline (Zoloft) 25 MG tablet; Take 1 tablet (25 mg) by mouth Daily Health Maintenance Due Topic Date Due Influenza Vaccine (1) 04/03/2024 Mammogram 2024 documented in this encounterAudrain Medical [id number] History of Present illness Narrative* Lucy Danielle - 06/02/2024 3:30 PM EDT Images from the original note were not included. Juanis Alvarez is a 39 y.o. female presents with chief complaint of left arm pain, neck stiffness. HPI: Juanis is here to review the EMG of the arm which was performed through [facility] with Dr. Cuellar and was read as negative. There is no sign of cervical, brachial plexus or peripheral neuropathy. She is having neck pain and tension. She does see a chiropractor. She has done some physical therapy in the past. She has had some recent x-rays and her primary care Carlos Manuel Mittal has ordered an MRI of her neck and has that coming up in the future. She is having right knee pain andcrepitance. She has tried cortisone injections in the past. She is on Meloxicam. SUBJECTIVE: MEDICATIONS: Current Outpatient Medications Medication Instructions cetirizine (ZyrTEC) 10 MG tablet Take by mouth esomeprazole (NEXIUM) 40 mg, Daily before breakfast fluticasone (Flonase) 50 MCG/ACT nasal spray SPRAY 1 SPRAY INTO EACH NOSTRIL TWICE A DAY FOR 14 DAYS meloxicam (MOBIC) 15 mg, Oral, Daily sertraline (ZOLOFT) 25 mg, Oral, Daily tiZANidine (ZANAFLEX) 4 mg, Oral, Every 8 hours PRN Zepbound 7.5 mg, Subcutaneous, Weekly ALLERGIES: Allergies Allergen Reactions Chlorhexidine Codeine Other Reaction(s): feels werid Hydrocodone Other Reaction(s): feels werid Hydrocodone-Acetaminophen Nausea And Vomiting and GI intolerance vomiting SURGICAL HISTORY: Past Surgical History: Procedure Laterality Date BUNIONECTOMY Shai Bunionectomy; Bunion Left ( 2010) BUNIONECTOMY Bunionectomy; Bunion right (2008) SECTION, LOW TRANSVERSE 2008, 2011, 2015 COLONOSCOPY EGC (08/2017) LITHOTRIPSY 09/2017 NEUROMA SURGERY r/o Neuroma left foot (12/23/2017) SHOULDER ARTHROSCOPY W/ SUBACROMIAL DECOMPRESSION AND DISTAL CLAVICLE EXCISION Right 07/17/2023 MTP - TSCNCO TONSILLECTOMY 1987 TUBAL LIGATION Bilateral 2015 FAMILY HISTORY: Family History Problem Relation Name Age of Onset Solid Tumor Mother brain tumor Other cancer Mother gallbladder cancer Alcohol abuse Father Cirrhosis Father Skin cancer Father Other cancer Father oral cancer No Known Problems Son 3 sons SOCIAL HISTORY: Social History Tobacco Use Smoking status: Never Smokeless tobacco: Never Vaping Use Vaping status: Never Used Substance Use Topics Alcohol use: Never Comment: caffeine intake: 2-3 cups per day chocolate and soda Drug use: Never Depression: At risk (03/09/2024) Received from [employer] PHQ-2 Total Score: 6 REVIEW OF SYMPTOMS: The review of systems, history and current medications list are all reviewed today. OBJECTIVE: Visit Vitals Ht 5' 4 Wt 223 lb LMP 05/10/2024 (Approximate) BMI 38.28 kg/m OB Status Having periods Smoking Status Never BSA 2.14 m Physical Exam On physical exam, she is alert and oriented. Vital signs are stable. The right knee has a moderate amount of patellofemoral crepitus. Grind test is positive. Joint line exam is stable. Collateral ligaments are intact. Her left upper extremity neuropathy appears to have improved some. She still has some findings of cubital tunnel, but not as intense. She does have a moderate amount of paraspinal tightness of the neck, right worse than left. No midline tenderness. Spurling's is negative. X-rays, permanently saved to the patient's record, are reviewed, elbow x-rays two views shows no acute fracture, dislocation, tumor or infection seen. These are saved to the permanent record in the [place] office. 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 Rightknee patellofemoral osteoarthritis. The nature of the findings were discussed at length. She does have some x-rays and further imaging coming with her neck MRI through her primary and she will follow up with her for results and treatment options. She is aware this is out of the scope of my practice. Based on the EMG, she does not require carpal tunnel or ulnar nerve surgery at the elbow at this time. She will keep a close watchful eye, avoidance of flexion and leaning on the elbow. Vitamin B6. Cervical trapezial stretching and traction were reviewed which has been helpful in the past. We will set up an appointment for updated knee x-rays of which she has patellofemoral osteoarthritis. She is on Meloxicam and will continue with that. We will set up a full x-ray series and further discussion pending at that time. She voices verbal understanding. She is discharged in stable condition. The patient was seen and examined. From the time of check in, nurse triage, vital signs, x-ray, x-ray interpretation, review of systems, comprehensive history and physical exam as well as setting up treatment plan and further management took 35 minutes. Cosigned by Lenny Archer DO at 06/07/2024 7:10 AM EST documented in this encounterAudrain Medical [id number] Telephone encounter Note* Telephone Encounter - Holly Condon - 05/24/2024 2:35 PM EDT Pt calls back and states she would like to proceed w mri , please [facility] , pt was unable to reply in mychart [facility] [id number] Miscellaneous Notes* Telephone Encounter - Holly Condon - 05/24/2024 2:35 PM EDT Pt calls back and states she would like to proceed w mri , please [facility] , pt was unable to reply in mychart documented in this encounterAudrain Medical [id number] History of Present illness Narrative* Carlos Manuel Mittal NP - 2024 2:20 PM EDT Images from the original note were not included. Juanis Alvarez is a 39 y.o. female presents with chief complaint of Immunizations (Patient declined flu vaccine in office today) and Neck Pain HPI: History of Present Illness The patient presents for evaluation of multiple medical concerns. She reports experiencing pain at the base of her neck, which she attributes to an incident 1.5 months ago when she was moving a deep freezer out of her basement. Despite seeking chiropractic treatment eight times, the pain persists. The pain is described as midline and constant, with a crunching sensation when she turns her head to the right. She rates her current pain level as 6 out of 10. Previous attempts to manage the pain with Flexeril and leftover meloxicam have been unsuccessful. She also mentions a recent visit to a neurologist due to paresthesia that began a few months ago. She has been on Mounjaro 7.5 mg for weight loss since mid-January 2024, under the care of Dr. Peacock.Initially, she experienced nausea, but this has since subsided. She reports significant improvementin her overall health, including reduced joint pain and blood pressure normalization. However, she is currently experiencing hair loss. MEDICATIONS: Current Outpatient Medications Medication Instructions cetirizine (ZyrTEC) 10 MG tablet Take by mouth esomeprazole (NEXIUM) 40 mg, Daily before breakfast fluticasone (Flonase) 50 MCG/ACT nasal spray SPRAY 1 SPRAY INTO EACH NOSTRIL TWICE A DAY FOR 14 DAYS Zepbound 7.5 mg, Subcutaneous, Weekly ALLERGIES: Allergies Allergen Reactions Chlorhexidine Codeine Other Reaction(s): feels werid Hydrocodone Other Reaction(s): feels werid Hydrocodone-Acetaminophen Nausea And Vomiting and GI intolerance vomiting Review of Systems Medical, Surgical, Family, and Social History reviewed. General: Denies fever, chills, fatigue, CRUMP or weight loss/gain CV: Denies CP, palpitations or swelling in legs Resp: denies cough, SOB or wheezing GI: Denies abd pain/n/v/c/d Skin: Denies rash Neuro: Denies LH or dizziness OBJECTIVE: Visit Vitals BP 128/89 (BP Location: Left arm, Patient Position: Sitting, BP Cuff Size: Adult) Pulse 89 Temp 98.4 F (Temporal) Ht 5' 4 Wt 223 lb 9.6 oz LMP 05/10/2024 (Approximate) SpO2 99% BMI 38.38 kg/m OB Status Having periods Smoking Status Never BSA 2.14 m BP Readings from Last 3 Encounters: 05/20/24 128/89 03/04/24 124/86 02/02/24 114/80 Wt Readings from Last 3 Encounters: 05/20/24 223 lb 9.6 oz 04/14/24 230 lb 03/04/24 245 lb 9.6 oz Physical Exam Physical Exam Vital Signs Blood pressure reading is 128/90. General: alert & oriented, NAD Head: NC/AT Oral Cavity: MMM Skin: warm, dry Heart: RRR, No m/r/g, S1S2 nml Lungs: CTA b/l Abdomen: soft, ND/NT, BS wnl Musculoskeletal: normal gait Extremities: no clubbing, cyanosis or edema Neurological: nonfocal Psych: mood/affect full range Results Laboratory Studies EGFR was 96 in January. ASSESSMENT AND PLAN: Assessment & Plan 1. Cervical spine pain. The patient reports persistent pain in the cervical area following an injury while moving a deep freeze about a month and a half ago. She has seen a chiropractor eight times without relief. She experiences constant aching pain rated at 6/10, with crepitus when turning her head to the right and increased pain when moving her head up or down. A cervical spine x-ray has been ordered. Prednisone has been prescribed, with instructions to take 2 tablets daily for the next 5 days with food, and to avoid taking ibuprofen, Aleve, naproxen, or meloxicam while on this medication. Tizanidine (Zanaflex) has also been prescribed as a muscle relaxer, to be taken at night initially, and can be taken every 8 hours if needed. She has been advised not to drive while using the muscle relaxer. 2. Weight management. She has shown good progress with the current dose of Mounjaro and reports significant weight loss and improvement in symptoms such as joint pain and blood pressure. She has been advised to continue with the current dose of Mounjaro. To address hair loss and brittle nails, she has been recommended to increase her protein intake to three servings a day and consider taking collagen supplements. Protein shakes and single-serving tuna pouches were suggested as options. Follow-up Patient will follow up in 2 weeks. Assessment/Plan Diagnoses and all orders for this visit: Neck pain - XR cervical spine complete 4 to 5 views; Future - predniSONE (Deltasone) 20 MG tablet; Take 2 tablets (40 mg) by mouth Daily for 5 days - tiZANidine (Zanaflex) 4 MG tablet; Take 1 tablet (4 mg) by mouth every 8 (eight) hours if needed for muscle spasms for up to 5 days Cervicalgia - XR cervical spine complete 4 to 5 views; Future - predniSONE (Deltasone) 20 MG tablet; Take 2 tablets (40 mg) by mouth Daily for 5 days - tiZANidine (Zanaflex) 4 MG tablet; Take 1 tablet (4 mg) by mouth every 8 (eight) hours if needed for muscle spasms for up to 5 days Morbid obesity (CMS/HCC) - Tirzepatide-Weight Management (Zepbound) 7.5 MG/0.5ML solution auto-injector; Inject 7.5 mg underthe skin 1 (one) time per week BMI 38.0-38.9,adult - Tirzepatide-Weight Management (Zepbound) 7.5 MG/0.5ML solution auto-injector; Inject 7.5 mg underthe skin 1 (one) time per week Health Maintenance Due Topic Date Due Influenza Vaccine (1) 04/03/2024 Mammogram 2024 documented in this encounterAudrain Medical [id number] History of Present illness Narrative* Zi Mack, RENYT - 05/19/2024 4:00 PM EDT Images from the original note were not included. Reason for Appointment: EMG Patient: Juanis Alvarez : 1985 EMG Computer: [employer] Referring Physician: Dr. Lenny Archer EMG: [employer] infrastructure director: Zi Mack RT(R) Office Location: [place] Reason for EMG: c/o numbness/tingling in left hand/forearm especially in 4th & 5th digits, neckpain. No hx of DM. Not on blood thinners. Comments: Procedure was explained to the patient & male tire inspector who expressed understanding. Patient appeared to have tolerated the test well despite some discomfort due to the nature of the test. documented in this encounterAudrain Medical [id number] History of Present illness Narrative* Lucy Danielle - 04/14/2024 3:30 PM EDT Images from the original note were not included. Juanis Alvarez is a 38 y.o. female presents with chief complaint of left wrist and hand pain with numbness and tingling HPI: Juanis is here with a two month history of pain radiating down her arm. It started out with some pain along the ulnar column of her wrist. Subsequently she started to develop numbness and tingling in the ring and little finger. She feels as though her hand is disconnected and she feels weak. She is dropping objects. No median nerve dysesthesias. She does report some medial elbow pain. She states she is an elbow flexor at night when she sleeps as well as leans on her elbow. No contralateral symptoms. No specific neck pain. No EMG performed recently. She states she had an EMG several years ago and she had some borderline carpal tunnel syndrome but it went away. She does feel as though she has progressive weakness of the hand. She has tried some Tylenol, activity modification, as well as night time bracing. SUBJECTIVE: MEDICATIONS: Current Outpatient Medications Medication Instructions cetirizine (ZyrTEC) 10 MG tablet Oral esomeprazole (NEXIUM) 40 mg, Oral, Daily before breakfast fluticasone (Flonase) 50 MCG/ACT nasal spray SPRAY 1 SPRAY INTO EACH NOSTRIL TWICE A DAY FOR 14 DAYS Zepbound 7.5 mg, Subcutaneous, Weekly ALLERGIES: Allergies Allergen Reactions Chlorhexidine Codeine Other Reaction(s): feels werid Hydrocodone Other Reaction(s): feels werid Hydrocodone-Acetaminophen Nausea And Vomiting and GI intolerance vomiting SURGICAL HISTORY: Past Surgical History: Procedure Laterality Date BUNIONECTOMY Shai Bunionectomy; Bunion Left ( 2010) BUNIONECTOMY Bunionectomy; Bunion right (2008) SECTION, LOW TRANSVERSE 2008, 2011, 2015 COLONOSCOPY EGC (08/2017) LITHOTRIPSY 09/2017 NEUROMA SURGERY r/o Neuroma left foot (12/23/2017) SHOULDER ARTHROSCOPY W/ SUBACROMIAL DECOMPRESSION AND DISTAL CLAVICLE EXCISION Right 07/17/2023 MTP - TSCNCO TONSILLECTOMY 1987 TUBAL LIGATION Bilateral 2016 FAMILY HISTORY: Family History Problem Relation Name Age of Onset Solid Tumor Mother brain tumor Other cancer Mother gallbladder cancer Alcohol abuse Father Cirrhosis Father Skin cancer Father Other cancer Father oral cancer No Known Problems Son 3 sons SOCIAL HISTORY: Social History Tobacco Use Smoking status: Never Smokeless tobacco: Never Vaping Use Vaping status: Never Used Substance Use Topics Alcohol use: Never Comment: caffeine intake: 2-3 cups per day chocolate and soda Drug use: Never Depression: At risk (03/09/2024) Received from [employer] PHQ-2 Total Score: 6 REVIEW OF SYMPTOMS: The review of systems, history and current medications list are all reviewed today. OBJECTIVE: Visit Vitals Ht 5' 4 Wt 230 lb LMP (LMP Unknown) BMI 39.48 kg/m OB Status Unknown Smoking Status Never BSA 2.17 m Physical Exam On physical exam, she is alert and oriented. Vital signs are stable. There is no gross atrophy of the hand. No significant swelling. There are ulnar nerve dysesthesias in the ulnar column of the wrist and hand. Elbow flexion test is positive. Tinel's and pressure provocation tests arepositive over the cubital tunnel. Ulnar nerve dysesthesias are present. Intrinsics show mild to moderate weakness including the adductor and positive Froment's sign. Wartenberg's is negative. Trigger exam is negative. Median nerve testing is negative. X-rays and imaging permanently saved to the patient's record were reviewed taken of the wrist area shows mild degenerative changes. There is no acute fracture, dislocation, tumor or infection seen. ASSESSMENT AND PLAN: Assessment/Plan Left cubital tunnel syndrome, left hand weakness. Ulnar nerve dysesthesias. The nature of the findings were discussed at length. She does appear to have entrapment and inflammation of the ulnar nerve at the elbow. We discussed keeping the arm straight, avoidance of leaning on the elbow. Vitamin B6 100 mg twice a day is recommended. We will see how she responds with continued conservative care. We will set up an EMG to the left upper extremity. I will see her back post testing for further review of treatment options. We discussed the potential of anterior ulnar nerve transposition of the elbow. She voices verbal understanding. She is discharged in stable condition. The patient was seen and examined. From the time of check in, nurse triage, vital signs, x-ray, x-ray interpretation, review of systems, comprehensive history and physical exam as well as setting up treatment plan and further management took 35 minutes. documented in this [facility]08-29-2024 Telephone encounter Note* Telephone Encounter - Joie Peacock MD - 03/31/2024 3:33 PM EDT [id number] Miscellaneous Notes* Telephone Encounter - Joie Peacock MD - 03/31/2024 3:33 PM EDT Sent in * Telephone Encounter - Holly Condon - 03/31/2024 3:15 PM EDT Pt calls for refill zepbound 7.5 , [facility] documented in this [facility]08-29-2024 Telephone encounter Note* Telephone Encounter - Holly Condon - 03/31/2024 3:15 PM EDT Pt calls for refill zepbound 7.5 , [facility] [id number] History of Present illness Narrative* Lina Yeh, LEGAL FINANCIAL SPECIALIST-PHYSICAL THERAPY TECHNICIAN - 03/09/2024 3:30 PM EDT Annual Well Woman Visit 03/09/2024 Daquan Alvarez is a 38 y.o. pleasant female who presents for annual patient intake representative exam. Periods are regular every 28-30 days, lasting 3 days. Dysmenorrhea:none. Cyclic symptoms include heavy flow . Denies intermenstrual bleeding, spotting, or abnormal discharge. Reports some pelvic pain with ovulation. Patient denies STD testing today. Complaints today: ovulation pain Relationship status: in a relationship The patient reports that there is not domestic violence in her life. 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 [employer] Non-smoker Children YES How many 3 csection deliveries Current contraception: tubal ligation History of abnormal Pap smear: no Last pap: 2020- Regular self breast exam: no Last mammogram: na Family history of breast cancer: no Family history of uterine or ovarian cancer: no Family history of pancreatic or prostate cancer: no Family history of colon cancer: yes - m.grandma HPV vaccinated: no PHQ9 depression screenin LMP 02/13/2024 OB History 3 Para 3 Term 3 AB Living 3 SAB IAB Ectopic Multiple Live Births 3 The following portions of the patient's history were reviewed and updated as appropriate: allergies, current medications, past family history, past medical history, past social history, past surgicalhistory and problem list. MEDICAL HX Past Medical History: Diagnosis Date Allergies Anxiety Depression Hiatal hernia PCOS (polycystic ovarian syndrome) SURGICAL HX Past Surgical History: Procedure Laterality Date BUNIONECTOMY Bilateral SECTION X 3 NEUROMA SURGERY SHOULDER ARTHROSCOPY Right TONSILLECTOMY TUBAL LIGATION FAMILY HX Family History Problem Relation Age of Onset Colon cancer Maternal Grandmother Throat cancer Father Alcohol abuse Father Brain Tumor Mother Liver disease Mother Kidney disease Mother Throat cancer Maternal Aunt MEDS Current Outpatient Medications Medication Sig Dispense Refill esomeprazole (NexIUM) 40 mg capsule Take 1 capsule (40 mg total) by mouth every morning before breakfast. tirzepatide, weight loss, (ZEPBOUND) 5 mg/0.5 mL pen injector Inject 5 mg under the skin every 7 days. pantoprazole (PROTONIX) 40 mg EC tablet Take 1 tablet (40 mg total) by mouth. (Patient not taking: Reported on 03/09/2024) No current facility-administered medications for this visit. ALLERGIES Allergies Allergen Reactions Codeine Vomiting Hydrocodone Other (See Comments) Other Reaction(s): feels werid Vicodin [Hydrocodone-Acetaminophen] Vomiting Review of Systems Constitutional: Negative. Respiratory: Negative. Negative for chest tightness and shortness of breath. Cardiovascular: Negative. Negative for chest pain and palpitations. Gastrointestinal: Negative. Negative for constipation, diarrhea, nausea and vomiting. Endocrine: Negative. Genitourinary: Negative. Negative for dyspareunia, menstrual problem and pelvic pain. Musculoskeletal: Negative. Skin: Negative. Allergic/Immunologic: Negative. Neurological: Negative. Hematological: Negative. Psychiatric/Behavioral: Negative. Objective BP 120/90 Ht 162.6 cm (5' 4 ) Wt 109.8 kg (242 lb) LMP 02/13/2024 BMI 41.54 kg/m Physical Exam Vitals and nursing note reviewed. Constitutional: Appearance: Normal appearance. HENT: Head: Normocephalic and atraumatic. Cardiovascular: Rate and Rhythm: Normal rate and regular rhythm. Pulses: Normal pulses. Heart sounds: Normal heart sounds. Pulmonary: Effort: Pulmonary effort is normal. Breath sounds: Normal breath sounds. Chest: Breasts: Breasts are symmetrical. Right: Normal. No mass, skin change or tenderness. Left: Normal. No mass, skin change or tenderness. Abdominal: General: Bowel sounds are normal. Palpations: Abdomen is soft. Genitourinary: General: Normal vulva. Labia: Right: No rash or lesion. Left: No rash or lesion. Vagina: Normal. Cervix: Normal. Uterus: Normal. Not enlarged and not tender. Adnexa: Right adnexa normal and left adnexa normal. Right: No mass, tenderness or fullness. Left: No mass, tenderness or fullness. Musculoskeletal: General: Normal range of motion. Cervical back: Normal range of motion and neck supple. Skin: General: Skin is warm and dry. Neurological: Mental Status: She is alert and oriented to person, place, and time. Psychiatric: Mood and Affect: Mood normal. Speech: Speech normal. Behavior: Behavior normal. Thought Content: Thought content normal. Judgment: Judgment normal. Assessment/Plan: Juanis was seen today for gynecologic exam. Diagnoses and all orders for this visit: Well woman exam with routine gynecological exam Encounter for screening mammogram for breast cancer - Mammography screening bilateral with CAD; Future Cervical smear, as part of routine gynecological examination - Pap Smear; Future - High risk HPV w/jennifer; Future Standardized adult depression screening tool completed BMI is above average; Discussed eating tips for weight loss and and exercise steps. Patient has lost 40 pounds since last annual exam. She is now on Zepbound and doing great. Breast self exam technique reviewed and patient encouraged to perform self-exam monthly. Discussed healthy lifestyle modifications. Educational material distributed. Follow up in 1 year for annual patient intake representative exam. Follow up as needed. Await pap. Discussed ASCCP screening guidelines. Discussed taking a multivitamin. Discussed Calcium and Vitamin D for prevention of osteoporosis. HPV vaccine is recommended between 9-45 yo. Can be received at [facility] or the [employer] department. Discussed need for yearly mammogram after 40 yo. Discussed colon cancer screening recommendations to begin at 45 yo, patient to discuss with PCP. All questions answered. LISA Gomez APRN-BRENDA [facility] 03/09/24 [id number] [facility] Telephone encounter Note* Telephone Encounter - Muna Knapp - 09/16/2023 1:59 PM EST Pt called back re: results and I notified her of KD's message [facility] [id number] Miscellaneous Notes* Telephone Encounter - Muna Knapp - 09/16/2023 1:59 PM EST Pt called back re: results and I notified her of KD's message documented in this encounter[facility] [id number] History of Present illness Narrative* REGINALDO Alvarado - 09/15/2023 9:51 AM ESTAssociated Problem(s): Anxiety Will start zoloft and follow up if not better * REGINALDO Alvarado - 09/15/2023 9:50 AM ESTAssociated Problem(s): Acute recurrent frontal sinusitis Discussed treatment and side effects of medications and concerning symptoms to monitor for Follow up if not better * REGINALDO Alvarado - 09/14/2023 11:00 AM EST Juanis Alvarez is a 38 y.o. female presents with chief complaint of UTI and Ear Fullness HPI: HPI Patient here today for possible UTI. Patient notes this has been ongoing for nearly 1 week. Patientreports increased abdominal pain with urination. Patient also reports having right ear pain, fullness, and itching, notes this has been ongoing nearly the same timeframe. Reports using using Zyrtec and Flonase for ear pain and fullness. SUBJECTIVE: MEDICATIONS: Current Outpatient Medications Medication Instructions cetirizine (ZyrTEC) 10 MG tablet Oral esomeprazole (NEXIUM) 40 mg, Oral, 2 times daily fluconazole (Diflucan) 150 MG tablet TAKE 1 TABLET ORALLY ONCE, REPEAT DOSE IN 72 HOURS IF NEEDED fluticasone (Flonase) 50 MCG/ACT nasal spray SPRAY 1 SPRAY INTO EACH NOSTRIL TWICE A DAY FOR 14 DAYS sertraline (ZOLOFT) 25 mg, Oral, Daily sulfamethoxazole-trimethoprim (Bactrim DS) 800-160 MG per tablet 1 tablet, Oral, 2 times daily ALLERGIES: Allergies Allergen Reactions Hydrocodone-Guaifenesin Shortness of breath Chlorhexidine Codeine Other Reaction(s): feels werid Hydrocodone Other Reaction(s): feels werid Hydrocodone-Acetaminophen Nausea And Vomiting and GI intolerance vomiting SOCIAL HISTORY: Social History Tobacco Use Smoking status: Never Smokeless tobacco: Never Vaping Use Vaping Use: Never used Substance Use Topics Alcohol use: Never Comment: caffeine intake: 2-3 cups per day chocolate and soda Drug use: Never Depression: Not at risk (02/24/2023) PHQ-2 PHQ-2 Score: 0 REVIEW OF SYMPTOMS: General: Denies fever, chills, fatigue, CRUMP or weight loss/gain CV: Denies CP, palpitations or swelling in legs Resp: denies cough, SOB or wheezing GI: Denies abd pain/n/v/c/d Skin: Denies rash Neuro: Denies LH or dizziness OBJECTIVE: Visit Vitals BP 118/80 Pulse 110 Temp 99.6 F Ht 5' 4 Wt 270 lb SpO2 99% BMI 46.35 kg/m OB Status Unknown Smoking Status Never BSA 2.35 m General: alert & oriented, NAD Head: NC/AT Oral Cavity: MMM Skin: warm, dry Heart: RRR, No m/r/g, S1S2 nml Lungs: CTA b/l Abdomen: soft, ND/NT, BS wnl Musculoskeletal: normal gait Extremities: no clubbing, cyanosis or edema Neurological: nonfocal Psych: mood/affect full range ASSESSMENT AND PLAN: Assessment/Plan Problem List Items Addressed This Visit Anxiety Will start zoloft and follow up if not better Relevant Medications sertraline (Zoloft) 25 MG tablet Abdominal pain Relevant Medications fluconazole (Diflucan) 150 MG tablet sulfamethoxazole-trimethoprim (Bactrim DS) 800-160 MG per tablet Other Relevant Orders POCT Urinalysis dipstick (Completed) Urine culture (clean catch) Acute recurrent frontal sinusitis - Primary Discussed treatment and side effects of medications and concerning symptoms to monitor for Follow up if not better documented in this encounterAud[facility] [id number] Evaluation note* Encounter Date Diagnosis Assessment Notes Treatment Notes Treatment Clinical Notes Aug, Acute middle ear effusion, bilateral (ICD-10 - H65.193) Discussed diagnosis with patient, explained to patient that there is middle ear fluid without signs of bacterial infection, antibiotics are not indicated at this time. This is commonly due to ET dysfunction, viral illness, allergies, barotrauma, or recent AOM. Advised patient that fluid in middle ear may take several weeks to resolve. Take rx medications as directed. Supportive treatment as directed, push fluids/test, Tylenol/Motrin for discomfort. Follow up with PCP in 2 weeks or sooner for new or worsening symptoms. Patient verbalizes understanding and is agreeable to treatment plan Aug, Vaginal discharge (ICD-10 - N89.8) Patient reports vaginal discharge/concern of yeast infection after finishing rx of antibiotic therapies. Will send in rx of Diflucan to use as directed. Follow up with VENDING MACHINE HOST/HOSTESS if no improvement of symptoms. Aug, Suspected COVID-19 virus infection (ICD-10 - Z20.822) COVID/Influenza A/B test negative. [employer] Other 09-29-2023 Evaluation note* Encounter Date Diagnosis Assessment Notes Treatment Notes Treatment Clinical Notes Apr, Bronchitis (ICD-10 - J40) Drink plenty fluids, get plenty of rest. Take the doxycycline and prednisone as prescribed until gone. Take the Diflucan as prescribed until gone. Use your albuterol inhaler as prescribed for shortness of breath or cough. Follow-up with your family physician if no improvement in 2 to 3 days Apr, History of candidiasis of vagina (ICD-10 - Z86.19) [employer] Other 08-05-2023 Evaluation note* Encounter Date Diagnosis Assessment Notes Treatment Notes Treatment Clinical Notes Mar, Right sided sciatica (ICD-10 - M54.31) Sciatica home care material was printed Plenty fluids, get plenty of rest. Take the prednisone as prescribed until gone. Take the cyclobenzaprine as prescribed as needed for back pain and stiffness. Do not take any ibuprofen while taking the prednisone. Only take Tylenol as needed for pain. Follow-up with your family physician if no improvement in 2 to 3 days. Limit your bending and lifting for the next few days Mar, Strain of lumbar region, initial encounter (ICD-10 - S39.012A) [employer] Other 07-06-2023 Evaluation note* Encounter Date Diagnosis Assessment Notes Treatment Notes Treatment Clinical Notes Jan, Bronchitis (ICD-10 - J40) Acute bronchitis material was printed Drink plenty fluids, get plenty of rest. Take the doxycycline and prednisone as prescribed until gone. Use the albuterol inhaler as prescribed as needed for cough or shortness of breath. Take the Diflucan as prescribed until gone. Follow-up with your family physician if no improvement in 2 to 3 days. Go to the ER for worsening symptoms or concerns Jan, History of candidiasis of vagina (ICD-10 - Z86.19) [employer] Other 05-05-2023 Evaluation note* Encounter Date Diagnosis Assessment Notes Treatment Notes Treatment Clinical Notes December, Acute cough (ICD-10 - R05.1) December, Viral URI (ICD-10 - J06.9) Advised patient that rapid COVID/influenza A/B test was negative today in office. No acute lung process heard today on exam. Advised patient that will treat as viral URI. Supportive care as directed, increase fluids and rest, Tylenol as directed, Rx of Brown and Medrol Dosepak to use as directed, cool mist humidifier, throat lozenges. Discussed infection control practices such as good hand washing and mask wearing. Patient to follow up with PCP if symptoms persist or worsen despite treatment. Immediate eval for SOB, difficulty breathing, chest pain, fevers that do not break with antipyretic or any other concerning symptoms as reviewed on patient education handout. Patient verbalizes understanding and is agreeable to treatment plan. Patient left in stable condition. [employer] Other 09-16-2022 Evaluation note* Encounter Date Diagnosis Assessment Notes Treatment Notes Treatment Clinical Notes Apr, Diverticulitis (ICD-10 - K57.92) rx sent, take as directed. recommended clear liquid diet for 48 to 72 hours. pt may start to advance diet as tolerated as symptoms resolve. otc pain relievers. advised immediate eval via ER if warning s/s of fevers/chills, worsening abd pain, N/V. f/u with PCP on Thursday as scheduled. Apr, Antibiotic causing adverse effect (ICD-10 - T36.95XA) pt requests rx for yeast infection from taking atb. [employer] Other 09-04-2022 Evaluation note* Encounter Date Diagnosis Assessment Notes Treatment Notes Treatment Clinical Notes Apr, Contact with and (suspected) exposure to other viral communicable diseases (ICD-10 - Z20.828) Apr, Bronchitis (ICD-10 - J40) Acute bronchitis material was printed Drink plenty fluids, get plenty of rest. Take Tylenol or Motrin as needed for aches pains or fevers. Take the Zithromax and prednisone as prescribed until gone. Use the Flonase nasal inhaler as prescribed as your symptoms improve. Use the albuterol inhaler as prescribed as needed for cough or shortness of breath. Follow-up with your family physician if no improvement in 2 to 3 days. [employer] Other 04-06-2021 NoteHNO ID: [id number] Author: Danay Ray Service: ? Author Type: Physician Type: Progress Notes Filed: 11/06/2020 4:13 PM Note Text: Consultation requested by Dr. Bailey for an opinion regarding hiatal hernia and GERD. My final recommendations will be communicated back to the requesting physician by way of shared medical record or letter via [place] mail I have seen and evaluated the patient and discussed the case with the resident physician. I agree with the assessment and plan as documented in the resident?s note. Juanis Alvarez is a 35 year old female who is here for evaluation of a hiatal hernia and GERD. Despite medical therapy her GERD is severe and significantly impacting her life. Her BMI is 47. Given this, I think her best option for repair of the hernia and improvement in her symptoms is with bariatric surgery. I have placed a consult to our bariatric surgeons to consider gastric bypass. Patient consented for study? Not applicableNor[facility] ClevelandEvaluation noteNo assessment information availableChillicothe [facility] CtrEvaluation note* Diagnosis Status post arthroscopy of right shoulder- Primary Adhesive capsulitis of right shoulder Impingement syndrome of right shoulder region documented in this encounter [facility]* Diagnosis Acute recurrent frontal sinusitis- Primary Abdominal pain, unspecified abdominal location Anxiety Anxiety state, unspecified documented in this encounter [facility]Evaluation [facility]* Diagnosis Onset Date Resolution Status Acute left otitis media acut e Acute viral pharyngitis acut e Sore throat noneactive [facility] Work Phone: Evaluation note* Diagnosis Acute recurrent frontal sinusitis- Primary Abdominal pain, unspecified abdominal location Anxiety Anxiety state, unspecified Paresthesia- Primary Disturbance of skin sensation documented in this encounter [facility]* Diagnosis Acute recurrent frontal sinusitis- Primary Abdominal pain, unspecified abdominal location Anxiety Anxiety state, unspecified Neck pain- Primary Cervicalgia Cervicalgia Morbid obesity ([facility]) Morbid obesity BMI 38.0-38.9,adult documented in this encounter [facility]* Diagnosis Acute recurrent frontal sinusitis- Primary Abdominal pain, unspecified abdominal location Anxiety Anxiety state, unspecified Spinal stenosis of cervical region- Primary Spinal stenosis in cervical region documented in this encounter [facility]* Diagnosis Acute recurrent frontal sinusitis- Primary Abdominal pain, unspecified abdominal location Anxiety Anxiety state, unspecified Cubital tunnel syndrome on left- Primary documented in this encounter [facility]* Diagnosis Acute recurrent frontal sinusitis- Primary Abdominal pain, unspecified abdominal location Anxiety Anxiety state, unspecified Spinal stenosis of cervical region- Primary Spinal stenosis in cervical region Cervicalgia Morbid obesity ([facility]) Morbid obesity BMI 37.0-37.9, adult Anxiety Anxiety state, unspecified Mood swings Other specified episodic mood disorder documented in this encounter [facility]* Diagnosis Acute recurrent frontal sinusitis- Primary Abdominal pain, unspecified abdominal location Anxiety Anxiety state, unspecified Cervicalgia- Primary Spinal stenosis of cervical region Spinal stenosis in cervical region documented in this encounter [facility]* Diagnosis Acute recurrent frontal sinusitis- Primary Abdominal pain, unspecified abdominal location Anxiety Anxiety state, unspecified Morbid obesity ([facility]) Morbid obesity BMI 37.0-37.9, adult documented in this encounter [facility]* Diagnosis Acute recurrent frontal sinusitis- Primary Abdominal pain, unspecified abdominal location Anxiety Anxiety state, unspecified Osteoarthritis of right patellofemoral joint- Primary documented in this encounter [facility]* Diagnosis Acute recurrent frontal sinusitis- Primary Abdominal pain, unspecified abdominal location Anxiety Anxiety state, unspecified Spinal stenosis of cervical region- Primary Spinal stenosis in cervical region Cervicalgia documented in this encounter [facility]* Diagnosis Acute recurrent frontal sinusitis- Primary Abdominal pain, unspecified abdominal location Anxiety Anxiety state, unspecified Spinal stenosis of cervical region- Primary Spinal stenosis in cervical region Cervicalgia documented in this [facility]* Diagnosis Acute recurrent frontal sinusitis- Primary Abdominal pain, unspecified abdominal location Anxiety Anxiety state, unspecified BMI 36.0-36.9,adult- Primary Morbid obesity (CMS/HCC) Morbid obesity Sensation of fullness in right ear Sinus pressure Other diseases of nasal cavity and sinuses Acute recurrent frontal sinusitis Non-recurrent acute serous otitis media of right ear Anxiety Anxiety state, unspecified Mood swings Other specified episodic mood disorder [facility] Diagnosis Acute pain of left wrist- Primary [facility]* Diagnosis Morbid obesity (CMS/HCC) Morbid obesity [facility]* Diagnosis Morbid obesity (CMS/HCC) Morbid obesity [facility]* Diagnosis Acute recurrent frontal sinusitis- Primary Abdominal pain, unspecified abdominal location Anxiety Anxiety state, unspecified Non-recurrent acute serous otitis media of right ear- Primary Sensation of fullness in right ear Frontal headache Headache PND (post-nasal drip) Postnasal drip BMI 36.0-36.9,adult Morbid obesity (CMS/HCC) Morbid obesity [facility]* Diagnosis Acute recurrent frontal sinusitis- Primary Abdominal pain, unspecified abdominal location Anxiety Anxiety state, unspecified Chronic bacterial otitis externa of right ear- Primary BMI 34.0-34.9,adult Mood swings Other specified episodic mood disorder Anxiety Anxiety state, unspecified Morbid obesity (CMS/HCC) Morbid obesity BMI 36.0-36.9,adult [facility]* Diagnosis Acute recurrent frontal sinusitis- Primary Abdominal pain, unspecified abdominal location Anxiety Anxiety state, unspecified Frontal headache Headache PND (post-nasal drip) Postnasal drip documented [facility]* Diagnosis Acute recurrent frontal sinusitis- Primary Abdominal pain, unspecified abdominal location Anxiety Anxiety state, unspecified Major depressive disorder, single episode, moderate (HCC) (CMS/HCC)- Primary Major depressive disorder, single episode, moderate BMI 34.0-34.9,adult Anxiety Anxiety state, unspecified Sensation of fullness in right ear documented [facility]* Diagnosis Well woman exam with routine gynecological exam- Primary Routine gynecological examination Encounter for screening mammogram for breast cancer Cervical smear, as part of routine gynecological examination Screening for malignant neoplasm of the cervix Standardized adult depression screening tool completed [facility] Diagnosis Acute recurrent frontal sinusitis- Primary Abdominal pain, unspecified abdominal location Anxiety Anxiety state, unspecified Frontal headache Headache PND (post-nasal drip) Postnasal drip documented in this encounter [facility]* Diagnosis Acute recurrent frontal sinusitis- Primary Abdominal pain, unspecified abdominal location Anxiety Anxiety state, unspecified Frontal headache Headache PND (post-nasal drip) Postnasal drip documented in this encounter [facility]* Diagnosis Acute recurrent frontal sinusitis- Primary Abdominal pain, unspecified abdominal location Anxiety Anxiety state, unspecified Acute viral pharyngitis- Primary Acute pharyngitis Laryngitis Acute laryngitis, without mention of obstruction Nasal congestion Other diseases of nasal cavity and sinuses PND (post-nasal drip) Postnasal drip Seasonal allergic rhinitis due to other allergic trigger Obesity (BMI 30.0-34.9) BMI 32.0-32.9,adult documented in this encounter [facility]* Diagnosis Acute recurrent frontal sinusitis- Primary Abdominal pain, unspecified abdominal location Anxiety Anxiety state, unspecified Acute viral pharyngitis- Primary Acute pharyngitis Laryngitis Acute laryngitis, without mention of obstruction Nasal congestion Other diseases of nasal cavity and sinuses PND (post-nasal drip) Postnasal drip Seasonal allergic rhinitis due to other allergic trigger Chronic GERD Obesity (BMI 30.0-34.9) BMI 31.0-31.9,adult documented in this encounter [facility]* Diagnosis Acute recurrent frontal sinusitis- Primary Abdominal pain, unspecified abdominal location Anxiety Anxiety state, unspecified Acute bronchospasm- Primary Throat irritation Chronic GERD Seasonal allergic rhinitis due to other allergic trigger Obesity (BMI 30.0-34.9) BMI 31.0-31.9,adult Anxiety Anxiety state, unspecified documented in this encounter [facility]* Diagnosis Acute recurrent frontal sinusitis- Primary Abdominal pain, unspecified abdominal location Anxiety Anxiety state, unspecified Hav (hallux abducto valgus), left- Primary Onychocryptosis Ingrowing nail Toe pain, left Pain in soft tissues of limb Toe pain, right Pain in soft tissues of limb documented in this encounter [facility]* Diagnosis Acute recurrent frontal sinusitis- Primary Abdominal pain, unspecified abdominal location Anxiety Anxiety state, unspecified Nausea- Primary Nausea alone Morbid (severe) obesity due to excess calories ([facility] BMI 29.0-29.9,adult documented in [facility]* Diagnosis Acute recurrent frontal sinusitis- Primary Abdominal pain, unspecified abdominal location Anxiety Anxiety state, unspecified Left hip pain- Primary Pain in joint, pelvic region and thigh BMI 29.0-29.9,adult Weight loss due to medication Pain of left thigh Hav (hallux abducto valgus), left- Primary Onychocryptosis Ingrowing nail Toe pain, left Pain in soft tissues of limb Toe pain, right Pain in soft tissues of limb documented in this encounter [facility]* Diagnosis Acute recurrent frontal sinusitis- Primary Abdominal pain, unspecified abdominal location Anxiety Anxiety state, unspecified Hav (hallux abducto valgus), left- Primary Onychocryptosis Ingrowing nail Toe pain, left Pain in soft tissues of limb Toe pain, right Pain in soft tissues of limb Acquired deformity of left toe documented in this encounter [facility]* Diagnosis Acute recurrent frontal sinusitis- Primary Abdominal pain, unspecified abdominal location Anxiety Anxiety state, unspecified Nausea Nausea alone documented in this encounter [facility]* Diagnosis Dyspareunia, female- Primary Acute vaginitis Unspecified vaginitis and vulvovaginitis Bladder pain Other symptoms involving urinary system [facility] Diagnosis Acute recurrent frontal sinusitis- Primary Abdominal pain, unspecified abdominal location Anxiety Anxiety state, unspecified Morbid (severe) obesity due to excess calories ([facility]) documented in this encounter [facility]* Diagnosis Acute recurrent frontal sinusitis- Primary Abdominal pain, unspecified abdominal location Anxiety Anxiety state, unspecified Nausea Nausea alone documented in this encounter [facility]* Diagnosis Acute recurrent frontal sinusitis- Primary Abdominal pain, unspecified abdominal location Anxiety Anxiety state, unspecified Abnormal weight gain- Primary Obesity (BMI 30.0-34.9) BMI 31.0-31.9,adult Situational anxiety documented in this encounter [facility] HealthcareHistory general Narrative - Reported* Type Description Date Surgical History tubal ligation [employer] Other History general Narrative - Reported* Type Description Date Medical History diverticulitis Medical History Esophageal reflux Surgical History tubal ligation Hospitalization History see above [employer] Other History general Narrative - Reported* Type Description Date Medical History diverticulitis Medical History Esophageal reflux Surgical History tubal ligation Surgical History 3 c-sections Hospitalization History see above [employer] Other History general Narrative - Reported* Type Description Date Medical History diverticulitis Medical History Esophageal reflux Surgical History tubal ligation Surgical History 3 c-sections Surgical History shoulder scope and manipulation right Hospitalization History see above [employer] Other Instructions* Attachments The following attachments cannot be sent through Care Everywhere. * Health Risks of a High BMI (Romansh) * Mammography (Romansh) documented in [facility] Center[facility] Electronic Cigarette SystemInstructions* Attachments The following attachments cannot be sent through Care Everywhere. * Dyspareunia (painful sex) (Romansh) documented in this encounterPro[facility] SystemInstructionsNot on file documented in this encounterProRegional Medical CenterNew Life Electronic Cigarette SystemInstructionsNot on file documented in this encounterProSouthwest General Health Center SystemReason for referral (narrative)No reason for referral information availableOhiohealth Arthur G[facility] Work Phone: Reason for visit Narrative* Other Medical (Routine) - Closed Specialty Diagnoses / Procedures Referred By Carmelo avila Referred To Contact Neurology Diagnoses Paresthesia of skin L cubital tunnel Procedures IA NERVE CONDUCTION STUDIES 9-10 STUDIES IA NEEDLE EMG EA EXTREMTY W/PARASPINL AREA COMPLETE Lenny Archer T, DO [address] [facility] [place] [address] Phone: tel: fax: Juan Carlos Christensen MD [address] [place] [address] Phone: tel: fax: Referral ID Status Reason Start Date Expiration Date V isits Requested Visits Authorized [id number] Closed Perform Procedure 05/10/2024 11/06/2024 1 1 [facility] N[facility]* Rehabilitation - Outpatient (Routine) - Authorized Specialty Diagnoses / Procedures Referred By Carmelo avila Referred To Contact Physical Therapy Diagnoses Spinal stenosis of cervical region Cervicalgia Procedures IA OFFICE/OUTPATIENT NEW HIGH MDM 60 MINUTES Carlos Manuel Mittal NP [address] [place] [address] Phone: tel: fax: Jessica Story PT Referral ID Status Reason Start Date Expiration Date Visits Requested Visits Authorized [id number] Authorized Specialty Services Required 06/03/2024 11/30/2024 99 99 [facility] Summary Purpose Family History No Family History Records Found Relationship Condition Age at Onset Recorded Date/T va father Unknown Family history of mental disorder Unknown Malignant neoplasm Unknown Not Specified Unknown Malignant neoplasm of pancreas Unknown Relationship Condition Age at Onset Recorded Date/T va father Unknown Family history of mental disorder Unknown Malignant neoplasm Unknown mother Unknown Malignant neoplasm of pancreas Unknown Advance Directives No Advanced Directives Records Found Advance Directive Response Recorded Date/ Time Advance Directives No September 09, 2017 10:59am Chief Complaint and Reason for Visit Chief Complaint Ear Pain- Had Ear In fection 2 Weeks Ago Sore throat Cough, Congestion Reason for Visit Acute left otitis me loida Acute viral pharyngitis Sore throat Chief Complaint Admit Date Right earache, sinus congestion, sore th roat October 23, 2024 1:21pm Chief Complaint Admit Date Right earache, sinus congestion, sore th roat October 23, 2024 1:21pm sore throat November 24, 2024 3:3 8pm Reason for Visit Admit Date Acute maxillary sinusitis, unspecified M arch 2024 1:21pm Chief Complaint Admit Date frequency to urinate, pressure January 6:09pm Reason for Visit Admit Date Dysuria February 23, 2025 6:09 pm Chief Complaint Admit Date frequency to urinate, pressure January 6:09pm R30.0 February 23, 2025 6:15 pm Left foot lacaration March 29, 2025 5 :31pm Reason for Referral Specialty Diagnoses / Procedures Referred By Contanita t Referred To Contact Diagnoses Morbid obesity ([facility]/HCC) Joie Peacock MD [address] [place] [address] Referral ID Status Reason Start Date Expiration Date Visits Re quested Visits Authorized [id number] Closed 1 1 Additional Source Comments INFORMATION SOURCE (unrecogn ized section and content) DATE CREATED AUTHOR 10/15/2018 [facility] DATE CREATED AUTHOR AUTHOR'S ORGANIZ ATION 09/01/2021 [facility] DATE CREATED AUTHOR AUTHOR'S ORGANIZ ATION 01/09/2023 [facility] DATE CREATED AUTHOR AUTHOR'S ORGANIZ ATION 01/06/2024 [facility] DATE CREATED AUTHOR AUTHOR'S ORGANIZ ATION 10/29/2024 [facility] DATE CREATED AUTHOR AUTHOR'S ORGANIZ ATION 11/02/2024 [facility] DATE CREATED AUTHOR AUTHOR'S ORGANIZ ATION 11/20/2024 [facility] DATE CREATED AUTHOR AUTHOR'S ORGANIZ ATION 12/31/2024 [facility] DATE CREATED AUTHOR AUTHOR'S ORGANIZ ATION 02/26/2025 [facility] DATE CREATED AUTHOR AUTHOR'S ORGANIZ ATION 03/03/2025 [facility] DATE CREATED AUTHOR AUTHOR'S ORGANIZ ATION 03/08/2025 [facility] DATE CREATED AUTHOR AUTHOR'S ORGANIZ ATION 05/08/2025 [facility] EPIC Source Comments (unrecognize d section and content) In the event this informatio n is protected by the Federal Confidentiality of Alcohol and Drug Abuse Patient Records regulations: The Federal rules restrict any use of the information to criminally investigate or prosecute any alcohol or drug abuse patient.[facility] Reason for Visit (unrecogniz ed section and content) Reason Comments Appointment Confirmation Specialty Diagnoses / Procedures Referred By Carmelo avila Referred To Contact Physical Therapy Diagnoses Status post arthroscopy of right shoulder Procedures IA OFFICE/OUTPATIENT NEW HIGH MDM 60 MINUTES Lenny Archer, DO [address] [place] [address] David Tavares, PT [address] [place] [address] Referral ID Status Reason Start Date Expiration Date Visits Requested Visits Authorized [id number] Authorized Specialty Services Required 08/04/2023 01/27/2024 99 99 Reason Comments UTI Ear Fullness Reason Onset Date Comments Patient Call 09/16/2023 Patient Call Reason Comments Immunizations Patient declined flu vaccine in office today Neck Pain Reason Onset Date Comments Results 05/24/2024 Reason Onset Date Comments PT Initial Eval 06/06/2024 Tried to contact to schedule PT Eval for spine / cervical region; but had to lm requesting a call back. Call Back 06/06/2024 She called back and re: her work schedule the soonest availability for PT Eval is 06/20 and we scheduled out to 07/07/24. Reason Comments Follow-up Reason Comments Med Refill Breast Cancer Screening Scheduled with G YN Reason Comments Osteoarthritis Reason Comments Sinusitis Med Refill X1 week pressure in head, RT ear muffled and sinus draining down throat Immunizations Declines at this carlos e Reason Comments Pain Reason Onset Date Comments Medication Question 03/31/2024 Reason Onset Date Comments Med Refill 04/25/2024 Reason Comments Breast Cancer Screening Ordered by OB. Earache Reason Comments Follow-up Med Refill Immunizations Declines at this carlos e Reason Comments Med Refill Reason Comments Follow-up Immunizations Declines at this carlos e Reason Comments Gynecologic Exam Pt is here for brenua l exam. Reason Comments Sore Throat Nasal Congestion Cough Ears Itch Reason Comments Cough Hoarseness Itching in throat Reason Comments Ingrown Toenail BL 4TH Reason Comments Breast Cancer Screening Scheduled for Au arianna Reason Comments Breast Cancer Screening Has appt Septemb er Reason Comments Follow-up 14d s/p ptn [place] Reason Comments Pelvic Pain Reason Onset Date Comments Med Refill 02/24/2025 Reason Onset Date Comments Med Refill 03/16/2025 Reason Comments Follow-up Possible wegovy incr ease Telephone Encounter - Glenroy Collins (Lisa), LISA - 10/30/2020 2:58 PM EDT Miscellaneous Notes (unrecog nized section and content) Left a voicemail message to get info on surgeries and imaging for the appointment on 11/05/2020. documented in this encounter Goals (unrecognized section and content) Goals may be documented in a n alternate sectionNo InformationNo InformationNo InformationNo InformationNo InformationNo InformationNo InformationGoals may be documented in an alternate sectionNot on filedocumented as of this encounterGoals may be documented in an alternate sectionGoals may be documented in an alternate sectionNot on filedocumented as of this encounterGoals may be documented in an alternate sectionGoals may be documented in an alternate sectionGoals may be documented in an alternate sectionNot on filedocumented as of this encounterNot on filedocumented as of this encounter Care Teams (unrecognized sec tion and content) Comic Book Artist Relationship Specialty Start Date End Date Aileen Kumar MD [address] [place] [address] PCP - General Family Medicine 01/01/23 Carlos Manuel Mittal CALLISTHENICS INSTRUCTOR [address] [place] [address] PCP - [employer] 01/01/23 Comic Book Artist Relationship Specialty Start Date End Date Aileen Kumar MD [address] [place] [address] PCP - General Family Medicine 01/01/23 Carlos Manuel Mittal NP [address] [place] [address] PCP - [employer] 01/01/23 Comic Book Artist Relationship Specialty Start Date End Date Aileen Kumar MD PCP - General Family Medicine 01/01/23 Carlos Manuel Mittal CALLISTHENICS INSTRUCTOR [address] [place] [address] PCP - [employer] 01/01/23 Comic Book Artist Relationship Specialty Start Date End Date Aileen Kumar MD PCP - General Family Medicine 01/01/23 Carlos Manuel Mittal, CALLISTHENICS INSTRUCTOR [address] [place] [address] PCP - [employer] 01/01/23 Comic Book Artist Relationship Specialty Start Date End Date Aileen Kumar MD PCP - General [facility] 01/01/23 Carlos Manuel Mittal, CALLISTHENICS INSTRUCTOR [address] [place] [address] PCP - [employer] 01/01/23 Team Status: Active Member Role Status Dates Lanny Berry CALLISTHENICS INSTRUCTOR-C Primary Care Provider Activ e Team Status: Inactive Member Role Status Dates Amna Valerio APRN Attending Provider Active Start: August 16, 2023 End: August 16, 2023 Team Status: Inactive Member Role Status Dates Isabella Watkins APRN Attending Provider Active S tart: October 09, 2023 End: October 09, 2023 Lanny Berry CALLISTHENICS INSTRUCTOR-C Primary Care Provider Activ e Start: October 09, 2023 End: October 09, 2023 Team Status: Inactive Member Role Status Dates aLnny Berry CALLISTHENICS INSTRUCTOR-C Primary Care Provider Activ e Start: November 08, 2023 End: November 08, 2023 Amna Valerio APRN Attending Provider Active Start: November 08, 2023 End: November 08, 2023 Comic Book Artist Relationship Specialty Start Date End Date Aileen Kumar MD [address] [place] [address] PCP - General Family Medicine 01/01/23 Lanny Berry NP [address] [place] [address] PCP - [employer] 09/03/23 Comic Book Artist Relationship Specialty Start Date End Date Aileen Kumar MD [address] [place] [address] PCP - General Family Medicine 01/01/23 Lanny Berry NP [address] [place] [phone] PCP - [employer] 09/03/23 Comic Book Artist Relationship Specialty Start Date End Date Aileen Kumar MD [address] [place] [address] PCP - [facility] 01/01/23 Lanny Berry NP [address] [place] [phone] PCP - [employer] 09/03/23 Comic Book Artist Relationship Specialty Start Date End Date Aileen Kumar MD [address] [place] [address] PCP - General [facility] 01/01/23 Lanny Berry NP [address] [place] [address] PCP - [employer] 09/03/23 Comic Book Artist Relationship Specialty Start Date End Date Aileen Kumar MD [address] [place] [address] PCP - General Family Medicine 01/01/23 Lanny Berry NP [address] [place] [address] PCP - [employer] 09/03/23 Comic Book Artist Relationship Specialty Start Date End Date Aileen Kumar MD [address] [place] [id number] PCP - General [facility] Medicine 01/01/23 Lanny Berry NP [address] [place] [address] PCP - [employer] 09/03/23 Comic Book Artist Relationship Specialty Start Date End Date Aileen Kumar MD [address] [place] [address] PCP - General [facility] 01/01/23 Lanny Berry NP [address] [place] [phone] PCP - [facility] 09/03/23 Comic Book Artist Relationship Specialty Start Date End Date Aileen Kumar MD [address] [place] [address] PCP - General [facility] 01/01/23 Lanny Berry NP [address] [place] [address] PCP - [employer] 09/03/23 Comic Book Artist Relationship Specialty Start Date End Date Aileen Kumar MD [address] [place] [address] PCP - General [facility] 01/01/23 Lanny Berry NP [address] [place] [phone] PCP - [employer] 09/03/23 Comic Book Artist Relationship Specialty Start Date End Date Aileen Kumar MD [address] [place] [address] PCP - General [facility] 01/01/23 Lanny Berry NP [address] [place] [address] PCP - [employer] 09/03/23 Comic Book Artist Relationship Specialty Start Date End Date Aileen Kumar MD [address] [place] [address] PCP - [facility] 01/01/23 Lanny Berry NP [address] [place] [phone] PCP - [facility] 09/03/23 Comic Book Artist Relationship Specialty Start Date End Date Aileen Kumar MD [address] [place] [address] PCP - [facility] 01/01/23 Lanny Berry NP [address] [place] [phone] PCP - [employer] 09/03/23 Comic Book Artist Relationship Specialty Start Date End Date Aileen Kumar MD [address] [place] [address] PCP - General Family Medicine 01/01/23 Lanny Berry NP [address] [place] [address] PCP - [employer] 09/03/23 Comic Book Artist Relationship Specialty Start Date End Date Aileen Kumar MD [address] [place], [place] [id number] PCP - General Family Medicine 01/01/23 Lanny Berry NP [address] [place] [phone] PCP - [employer] 09/03/23 Comic Book Artist Relationship Specialty Start Date End Date Aileen Kumar MD [address] [place] [address] PCP - General Family Medicine 01/01/23 Lanny Berry NP [address] [place] [phone] PCP - [employer] 09/03/23 Comic Book Artist Relationship Specialty Start Date End Date Aileen Kumar MD [address] [place] [address] PCP - General Family Medicine 01/01/23 Lanny Berry NP [address] [place] [phone] PCP - [employer] 09/03/23 Comic Book Artist Relationship Specialty Start Date End Date Aileen Kumar MD [address] [place] [address] PCP - General Family Medicine 01/01/23 Lanny Berry NP [address] [place] [phone] PCP - [employer] 09/03/23 Comic Book Artist Relationship Specialty Start Date End Date Aileen Kumar MD [address] [place] [address] PCP - General Family Medicine 01/01/23 Lanny Berry NP [address] [place] [address] PCP - [employer] 09/03/23 Comic Book Artist Relationship Specialty Start Date End Date Aileen Kumar MD [address] [place] [address] PCP - General Family Medicine 01/01/23 Lanny Berry NP [address] [place] [address] PCP - [facility] 09/03/23 Comic Book Artist Relationship Specialty Start Date End Date Aileen Kumar MD [address] [place] [address] PCP - General Family Medicine 01/01/23 Lanny Berry NP [address] [place] [phone] PCP - [facility] 09/03/23 Comic Book Artist Relationship Specialty Start Date End Date Aileen Kumar MD [address] [place] [address] PCP - General Family Medicine 01/01/23 Lanny Berry NP [address] [place] [address] PCP - [facility] 09/03/23 Comic Book Artist Relationship Specialty Start Date End Date Aileen Kumar MD [address] [place] [address] PCP - General Family Medicine 01/01/23 Comic Book Artist Relationship Specialty Start Date End Date Aileen Kumar MD [address] [place] [address] PCP - General Family Medicine 01/01/23 Comic Book Artist Relationship Specialty Start Date End Date Lanny Berry APRN-TRAN [address] [place] [address] [place] [address] PCP - General Nurse Practitioner 03/10/23 Comic Book Artist Relationship Specialty Start Date End Date Aileen Kumar MD [address] [place] [address] PCP - General Family Medicine 01/01/23 Team Status: Active Member Role Status Dates Joie Peacock MD Primary Care Provider Active Team Status: Inactive Member Role Status Dates Jennifer Tariq APRN Attending Provider Active Start: October 23, 2024 End: October 23, 2024 Joie Peacock MD Primary Care Provider Active Start: October 23, 2024 End: October 23, 2024 Comic Book Artist Relationship Specialty Start Date End Date Aileen Kumar MD [address] [place] [address] PCP - General Family Medicine 01/01/23 Lanny Berry NP [address] [place] [phone] PCP - [facility] 09/03/23 Comic Book Artist Relationship Specialty Start Date End Date Aileen Kumar MD [address] [place] [address] PCP - General Family Medicine 01/01/23 Lanny Berry NP [address] [place] [phone] PCP - [facility] 09/03/23 Team Status: Inactive Member Role Status Dates Joie Peacock MD Primary Care Provider Active Start: November 24, 2024 End: November 24, 2024 Jennifer Tariq APRN Attending Provider Active Start: November 24, 2024 End: November 24, 2024 Comic Book Artist Relationship Specialty Start Date End Date Aileen Kumar MD [address] [place] [address] PCP - General Family Medicine 01/01/23 Lanny Berry NP [address] [place] [phone] PCP - [facility] 09/03/23 Comic Book Artist Relationship Specialty Start Date End Date Aileen Kumar MD [address] [place] [address] PCP - General Family Medicine 01/01/23 Lanny Berry NP [address] [place] [phone] PCP - [facility] 09/03/23 Comic Book Artist Relationship Specialty Start Date End Date Aileen Kumar MD [address] [place] [address] PCP - [facility] 01/01/23 Lanny Berry NP [address] [place] [phone] PCP - [facility] 09/03/23 Comic Book Artist Relationship Specialty Start Date End Date Aileen Kumar MD [address] [place] [address] PCP - [facility] 01/01/23 Lanny Berry NP [address] [place] [phone] PCP - [facility] 09/03/23 Comic Book Artist Relationship Specialty Start Date End Date Aileen Kumar MD [address] [place] [address] PCP - [facility] 01/01/23 Lanny Berry NP [address] [place] [address] PCP [facility] 09/03/23 Comic Book Artist Relationship Specialty Start Date End Date Aileen Kumar MD [address] [place] [address] PCP - [facility] 01/01/23 Lanny Berry NP [address] [place] [phone] PCP - [facility] 09/03/23 Comic Book Artist Relationship Specialty Start Date End Date Aileen Kumar MD [address] [place] [address] PCP - General Family [facility] 01/01/23 Lanny Berry NP [address] [place] [phone] PCP - [facility] 09/03/23 Comic Book Artist Relationship Specialty Start Date End Date Aileen Kumar MD [address] [place] [address] PCP - General [facility] 01/01/23 Lanny Berry NP [address] [place] [address] PCP - [facility] 09/03/23 Comic Book Artist Relationship Specialty Start Date End Date Aileen Kumar MD [address] [place] [address] PCP - General [facility] 01/01/23 Lanny Berry NP [address] [place] [phone] PCP - [facility] 09/03/23 Comic Book Artist Relationship Specialty Start Date End Date Aileen Kumar MD [address] [place] [address] PCP - General Family [facility] 01/01/23 Lanny Berry NP [address] [place] [phone] PCP - [facility] 09/03/23 Comic Book Artist Relationship Specialty Start Date End Date Aileen Kumar MD [address] [place] [address] PCP - General Family Medicine 01/01/23 Lanny Berry NP [address] [place] [address] PCP - [facility] 09/03/23 Comic Book Artist Relationship Specialty Start Date End Date Lanny Berry APRN-NP [address] [place] [address] PCP - General Nurse Practitioner 03/10/23 Team Status: Inactive Member Role Status Dates Joie Peacock MD Primary Care Provider Active Start: February 23, 2025 End: February 23, 2025 Jennifer Tariq APRN Attending Provider Active Start: February 23, 2025 End: February 23, 2025 Team Status: Inactive Member Role Status Dates Jennifer Tariq APRN Attending Provider Active Start: February 23, 2025 End: February 23, 2025 Team Status: Active Member Role Status Dates PHYSICIAN NO FAMILY Primary Care Provider Active Team Status: Inactive Member Role Status Dates Jennifer Tariq APRN Attending Provider Active Start: February 23, 2025 End: February 23, 2025 PHYSICIAN NO FAMILY Primary Care Provider Active Start: February 23, 2025 End: February 23, 2025 Team Status: Inactive Member Role Status Dates PHYSICIAN NO FAMILY Primary Care Provider Active Start: March 29, 2025 End: March 29, 2025 MISHA Souza RN CALLISTHENICS INSTRUCTOR-C Attending Provider Active Start: March 29, 2025 End: March 29, 2025 Comic Book Artist Relationship Specialty Start Date End Date Lanny Berry APRN-TRAN [address] [place] [address] PCP - General Nurse Practitioner 03/10/23 Comic Book Artist Relationship Specialty Start Date End Date JamalLannyNAMITA [address] [place] [address] [place] [address] PCP - General Nurse Practitioner 03/10/23 FOR RECORDS PERTAINING TO PATIENTS WHO ARE OR HAVE BEEN ENROLLED IN A CHEMICAL DEPENDENCY/SUBSTANCEABUSE PROGRAM, SOME INFORMATION MAY BE OMITTED. This clinical summary was aggregated from multiple sources. Caution should be exercised in using it in the provision of clinical care. This summary normalizes information from multiple sources, and as a consequence, information in this document may materially change the coding, format and clinical context of patient data. In addition, data may be omitted in some cases. CLINICAL DECISIONS SHOULD BE BASED ON THE PRIMARY CLINICAL RECORDS. [employer] [facility]. provides no warranty or guarantee of the accuracy or completeness of information in this document.
[2025-05-10 16:12] LABS: Hematocrit 37.9 % (36.0-48.0); Hemoglobin 13.0 g/dL (12.0-16.0); Immature Granulocytes Abs Auto 0.03 10^3/uL (0.00-0.03); Immature Granulocytes Pct Auto 0.3 % (0.0-0.5); Lymphocytes Absolute Auto 2.9 10^3/uL (1.2-3.8); Mean Corpuscular HGB Conc 34.3 g/dL (29.9-35.2); Mean Corpuscular Hemoglobin 31.6 pg (26.7-34.0); Mean Corpuscular Volume 92.2 fL (81.0-99.0); Platelet Count 286 10^3/uL (150-450); Red Blood Count 4.11 10^6/uL (4.20-5.40); White Blood Count 8.9 10^3/uL (4.0-11.0)
[2025-05-10 16:30] LABS: Anion Gap 13.9; Blood Urea Nitrogen 9.0 mg/dL (7.0-18.0); Calcium 8.9 mg/dL (8.5-10.1); Carbon Dioxide 25.7 mmol/L (21.0-32.0); Chloride 103 mmol/L (98-107); Estimated GFR (African America >60 (>=60 mL/min/1.73m^2); Estimated GFR (Non-African Ame >60 (>=60 mL/min/1.73m^2); Glucose 75 mg/dL (74-106); Potassium 3.6 mmol/L (3.5-5.1); Sodium 139 mmol/L (136-145)
== END 2025-05-10 15:51 | disposition home or self-care (01) ==
LOC: CARD 15:50
DX: Z01.818 Encounter for other preprocedural examination (principal)
CPT/HCPCS: 36415; 80048; 85025; 93005